=== PATIENT | female | born 1935 | race Caucasian/White ===

== ENCOUNTER 2016-06-10 13:59 | Inpatient (IN) | payer OTHER ==
[~2016-06-10] VITALS: Ht 157.5 cm; Wt 100.8 kg
[~2016-06-10 13:59] MED LIST: ALLO300T2 PO; ALPR-411 PO; ASPI81TA28 PO; BUME2TAB3 PO; CALC0.2510 PO; CARV3.122 PO; CHOL100010 PO; CYAN100048 INJ; FERR1TAB13 PO; GABA-113 PO; LCTX PO; LEVO25TA5 PO; NTRGSL/4 UT; OXGN; PANT40TA PO; POLY335025 PO; POTA10CA28 PO; SENN-61 PO; TRAM-10 PO
--- NOTE | 2016-06-10 14:43 | EMERGENCY ROOM VISIT NOTE ---
History Report prepared by Marnie: Edith Medrano Under the Supervision of: Dr. Hima Le M.D. First contact with patient: 14:32 Chief Complaint: RESPIRATORY PROBLEMS Stated Complaint: CHF (FLUID BUILD-UP) History of Present Illness The patient is an 81 year old female who presents to the Emergency Room with complaints of persistent weakness that began several weeks ago. The patient notes that she has a history of fluid build up in her bilateral lower extremities and abdomen. She denies any chest pain, shortness of breath, loss of consciousness, nausea, vomiting, melena, hematochezia, or abdominal pain. The patient denies ever having the fluid drained from her abdomen. She denies any history of liver failure. The patient states that she is on 3 liters of supplemental oxygen at home. She states that her last admission for her fluid build up was in February. The patient states that she recently had an adjustment of her medications. Source of History: patient Onset: several weeks Position: other (global) Quality: other (weakness) Timing: other (persistent) Associated Symptoms: No LOC, No SOB, No abdominal pain, No chest pain, No hematochezia, No melena, No nausea, No vomiting Note: Associated Symptoms: fluid build up in legs and abdomen. Review of Systems See HPI for pertinent positives & negatives. A total of 10 systems reviewed and were otherwise negative. 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 (13) HTN (hypertension) (14) Hypokalemia, excessive renal losses (15) Obesity (16) Oliguria and anuria (17) Pulmonary hypertension (18) Pulmonary hypertension, moderate to severe (19) Renal calculi (20) Septicemia due to group B Streptococcus (21) Severe tricuspid regurgitation Surgical Problems: (1) H/O lumpectomy (2) History of hip surgery (3) S/P JESSEE-BSO Family History Diabetes mellitus FH: heart disease Stroke Social History Smoking Status: Former Smoker Drug Use: none Housing Status: lives with family Occupation Status: retired Current/Historical Medications Scheduled Allopurinol (Zyloprim), 300 MG PO QAM Alprazolam (Xanax), 0.5 MG PO HS Aspirin (Aspirin Ec), 81 MG PO QAM Bumetanide (Bumex), 3 MG PO BID Calcitriol (Rocaltrol Cap), 0.25 MCG PO M, W, F Carvedilol (Coreg), 1 TAB PO BIDM Cholecalciferol (Vitamin D), 2,000 INTER.UNIT PO QAM Cyanocobalamin (Vitamin B-12), 1,000 MCG INJ MONTHLY Ferrous Sulfate (Kp Ferrous Sulfate), 1 TAB PO QAM Gabapentin (Neurontin), 300 MG PO HS Levothyroxine Sodium (Levothyroxine Sodium), 25 MCG PO QAM Metolazone (Metolazone), 5 MG PO 3XWK Nitroglycerin (Nitrostat), 0.4 MG UT PRN Oxygen (Oxygen), 2-3 LITERS NA CONTINOUS Pantoprazole (Protonix), 40 MG PO DINNER Potassium Chloride (Micro-K Ext Rel), 20 MEQ PO BID Scheduled PRN Polyethylene Glycol 3350 (Miralax), 17 GM PO DAILY PRN for Constipation Senna (Senokot), 1 TAB PO DAILY PRN for Constipation Tramadol (Ultram), 50 MG PO Q6H PRN for Pain Allergies Coded Allergies: No Known Allergies (Verified , 06/10/16) Physical Exam Vital Signs Date Time Temp Pulse Resp B/P Pulse Ox O2 Delivery O2 Flow Rate FiO2 06/10/16 15:20 79 23 97/43 96 Nasal Cannula 3.0 06/10/16 14:44 93 Nasal Cannula 3.0 06/10/16 14:38 77 06/10/16 14:30 96 Nasal Cannula 3.0 06/10/16 14:02 36.4 81 20 105/59 97 Nasal Cannula 3.0 Physical Exam GENERAL: Patient is chronically unwell appearing and in minimal distress. HEENT: No acute trauma, normocephalic atraumatic, mucous membranes moist, no nasal congestion, no scleral icterus. NECK: No stridor, no adenopathy, no meningismus, trachea is midline. LUNGS: Crackles in bilateral lung bases. No dyspnea. No wheeze, no rhonchi. HEART: Irregular rate and rhythm. No murmurs, rubs, gallops appreciated. ABDOMEN: 4+ edema in upper abdomen. Soft, nontender, bowel sounds positive, no masses appreciated, no peritonitis. BACK: No midline tenderness, no CVA tenderness EXTREMITIES: 4+ edema in bilateral legs. Normal motion all extremities, no cyanosis. NEUROLOGIC: Alert and oriented, no acute motor or sensory deficits, no focal weakness, cranial nerves grossly intact. SKIN: No rash, no jaundice, no diaphoresis. Medical Decision & Procedures ER Provider Diagnostic Interpretation: X ray results are stated below per my interpretation and the radiologist's interpretation. CHEST ONE VIEW PORTABLE CLINICAL HISTORY: Fluid Overload COMPARISON STUDY: Chest radiograph March 24, 2016. FINDINGS: There is no pneumothorax. Bilateral pleural effusions have slightly increased since exam March 24, 2016. Interstitial thickening suggests pulmonary edema. Bibasilar opacities persist. The patient is rotated. IMPRESSION: 1. Bilateral pleural effusions, likely at least moderate in size. Associated bibasilar opacities statistically represent atelectasis although consolidation could appear similar. 2. Mild pulmonary edema. Electronically signed by: Gaurav Hunter M.D. 06/10/2016 3:27 PM Laboratory Results 06/10/16 15:00 Red Blood Count 3.60, Mean Corpuscular Volume 102.2, Mean Corpuscular Hemoglobin 33.6, Mean Corpuscular Hemoglobin Concent 32.9, Mean Platelet Volume 11.2, Neutrophils (%) (Auto) 76.5, Lymphocytes (%) (Auto) 11.6, Monocytes (%) ( Auto) 10.7, Eosinophils (%) (Auto) 1.0, Basophils (%) (Auto) 0.1, Neutrophils # (Auto) 5.41, Lymphocytes # (Auto) 0.82, Monocytes # (Auto) 0.76, Eosinophils # ( Auto) 0.07, Basophils # (Auto) 0.01 06/10/16 15:00 Test 06/10/16 15:00 White Blood Count 7.08 K/uL (4.8-10.8) Red Blood Count 3.60 M/uL (4.2-5.4) Hemoglobin 12.1 g/dL (12.0-16.0) Hematocrit 36.8 % (37-47) Mean Corpuscular Volume 102.2 fL (80-100) Mean Corpuscular Hemoglobin 33.6 pg (25-34) Mean Corpuscular Hemoglobin Concent 32.9 g/dl (32-36) Platelet Count 74 K/uL (130-400) Mean Platelet Volume 11.2 fL (7.4-10.4) Neutrophils (%) (Auto) 76.5 % Lymphocytes (%) (Auto) 11.6 % Monocytes (%) (Auto) 10.7 % Eosinophils (%) (Auto) 1.0 % Basophils (%) (Auto) 0.1 % Neutrophils # (Auto) 5.41 K/uL (1.4-6.5) Lymphocytes # (Auto) 0.82 K/uL (1.2-3.4) Monocytes # (Auto) 0.76 K/uL (0.11-0.59) Eosinophils # (Auto) 0.07 K/uL (0-0.5) Basophils # (Auto) 0.01 K/uL (0-0.2) RDW Standard Deviation 58.0 fL (36.4-46.3) RDW Coefficient of Variation 15.5 % (11.5-14.5) Immature Granulocyte % (Auto) 0.1 % Immature Granulocyte # (Auto) 0.01 K/uL (0.00-0.02) Platelet Estimate DECREASED Red Blood Cell Morphology Unremarkable Prothrombin Time 14.8 SECONDS (9.0-12.0) Prothromb Time International Ratio 1.4 (0.9-1.1) Activated Partial Thromboplast Time 46.0 SECONDS (21.0-31.0) Partial Thromboplastin Ratio 1.8 Anion Gap 10.0 mmol/L (3-11) Est Creatinine Clear Calc Drug Dose 17.9 ml/min Estimated GFR () 19.1 Estimated GFR (Non- 16.5 BUN/Creatinine Ratio 44.7 (10-20) Calcium Level 9.2 mg/dl (8.5-10.1) Magnesium Level 2.8 mg/dl (1.8-2.4) Total Bilirubin 1.4 mg/dl (0.2-1) Direct Bilirubin 0.8 mg/dl (0-0.2) Aspartate Amino Transf (AST/SGOT) 25 U/L (15-37) Alanine Aminotransferase (ALT/SGPT) 15 U/L (12-78) Alkaline Phosphatase 114 U/L (45-117) Total Creatine Kinase 32 U/L (26-192) Creatine Kinase MB 1.3 ng/ml (0.5-3.6) Creatine Kinase MB Ratio 4.1 (0-3.0) Troponin I 0.031 ng/ml (0-0.045) Pro-B-Type Natriuretic Peptide 9094 pg/ml (0-1800) Total Protein 7.5 gm/dl (6.4-8.2) Albumin 3.2 gm/dl (3.4-5.0) Laboratory results as reviewed by me. ECG Indication: weakness Rate (beats per minute): 76 Rhythm: atrial flutter Findings: no acute ischemic change, other (variable rate) ED Course 1433: The patient was evaluated in room B6. A complete history and physical exam was performed. 1545: I discussed the patients case with Nancy Bunn. He is going to evaluate the patient for further treatment. 1550: I reevaluated the patient and she is doing well. I discussed the exam findings with her and I discussed the treatment plan. She verbalized complete understanding and agreement. She will be evaluated for further treatment. Medical Decision Differential: Infectious, Reactive Airway Disease, Pneumonia, Pneumothorax, COPD , CHF, ACS, Pulmonary Embolism, MSK, GI, Dissection, amongst other etiologies entertained. 81 yr old female arrives for evaluation of worsening dyspnea with exertion, leg/ abdominal swelling and failure of attempt to treat this as outpatient. On work -up found to have bilateral moderate effusions. She is severely overloaded and anasarca. Will defer lasix to hospitalists given her tenuous renal function which has acutely worsened. She is stable in ed feeling better on NC o2. She has entered pulm edema from her CHF but is not requiring BiPAP at this time. Consults Time Called: 1540 Consulting Physician: Nancy Bunn Returned Call: 1545 I discussed the patients case with Nancy Bunn. He is going to evaluate the patient for further treatment. Impression Primary Impression: Congestive heart failure Additional Impressions: Bilateral pleural effusion, Anasarca, Pulmonary edema , Acute on chronic renal failure Scribe Attestation The scribe's documentation has been prepared under my direction and personally reviewed by me in its entirety. I confirm that the note above accurately reflects all work, treatment, procedures, and medical decision making performed by me. Departure Information Dispostion Being Evaluated By Hospitalist Rashad Shirley M.D. (PCP)
[2016-06-10 15:11] LABS: HEMATOCRIT 36.8 % (37-47); MEAN CELL VOLUME 102.2 fL (80-100); MEAN CORPUSCULAR HEMOGLOBIN 33.6 pg (25-34); MEAN CORPUSCULAR HGB CONC 32.9 g/dl (32-36); WHITE BLOOD COUNT 7.08 K/uL (4.8-10.8)
[2016-06-10 15:29] LABS: INR 1.4 (0.9-1.1); PARTIAL THROMBOPLASTIN RATIO 1.8; PROTHROMBIN TIME (PATIENT) 14.8 SECONDS (9.0-12.0)
--- NOTE | 2016-06-10 15:29 | DIAGNOSTIC IMAGING REPORT ---
CHEST ONE VIEW PORTABLE CLINICAL HISTORY: Fluid Overload COMPARISON STUDY: Chest radiograph March 24, 2016. FINDINGS: There is no pneumothorax. Bilateral pleural effusions have slightly increased since exam March 24, 2016. Interstitial thickening suggests pulmonary edema. Bibasilar opacities persist. The patient is rotated. IMPRESSION: 1. Bilateral pleural effusions, likely at least moderate in size. Associated bibasilar opacities statistically represent atelectasis although consolidation could appear similar. 2. Mild pulmonary edema. Electronically signed by: Gaurav Hunter M.D. 06/10/2016 3:27 PM
[2016-06-10 15:31] LABS: BUN/CREATININE RATIO 44.7 (10-20); CALCIUM 9.2 mg/dl (8.5-10.1); CREATININE 2.6 mg/dl (0.60-1.20); MAGNESIUM 2.8 mg/dl (1.8-2.4); POTASSIUM 3.2 mmol/L (3.5-5.1)
[2016-06-10] MEDS ORDERED: BUME1TAB43 PO (15:32)
[2016-06-10] MEDS ORDERED: ZRX5 PO (15:32)
[2016-06-10 15:34] LABS: CKMB/CK RATIO 4.1 (0-3.0)
[2016-06-10 15:48] LABS: PLATELET COUNT 74 K/uL (130-400)
[2016-06-10 15:49] LABS: BASO % 0.1 %; BASO ABS # 0.01 K/uL (0-0.2); COMPLETE YES; IG% 0.1 %; LYMPH % 11.6 %; LYMPH ABS # 0.82 K/uL (1.2-3.4); MEAN PLATELET VOLUME 11.2 fL (7.4-10.4); MONO % 10.7 %; NEUT % 76.5 %; PLT ESTIMATE DECREASED
[2016-06-10] MEDS ORDERED: POTASSIUM CHLR 20 MEQ / WTR 20 MEQ in PREMIXED WATER 100 ML IV STA (15:57)
[2016-06-10] MEDS ORDERED: ALUMINUM/MAGNESIUM/SIMETH (MAALOX MAX) 30 ML UDC PO PRN (16:00)
[2016-06-10] MEDS ORDERED: POLYETHYLENE (MIRALAX) 17 GM PACK PO PRN ×2 (16:00→17:30)
[2016-06-10] MEDS ORDERED: ENOXAPARIN 40 MG/0.4 ML SYR SC SCH (16:00)
[2016-06-10] MEDS: POTASSIUM CHLORIDE 10 MEQ / 100ML WTR IV SCH ×2 (16:45→17:45)
[2016-06-10] MEDS ORDERED: NITROGLYCERIN 0.4 MG SL PER TAB CHARGE UT PRN (17:30)
[2016-06-10 17:56] VITALS: BP 102/57; PULSE 80; TEMP 36.9; O2SAT 96; Ht 157.5 cm; Wt 100.8 kg
[2016-06-10] MEDS: CARVEDILOL 3.125 MG TAB PO SCH (18:00)
[2016-06-10] MEDS ORDERED: ALBUMIN HUMAN 25% 12.5 GM/50 ML VIAL IV ONE (18:00)
--- NOTE | 2016-06-10 18:13 | History and Physical ---
History & Physical Date & Time of Service: Jun 10, 2016 at 17:55 Chief Complaint: Acute On Chronic Renal Failure Primary Care Physician: Rashad Case M.D. History of Present Illness Source: patient, family, clinic records, hospital records, other (nephrology) This is an 81 year old female with PMH of severe COPD and chronic respiratory failure requiring O2 continuously, severe pulmonary HTN and resultant right heart failure, CKD stage IV-V, recent AV-fistula placement awaiting maturation, hx. of paroxysmal atrial fibrillation, not on anticoagulation, anemia due to CKD presents with worsening lower extremity edema. This has been a persistent issue due to right heart failure - spoke with nephrology, Dr. Elizabeth, who patient has been seeing recently. Recent adjustment of bumex and metolazone dose as an outpatient; patient and family still notice a 3kg increase in weight. +4 pitting edema persists in the lower extremities and abdomen. Patient states there is no shortness of breath, and her breathing status is at baseline. Family concerned because they thought she was also more lethargic than usual. She answered all questions appropriately for me. Past Medical/Surgical History Medical Problems: (1) Anemia Status: Chronic (2) Atrial fibrillation Status: Chronic (3) Breast cancer Status: Resolved (4) Chronic diastolic CHF (congestive heart failure) Status: Chronic (5) Chronic renal disease, stage IV Status: Chronic (6) COPD (chronic obstructive pulmonary disease) Permanent Comment: severe Status: Chronic (7) Cor pulmonale, chronic Status: Chronic (8) DM2 (diabetes mellitus, type 2) Permanent Comment: diet-controlled Status: Chronic (9) HTN (hypertension) Status: Chronic (10) Obesity Status: Chronic (11) Pulmonary hypertension Status: Chronic (12) Renal calculi Status: Resolved Surgical Problems: (1) H/O lumpectomy Status: Chronic (2) History of hip surgery Permanent Comment: L KIT Status: Chronic (3) S/P JESSEE-BSO Status: Chronic Family History Diabetes mellitus FH: heart disease Stroke Social History Smoking Status: Former Smoker Drug Use: none Occupational Status: retired Immunizations History of Influenza Vaccine: Yes Influenza Vaccine Date: Mar 15, 2016 History of Pneumococcal: Yes Pneumococcal Date: Mar 15, 2016 Multi-Drug Resistant Organisms History of MDRO: No Allergies Coded Allergies: No Known Allergies (Verified , 06/10/16) Home Medications Scheduled Allopurinol (Zyloprim), 300 MG PO QAM Alprazolam (Xanax), 0.5 MG PO HS Aspirin (Aspirin Ec), 81 MG PO QAM Bumetanide (Bumex), 3 MG PO BID Calcitriol (Rocaltrol Cap), 0.25 MCG PO M, W, F Carvedilol (Coreg), 1 TAB PO BIDM Cholecalciferol (Vitamin D), 2,000 INTER.UNIT PO QAM Cyanocobalamin (Vitamin B-12), 1,000 MCG INJ MONTHLY Ferrous Sulfate (Kp Ferrous Sulfate), 1 TAB PO QAM Gabapentin (Neurontin), 300 MG PO HS Levothyroxine Sodium (Levothyroxine Sodium), 25 MCG PO QAM Metolazone (Metolazone), 5 MG PO 3XWK Nitroglycerin (Nitrostat), 0.4 MG UT PRN Oxygen (Oxygen), 2-3 LITERS NA CONTINOUS Pantoprazole (Protonix), 40 MG PO DINNER Potassium Chloride (Micro-K Ext Rel), 20 MEQ PO BID Scheduled PRN Polyethylene Glycol 3350 (Miralax), 17 GM PO DAILY PRN for Constipation Senna (Senokot), 1 TAB PO DAILY PRN for Constipation Tramadol (Ultram), 50 MG PO Q6H PRN for Pain Review of Systems Constitutional: + weakness, No chills, No fever Respiratory: No cough, No dyspnea at rest, No dyspnea on exertion, No shortness of breath, No sputum Cardiovascular: + edema, No chest pain, No palpitations Abdomen: + problem reported (swelling in the legs), No diarrhea, No nausea, No pain, No vomiting Genitourinary - Female: No dysuria, No urinary frequency, No urinary urgency Neurologic: No numbness/tingling Psychiatric: No anxiety Hematologic / Lymphatic: No abnormal bleeding/bruising Integumentary: No rash Allergic / Immunologic: No environmental allergies, No seasonal allergies Physical Exam Vital Signs Date Time Temp Pulse Resp B/P Pulse Ox O2 Delivery O2 Flow Rate FiO2 06/10/16 17:26 74 23 92/44 97 06/10/16 17:00 74 23 92/44 97 Nasal Cannula 3.0 06/10/16 15:20 79 23 97/43 96 Nasal Cannula 3.0 06/10/16 14:44 93 Nasal Cannula 3.0 06/10/16 14:38 77 06/10/16 14:30 96 Nasal Cannula 3.0 06/10/16 14:02 36.4 81 20 105/59 97 Nasal Cannula 3.0 General Appearance: no apparent distress Head: normocephalic, atraumatic Respiratory/Chest: no respiratory distress, no accessory muscle use, + decreased breath sounds Cardiovascular: regular rate, rhythm, no murmur Abdomen/GI: soft, + pertinent finding (swelling in the abdomen) Extremities/Musculoskelatal: + pedal edema, + swelling (+3-4 pitting edema b/l LE), + pertinent finding (non-tender, non-painful) Neurologic/Psych: clinical partner II-XII nml as tested, no motor/sensory deficits, alert, oriented x 3 Skin: normal color Lymphatic: no adenopathy Diagnostics Laboratory Results Results Past 24 Hours Test 06/10/16 15:00 06/10/16 17:38 Range/Units White Blood Count 7.08 4.8-10.8 K/uL Red Blood Count 3.60 4.2-5.4 M/uL Hemoglobin 12.1 12.0-16.0 g/dL Hematocrit 36.8 37-47 % Mean Corpuscular Volume 102.2 80-100 fL Mean Corpuscular Hemoglobin 33.6 25-34 pg Mean Corpuscular Hemoglobin Concent 32.9 32-36 g/dl Platelet Count 74 130-400 K/uL Mean Platelet Volume 11.2 7.4-10.4 fL Neutrophils (%) (Auto) 76.5 % Lymphocytes (%) (Auto) 11.6 % Monocytes (%) (Auto) 10.7 % Eosinophils (%) (Auto) 1.0 % Basophils (%) (Auto) 0.1 % Neutrophils # (Auto) 5.41 1.4-6.5 K/uL Lymphocytes # (Auto) 0.82 1.2-3.4 K/uL Monocytes # (Auto) 0.76 0.11-0.59 K/uL Eosinophils # (Auto) 0.07 0-0.5 K/uL Basophils # (Auto) 0.01 0-0.2 K/uL RDW Standard Deviation 58.0 36.4-46.3 fL RDW Coefficient of Variation 15.5 11.5-14.5 % Immature Granulocyte % (Auto) 0.1 % Immature Granulocyte # (Auto) 0.01 0.00-0.02 K/uL Platelet Estimate DECREASED Red Blood Cell Morphology Unremarkable Prothrombin Time 14.8 9.0-12.0 SECONDS Prothromb Time International Ratio 1.4 0.9-1.1 Activated Partial Thromboplast Time 46.0 21.0-31.0 SECONDS Partial Thromboplastin Ratio 1.8 Sodium Level 136 136-145 mmol/L Potassium Level 3.2 3.5-5.1 mmol/L Chloride Level 96 98-107 mmol/L Carbon Dioxide Level 30 21-32 mmol/L Anion Gap 10.0 3-11 mmol/L Blood Urea Nitrogen 116 7-18 mg/dl Creatinine 2.60 0.60-1.20 mg/dl Est Creatinine Clear Calc Drug Dose 17.9 ml/min Estimated GFR () 19.1 Estimated GFR (Non- 16.5 BUN/Creatinine Ratio 44.7 10-20 Random Glucose 85 70-99 mg/dl Calcium Level 9.2 8.5-10.1 mg/dl Magnesium Level 2.8 1.8-2.4 mg/dl Total Bilirubin 1.4 0.2-1 mg/dl Direct Bilirubin 0.8 0-0.2 mg/dl Aspartate Amino Transf (AST/SGOT) 25 15-37 U/L Alanine Aminotransferase (ALT/SGPT) 15 12-78 U/L Alkaline Phosphatase 114 45-117 U/L Total Creatine Kinase 32 26-192 U/L Creatine Kinase MB 1.3 0.5-3.6 ng/ml Creatine Kinase MB Ratio 4.1 0-3.0 Troponin I 0.031 0-0.045 ng/ml Pro-B-Type Natriuretic Peptide 9094 0-1800 pg/ml Total Protein 7.5 6.4-8.2 gm/dl Albumin 3.2 3.4-5.0 gm/dl Bedside Glucose 80 70-90 mg/dl Diagnostic Radiology CHEST ONE VIEW PORTABLE CLINICAL HISTORY: Fluid Overload COMPARISON STUDY: Chest radiograph March 24, 2016. FINDINGS: There is no pneumothorax. Bilateral pleural effusions have slightly increased since exam March 24, 2016. Interstitial thickening suggests pulmonary edema. Bibasilar opacities persist. The patient is rotated. IMPRESSION: 1. Bilateral pleural effusions, likely at least moderate in size. Associated bibasilar opacities statistically represent atelectasis although consolidation could appear similar. 2. Mild pulmonary edema. Impression Assessment and Plan This is an 81 year old female with PMH of severe COPD and chronic respiratory failure requiring O2 continuously, severe pulmonary HTN and resultant right heart failure, CKD stage IV-V, recent AV-fistula placement awaiting maturation, hx. of paroxysmal atrial fibrillation, not on anticoagulation, anemia due to CKD presents with worsening lower extremity edema. Severe Pulmonary HTN Right Heart Failure -->patient presents with worsening edema in the LE and abdomen -->recent change in mediations, Bumex 3mg BID and metolazone 5mg -->I spoke with nephrology, Dr. Elizabeth - will do IV Bumex 3mg BID for now -->monitor I's and O's and daily weights -->if no significant increase in urinary output, may need Bumex drip -->monitor kidney function, but benefits outweigh worsening kidney function Severe COPD Chronic Respiratory Failure -->no change in breathing status, no respiratory status change -->continue current O2 use CKD stage IV -->for now, not getting dialysis, creat at 2.6 -->AV fistula - left arm - not mature yet -->will get vascular surgery consult to check this -->nephrology consultation and monitor kidney function DVT ppx -->subq heparin, monitor H/H FULL CODE VTE Prophylaxis VTE Risk Assessment Done? Y/N: Yes Risk Level: Moderate
[2016-06-10 18:46] VITALS: BP 94/42; PULSE 88; TEMP 36.7; O2SAT 92
[2016-06-10] MEDS: BUMETANIDE IV 3 MG in SYRINGE 0 ML IV SCH (19:26)
[2016-06-10] MEDS: POTASSIUM CHLR 10 MEQ / WTR 10 MEQ in PREMIXED WATER 100 ML IV SCH ×2 (19:26→20:51)
[2016-06-10] MEDS: GABAPENTIN 300 MG CAP PO SCH (19:27)
[2016-06-10] MEDS: POTASSIUM CHLORIDE 10 MEQ TABCR PO SCH (19:28)
[2016-06-10 20:00] VITALS: O2SAT 92
[2016-06-10 20:13] VITALS: BP 92/46; PULSE 78; TEMP 36.7; O2SAT 95
[2016-06-10] MEDS: HEPARIN SOD 5000 UNIT/0.5 ML CARP SQ SCH (21:27)
[2016-06-10 22:22] VITALS: PULSE 81; O2SAT 93
[2016-06-11] VITALS (9 sets, daily range): BP systolic 92–117; BP diastolic 43–50; PULSE 18–82; TEMP 36.4–36.8; O2SAT 91–98
[2016-06-11] MEDS: ALPRAZOLAM 0.5 MG TAB PO SCH ×2 (00:39→19:56)
[2016-06-11] MEDS: LEVOTHYROXINE 25 MCG TAB PO SCH (05:24)
[2016-06-11] MEDS: HEPARIN SOD 5000 UNIT/0.5 ML CARP SQ SCH ×3 (05:24→20:32)
[2016-06-11 06:48] LABS: HEMATOCRIT 37.8 % (37-47); MEAN CELL VOLUME 102.7 fL (80-100); MEAN CORPUSCULAR HEMOGLOBIN 33.2 pg (25-34); MEAN CORPUSCULAR HGB CONC 32.3 g/dl (32-36); RED BLOOD COUNT 3.68 M/uL (4.2-5.4); WHITE BLOOD COUNT 6.33 K/uL (4.8-10.8)
[2016-06-11 06:50] LABS: MEAN PLATELET VOLUME 10.8 fL (7.4-10.4); PLATELET COUNT 67 K/uL (130-400)
[2016-06-11 07:19] LABS: BUN/CREATININE RATIO 50.8 (10-20); CALCIUM 8.9 mg/dl (8.5-10.1); CREATININE 2.5 mg/dl (0.60-1.20); MAGNESIUM 2.8 mg/dl (1.8-2.4); POTASSIUM 3.6 mmol/L (3.5-5.1)
--- NOTE | 2016-06-11 07:29 | Clinical Documentation Query ---
Dr. BRISCOE [facility] : CLINICAL DOCUMENTATION QUERY Patient is an 81 year old female admitted with "right heart failure" in the setting of severe pulmonary hypertension. She is being treated with IV Bumex and monitored with I/O and serial chemistries. Echocardiogram from 04/07 demonstrated severe RV dilation with severely reduced RV systolic function in the setting of severe pulmonary hypertension. Please explicitly specify the type of CHF in your patient as this directly impacts DRG assignment. Thank you. In your clinical opinion is this patient being managed for: (x ) Acute systolic right ventricular congestive heart failure ( ) Other explanation of clinical findings (Please Explain) ( ) Unable to determine (Please Define) ( ) Need to Discuss ( ) Not Agree The medical record reflects the following clinical findings, treatment, and risk factors. Clinical Indicators: As above Treatment: Serial chemistries, I/O, cardiology and nephrology consultation Risk Factors: Cardiorenal syndrome, severe pulmonary hypertension Please clarify and document your clinical opinion in the progress notes and discharge summary. Terms such as "probable", "suspected", "likely", "questionable", "possible", or "still to be ruled out" are acceptable. IF IN AGREEMENT, YOU MUST DOCUMENT ABOVE DIAGNOSTIC STATEMENT IN DAILY PROGRESS NOTES AND DISCHARGE SUMMARY. This document is not part of the patient's record. Thank You, Morgan Herrera, AVERY [phone]
[2016-06-11] MEDS: CARVEDILOL 3.125 MG TAB PO SCH ×2 (07:30→15:02)
[2016-06-11] MEDS: ASPIRIN 81 MG ECTAB PO SCH (07:44)
[2016-06-11] MEDS: FERROUS SULFATE 325 MG TAB PO SCH (07:44)
[2016-06-11] MEDS: PANTOprazole SOD 40 MG TAB PO SCH (07:45)
[2016-06-11] MEDS: METOLAZONE 5 MG TAB PO SCH (07:47)
[2016-06-11] MEDS: POTASSIUM CHLORIDE 10 MEQ TABCR PO SCH ×2 (07:50→19:55)
[2016-06-11] MEDS: BUMETANIDE IV 3 MG in SYRINGE 0 ML IV SCH (08:58)
--- NOTE | 2016-06-11 10:08 | Cardiology Consultation ---
Cardiology Consultation Cardiology Consultation: Date: 06/11/16 Attending Pants Presser: Dr. Bueno Requesting Physician: Dr. Cummings HPI: Ani Stiles is 81-year-old female who presented to [facility] yesterday with complaints of worsening SOB, LE edema, and abdominal bloating. She follows with Dr. Horton with [facility] and also has been evaluated by Dr. Mcdaniel and Dr. Guzman during admission last spring. I have also seen the patient most recently in the office last week with similar complaints. Prior to establishing with Nancy, she followed with Dr. Coffey in [place] for history of presumed non ischemic cardiomyopathy, LVEF 40-45% (no prior cardiac catheterization per family), history of chronic afib rate controlled ( no longer on anticoagulation therapy due to GI bleed and anemia), hsitory of cor pulmonale, severe pulm HTN and right heart failure. She follows with Dr. Elizabeth with [facility] who has been managing her outpatient diuretics. Last week patient presented with acute fluid overload, IV furosemide was offered but she had appointment with nephrology that day and patient/family wanted to wait for her evaluation and labs. Over the last week, despite titration of furosemide and addition of metolazone, patient states she had another 5 lb weight gain. At time of consult, patient feeling better than admission. Little urine output per nurse. Receiving IV Bumex and metolazone. Patient states her SOB has improved. Still has significant, likely chronic LE edema. No cough. No chest pain or dizziness. No sense of palpitations. No orthopnea, PND. Review Of Systems See above for pertinent positives & negatives. A total of 10 systems reviewed and were otherwise negative. PAST MEDICAL HISTORY: 1. Atrial fibrillation, no longer on anticoagulation therapy due to GI bleed. On ASA 81 mg 2. Recent GI bleed. 3. History of nonischemic cardiomyopathy, EF known to be 45% to 50%. 4. Cor pulmonale. 5. Pulmonary hypertension. 6. Chronic kidney disease, awaiting fistula maturation 7. History of tobacco abuse , COPD, chronic supplemental oxygen 8. Diabetes. 9. Hypertension. 10. Hypothyroidism. 11. Elevated BMI. 12. Arthritis. 13. Gout. 14. Moderate mitral regurgitation. PAST SURGICAL HISTORY: 1. EGD. 2. Colonoscopy, incomplete. 3. Mastectomy. 4. Hysterectomy. FAMILY HISTORY: Noncontributory SOCIAL HISTORY: Former smoker, quit in 1991. Denies chronic alcohol use. She lives at home with her son. Her daughter, Caren, is involved with her care as well. Allergies Coded Allergies: No Known Allergies (Verified , 10/30/15) Medications Reported Home Medications Medications Dose Route/Sig Max Daily Dose Days Date Category Dose Instructions Metolazone 5 Mg Tab 5 Mg PO 3XWK 06/10/16 Reported Bumex (Bumetanide) 1 Mg Tab 3 Mg PO BID 06/10/16 Reported Ultram (Tramadol HCl) 50 Mg Tab 50 Mg PO Q6H PRN 05/07/16 Rx Vitamin B-12 (Cyanocobalamin) 1,000 Mcg Sub 1,000 Mcg INJ MONTHLY 03/24/16 Reported Micro-K Ext Rel (Potassium Chloride) 10 Meq Capcr 20 Meq PO BID 03/24/16 Reported Oxygen Gas 2-3 Liters NA CONTINOUS 01/19/16 Reported Senokot (Senna) 8.6 Mg Tab 1 Tab PO DAILY PRN 01/19/16 Reported Nitrostat (Nitroglycerin) 0.4 Mg Tab 0.4 Mg UT PRN 01/19/16 Reported Kp Ferrous Sulfate (Ferrous Sulfate) 325 Mg Tab 1 Tab PO QAM 01/19/16 Reported Aspirin Ec (Aspirin) 81 Mg Tab 81 Mg PO QAM 01/19/16 Reported Miralax (Polyethylene Glycol 3350) 1 Pow Pow 17 Gm PO DAILY PRN 01/02/16 Reported Coreg (Carvedilol) 3.125 Mg Tab 1 Tab PO BIDM 30 01/02/16 Reported PER DAUGHTER: IF BP IS LOW PT DOES NOT TAKE A DOSE Levothyroxine Sodium 25 Mcg Tab 25 Mcg PO QAM 10/30/15 Reported Vitamin D (Cholecalciferol) 1,000 Inter.unit Tab 2,000 Inter.unit PO QAM 10/30/15 Reported Xanax (Alprazolam) 0.5 Mg Tab 0.5 Mg PO HS 10/30/15 Reported Protonix (Pantoprazole Sodium) 40 Mg Tab 40 Mg PO DINNER 10/30/15 Reported Zyloprim (Allopurinol) 300 Mg Tab 300 Mg PO QAM 10/30/15 Reported TAKE AM SURGERY SIP WATER Rocaltrol Cap (Calcitriol) 0.25 Mcg Cap 0.25 Mcg PO M, W, F 10/30/15 Reported Neurontin (Gabapentin) 300 Mg Cap 300 Mg PO HS 10/30/15 Reported Physical Exam Last 8 Hrs Date Time Temp Pulse Resp B/P Pulse Ox O2 Delivery O2 Flow Rate FiO2 06/11/16 08:30 36.4 78 18 98/46 92 Nasal Cannula 4.0 06/11/16 04:12 36.4 77 93 92/48 92 2.0 18 06/11/16 04:00 91 Nasal Cannula 3.0 General Appearance: chronically ill in appearance Head: Normocephalic Atraumatic. Eyes: PERRLA, EOMI, conjunctiva and scleral icterus Neck: Supple. No carotid bruits noted. No JVD. No HJD. Respiratory: decreased breath sounds b/l Cardiovascular: irregular rhythm Abdomen: distended Extremities: 2+ hard indurated edema, erythema Neuro: No focal deficits. Data Prior Echocardiogram reviewed, dated 03/27/2016 at [facility] and interpreted by Dr. Guzman: The right ventricle is severely dilated. The right ventricular systolic function is severely reduced. The left ventricular cavity is small. Flattened septum is consistent with RV pressure/volume overload. Left ventricular systolic function is low normal. The qualitative LV ejection fraction =50%. There is severe tricuspid regurgitation. Severe pulmonary hypertension is present. The PA systolic pressure is > 70 mm Hg. There is mild mitral regurgitation. There is a small circumferential pericardial effusion. There are no echocardiographic indications of cardiac tamponade. No definite valvular vegetations noted within the scope of this imaging modality. Compared to the prior study dated 11/10/15 a right pleural effusion is and small pericardial effusion is now noted. Assessment & Plan 81 year old female 1. Acute on chronic combined systolic and diastolic, right greater than left, heart failure decompensation, failing outpatient treatment, complicated by ESRD , cardiorenal syndrome 2. Moderate, enlarging b/l Pleural effusions 3. 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 5. Severe COPD 6.Pulmonary hypertension with chronic cor pulmonale 7.Chronic atrial fibrillation, rate controlled. 8.Obesity 9.Diabetes mellitus 0.History of chronic anemia, recent GI bleed, and not a candidate for anticoagulation Plan: Continue current diuretic therapy with albumin as recommended by nephrology. Monitor I+O's US of chest to quantify enlarging pleural effusions, gustavo for thoracentesis if possible? Continue ASA Holding carvedilol due to hypotension per parameters (patient asymptomatic). Prior admissions required use of dobutamine to aid with fluid status, will consider, if progress is slow. Case to be discussed with Dr. Bueno. Will follow as hospital course progresses. (Sheela Ochoa, PADalton) Cardiology attending physician: Patient seen and examined at the bedside. Significant abdominal bloating and lower extremity edema noted. Denies chest discomfort, palpitations, lightheadedness, disease, syncope or near-syncope. Patient sleeping upon arrival to bedside, however, easily awakens to verbal stimuli. PE:VSS, Gen:AAOx3. Heart: Irregular, normal S1-S2. Lungs: Crackles at the bases bilaterally. Abdomen: Obese, nontender, no rebound or guarding. Extremities: 2-3+ hard nonpitting pretibial bilateral edema. A/P: Agree with above PAC history, physical exam, assessment and plan. Will attempt aggressive diuresis with addition of albumin. Monitor daily weight, and fluid balance closely. Chest ultrasound has been performed and marked for possible thoracentesis if necessary. Also may consider addition of dobutamine to aid with diuresis if necessary. Thank you for allowing me to take part in the care of your patient. Olaf Bueno DO, FACC (Rudi Bueno DO)
--- NOTE | 2016-06-11 11:26 | DIAGNOSTIC IMAGING REPORT ---
CHEST ULTRASONOGRAPHY CLINICAL HISTORY: Bilateral pleural effusions COMPARISON STUDY: No previous studies for comparison. FINDINGS: There is a right pleural effusion with estimated volume of 1000 cc. There is a left pleural effusion with estimated volume of 300 cc. There is underlying left lung atelectasis/consolidation. IMPRESSION: Bilateral pleural effusions with estimated volume is of 1000 cc on the right, and 300 cc on the left Electronically signed by: Balta Vargas M.D. 06/11/2016 11:25 AM
--- NOTE | 2016-06-11 11:51 | Surgery Consultation ---
Consultation Date of Service Jun 11, 2016. Chief Complaint s/p LUE AVF creation History of Present Illness The patient is a 81 year old female with hx of CHF, CKD stage 4-5, HTN, CAD, who is approx 1 month s/p LUE basilic v AVF creation by Dr Penny, seen today for eval of her LUE AVF for possible use for HD if needed. Pt admits SOB and edema. Denies REY, fever, chills, chest pain, abd pain, N/V, rest pain, claudication, other complaints. Daughter present today as well. Vitals Vital Signs Past 12 Hours Date Time Temp Pulse Resp B/P Pulse Ox O2 Delivery O2 Flow Rate FiO2 06/11/16 08:30 36.4 78 18 98/46 92 Nasal Cannula 4.0 06/11/16 04:12 36.4 77 93 92/48 92 2.0 18 06/11/16 04:00 91 Nasal Cannula 3.0 06/11/16 00:12 36.6 82 20 98/49 91 06/11/16 00:00 91 Nasal Cannula 3.0 Allergies Coded Allergies: No Known Allergies (Verified , 06/10/16) Home Medications Scheduled Allopurinol (Zyloprim), 300 MG PO QAM Alprazolam (Xanax), 0.5 MG PO HS Aspirin (Aspirin Ec), 81 MG PO QAM Bumetanide (Bumex), 3 MG PO BID Calcitriol (Rocaltrol Cap), 0.25 MCG PO M, W, F Carvedilol (Coreg), 1 TAB PO BIDM Cholecalciferol (Vitamin D), 2,000 INTER.UNIT PO QAM Cyanocobalamin (Vitamin B-12), 1,000 MCG INJ MONTHLY Ferrous Sulfate (Kp Ferrous Sulfate), 1 TAB PO QAM Gabapentin (Neurontin), 300 MG PO HS Levothyroxine Sodium (Levothyroxine Sodium), 25 MCG PO QAM Metolazone (Metolazone), 5 MG PO 3XWK Nitroglycerin (Nitrostat), 0.4 MG UT PRN Oxygen (Oxygen), 2-3 LITERS NA CONTINOUS Pantoprazole (Protonix), 40 MG PO DINNER Potassium Chloride (Micro-K Ext Rel), 20 MEQ PO BID Scheduled PRN Polyethylene Glycol 3350 (Miralax), 17 GM PO DAILY PRN for Constipation Senna (Senokot), 1 TAB PO DAILY PRN for Constipation Tramadol (Ultram), 50 MG PO Q6H PRN for Pain Problem List Medical Problems: (1) Acute renal failure (2) Anemia (3) Atrial fibrillation (4) Breast cancer (5) Cardiorenal syndrome (6) Chronic diastolic CHF (congestive heart failure) (7) Chronic kidney disease, stage 4 (severe) (8) Chronic renal disease, stage IV (9) COPD (chronic obstructive pulmonary disease) (10) Cor pulmonale, chronic (11) DM2 (diabetes mellitus, type 2) (12) End stage COPD (13) HTN (hypertension) (14) Hypokalemia, excessive renal losses (15) Obesity (16) Oliguria and anuria (17) Pulmonary hypertension (18) Pulmonary hypertension, moderate to severe (19) Renal calculi (20) Septicemia due to group B Streptococcus (21) Severe tricuspid regurgitation Surgical Problems: (1) H/O lumpectomy (2) History of hip surgery (3) S/P JESSEE-BSO Surgical / Medical History Hx Cardiac Surgery: No Hx Abdominal Surgery: Yes Hx Cancer Surgery: Yes (right masectomy) Hx Thoracic Surgery: No Hx Orthopedic: No Hx Urinary Tract Surgery: No HX Other Surgery: No Past Medical/Surgical History: CHF, Hypertension, Kidney Disease Family History Diabetes mellitus FH: heart disease Stroke Social History Smoking Status: Former Smoker Hx Tobacco Use In Past Year?: No Hx Alcohol Use - Type & Amnt: No Hx Substance Use -Type & Amnt: No Review of Systems Constitutional: + malaise, No chills, No fever Skin: No change in color Eyes: No visual changes ENMT: No sore throat Respiratory: + GUTIERREZ, + cough, + orthopnea, + short of breath, No hemoptysis Cardiovascular: + edema, No chest pain, No chest pressure, No intermittent claudication, No syncope Gastrointestinal: No abdominal pain, No nausea, No vomiting Genitourinary - Female: No dysuria, No hematuria Neurologic: + weakness, No dizziness, No headache, No numbness, No tingling Physical Exam Constitutional: General Apperance: well-nourished, well-developed, obese Level of Distress: NAD, acutely ill, chronically ill Psychiatric: Mental Status: active & alert, normal mood, normal affect Orientation: oriented except where noted, to time, to place, to person Memory: recent memory normal, remote memory normal Head: normocephalic, atraumatic Eyes: EOM: EOMI ENMT: normal ENT inspection, hearing grossly normal Neck: supple, trachea midline Lungs: Respiratory effort: no dyspnea Auscultation: deminished air movement, decreased breath sounds, wet rales/ crackles Cardiovascular: Apical Impulse: not displaced Heart Auscultation: no rubs, no gallops, pertinent finding (irregular) Peripheral Pulses: Pulses: full and equal, in all extremities except if noted Bruits: none appreciated Carotid Pulse: normal on the left, normal on the right Brachial Pulses: normal on the left, normal on the right, pertinent finding (LUE basilic v AVF with excellent thrill/bruit, incision healed. ) Radial Pulse: normal on the left, normal on the right Femoral Pulse: normal on the left, normal on the right Posterior Tibialis Pulse: decreased on the left, decreased on the right Dorsalis Pedis Pulse: decreased on the left, decreased on the right Abdomen: Bowel Sounds: normal Inspection & Palpation: soft, no tenderness, guarding & rebound, distended Extremities: Upper Right: no cyanosis, no varicosities, no palpable cord, edema Upper Left: no cyanosis, no varicosities, no palpable cord, edema Lower Right: no cyanosis, no varicosities, no palpable cord, edema Lower Left: no cyanosis, no varicosities, no palpable cord, edema Neurologic: Cranial Nerves: grossly intact Sensation: grossly intact Assessment and Plan ASSESSMENT and PLAN: s/p LUE basilic v AVF creation CKD stage 4-5 Pt s/p first stage basilic v avf. Will require second stage surgery/ transposition before AVF will be usable for HD. Appears to be maturing well. Pt scheduled in office for reeval and to schedule basilic v transposition in June. If pt requires HD prior to AVF readiness, please call and we will place permcath for HD.
[2016-06-11] MEDS: BUMETANIDE IV 10 MG in DEXTROSE 5% 50ML 10 ML IV SCH ×2 (12:15→20:33)
--- NOTE | 2016-06-11 12:27 | Nephrology Consultation ---
Nephrology Consultation Date & Providers Date of Consultation: Jun 11, 2016. Primary Care Provider: Rashad Case M.D. Referring Provider: Reason for Consultation Evaluation management for acute kidney injury and diuretic resistant volume overload. History of Present Illness Ani is a very pleasant 81-year-old female with past medical history significant for stage 4 chronic kidney disease, pulmonary hypertension, tricuspid regurgitation, COPD an chronic diuretic resistant volume overload presented to the hospital with lethargy and increased weight gain over the weekend. Nephrologic consult was requested for management of acute kidney injury and volume overload. Electronic medical records were reviewed in detail during patient's visit. Patient's daughter Caren was at bedside. Ani has known history of stage 4 chronic kidney disease secondary to cardiorenal syndrome, baseline creatinine has been variable from 1.6-1.9. No history of significant proteinuria. Previously had urosepsis in the setting of obstructive uropathy with nephrolithiasis. She was recently seen in the office a week ago when her creatinine was stable at baseline. She has been on high dose of diuretics to maintain her volume status. previously had several episodes of acute kidney injury which eventually improved. She had left brachiocephalic AV fistula placed in April which is currently maturing but may need transposition. She has history of COPD, pulmonary hypertension, tricuspid regurgitation and right-sided heart failure. Has chronic 3+ nonpitting lower extremity and abdominal wall edema. Diuretics dose was difficult to manage as an outpatient in the setting of significant pulmonary hypertension. Bumex was increased to 3 milligram twice a day and metolazone 5 milligram p.o. 3 times a week was added almost a week ago. however, over the weekend she noticed decreasing urine output, gained more than 3 kilos and became more and more lethargic. She was prior to the emergence room yesterday by her family when she was found to have acute kidney injury, creatinine was 2.5 and BUN was 115 and other lab parameter is suggestive of intravascular volume depletion. On admission she was started on IV Bumex but her urine output did not increase as expected. She continues to have significant lower extremity and abdominal wall edema. Has a Herrera catheter in place. Currently she denies any shortness of breath, nausea, anorexia or abdominal pain. No fever, chills, cough or congestion. Allergies Coded Allergies: No Known Allergies (Verified , 12/19/16) Inpatient Medications Current Inpatient Medications Medications (Trade) Dose Ordered Sig/Yvette Route Start Time Stop Time Status Last Admin Dose Admin Al Hydrox/Mg Hydrox/Simethicone (Maalox Max Susp) 15 ml Q4H PRN PO 06/10/16 16:00 07/10/16 15:59 Magnesium Hydroxide (Milk Of Magnesia Susp) 30 ml Q12H PRN PO 06/10/16 16:00 07/10/16 15:59 Ondansetron HCl (Zofran Inj) 4 mg Q6H PRN IV 06/10/16 16:00 07/10/16 15:59 Polyethylene (Miralax Powder Packet) 17 gm DAILY PRN PO 06/10/16 16:00 07/10/16 15:59 Aspirin (Ecotrin Tab) 81 mg QAM PO 06/11/16 09:00 07/11/16 08:59 06/11/16 07:44 81 MG Carvedilol (Coreg Tab) 3.125 mg BIDM PO 06/10/16 18:00 07/10/16 17:59 Gabapentin (Neurontin Cap) 300 mg HS PO 06/10/16 21:00 07/10/16 20:59 06/10/16 19:27 300 MG Levothyroxine Sodium (Synthroid Tab) 25 mcg DAILYBB PO 06/11/16 06:00 07/11/16 05:59 06/11/16 05:24 25 MCG Nitroglycerin (Nitrostat Tab) 0.4 mg UD PRN UT 06/10/16 17:30 07/10/16 17:29 Pantoprazole Sodium (Protonix Tab) 40 mg DAILY PO 06/11/16 09:00 07/11/16 08:59 06/11/16 07:45 40 MG Potassium Chloride (Klor-Con M10) 20 meq BID PO 06/10/16 21:00 07/10/16 20:59 06/11/16 07:50 20 MEQ Senna (Senokot Tab) 8.6 mg DAILY PRN PO 06/10/16 17:30 07/10/16 17:29 Tramadol HCl (Ultram Tab) 50 mg Q6H PRN PO 06/10/16 17:30 07/10/16 17:29 Ferrous Sulfate (Feosol Tab) 325 mg QAM PO 06/11/16 09:00 07/11/16 08:59 06/11/16 07:44 325 MG Metolazone 5 mg 5 mg QAM PO 06/11/16 09:00 07/11/16 08:59 06/11/16 07:47 5 MG Bumetanide/Syringe (Bumex IV/ Syringe) 12 ml @ 4 mls/min BID17 IV 06/10/16 18:00 07/10/16 17:59 06/10/16 19:26 4 MLS/MIN Heparin Sodium (Porcine) (Heparin Sq 5000 Unit/0.5ml) 5,000 unit Q8 SQ 06/10/16 22:00 07/10/16 21:59 06/11/16 05:24 5,000 UNIT Alprazolam (Xanax Tab) 0.5 mg HS PO 06/10/16 21:00 07/10/16 20:59 Family History Diabetes mellitus FH: heart disease Stroke Social History Smoking Status: Former Smoker Drug Use: none Occupation: retired Review of Systems A complete review of systems was performed. Pertinent positives are noted above. All other systems are negative. Physical Exam Date Time Temp Pulse Resp B/P Pulse Ox O2 Delivery O2 Flow Rate FiO2 06/11/16 08:30 36.4 78 18 98/46 92 Nasal Cannula 4.0 06/11/16 04:12 36.4 77 93 92/48 92 2.0 18 06/11/16 04:00 91 Nasal Cannula 3.0 06/11/16 00:12 36.6 82 20 98/49 91 06/11/16 00:00 91 Nasal Cannula 3.0 06/10/16 22:22 81 93 3.0 06/10/16 20:13 36.7 78 18 92/46 95 3.0 06/10/16 20:00 92 Nasal Cannula 3.0 06/10/16 18:46 36.7 88 18 94/42 92 Nasal Cannula 3.0 06/10/16 17:56 36.9 80 19 102/57 96 Nasal Cannula 3.0 06/10/16 17:26 74 23 92/44 97 06/10/16 17:00 74 23 92/44 97 Nasal Cannula 3.0 06/10/16 15:20 79 23 97/43 96 Nasal Cannula 3.0 12/19/16 14:44 93 Nasal Cannula 3.0 06/10/16 14:38 77 06/10/16 14:30 96 Nasal Cannula 3.0 06/10/16 14:02 36.4 81 20 105/59 97 Nasal Cannula 3.0 GENERAL: Elderly female, AAA x 3, pleasant, healthy-appearing, not in any distress. HEENT: Atraumatic, normocephalic. NECK: Supple, + JVD, no carotid bruit appreciated. ENT: No sinus tenderness MOUTH and THROAT: Moist oral mucosa, no oral ulcer or pharyngeal erythema RESPIRATORY: Normal breathing efforts, no accessory muscle use, clear to auscultation bilaterally, no wheezes or rales. CARDIOVASCULAR: S1, S2 normal, rate rhythm regular. ABDOMEN: Soft, nontender, positive bowel sound, Abdominal wall edema MUSCULOSKELETAL: No CVA tenderness. No joint swelling, erythema or tenderness. Normal range of motion. SKIN: No skin rash EXTREMITY: bilateral non pitting, tense lower extremity edema, left brachiocephalic AV fistula with bruit. NEURO: No gross focal neurological deficit, speech fluent. PSYCHIATRY: Normal mood and judgment Laboratory Results Last 24 Hours Test 06/10/16 15:00 06/10/16 17:38 06/10/16 20:26 06/11/16 06:10 White Blood Count 7.08 K/uL 6.33 K/uL Red Blood Count 3.60 M/uL 3.68 M/uL Hemoglobin 12.1 g/dL 12.2 g/dL Hematocrit 36.8 % 37.8 % Mean Corpuscular Volume 102.2 fL 102.7 fL Mean Corpuscular Hemoglobin 33.6 pg 33.2 pg Mean Corpuscular Hemoglobin Concent 32.9 g/dl 32.3 g/dl Platelet Count 74 K/uL 67 K/uL Mean Platelet Volume 11.2 fL 10.8 fL Neutrophils (%) (Auto) 76.5 % Lymphocytes (%) (Auto) 11.6 % Monocytes (%) (Auto) 10.7 % Eosinophils (%) (Auto) 1.0 % Basophils (%) (Auto) 0.1 % Neutrophils # (Auto) 5.41 K/uL Lymphocytes # (Auto) 0.82 K/uL Monocytes # (Auto) 0.76 K/uL Eosinophils # (Auto) 0.07 K/uL Basophils # (Auto) 0.01 K/uL RDW Standard Deviation 58.0 fL 58.5 fL RDW Coefficient of Variation 15.5 % 15.6 % Immature Granulocyte % (Auto) 0.1 % Immature Granulocyte # (Auto) 0.01 K/uL Platelet Estimate DECREASED Red Blood Cell Morphology Unremarkable Prothrombin Time 14.8 SECONDS Prothromb Time International Ratio 1.4 Activated Partial Thromboplast Time 46.0 SECONDS Partial Thromboplastin Ratio 1.8 Sodium Level 136 mmol/L 137 mmol/L Potassium Level 3.2 mmol/L 3.6 mmol/L Chloride Level 96 mmol/L 96 mmol/L Carbon Dioxide Level 30 mmol/L 30 mmol/L Anion Gap 10.0 mmol/L 11.0 mmol/L Blood Urea Nitrogen 116 mg/dl 127 mg/dl Creatinine 2.60 mg/dl 2.50 mg/dl Est Creatinine Clear Calc Drug Dose 17.9 ml/min 19.2 ml/min Estimated GFR () 19.1 20.1 Estimated GFR (Non- 16.5 17.3 BUN/Creatinine Ratio 44.7 50.8 Random Glucose 85 mg/dl 108 mg/dl Calcium Level 9.2 mg/dl 8.9 mg/dl Magnesium Level 2.8 mg/dl 2.8 mg/dl Total Bilirubin 1.4 mg/dl Direct Bilirubin 0.8 mg/dl Aspartate Amino Transf (AST/SGOT) 25 U/L Alanine Aminotransferase (ALT/SGPT) 15 U/L Alkaline Phosphatase 114 U/L Total Creatine Kinase 32 U/L Creatine Kinase MB 1.3 ng/ml Creatine Kinase MB Ratio 4.1 Troponin I 0.031 ng/ml Pro-B-Type Natriuretic Peptide 9094 pg/ml Total Protein 7.5 gm/dl Albumin 3.2 gm/dl Bedside Glucose 80 mg/dl 120 mg/dl Test 06/11/16 06:54 Bedside Glucose 116 mg/dl Impression (1) Acute renal failure (2) Pulmonary hypertension, moderate to severe (3) Chronic kidney disease, stage 4 (severe) (4) Severe tricuspid regurgitation (5) Cardiorenal syndrome (6) Anemia (7) Bilateral pleural effusion Ani is a 81-year-old female with stage 4 chronic kidney disease, severe pulmonary hypertension, tricuspid regurgitation, history of COPD and diuretic resistant volume overload admitted to the hospital with worsening volume status and lethargy. At baseline she has stage 4 chronic kidney disease secondary to cardiorenal syndrome, baseline creatinine variable from a from 1.6-1.9, on admission she was found to have acute kidney injury creatinine has been 2.5-2.6 and BUN worsened to 127. has evidence of intravascular volume depletion however overall volume status worsened and has been less responsive to diuretics. She has left brachiocephalic AV fistula placed in April 2016 and currently maturing. At home she was on Bumex 3 milligram twice a day and metolazone 5 milligrams 3 times weekly but has been less responsive. On admission she was started on Bumex 3 milligrams IV twice a day with suboptimal response. Stop Bumex this morning and started on Bumex drip. Blood pressure has been running soft but she has been asymptomatic, denies any uremic symptoms. Has history of anemia, hemoglobin has been stable previously had GI bleeding, and currently no active bleeding. Recommendations -- Start on Bumex drip --will wait for vascular surgery evaluation of the AV fistula -- monitor renal function daily --Check phosphate and magnesium daily as patient is on high dose of diuretics -- replace potassium as needed --currently there is no emergency need for dialysis however, if response to diuretics is suboptimal or renal function worsened further may need tunnel dialysis catheter and emergency dialysis in next 24-48 hours -- dose medications for GFR less than 10 -- avoid nephrotoxins medications -- discussed the plan in detail with the primary team, patient and her daughter at bedside Thank you for allowing me to participate in your patient's care. It was a pleasure to see Ani This chart was completed utilizing [employer] Speech and voice recognition software. Grammatical errors, random word insertions, pronoun errors and incomplete sentences are occasional consequences of this system. Any questions or concerns about the content, text or information contained within the body of this dictation should be addressed directly to the physician for clarification.
[2016-06-11] MEDS: GABAPENTIN 300 MG CAP PO SCH (19:53)
--- NOTE | 2016-06-11 19:59 | Progress Note ---
Internal Med Progress Note Date of Service: Jun 11, 2016. Provider Documentation: SUBJECTIVE: resting comfortably on the chair denies sob feeling better than yesterday afebrile no cough no chest pain OBJECTIVE: Vital Signs-as noted below Exam: General-alert and awake and oriented ENT-Normal hearing Neck-no neck masses Lungs-cta b/l no wheezing or crackles Heart-s1 and s2 heard regular rate and rhythm, no murmurs Abdomen-soft bowel sounds present nn tender no distension Extremities-lower extremity edema present Neuro-alert and awake moves extremities Lab data as noted below. ASSESSMENT & PLAN: This is an 81 year old female with PMH of severe COPD and chronic respiratory failure requiring O2 continuously, severe pulmonary HTN and resultant right heart failure, CKD stage IV-V, recent AV-fistula placement awaiting maturation, hx. of paroxysmal atrial fibrillation, not on anticoagulation, anemia due to CKD presents with worsening lower extremity edema. Severe Pulmonary HTN Right Heart Failure Patient presents with worsening edema in the LE and abdomen Recently medications changd to , Bumex 3mg BID and metolazone 5mg was started on IV Bumex 3mg BID cardiology and nephrology on board and appreciate inputs required dobutamine drip in the past Nephrology started on Bumex drip and if no improvement plan for dialysis will monitor i/os Severe COPD Chronic Respiratory Failure stable will monitor CKD stage IV creat at 2.6 vascular surgery consulted and appreciate inputs DVT ppx subq heparin, monitor H/H FULL CODE DISPOSITION monitor in tele Vital Signs: Date Time Temp Pulse Resp B/P Pulse Ox O2 Delivery O2 Flow Rate FiO2 06/11/16 19:51 36.4 75 18 105/43 97 06/11/16 16:02 36.8 73 18 111/50 98 3.0 06/11/16 16:00 Nasal Cannula 3.0 06/11/16 12:12 36.7 81 20 117/49 97 Nasal Cannula 3.0 06/11/16 12:00 Nasal Cannula 3.0 06/11/16 08:30 36.4 78 18 98/46 92 Nasal Cannula 4.0 06/11/16 08:00 Nasal Cannula 3.0 06/11/16 04:12 36.4 77 93 92/48 92 2.0 18 06/11/16 04:00 91 Nasal Cannula 3.0 06/11/16 00:12 36.6 82 20 98/49 91 06/11/16 00:00 91 Nasal Cannula 3.0 06/10/16 22:22 81 93 3.0 06/10/16 20:13 36.7 78 18 92/46 95 3.0 06/10/16 20:00 92 Nasal Cannula 3.0 Lab Results: Results Past 24 Hours Test 06/10/16 20:26 06/11/16 06:10 06/11/16 06:54 06/11/16 10:52 Range/Units Bedside Glucose 120 116 190 70-90 mg/dl White Blood Count 6.33 4.8-10.8 K/uL Red Blood Count 3.68 4.2-5.4 M/uL Hemoglobin 12.2 12.0-16.0 g/dL Hematocrit 37.8 37-47 % Mean Corpuscular Volume 102.7 80-100 fL Mean Corpuscular Hemoglobin 33.2 25-34 pg Mean Corpuscular Hemoglobin Concent 32.3 32-36 g/dl RDW Standard Deviation 58.5 36.4-46.3 fL RDW Coefficient of Variation 15.6 11.5-14.5 % Platelet Count 67 130-400 K/uL Mean Platelet Volume 10.8 7.4-10.4 fL Sodium Level 137 136-145 mmol/L Potassium Level 3.6 3.5-5.1 mmol/L Chloride Level 96 98-107 mmol/L Carbon Dioxide Level 30 21-32 mmol/L Anion Gap 11.0 3-11 mmol/L Blood Urea Nitrogen 127 7-18 mg/dl Creatinine 2.50 0.60-1.20 mg/dl Est Creatinine Clear Calc Drug Dose 19.2 ml/min Estimated GFR () 20.1 Estimated GFR (Non- 17.3 BUN/Creatinine Ratio 50.8 10-20 Random Glucose 108 70-99 mg/dl Calcium Level 8.9 8.5-10.1 mg/dl Magnesium Level 2.8 1.8-2.4 mg/dl Test 06/11/16 16:24 Range/Units Bedside Glucose 125 70-90 mg/dl
[2016-06-12] VITALS (10 sets, daily range): BP systolic 93–112; BP diastolic 36–51; PULSE 75–85; TEMP 36.3–37; O2SAT 90–100
[2016-06-12] MEDS: LEVOTHYROXINE 25 MCG TAB PO SCH (05:31)
[2016-06-12] MEDS: HEPARIN SOD 5000 UNIT/0.5 ML CARP SQ SCH ×2 (05:34→14:16)
[2016-06-12] MEDS: FERROUS SULFATE 325 MG TAB PO SCH (07:58)
[2016-06-12] MEDS: BUMETANIDE IV 10 MG in DEXTROSE 5% 50ML 10 ML IV SCH (07:58)
[2016-06-12] MEDS: ASPIRIN 81 MG ECTAB PO SCH (07:58)
[2016-06-12] MEDS: PANTOprazole SOD 40 MG TAB PO SCH (07:59)
[2016-06-12] MEDS: POTASSIUM CHLORIDE 10 MEQ TABCR PO SCH ×2 (07:59→21:05)
[2016-06-12] MEDS: CARVEDILOL 3.125 MG TAB PO SCH ×2 (07:59→16:42)
[2016-06-12] MEDS: METOLAZONE 5 MG TAB PO SCH (08:00)
[2016-06-12 09:20] LABS: BUN/CREATININE RATIO 52.7 (10-20); CREATININE 2.2 mg/dl (0.60-1.20); MAGNESIUM 2.8 mg/dl (1.8-2.4)
[2016-06-12] MEDS ORDERED: POTASSIUM CHLORIDE 20 MEQ TABCR PO ONE (09:40)
[2016-06-12] MEDS: TRAMADOL HCL 50 MG TAB PO PRN ×2 (09:45→16:46)
[2016-06-12 10:04] LABS: HEMATOCRIT 36.2 % (37-47); MEAN CELL VOLUME 102.3 fL (80-100); MEAN CORPUSCULAR HEMOGLOBIN 33.1 pg (25-34); RED BLOOD COUNT 3.54 M/uL (4.2-5.4); WHITE BLOOD COUNT 6.01 K/uL (4.8-10.8)
[2016-06-12 10:06] LABS: MEAN CORPUSCULAR HGB CONC 32.3 g/dl (32-36); MEAN PLATELET VOLUME 10.9 fL (7.4-10.4); PLATELET COUNT 87 K/uL (130-400)
--- NOTE | 2016-06-12 10:38 | Nephrology Progress Note ---
Nephrology Progress Note Date of Service Jun 12, 2016. Chief Complaint follow-up for acute kidney injury and diuretic resistant volume overload. Caroline Law was seen and examined in her room this morning. She is lying in bed, feels tired and lethargic but denies shortness of breath or chest pain overnight. Blood pressure has been stable. Responding to diuretics and net negative 1.5 L since yesterday. Renal function stable, creatinine 2.2. This morning she was found to have bleeding while she was wiping herself after bowel movement. She has Herrera catheter but urine looks clear. Unclear whether she is bleeding by rectum or having vaginal bleeding. She previously had GIB in October 2015, EGD was normal but complicated by hypotension and hypoxia and colonoscopy was not done. Review of Systems A complete review of systems was performed. Pertinent positives are noted above. All other systems are negative. Vital Signs Last 8 Hrs Date Time Temp Pulse Resp B/P Pulse Ox O2 Delivery O2 Flow Rate FiO2 06/12/16 07:43 36.5 81 18 106/47 98 Nasal Cannula 4.0 81 06/12/16 04:38 37.0 78 18 95/36 90 3.0 06/12/16 04:00 Nasal Cannula 3.0 06/12/16 00:07 36.3 75 18 93/41 91 06/12/16 00:00 Nasal Cannula 3.0 I & O 24-Hour Column 06/12/16 07:59 Intake Total 671 ml Output Total 2150 ml Balance -1479 ml Last Recorded Weight Weight (Kilograms): 99.700 Physical Exam GENERAL: Elderly female, AAA x 3, pleasant, chronically ill-appearing, lathergic. NECK: Supple, no JVD. RESPIRATORY: Normal breathing efforts, no accessory muscle use, no wheezes or rales, decreased breath sound at bases. CARDIOVASCULAR: S1, S2 normal, rate rhythm regular. EXTREMITY: Tense non pitting lower extremity edema without significant changes. NEURO: speech fluent. PSYCHIATRY: Normal mood and judgment Family History Diabetes mellitus FH: heart disease Stroke Social History Drug Use: none Occupation: retired Laboratory Results Past 24 Hours Test 06/11/16 10:52 06/11/16 16:24 06/11/16 20:27 06/12/16 06:25 Bedside Glucose 190 mg/dl (70-90) 125 mg/dl (70-90) 201 mg/dl (70-90) 130 mg/dl (70-90) Test 06/12/16 07:30 Allergies Coded Allergies: No Known Allergies (Verified , 06/10/16) Medications Current Inpatient Medications Medications (Trade) Dose Ordered Sig/Yvette Route Start Time Stop Time Status Last Admin Dose Admin Al Hydrox/Mg Hydrox/Simethicone (Maalox Max Susp) 15 ml Q4H PRN PO 06/10/16 16:00 07/10/16 15:59 Magnesium Hydroxide (Milk Of Magnesia Susp) 30 ml Q12H PRN PO 06/10/16 16:00 07/10/16 15:59 Ondansetron HCl (Zofran Inj) 4 mg Q6H PRN IV 06/10/16 16:00 07/10/16 15:59 Polyethylene (Miralax Powder Packet) 17 gm DAILY PRN PO 06/10/16 16:00 07/10/16 15:59 Aspirin (Ecotrin Tab) 81 mg QAM PO 06/11/16 09:00 07/11/16 08:59 06/11/16 07:44 81 MG Carvedilol (Coreg Tab) 3.125 mg BIDM PO 06/10/16 18:00 07/10/16 17:59 06/11/16 15:02 3.125 MG Gabapentin (Neurontin Cap) 300 mg HS PO 06/10/16 21:00 07/10/16 20:59 06/11/16 19:53 300 MG Levothyroxine Sodium (Synthroid Tab) 25 mcg DAILYBB PO 06/11/16 06:00 07/11/16 05:59 06/12/16 05:31 25 MCG Nitroglycerin (Nitrostat Tab) 0.4 mg UD PRN UT 06/10/16 17:30 07/10/16 17:29 Pantoprazole Sodium (Protonix Tab) 40 mg DAILY PO 06/11/16 09:00 07/11/16 08:59 06/11/16 07:45 40 MG Potassium Chloride (Klor-Con M10) 20 meq BID PO 06/10/16 21:00 07/10/16 20:59 06/11/16 19:55 20 MEQ Senna (Senokot Tab) 8.6 mg DAILY PRN PO 06/10/16 17:30 07/10/16 17:29 Tramadol HCl (Ultram Tab) 50 mg Q6H PRN PO 06/10/16 17:30 07/10/16 17:29 Ferrous Sulfate (Feosol Tab) 325 mg QAM PO 06/11/16 09:00 07/11/16 08:59 06/11/16 07:44 325 MG Metolazone (Zaroxolyn Tab) 5 mg QAM PO 06/11/16 09:00 07/11/16 08:59 06/11/16 07:47 5 MG Heparin Sodium (Porcine) (Heparin Sq 5000 Unit/0.5ml) 5,000 unit Q8 SQ 06/10/16 22:00 07/10/16 21:59 06/12/16 05:34 5,000 UNIT Alprazolam 0.5 mg 0.5 mg HS PO 06/10/16 21:00 07/10/16 20:59 06/11/16 19:56 0.5 MG Bumetanide/ Dextrose (Bumex IV/D5 50ml) 50 ml @ 5 mls/hr Q10H IV 06/11/16 10:45 07/11/16 10:44 06/11/16 20:33 5 MLS/HR Impression (1) Acute renal failure (2) Pulmonary hypertension, moderate to severe (3) Chronic kidney disease, stage 4 (severe) (4) Severe tricuspid regurgitation (5) Cardiorenal syndrome (6) Anemia (7) Bilateral pleural effusion Ani is a 81-year-old female with stage 4 chronic kidney disease, severe pulmonary hypertension, tricuspid regurgitation, history of COPD and diuretic resistant volume overload admitted to the hospital with worsening volume status and lethargy. At baseline she has stage 4 chronic kidney disease secondary to cardiorenal syndrome, baseline creatinine variable from a from 1.6-1.9, on admission she was found to have acute kidney injury creatinine has been 2.5-2.6 and BUN worsened to 127. has evidence of intravascular volume depletion however overall volume status worsened and has been less responsive to diuretics. She has left brachiocephalic AV fistula placed in April 2016 and currently maturing. At home she was on Bumex 3 milligram twice a day and metolazone 5 milligrams 3 times weekly but has been less responsive. On admission she was started on Bumex 3 milligrams IV twice a day with suboptimal response. Stop Bumex this morning and started on Bumex drip. Blood pressure has been running soft but she has been asymptomatic, denies any uremic symptoms. Has history of anemia, hemoglobin has been stable previously had GI bleeding, and currently no active bleeding. She had EGD in October 2015, EGD was normal but complicated by hypotension and hypoxia and colonoscopy was not done. Recommendations -- decrease rate of Bumex drip 0.5 milligram/hour --will wait for vascular surgery evaluation of the AV fistula however will not be ready for use at least in med next 2 weeks -- monitor renal function daily --stat CBC and monitor H&H q.12 hours --need to evaluate for possible GI or vaginal bleeding and close monitoring. Patient did have history of GI bleeding few months ago. --currently there is no emergency need for dialysis however, if response to diuretics is suboptimal or renal function worsened further may need tunnel dialysis catheter in near future. -- dose medications for GFR less than 10 -- avoid nephrotoxins medications Will follow.
--- NOTE | 2016-06-12 11:03 | Cardiology Follow-Up ---
Subjective General Date of Service: Jun 12, 2016. Chief Complaint: SOB; CHF; CKD Pt evaluation today including: conversation w/ patient, physical exam, chart review, lab review, review of studies, review of inpatient medication list History of Present Illness Patient feeling tired this AM. Noted "significant" bleeding when having BM this AM. Denies CP or SOB. No dizziness, syncope or near syncope. Urine outputs increased over the last 24 hours. Allergies Coded Allergies: No Known Allergies (Verified , 06/10/16) Social History Smoking Status: Former Smoker Hx Tobacco Use In Past Year?: No Hx Alcohol Use - Type And Amou: No Hx Substance Use - Type And Am: No Problem List Medical Problems: (1) Acute on chronic renal failure Status: Acute (2) Anasarca Status: Acute (3) Anemia Status: Acute (4) Bilateral pleural effusion Status: Acute (5) Cellulitis of right leg Status: Acute (6) CHF (congestive heart failure) Status: Acute (7) Chronic kidney disease Status: Acute (8) Congestive heart failure Status: Acute (9) Constipation Status: Acute (10) GI bleed Status: Acute (11) Jaundice Status: Acute (12) Kidney stone Status: Acute (13) Left sided abdominal pain Status: Acute (14) Pleural effusion Status: Acute (15) Pulmonary edema Status: Acute (16) Renal insufficiency Status: Acute (17) UTI (urinary tract infection) Status: Acute (18) Vomiting and diarrhea Status: Acute (19) Weakness Status: Acute Review of Systems Respiratory: No cough, No dyspnea at rest, No hemoptysis, No shortness of breath, No sputum, No wheezing Cardiac: + edema, No PND, No chest pain, No palpitations Physical Exam Vital Signs Last Vital Signs Documentation Date Time Temp Pulse Resp B/P Pulse Ox O2 Delivery O2 Flow Rate FiO2 06/12/16 08:00 98 Nasal Cannula 4.0 06/12/16 07:43 36.5 81 18 106/47 81 Physical Exam Constitutional: General Apperance: well-nourished, well-developed, obese Level of Distress: NAD, acutely ill, chronically ill Psychiatric: Mental Status: active & alert, normal mood, normal affect Orientation: oriented except where noted, to time, to place, to person Memory: recent memory normal, remote memory normal Head: normocephalic, atraumatic Eyes: EOM: EOMI Neck: supple, trachea midline Lungs: Respiratory effort: no dyspnea Auscultation: deminished air movement (R>L), decreased breath sounds, wet rales/crackles Cardiovascular: Apical Impulse: not displaced Peripheral Pulses: Bruits: none appreciated Carotid Pulse: normal on the left, normal on the right Radial Pulse: normal on the left, normal on the right Femoral Pulse: normal on the left, normal on the right Dorsalis Pedis Pulse: decreased on the left, decreased on the right Abdomen: Bowel Sounds: normal Inspection & Palpation: soft, no tenderness, guarding & rebound, distended Extremities: edema (2+ hard indurated LE edema b/l with chronic stasis changes) Neurologic: Cranial Nerves: grossly intact Sensation: grossly intact Assessment and Plan Assessment and Plan Assessment & Plan 81 year old female 1. Acute on chronic combined systolic and diastolic, right greater than left, heart failure decompensation, failing outpatient treatment, complicated by ESRD , cardiorenal syndrome 2. Moderate, enlarging b/l Pleural effusions, R> L 3. 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 5. Severe COPD 6.Pulmonary hypertension with chronic cor pulmonale 7.Chronic atrial fibrillation, rate controlled. 8.Obesity 9.Diabetes mellitus 10.History of chronic anemia, recent GI bleed in December, and not a candidate for anticoagulation 11. Recurrent GI bleed this AM? Plan: Good diuresis over the last 24 hours. Renal functions table. Continue diuretic therapy with albumin. Supplement potassium and recheck this afternoon. Monitor I+O's Monitor H&H closely with ? GI bleed this AM. Holding carvedilol due to hypotension per parameters (patient asymptomatic). Consider thoracentesis to aid with fluid status, however she is diuresing with stable renal function for now. Prior admissions required use of dobutamine to aid with fluid status, will consider, if progress is slow. Case to be discussed with Dr. Bueno. Will follow as hospital course progresses. Cardiology attending physician: Patient seen and examined at the bedside. Bloody BM reported overnight. Diuresed nearly 2L. Denies chest discomfort, palpitations, lightheadedness, disease, syncope or near-syncope. Daughter present at bedside. PE:VSS, Gen:AAOx3. Heart: Irregular, normal S1-S2. Lungs: Crackles at the bases bilaterally. Abdomen: Obese, nontender, no rebound or guarding. Extremities: 2-3+ hard nonpitting pretibial bilateral edema. +stasis changes. A/P: Agree with above PAC history, physical exam, assessment and plan. Continue bumex infusion with addition of albumin. Nephrology input appreciated. Monitor daily weight, and fluid balance closely. May consider addition of dobutamine to aid with diuresis if necessary. Thoracentesis as per pulmonary medicine. Olaf Bueno DO, [facility] Laboratory Results Last 24 Hours Test 06/11/16 16:24 06/11/16 20:27 06/12/16 06:25 06/12/16 08:13 Bedside Glucose 125 mg/dl 201 mg/dl 130 mg/dl White Blood Count 6.01 K/uL Red Blood Count 3.54 M/uL Hemoglobin 11.7 g/dL Hematocrit 36.2 % Mean Corpuscular Volume 102.3 fL Mean Corpuscular Hemoglobin 33.1 pg Mean Corpuscular Hemoglobin Concent 32.3 g/dl RDW Standard Deviation 57.4 fL RDW Coefficient of Variation 15.4 % Platelet Count 87 K/uL Mean Platelet Volume 10.9 fL Sodium Level 137 mmol/L Potassium Level 3.0 mmol/L Chloride Level 97 mmol/L Carbon Dioxide Level 31 mmol/L Anion Gap 9.0 mmol/L Blood Urea Nitrogen 116 mg/dl Creatinine 2.20 mg/dl Est Creatinine Clear Calc Drug Dose 21.8 ml/min Estimated GFR () 23.4 Estimated GFR (Non- 20.2 BUN/Creatinine Ratio 52.7 Random Glucose 128 mg/dl Calcium Level 9.0 mg/dl Magnesium Level 2.8 mg/dl
--- NOTE | 2016-06-12 13:30 | Pulmonary Consultation ---
History General Date of Service: Jun 12, 2016. Stated Complaint: Acute On Chronic Renal Failure with progressive dependent edema and dyspnea on exertion/at rest. HPI The patient is a 81 year old female who presents to [facility] with complaints of Acute On Chronic Renal Failure. The patient's primary care provider is Rashad Case M.D.. 81y/o female with bilateral pleural effusions and a PmHx significant for: severe COPD, chronic O2 support, severe pulmonary HTN (Echo/RSVP) with associated right heart failure, CKD stage IV-V, recent AV-fistula placement awaiting maturation, paroxysmal atrial fibrillation( not on anticoagulation), Patient admitted with progressive volume overload with poor response to out- patient interventions. She also notes prior to admission 3Kg weight gain, dependent edema, increased lethargy. During our conversation she does not mildly improved SOB, dyspnea but the rest of the symptoms havent changed Historian: patient, family, caregiver, EMS Review of Systems Constitutional: reports: weakness Eyes: reports: no symptoms ENT: reports: no symptoms Cardiovascular: reports: chest tightness Respiratory: reports: GUTIERREZ, shortness of breath Gastrointestinal: reports: other (bloating with mild abdominal discomfort) Genitourinary - Female: reports: no symptoms Musculoskeletal: reports: myalgias Integumentary: reports: no symptoms Neurologic: reports: no symptoms Psychiatric: reports: no symptoms Hematologic / Lymphatic: no symptoms Allergic / Immunologic: no symptoms Past Medical History Past Medical History: (1) Anemia (2) Atrial fibrillation (3) Breast cancer (4) Chronic diastolic CHF (congestive heart failure) (5) Chronic renal disease, stage IV (6) COPD (chronic obstructive pulmonary disease) (7) Cor pulmonale, chronic (8) DM2 (diabetes mellitus, type 2) (9) HTN (hypertension) (10) Obesity (11) Pulmonary hypertension (12) Renal calculi Past Medical History: A Fib, congestive heart failure, COPD, heart disease, hypertension, lung disease, renal disease Past Surgical History: (1) H/O lumpectomy (2) History of hip surgery (3) S/P JESSEE-BSO Family History Diabetes mellitus FH: heart disease Stroke Social History Hx Tobacco Use In Past Year?: No Smoking Status: Former Smoker Alcohol: never Occupational Status: retired Immunizations History of Influenza Vaccine: Yes Influenza Vaccine Date: Mar 15, 2016 History of Pneumococcal: Yes Pneumococcal Date: Mar 15, 2016 History of MDRO History of MDRO: No Allergies Coded Allergies: No Known Allergies (Verified , 06/10/16) Current Medications Reported Home Medications Medications Dose Route/Sig Max Daily Dose Days Date Category Dose Instructions Metolazone 5 Mg Tab 5 Mg PO 3XWK 06/10/16 Reported Bumex (Bumetanide) 1 Mg Tab 3 Mg PO BID 06/10/16 Reported Ultram (Tramadol HCl) 50 Mg Tab 50 Mg PO Q6H PRN 05/07/16 Rx Vitamin B-12 (Cyanocobalamin) 1,000 Mcg Sub 1,000 Mcg INJ MONTHLY 03/24/16 Reported Micro-K Ext Rel (Potassium Chloride) 10 Meq Capcr 20 Meq PO BID 03/24/16 Reported Oxygen Gas 2-3 Liters NA CONTINOUS 01/19/16 Reported Senokot (Senna) 8.6 Mg Tab 1 Tab PO DAILY PRN 01/19/16 Reported Nitrostat (Nitroglycerin) 0.4 Mg Tab 0.4 Mg UT PRN 01/19/16 Reported Kp Ferrous Sulfate (Ferrous Sulfate) 325 Mg Tab 1 Tab PO QAM 01/19/16 Reported Aspirin Ec (Aspirin) 81 Mg Tab 81 Mg PO QAM 01/19/16 Reported Miralax (Polyethylene Glycol 3350) 1 Pow Pow 17 Gm PO DAILY PRN 01/02/16 Reported Coreg (Carvedilol) 3.125 Mg Tab 1 Tab PO BIDM 30 01/02/16 Reported PER DAUGHTER: IF BP IS LOW PT DOES NOT TAKE A DOSE Levothyroxine Sodium 25 Mcg Tab 25 Mcg PO QAM 10/30/15 Reported Vitamin D (Cholecalciferol) 1,000 Inter.unit Tab 2,000 Inter.unit PO QAM 10/30/15 Reported Xanax (Alprazolam) 0.5 Mg Tab 0.5 Mg PO HS 10/30/15 Reported Protonix (Pantoprazole Sodium) 40 Mg Tab 40 Mg PO DINNER 10/30/15 Reported Zyloprim (Allopurinol) 300 Mg Tab 300 Mg PO QAM 10/30/15 Reported TAKE AM SURGERY SIP WATER Rocaltrol Cap (Calcitriol) 0.25 Mcg Cap 0.25 Mcg PO M, W, F 10/30/15 Reported Neurontin (Gabapentin) 300 Mg Cap 300 Mg PO HS 10/30/15 Reported Physical Physical Exam Vital Signs: Date Time Temp Pulse Resp B/P Pulse Ox O2 Delivery O2 Flow Rate FiO2 06/12/16 12:10 36.5 75 16 103/44 99 Nasal Cannula 4.0 75 06/12/16 12:00 98 Nasal Cannula 4.0 06/12/16 08:00 98 Nasal Cannula 4.0 06/12/16 07:43 36.5 81 18 106/47 98 Nasal Cannula 4.0 81 06/12/16 04:38 37.0 78 18 95/36 90 3.0 06/12/16 04:00 Nasal Cannula 3.0 06/12/16 00:07 36.3 75 18 93/41 91 06/12/16 00:00 Nasal Cannula 3.0 06/11/16 22:25 69 96 4.0 06/11/16 20:00 Nasal Cannula 3.0 06/11/16 19:51 36.4 75 18 105/43 97 06/11/16 16:02 36.8 73 18 111/50 98 3.0 06/11/16 16:00 Nasal Cannula 3.0 General Appearance: mild distress Head: NORMOCEPHALIC, ATRAUMATIC Eyes: PERRLA, NO DISCHARGE, EOMI, SCLERAE NORMAL, CONJUNCTIVAE NORMAL ENT: NORMAL EAR EXAM, NORMAL NASAL EXAM, other (try oropharynx) Neck: NORMAL RANGE OF MOTION, NO TENDERNESS, TRACHEA MIDLINE Respiratory: other (decreased breath sounds bilaterally with minimal crackles appreciated globally) Cardiovasular: REGULAR RATE/RHYTHM, NORMAL S1S2 (distant heart sound and able to auscultate for possible murmur) Abdomen: NON TENDER, NORMAL BOWEL SOUNDS, NO REBOUND, NO MASSES, NO GUARDING Genitourinary - Female: EXTERNAL GENITALIA NORMAL Back: NORMAL INSPECTION, NO MIDLINE TENDERNESS, NO CVA TENDERNESS Lower Extremities: edema Edema: Bilateral UE (1+), LLE (3+) Pulses: carotid (R) (1+), carotid (L) (1+), dorsalis pedis (R) (0), dorsalis pedis (L) (0) Neuro: ALERT, ORIENTED x 3, NORMAL MOTOR EXAM, NORMAL SENSATION, other (should note decrease in sensation mildly at the bases/lower extremities bilateral) Reflexes: biceps (R) (1+), bicpes (L) (1+) Psychiatric: NORMAL AFFECT, NO SUICIDAL IDEATION Diagnostics Labs Results Past 24 Hours Test 06/11/16 16:24 06/11/16 20:27 06/12/16 06:25 06/12/16 08:13 Range/Units Bedside Glucose 125 201 130 70-90 mg/dl White Blood Count 6.01 4.8-10.8 K/uL Red Blood Count 3.54 4.2-5.4 M/uL Hemoglobin 11.7 12.0-16.0 g/dL Hematocrit 36.2 37-47 % Mean Corpuscular Volume 102.3 80-100 fL Mean Corpuscular Hemoglobin 33.1 25-34 pg Mean Corpuscular Hemoglobin Concent 32.3 32-36 g/dl RDW Standard Deviation 57.4 36.4-46.3 fL RDW Coefficient of Variation 15.4 11.5-14.5 % Platelet Count 87 130-400 K/uL Mean Platelet Volume 10.9 7.4-10.4 fL Sodium Level 137 136-145 mmol/L Potassium Level 3.0 3.5-5.1 mmol/L Chloride Level 97 98-107 mmol/L Carbon Dioxide Level 31 21-32 mmol/L Anion Gap 9.0 3-11 mmol/L Blood Urea Nitrogen 116 7-18 mg/dl Creatinine 2.20 0.60-1.20 mg/dl Est Creatinine Clear Calc Drug Dose 21.8 ml/min Estimated GFR () 23.4 Estimated GFR (Non- 20.2 BUN/Creatinine Ratio 52.7 10-20 Random Glucose 128 70-99 mg/dl Calcium Level 9.0 8.5-10.1 mg/dl Magnesium Level 2.8 1.8-2.4 mg/dl Test 06/12/16 11:40 Range/Units Bedside Glucose 165 70-90 mg/dl Diagnostic Radiology Ultrasound bilaterally as well as chest x-ray shows costophrenic blunting consistent with pleural effusions EKG Notable for right axis deviation right ventricular enlargement Impression Assessment and Plan 81-year-old female with bilateral pleural effusions, cor pulmonale, volume overload COPD in chronic oxygen requirement: #1 pleural effusion's: Pleural effusions bilaterally most likely associated with volume overload status from cor pulmonale, poor nutrition, renal failure. At this time the patient and her daughter vertebrate to perform thoracentesis. We will initially attempt on the right side and if successful/beneficial repeat the following day and the left side. #2 pulmonary hypertension: Patient's elevated pulmonary pressures based off echocardiogram most likely secondary to volume overload, right left ventricular dysfunctioning and COPD. Group 1 pulmonary hypertension is extremely rare 81-year-old female: This is most likely combination of group 1, 2 and 3. The most beneficial medical treatment at this time his proper cardiac, pulmonary, renal volume control. Thank you for this interesting consultation.
--- NOTE | 2016-06-12 14:08 | Procedure Note ---
Procedure Note Procedure: Thoracentesis left-sided Preprocedural diagnosis: Bilateral pleural effusions Postprocedural diagnosis: Bilateral pleural effusions Consent: Obtained to the patient placed in the chart Analgesia: 6 cc of 1% liquid lidocaine Ultrasound: Ultrasound was used to evaluate the patient's pleural effusions. A spot on the left side posterior/posterior clavicular line along the ninth intercostal spot was marked in upright position. The patient was then draped and prepped in a sterile fashion in the upright position. Following this a modified Seldinger technique was then used to insert a catheter in the pleural space. Approximately 600 cc of moderate dark mildly serosanguineous fluid was returned. Patient tolerated the procedure well. EBL: None Complications: Ultrasound: No signs of pneumothorax Chest x-ray: No signs of PTX
[2016-06-12 14:25] LABS: HEMATOCRIT 36.1 % (37-47)
--- NOTE | 2016-06-12 14:25 | DIAGNOSTIC IMAGING REPORT ---
CHEST ONE VIEW PORTABLE CLINICAL HISTORY: S/P Thoracentesis dyspnea COMPARISON STUDY: 06/11/2016 FINDINGS: Small bilateral pleural effusions. No evidence pneumothorax status post thoracentesis. Pulmonary vasculature is somewhat prominent. IMPRESSION: No evidence pneumothorax status post thoracentesis Electronically signed by: Leoncio Fam M.D. 06/12/2016 2:24 PM
[2016-06-12 14:47] LABS: PLEURAL FLUID GLUCOSE 160 mg/dl
[2016-06-12 14:58] LABS: PLEURAL FLUID APPEARANCE HAZY; PLEURAL FLUID COLOR YELLOW; PLEURAL FLUID SOURCE LEFT LUNG; PLEURAL FLUID WBC (A) 670 /uL
[2016-06-12 15:10] LABS: PLEURAL FLUID MONONUC RELAT 54.5 %; PLEURAL FLUID POLYNUC 45.5 %
--- NOTE | 2016-06-12 15:57 | DIAGNOSTIC IMAGING REPORT ---
PELVIC ULTRASOUND CLINICAL HISTORY: Possible vaginal bleed. COMPARISON STUDY: CT of the abdomen and pelvis January 02, 2016. TECHNIQUE: Transabdominal sonography of the pelvis was performed. FINDINGS: This exam was compromised by suboptimal penetration. The uterus and ovaries are not visualized and may be surgically absent. A small amount of fluid was noted within the pelvis. Sensitivity for detection of pelvic masses is diminished given suboptimal penetration. IMPRESSION: 1. Nonvisualization of the uterus and ovaries which may be surgically absent. Correlation with surgical history is recommended. 2. Small amount of fluid within the pelvis. Evaluation of the pelvis is nearly nondiagnostic due to suboptimal penetration. Electronically signed by: Gaurav Hunter M.D. 06/12/2016 3:55 PM
--- NOTE | 2016-06-12 16:02 | DIAGNOSTIC IMAGING REPORT ---
Venous Doppler evaluation DUPLEX HEMODIALYSIS ACCESS CLINICAL HISTORY: ESRD fistula patency TECHNIQUE: Doppler evaluation COMPARISON STUDY: None FINDINGS: Patient's left basilic fistula is patent. Proximally, maximum diameters 1 cm. At its mid aspect is 9 mm. At the distal aspect in the region of the antecubital fossa is 8 mm. Depth there is proximal aspect is 2.4 cm and 1.2 cm at its mid aspect. IMPRESSION: Patient is left-sided fistula is widely patent. Diameter measurements are as noted. No evidence for thrombosis Electronically signed by: Leoncio Fam M.D. 06/12/2016 4:00 PM
--- NOTE | 2016-06-12 18:02 | Progress Note ---
Internal Med Progress Note Date of Service: Jun 12, 2016. Provider Documentation: SUBJECTIVE: feeling tired but denies any chest pain or sob afebrile had breakfast no nausea or abdominal pain noticed smoe blood while wiping vaginal vs rectal? OBJECTIVE: Vital Signs-as noted below Exam: General-alert and awake and oriented ENT-Normal hearing Neck-no neck masses Lungs-cta b/l no wheezing or crackles Heart-s1 and s2 heard regular rate and rhythm, no murmurs Abdomen-soft bowel sounds present nn tender no distension Extremities-lower extremity edema present Neuro-alert and awake moves extremities Lab data as noted below. ASSESSMENT & PLAN: This is an 81 year old female with PMH of severe COPD and chronic respiratory failure requiring O2 continuously, severe pulmonary HTN and resultant right heart failure, CKD stage IV-V, recent AV-fistula placement awaiting maturation, hx. of paroxysmal atrial fibrillation, not on anticoagulation, anemia due to CKD presents with worsening lower extremity edema. Severe Pulmonary HTN Right Heart Failure Patient presents with worsening edema in the LE and abdomen Recently medications changd to , Bumex 3mg BID and metolazone 5mg was started on IV Bumex 3mg BID cardiology and nephrology on board and appreciate inputs required dobutamine drip in the past not responding much to diuretics as patient on Bumex and metazolne at home Nephrology started on Bumex drip and if no improvement plan for dialysis seems to responding to bumex drip to continue same will monitor i/os Severe COPD Chronic Respiratory Failure stable will monitor Pleural effusion right side s/p thoracocentesis by pulmonary CKD stage IV creat at 2.6 nephrology on board vascular surgery consulted and appreciate inputs s/p av fistula but not mature yet and may take 2 more weeks to mature GI bleed? vaginal bleed? Hx of GI bleed stool for Hemoccult serial young dn h pelvic ultrasound and close monitor DVT ppx subq heparin, monitor H/H FULL CODE DISPOSITION monitor in tele Vital Signs: Date Time Temp Pulse Resp B/P Pulse Ox O2 Delivery O2 Flow Rate FiO2 06/12/16 16:00 98 Nasal Cannula 4.0 06/12/16 15:52 36.3 78 18 106/51 100 Nasal Cannula 3.0 Humidified Oxygen 06/12/16 12:10 36.5 75 16 103/44 99 Nasal Cannula 4.0 75 06/12/16 12:00 98 Nasal Cannula 4.0 06/12/16 08:00 98 Nasal Cannula 4.0 06/12/16 07:43 36.5 81 18 106/47 98 Nasal Cannula 4.0 81 06/12/16 04:38 37.0 78 18 95/36 90 3.0 06/12/16 04:00 Nasal Cannula 3.0 06/12/16 00:07 36.3 75 18 93/41 91 06/12/16 00:00 Nasal Cannula 3.0 06/11/16 22:25 69 96 4.0 06/11/16 20:00 Nasal Cannula 3.0 06/11/16 19:51 36.4 75 18 105/43 97 Lab Results: Results Past 24 Hours Test 06/11/16 20:27 06/12/16 00:00 06/12/16 06:25 06/12/16 08:13 Range/Units Bedside Glucose 201 130 70-90 mg/dl Pleural Fluid Source LEFT LUNG Pleural Fluid Color YELLOW Pleural Fluid Appearance HAZY Pleural Fluid WBC 670 /uL Pleural Fluid RBC < 3000 /uL Pleural Fluid Polynuclear WBCs % 45.5 % Pleural Fluid Mononuclear WBCs % 54.5 % Pleural Fluid Total Protein 3.4 g/dl Pleural Fluid LDH 131 IU Pleural Fluid Glucose 160 mg/dl Pleural Fluid Amylase 36 U/L White Blood Count 6.01 4.8-10.8 K/uL Red Blood Count 3.54 4.2-5.4 M/uL Hemoglobin 11.7 12.0-16.0 g/dL Hematocrit 36.2 37-47 % Mean Corpuscular Volume 102.3 80-100 fL Mean Corpuscular Hemoglobin 33.1 25-34 pg Mean Corpuscular Hemoglobin Concent 32.3 32-36 g/dl RDW Standard Deviation 57.4 36.4-46.3 fL RDW Coefficient of Variation 15.4 11.5-14.5 % Platelet Count 87 130-400 K/uL Mean Platelet Volume 10.9 7.4-10.4 fL Sodium Level 137 136-145 mmol/L Potassium Level 3.0 3.5-5.1 mmol/L Chloride Level 97 98-107 mmol/L Carbon Dioxide Level 31 21-32 mmol/L Anion Gap 9.0 3-11 mmol/L Blood Urea Nitrogen 116 7-18 mg/dl Creatinine 2.20 0.60-1.20 mg/dl Est Creatinine Clear Calc Drug Dose 21.8 ml/min Estimated GFR () 23.4 Estimated GFR (Non- 20.2 BUN/Creatinine Ratio 52.7 10-20 Random Glucose 128 70-99 mg/dl Calcium Level 9.0 8.5-10.1 mg/dl Magnesium Level 2.8 1.8-2.4 mg/dl Test 06/12/16 11:40 06/12/16 14:05 Range/Units Bedside Glucose 165 70-90 mg/dl Hemoglobin 11.7 12.0-16.0 g/dL Hematocrit 36.1 37-47 % Potassium Level 3.3 3.5-5.1 mmol/L Microbiology Results 06/12/16 Gram Stain - Final, Resulted 06/12/16 Bacterial Culture, Resulted Pending
[2016-06-12] MEDS: HYDROCODONE/ACETAMOPHEN 5/325MG TAB PO PRN (19:34)
[2016-06-12] MEDS: ALPRAZOLAM 0.5 MG TAB PO SCH (21:00)
[2016-06-12] MEDS: GABAPENTIN 300 MG CAP PO SCH (21:05)
[2016-06-12 22:01] LABS: HEMATOCRIT 36.2 % (37-47)
[2016-06-13] VITALS (9 sets, daily range): BP systolic 90–109; BP diastolic 49–55; PULSE 75–97; TEMP 36.5–36.9; O2SAT 92–98
[2016-06-13] MEDS: LEVOTHYROXINE 25 MCG TAB PO SCH (06:27)
[2016-06-13 06:30] LABS: HEMATOCRIT 36.3 % (37-47); MEAN CELL VOLUME 103.7 fL (80-100); MEAN CORPUSCULAR HEMOGLOBIN 32.9 pg (25-34); MEAN CORPUSCULAR HGB CONC 31.7 g/dl (32-36); WHITE BLOOD COUNT 7.57 K/uL (4.8-10.8)
[2016-06-13 06:47] LABS: BASO % 0.1 %; BASO ABS # 0.01 K/uL (0-0.2); COMPLETE YES; EOS % 0.3 %; IG% 0.3 %; LYMPH ABS # 0.76 K/uL (1.2-3.4); MEAN PLATELET VOLUME 10.3 fL (7.4-10.4); MONO % 10.3 %; PLATELET COUNT 88 K/uL (130-400)
[2016-06-13 06:58] LABS: BUN/CREATININE RATIO 53.4 (10-20); CALCIUM 8.7 mg/dl (8.5-10.1); CREATININE 2.4 mg/dl (0.60-1.20); MAGNESIUM 2.6 mg/dl (1.8-2.4); POTASSIUM 3.3 mmol/L (3.5-5.1)
[2016-06-13 07:00] LABS: MICROCYTOSIS PRESENT
[2016-06-13] MEDS: ASPIRIN 81 MG ECTAB PO SCH (07:55)
[2016-06-13] MEDS: METOLAZONE 5 MG TAB PO SCH (07:56)
[2016-06-13] MEDS: FERROUS SULFATE 325 MG TAB PO SCH (07:56)
[2016-06-13] MEDS: POTASSIUM CHLORIDE 10 MEQ TABCR PO SCH ×2 (07:56→20:16)
[2016-06-13] MEDS: CARVEDILOL 3.125 MG TAB PO SCH ×2 (07:56→16:17)
[2016-06-13] MEDS: PANTOprazole SOD 40 MG TAB PO SCH (07:56)
[2016-06-13] MEDS ORDERED: BUMETANIDE IV 3 MG in SYRINGE 0 ML IV SCH (09:00)
[2016-06-13] MEDS: BUMETANIDE IV 2 MG in SYRINGE 0 ML IV SCH ×2 (09:39→16:34)
[2016-06-13] MEDS ORDERED: POTASSIUM CHLORIDE 20 MEQ TABCR PO ONE (09:49)
--- NOTE | 2016-06-13 10:00 | Progress Note ---
Progress Note Will place permcath tomorrow at 8am Will schedule for basilic vein transposition early next week.
--- NOTE | 2016-06-13 10:34 | Nephrology Progress Note ---
Nephrology Progress Note Date of Service Jun 13, 2016. Chief Complaint follow-up for acute kidney injury and diuretic resistant volume overload. Caroline Law was seen and examined in her room this morning. She is sitting in chair, feels tired and lethargic but denies shortness of breath or chest pain overnight. Blood pressure has been stable. Responding to diuretics and net negative >1 L since yesterday. Renal function worsened to creatinine 2.5 and BUN 128. Hemoglobin remained stable and no further episode of bleeding. Had thoracentesis on left-sided yesterday. Review of Systems A complete review of systems was performed. Pertinent positives are noted above. All other systems are negative. Vital Signs Last 8 Hrs Date Time Temp Pulse Resp B/P Pulse Ox O2 Delivery O2 Flow Rate FiO2 06/13/16 08:04 36.6 87 22 108/55 94 Nasal Cannula 4.0 06/13/16 08:00 98 Nasal Cannula 4.0 06/13/16 04:00 36.6 97 20 101/50 92 Nasal Cannula 4.0 06/13/16 04:00 93 Nasal Cannula 4.0 I & O 24-Hour Column 06/13/16 07:59 Intake Total 1370 ml Output Total 2850 ml Balance -1480 ml Last Recorded Weight Weight (Kilograms): 94.700 Physical Exam GENERAL: Elderly female, AAA x 3, pleasant, chronically ill-appearing, lathergic. NECK: Supple, no JVD. RESPIRATORY: Normal breathing efforts, no accessory muscle use, no wheezes or rales, decreased breath sound at bases. CARDIOVASCULAR: S1, S2 normal, rate rhythm regular. EXTREMITY: Tense non pitting lower extremity edema without significant changes. NEURO: speech fluent. PSYCHIATRY: Normal mood and judgment Family History Diabetes mellitus FH: heart disease Stroke Social History Drug Use: none Occupation: retired Laboratory Results Past 24 Hours 06/12/16 14:05 06/12/16 21:50 06/13/16 05:55 Red Blood Count 3.50, Mean Corpuscular Volume 103.7, Mean Corpuscular Hemoglobin 32.9, Mean Corpuscular Hemoglobin Concent 31.7, Mean Platelet Volume 10.3, Neutrophils (%) (Auto) 79.0, Lymphocytes (%) (Auto) 10.0, Monocytes (%) ( Auto) 10.3, Eosinophils (%) (Auto) 0.3, Basophils (%) (Auto) 0.1, Neutrophils # (Auto) 5.98, Lymphocytes # (Auto) 0.76, Monocytes # (Auto) 0.78, Eosinophils # ( Auto) 0.02, Basophils # (Auto) 0.01 06/12/16 14:05 06/13/16 05:55 Test 06/12/16 11:40 06/13/16 05:55 Bedside Glucose 165 mg/dl (70-90) White Blood Count 7.57 K/uL (4.8-10.8) Red Blood Count 3.50 M/uL (4.2-5.4) Hemoglobin 11.5 g/dL (12.0-16.0) Hematocrit 36.3 % (37-47) Mean Corpuscular Volume 103.7 fL (80-100) Mean Corpuscular Hemoglobin 32.9 pg (25-34) Mean Corpuscular Hemoglobin Concent 31.7 g/dl (32-36) Platelet Count 88 K/uL (130-400) Mean Platelet Volume 10.3 fL (7.4-10.4) Neutrophils (%) (Auto) 79.0 % Lymphocytes (%) (Auto) 10.0 % Monocytes (%) (Auto) 10.3 % Eosinophils (%) (Auto) 0.3 % Basophils (%) (Auto) 0.1 % Neutrophils # (Auto) 5.98 K/uL (1.4-6.5) Lymphocytes # (Auto) 0.76 K/uL (1.2-3.4) Monocytes # (Auto) 0.78 K/uL (0.11-0.59) Eosinophils # (Auto) 0.02 K/uL (0-0.5) Basophils # (Auto) 0.01 K/uL (0-0.2) RDW Standard Deviation 58.4 fL (36.4-46.3) RDW Coefficient of Variation 15.4 % (11.5-14.5) Immature Granulocyte % (Auto) 0.3 % Immature Granulocyte # (Auto) 0.02 K/uL (0.00-0.02) Microcytosis PRESENT Anion Gap 8.0 mmol/L (3-11) Est Creatinine Clear Calc Drug Dose 19.4 ml/min Estimated GFR () 21.1 Estimated GFR (Non- 18.2 BUN/Creatinine Ratio 53.4 (10-20) Calcium Level 8.7 mg/dl (8.5-10.1) Magnesium Level 2.6 mg/dl (1.8-2.4) Allergies Coded Allergies: No Known Allergies (Verified , 06/10/16) Medications Current Inpatient Medications Medications (Trade) Dose Ordered Sig/Yvette Route Start Time Stop Time Status Last Admin Dose Admin Al Hydrox/Mg Hydrox/Simethicone (Maalox Max Susp) 15 ml Q4H PRN PO 06/10/16 16:00 07/10/16 15:59 Magnesium Hydroxide (Milk Of Magnesia Susp) 30 ml Q12H PRN PO 06/10/16 16:00 07/10/16 15:59 Ondansetron HCl (Zofran Inj) 4 mg Q6H PRN IV 06/10/16 16:00 07/10/16 15:59 Polyethylene (Miralax Powder Packet) 17 gm DAILY PRN PO 06/10/16 16:00 07/10/16 15:59 Aspirin (Ecotrin Tab) 81 mg QAM PO 06/11/16 09:00 07/11/16 08:59 06/13/16 07:55 81 MG Carvedilol (Coreg Tab) 3.125 mg BIDM PO 06/10/16 18:00 07/10/16 17:59 06/13/16 07:56 3.125 MG Gabapentin (Neurontin Cap) 300 mg HS PO 06/10/16 21:00 07/10/16 20:59 06/12/16 21:05 300 MG Levothyroxine Sodium (Synthroid Tab) 25 mcg DAILYBB PO 06/11/16 06:00 07/11/16 05:59 06/13/16 06:27 25 MCG Nitroglycerin (Nitrostat Tab) 0.4 mg UD PRN UT 06/10/16 17:30 07/10/16 17:29 Pantoprazole Sodium (Protonix Tab) 40 mg DAILY PO 06/11/16 09:00 07/11/16 08:59 06/13/16 07:56 40 MG Potassium Chloride (Klor-Con M10) 20 meq BID PO 06/10/16 21:00 07/10/16 20:59 06/13/16 07:56 20 MEQ Senna (Senokot Tab) 8.6 mg DAILY PRN PO 06/10/16 17:30 07/10/16 17:29 Tramadol HCl (Ultram Tab) 50 mg Q6H PRN PO 06/10/16 17:30 07/10/16 17:29 06/12/16 09:45 50 MG Ferrous Sulfate (Feosol Tab) 325 mg QAM PO 06/11/16 09:00 07/11/16 08:59 06/13/16 07:56 325 MG Metolazone (Zaroxolyn Tab) 5 mg QAM PO 06/11/16 09:00 07/11/16 08:59 06/13/16 07:56 5 MG Heparin Sodium (Porcine) (Heparin Sq 5000 Unit/0.5ml) 5,000 unit Q8 SQ 06/10/16 22:00 07/10/16 21:59 Future Hold 06/12/16 14:16 5,000 UNIT Alprazolam (Xanax Tab) 0.5 mg HS PO 06/10/16 21:00 07/10/16 20:59 06/11/16 19:56 0.5 MG Acetaminophen/ Hydrocodone Bitart 1 tab 1 tab Q6H PRN PO 06/12/16 19:30 06/26/16 19:29 06/12/16 19:34 1 TAB Bumetanide/Syringe (Bumex IV/ Syringe) 8 ml @ 4 mls/min DAILY@ IV 06/13/16 09:00 07/13/16 08:59 UNV Impression (1) Acute renal failure (2) Pulmonary hypertension, moderate to severe (3) Chronic kidney disease, stage 4 (severe) (4) Severe tricuspid regurgitation (5) Cardiorenal syndrome (6) Anemia (7) Bilateral pleural effusion Ani is a 81-year-old female with stage 4 chronic kidney disease, severe pulmonary hypertension, tricuspid regurgitation, history of COPD and diuretic resistant volume overload admitted to the hospital with worsening volume status and lethargy. At baseline she has stage 4 chronic kidney disease secondary to cardiorenal syndrome, baseline creatinine variable from a from 1.6-1.9, on admission she was found to have acute kidney injury creatinine has been 2.5-2.6 and BUN worsened to 127. has evidence of intravascular volume depletion however overall volume status worsened and has been less responsive to diuretics. She has left brachiocephalic AV fistula placed in April 2016 and currently maturing. At home she was on Bumex 3 milligram twice a day and metolazone 5 milligrams 3 times weekly but has been less responsive. On admission she was started on Bumex 3 milligrams IV twice a day with suboptimal response. Stop Bumex this morning and started on Bumex drip. Blood pressure has been running soft but she has been asymptomatic, denies any uremic symptoms. Has history of anemia, hemoglobin has been stable previously had GI bleeding, and currently no active bleeding. She had EGD in October 2015, EGD was normal but complicated by hypotension and hypoxia and colonoscopy was not done. Recommendations -- discontinue Bumex drip and resume Bumex 2 milligram IV twice a day. --as patient clearly seems having some uremic symptoms, with further worsening of renal function, will schedule for tunnel dialysis catheter tomorrow and start for 1st dialysis treatment with 2 hours dialysis tomorrow. discussed with patient and her daughter Caren over telephone start ([phone]), they are in agreement to start on dialysis. -- will get social work faculty member involved to setup outpatient dialysis at [place] [facility], will try to schedule on Friday, , Friday. -- monitor renal function daily -- dose medications for GFR less than 10 -- avoid nephrotoxins medications Will follow.
--- NOTE | 2016-06-13 12:55 | Cardiology Follow-Up ---
Subjective General Date of Service: Jun 13, 2016. Chief Complaint: SOB; CHF; CKD Pt evaluation today including: conversation w/ patient, physical exam, chart review, lab review, review of studies, review of inpatient medication list History of Present Illness Patient feeling ok this AM. Notes continued fatigue. SOB and dyspnea improved since thoracentesis yesterday. No chest pain. Allergies Coded Allergies: No Known Allergies (Verified , 06/10/16) Social History Smoking Status: Former Smoker Hx Tobacco Use In Past Year?: No Hx Alcohol Use - Type And Amou: No Hx Substance Use - Type And Am: No Problem List Medical Problems: (1) Acute on chronic renal failure Status: Acute (2) Anasarca Status: Acute (3) Anemia Status: Acute (4) Bilateral pleural effusion Status: Acute (5) Cellulitis of right leg Status: Acute (6) CHF (congestive heart failure) Status: Acute (7) Chronic kidney disease Status: Acute (8) Congestive heart failure Status: Acute (9) Constipation Status: Acute (10) GI bleed Status: Acute (11) Jaundice Status: Acute (12) Kidney stone Status: Acute (13) Left sided abdominal pain Status: Acute (14) Pleural effusion Status: Acute (15) Pulmonary edema Status: Acute (16) Renal insufficiency Status: Acute (17) UTI (urinary tract infection) Status: Acute (18) Vomiting and diarrhea Status: Acute (19) Weakness Status: Acute Review of Systems Respiratory: + shortness of breath, No cough, No dyspnea at rest, No hemoptysis , No sputum, No wheezing Cardiac: + edema, No PND, No chest pain, No orthopnea, No palpitations Physical Exam Vital Signs Last Vital Signs Documentation Date Time Temp Pulse Resp B/P Pulse Ox O2 Delivery O2 Flow Rate FiO2 06/13/16 12:34 36.5 83 15 109/54 96 Room Air 06/13/16 12:00 4.0 Physical Exam Constitutional: General Apperance: well-nourished, well-developed, obese Level of Distress: NAD, acutely ill, chronically ill Psychiatric: Mental Status: active & alert, normal mood, normal affect Orientation: oriented except where noted, to time, to place, to person Memory: recent memory normal, remote memory normal Head: normocephalic, atraumatic Eyes: EOM: EOMI Neck: supple, trachea midline Lungs: Respiratory effort: no dyspnea Auscultation: deminished air movement (R>L), decreased breath sounds, wet rales/crackles Cardiovascular: Apical Impulse: not displaced Peripheral Pulses: Bruits: none appreciated Carotid Pulse: normal on the left, normal on the right Radial Pulse: normal on the left, normal on the right Femoral Pulse: normal on the left, normal on the right Dorsalis Pedis Pulse: decreased on the left, decreased on the right Abdomen: Bowel Sounds: normal Inspection & Palpation: soft, no tenderness, guarding & rebound, distended Extremities: edema (2+ hard indurated LE edema b/l with chronic stasis changes) Neurologic: Cranial Nerves: grossly intact Sensation: grossly intact Assessment and Plan Assessment and Plan Assessment & Plan 81 year old female 1. Acute on chronic combined systolic and diastolic, right greater than left, heart failure decompensation, failing outpatient treatment, complicated by ESRD , cardiorenal syndrome 2. Moderate, enlarging b/l Pleural effusions s/p thoracentesis 3. 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 5. Severe COPD 6.Pulmonary hypertension with chronic cor pulmonale 7.Chronic atrial fibrillation, rate controlled. 8.Obesity 9.Diabetes mellitus 10.History of chronic anemia, recent GI bleed in December, and not a candidate for anticoagulation 11. Recurrent GI bleed Plan: Continue diuretic therapy with albumin per nephrology. Plan for PermCath tomorrow as fistula is not mature. Good results with thoracentesis. Supplement potassium and monitor. Monitor I+O's Monitor H&H closely - stable. Holding carvedilol due to hypotension per parameters (patient asymptomatic). Case to be discussed with Dr. Bueno. Will follow as hospital course progresses. Cardiology attending physician: Patient seen and examined at the bedside. Carvedilol on hold due to hypotension. Denies chest discomfort, palpitations, lightheadedness, disease, syncope or near-syncope. Daughter present at bedside. PE:VSS, Gen:AAOx3. Heart: Irregular, normal S1-S2. Lungs: Crackles at the bases bilaterally. Abdomen: Obese, nontender, no rebound or guarding. Extremities: 2-3+ hard nonpitting pretibial bilateral edema. +stasis changes. A/P: Agree with above PAC history, physical exam, assessment and plan. Continue bumex plus albumin. Nephrology input appreciated. Monitor daily weight, and fluid balance closely. Plan for permcath palcement. Olaf Bueno DO, [facility] Laboratory Results Last 24 Hours Test 06/12/16 14:05 06/12/16 21:50 06/13/16 05:55 06/13/16 10:30 Hemoglobin 11.7 g/dL 11.8 g/dL 11.5 g/dL Hematocrit 36.1 % 36.2 % 36.3 % Potassium Level 3.3 mmol/L 3.3 mmol/L White Blood Count 7.57 K/uL Red Blood Count 3.50 M/uL Mean Corpuscular Volume 103.7 fL Mean Corpuscular Hemoglobin 32.9 pg Mean Corpuscular Hemoglobin Concent 31.7 g/dl Platelet Count 88 K/uL Mean Platelet Volume 10.3 fL Neutrophils (%) (Auto) 79.0 % Lymphocytes (%) (Auto) 10.0 % Monocytes (%) (Auto) 10.3 % Eosinophils (%) (Auto) 0.3 % Basophils (%) (Auto) 0.1 % Neutrophils # (Auto) 5.98 K/uL Lymphocytes # (Auto) 0.76 K/uL Monocytes # (Auto) 0.78 K/uL Eosinophils # (Auto) 0.02 K/uL Basophils # (Auto) 0.01 K/uL RDW Standard Deviation 58.4 fL RDW Coefficient of Variation 15.4 % Immature Granulocyte % (Auto) 0.3 % Immature Granulocyte # (Auto) 0.02 K/uL Microcytosis PRESENT Sodium Level 138 mmol/L Chloride Level 98 mmol/L Carbon Dioxide Level 32 mmol/L Anion Gap 8.0 mmol/L Blood Urea Nitrogen 128 mg/dl Creatinine 2.40 mg/dl Est Creatinine Clear Calc Drug Dose 19.4 ml/min Estimated GFR () 21.1 Estimated GFR (Non- 18.2 BUN/Creatinine Ratio 53.4 Random Glucose 159 mg/dl Calcium Level 8.7 mg/dl Magnesium Level 2.6 mg/dl Hepatitis B Surface Antigen NEG Hepatitis C Antibody NEG
--- NOTE | 2016-06-13 14:48 | Procedure Note ---
Procedure Note Procedure: Thoracentesis right-sided Preprocedural diagnosis: Bilateral pleural effusions Postprocedural diagnosis: Bilateral pleural effusions Consent: Obtained to the patient placed in the chart Analgesia: 6 cc of 1% liquid lidocaine Ultrasound: Ultrasound was used to evaluate the patient's pleural effusions. A spot on the right side along the posterior axillary line in the ninth intercostal space was marked in upright position. The patient was then draped and prepped in a sterile fashion in the upright position. Following this a modified Seldinger technique was then used to insert a catheter in the pleural space. Approximately 1100 cc of moderately dark yellow fluid was returned. Patient tolerated the procedure well. EBL: None Complications: Ultrasound: No signs of pneumothorax Chest x-ray: No signs of PTX
[2016-06-13 14:49] LABS: HEMATOCRIT 36.8 % (37-47)
[2016-06-13 14:56] LABS: PLEURAL FLUID TOTAL PROTEIN 3.7 g/dl
[2016-06-13 14:57] LABS: PLEURAL FLUID APPEARANCE CLEAR; PLEURAL FLUID COLOR YELLOW; PLEURAL FLUID MONONUC RELAT 51.9 %; PLEURAL FLUID POLYNUC 48.1 %; PLEURAL FLUID SOURCE RIGHT LUNG; PLEURAL FLUID WBC (A) 104 /uL
--- NOTE | 2016-06-13 15:17 | DIAGNOSTIC IMAGING REPORT ---
CHEST ONE VIEW PORTABLE CLINICAL HISTORY: POST THORACENTESIS COMPARISON STUDY: 06/12/2016 FINDINGS: The heart is enlarged. There are bilateral pleural effusions with bibasilar atelectasis/consolidation. There is pulmonary venous hypertension. There is no pneumothorax status post thoracentesis.[ IMPRESSION: No pneumothorax status post thoracentesis Electronically signed by: Balta Vargas M.D. 06/13/2016 3:16 PM
[2016-06-13 15:22] LABS: BUN/CREATININE RATIO 52.2 (10-20); CREATININE 2.5 mg/dl (0.60-1.20); PHOSPHORUS 3.8 mg/dl (2.5-4.9); POTASSIUM 3.5 mmol/L (3.5-5.1)
[2016-06-13 15:32] LABS: CALCIUM 8.8 mg/dl (8.5-10.1)
--- NOTE | 2016-06-13 16:31 | Pulmonology Progress Note ---
Pulmonary Progress Note Date of Service Jun 13, 2016. Attending Dr. Rudi Bradley Subjective Patient is stable today no acute changes in her respiratory status. She did have some discomfort last night along her left hemithorax which has resolved itself spontaneously. She describes it as a tearing/sharp discomfort. Objective Patient looks stable not using accessory muscles unable to complete full sentences. Labs reviewed: At this time her labs based off the pleural fluid are consistent with transudative effusions. I should note this is both from the thoracentesis on the left as well as the most recent from today on the right. Physical exam: Respiratory: There are crackles at the bases relatively clear anteriorly at the apices bilaterally Cardiac: S1 and S2 distant heart sounds regular rate and rhythm Assessment & Plan 81y/o female with bilateral pleural effusions: #1 pleural effusion's: Pleural effusions bilaterally most likely associated with volume overload status from cor pulmonale, poor nutrition, renal failure. At this time the patient and her daughter vertebrate to perform thoracentesis. We will initially attempt on the right side and if successful/beneficial repeat the following day and the left side. #2 pulmonary hypertension: Patient's elevated pulmonary pressures based off echocardiogram most likely secondary to volume overload, right left ventricular dysfunctioning and COPD. Group 1 pulmonary hypertension is extremely rare 81y/o female with bilateral pleural effusions: #1 Pleural Effusion's: Pleural fluid chemistry is consistent with transudate. These are most likely secondary to volume overload/renal insufficiency-failure, cor pulmonale, poor nutrition, renal failure. Left: I think is highly likely the patient has a entrapped or possibly trapped lung on along the left hemithorax. Evaluated to define this would be via pleural manometry and we are unable to do that at this time. #2 Pulmonary Hypertension: Patient's elevated pulmonary pressures based off echocardiogram most likely secondary to volume overload, right left ventricular dysfunctioning and COPD. Group 1 pulmonary hypertension is extremely rare 81-year-old female: This is most likely combination of group 1, 2 and 3. The most beneficial medical treatment at this time his proper cardiac, pulmonary, renal volume control. Data Medications: Current Inpatient Medications Medications (Trade) Dose Ordered Sig/Yvette Route Start Time Stop Time Status Last Admin Dose Admin Al Hydrox/Mg Hydrox/Simethicone (Maalox Max Susp) 15 ml Q4H PRN PO 06/10/16 16:00 07/10/16 15:59 Magnesium Hydroxide (Milk Of Magnesia Susp) 30 ml Q12H PRN PO 06/10/16 16:00 07/10/16 15:59 Ondansetron HCl (Zofran Inj) 4 mg Q6H PRN IV 06/10/16 16:00 07/10/16 15:59 Polyethylene (Miralax Powder Packet) 17 gm DAILY PRN PO 06/10/16 16:00 07/10/16 15:59 Aspirin (Ecotrin Tab) 81 mg QAM PO 06/11/16 09:00 07/11/16 08:59 06/13/16 07:55 81 MG Carvedilol (Coreg Tab) 3.125 mg BIDM PO 06/10/16 18:00 07/10/16 17:59 06/13/16 07:56 3.125 MG Gabapentin (Neurontin Cap) 300 mg HS PO 06/10/16 21:00 07/10/16 20:59 06/12/16 21:05 300 MG Levothyroxine Sodium (Synthroid Tab) 25 mcg DAILYBB PO 06/11/16 06:00 07/11/16 05:59 06/13/16 06:27 25 MCG Nitroglycerin (Nitrostat Tab) 0.4 mg UD PRN UT 06/10/16 17:30 07/10/16 17:29 Pantoprazole Sodium (Protonix Tab) 40 mg DAILY PO 06/11/16 09:00 07/11/16 08:59 06/13/16 07:56 40 MG Potassium Chloride (Klor-Con M10) 20 meq BID PO 06/10/16 21:00 07/10/16 20:59 06/13/16 07:56 20 MEQ Senna (Senokot Tab) 8.6 mg DAILY PRN PO 06/10/16 17:30 07/10/16 17:29 Tramadol HCl (Ultram Tab) 50 mg Q6H PRN PO 06/10/16 17:30 07/10/16 17:29 06/12/16 09:45 50 MG Ferrous Sulfate (Feosol Tab) 325 mg QAM PO 06/11/16 09:00 07/11/16 08:59 06/13/16 07:56 325 MG Heparin Sodium (Porcine) (Heparin Sq 5000 Unit/0.5ml) 5,000 unit Q8 SQ 06/10/16 22:00 07/10/16 21:59 Future Hold 06/12/16 14:16 5,000 UNIT Alprazolam (Xanax Tab) 0.5 mg HS PO 06/10/16 21:00 07/10/16 20:59 06/11/16 19:56 0.5 MG Acetaminophen/ Hydrocodone Bitart 1 tab 1 tab Q6H PRN PO 06/12/16 19:30 06/26/16 19:29 06/12/16 19:34 1 TAB Bumetanide 2 mg/ Syringe 8 ml @ 4 mls/min BID@0900,1700 IV 06/13/16 09:00 07/13/16 08:59 06/13/16 09:39 4 MLS/MIN Cefazolin Sodium (Ancef 2000mg/60 ml D5W) 60 ml @ 120 mls/hr PREOP@0600 IV 06/14/16 06:00 06/14/16 14:00 I & O: 24-Hour Column 06/13/16 07:59 Intake Total 1370 ml Output Total 2850 ml Balance -1480 ml Vital Signs: Date Time Temp Pulse Resp B/P Pulse Ox O2 Delivery O2 Flow Rate FiO2 06/13/16 16:00 36.9 75 18 90/49 95 06/13/16 12:34 36.5 83 15 109/54 96 Room Air 06/13/16 12:00 98 Nasal Cannula 4.0 06/13/16 08:04 36.6 87 22 108/55 94 Nasal Cannula 4.0 06/13/16 08:00 98 Nasal Cannula 4.0 06/13/16 04:00 36.6 97 20 101/50 92 Nasal Cannula 4.0 06/13/16 04:00 93 Nasal Cannula 4.0 06/13/16 00:00 94 Nasal Cannula 4.0 06/13/16 00:00 36.8 90 22 106/53 93 Nasal Cannula 4.0 06/12/16 20:00 90 Nasal Cannula 4.0 06/12/16 19:10 37.0 85 25 112/47 94 Nasal Cannula 3.0 Humidified Oxygen Laboratory Results: Last 24 Hours Test 06/12/16 21:50 06/13/16 00:00 06/13/16 05:55 06/13/16 10:30 Hemoglobin 11.8 g/dL 11.5 g/dL Hematocrit 36.2 % 36.3 % Pleural Fluid Source RIGHT LUNG Pleural Fluid Color YELLOW Pleural Fluid Appearance CLEAR Pleural Fluid WBC 104 /uL Pleural Fluid RBC < 3000 /uL Pleural Fluid pH 7.44 Pleural Fluid Polynuclear WBCs % 48.1 % Pleural Fluid Mononuclear WBCs % 51.9 % Pleural Fluid Total Protein 3.7 g/dl Pleural Fluid LDH 86 IU Pleural Fluid Glucose 167 mg/dl Pleural Fluid Amylase 41 U/L White Blood Count 7.57 K/uL Red Blood Count 3.50 M/uL Mean Corpuscular Volume 103.7 fL Mean Corpuscular Hemoglobin 32.9 pg Mean Corpuscular Hemoglobin Concent 31.7 g/dl Platelet Count 88 K/uL Mean Platelet Volume 10.3 fL Neutrophils (%) (Auto) 79.0 % Lymphocytes (%) (Auto) 10.0 % Monocytes (%) (Auto) 10.3 % Eosinophils (%) (Auto) 0.3 % Basophils (%) (Auto) 0.1 % Neutrophils # (Auto) 5.98 K/uL Lymphocytes # (Auto) 0.76 K/uL Monocytes # (Auto) 0.78 K/uL Eosinophils # (Auto) 0.02 K/uL Basophils # (Auto) 0.01 K/uL RDW Standard Deviation 58.4 fL RDW Coefficient of Variation 15.4 % Immature Granulocyte % (Auto) 0.3 % Immature Granulocyte # (Auto) 0.02 K/uL Microcytosis PRESENT Sodium Level 138 mmol/L Potassium Level 3.3 mmol/L Chloride Level 98 mmol/L Carbon Dioxide Level 32 mmol/L Anion Gap 8.0 mmol/L Blood Urea Nitrogen 128 mg/dl Creatinine 2.40 mg/dl Est Creatinine Clear Calc Drug Dose 19.4 ml/min Estimated GFR () 21.1 Estimated GFR (Non- 18.2 BUN/Creatinine Ratio 53.4 Random Glucose 159 mg/dl Calcium Level 8.7 mg/dl Magnesium Level 2.6 mg/dl Hepatitis B Surface Antigen NEG Hepatitis C Antibody NEG Test 06/13/16 14:23 06/13/16 14:39 Hemoglobin 11.7 g/dL Hematocrit 36.8 % Sodium Level 138 mmol/L Potassium Level 3.5 mmol/L Chloride Level 96 mmol/L Carbon Dioxide Level 33 mmol/L Anion Gap 9.0 mmol/L Blood Urea Nitrogen 131 mg/dl Creatinine 2.50 mg/dl Est Creatinine Clear Calc Drug Dose 18.6 ml/min Estimated GFR () 20.1 Estimated GFR (Non- 17.3 BUN/Creatinine Ratio 52.2 Random Glucose 132 mg/dl Calcium Level 8.8 mg/dl Phosphorus Level 3.8 mg/dl Albumin 3.0 gm/dl
[2016-06-13] MEDS: TRAMADOL HCL 50 MG TAB PO PRN (19:09)
--- NOTE | 2016-06-13 19:14 | Progress Note ---
Internal Med Progress Note Date of Service: Jun 13, 2016. Provider Documentation: SUBJECTIVE: feeling tired resting on the chair comfortably had bowel movement today and no bloody or black stools noted afebrile says feeling somewhat better today eating ok lower extremity swelling improving OBJECTIVE: Vital Signs-as noted below Exam: General-alert and awake and oriented ENT-Normal hearing Neck-no neck masses Lungs-cta b/l no wheezing or crackles Heart-s1 and s2 heard regular rate and rhythm, no murmurs Abdomen-soft bowel sounds present nn tender no distension Extremities-lower extremity edema present-improving Neuro-alert and awake moves extremities Lab data as noted below. ASSESSMENT & PLAN: This is an 81 year old female with PMH of severe COPD and chronic respiratory failure requiring O2 continuously, severe pulmonary HTN and resultant right heart failure, CKD stage IV-V, recent AV-fistula placement awaiting maturation, hx. of paroxysmal atrial fibrillation, not on anticoagulation, anemia due to CKD presents with worsening lower extremity edema. Severe Pulmonary HTN Right Heart Failure Patient presents with worsening edema in the LE and abdomen Recently medications changd to , Bumex 3mg BID and metolazone 5mg was started on IV Bumex 3mg BID cardiology and nephrology on board and appreciate inputs required dobutamine drip in the past not responding much to diuretics as patient on Bumex and metazolne at home Nephrology started on Bumex drip and if no improvement plan for dialysis seems to responding to Bumex drip plan for perma cath in am and initiation of dialysis Severe COPD Chronic Respiratory Failure stable will monitor Pleural effusion left side s/p thoracocentesis by pulmonary stable CKD stage IV creat at 2.5 today nephrology on board vascular surgery consulted and appreciate inputs s/p av fistula but not mature yet and may take 2 more weeks to mature plan for Perma cath in am and initiation of dialysis GI bleed? vaginal bleed? Hx of GI bleed stool for Hemoccult serial young dn h pelvic ultrasound-unremarkable h and h stable no more episodes DVT ppx scds, monitor H/H FULL CODE DISPOSITION monitor in tele Vital Signs: Date Time Temp Pulse Resp B/P Pulse Ox O2 Delivery O2 Flow Rate FiO2 06/13/16 16:00 36.9 75 18 90/49 95 06/13/16 16:00 98 Nasal Cannula 4.0 06/13/16 12:34 36.5 83 15 109/54 96 Room Air 06/13/16 12:00 98 Nasal Cannula 4.0 06/13/16 08:04 36.6 87 22 108/55 94 Nasal Cannula 4.0 06/13/16 08:00 98 Nasal Cannula 4.0 06/13/16 04:00 36.6 97 20 101/50 92 Nasal Cannula 4.0 06/13/16 04:00 93 Nasal Cannula 4.0 06/13/16 00:00 94 Nasal Cannula 4.0 06/13/16 00:00 36.8 90 22 106/53 93 Nasal Cannula 4.0 06/12/16 20:00 90 Nasal Cannula 4.0 06/12/16 19:10 37.0 85 25 112/47 94 Nasal Cannula 3.0 Humidified Oxygen Lab Results: Results Past 24 Hours Test 06/12/16 21:50 06/13/16 00:00 06/13/16 05:55 06/13/16 10:30 Range/Units Hemoglobin 11.8 11.5 12.0-16.0 g/dL Hematocrit 36.2 36.3 37-47 % Pleural Fluid Source RIGHT LUNG Pleural Fluid Color YELLOW Pleural Fluid Appearance CLEAR Pleural Fluid WBC 104 /uL Pleural Fluid RBC < 3000 /uL Pleural Fluid pH 7.44 7.3-7.4 Pleural Fluid Polynuclear WBCs % 48.1 % Pleural Fluid Mononuclear WBCs % 51.9 % Pleural Fluid Total Protein 3.7 g/dl Pleural Fluid LDH 86 IU Pleural Fluid Glucose 167 mg/dl Pleural Fluid Amylase 41 U/L White Blood Count 7.57 4.8-10.8 K/uL Red Blood Count 3.50 4.2-5.4 M/uL Mean Corpuscular Volume 103.7 80-100 fL Mean Corpuscular Hemoglobin 32.9 25-34 pg Mean Corpuscular Hemoglobin Concent 31.7 32-36 g/dl Platelet Count 88 130-400 K/uL Mean Platelet Volume 10.3 7.4-10.4 fL Neutrophils (%) (Auto) 79.0 % Lymphocytes (%) (Auto) 10.0 % Monocytes (%) (Auto) 10.3 % Eosinophils (%) (Auto) 0.3 % Basophils (%) (Auto) 0.1 % Neutrophils # (Auto) 5.98 1.4-6.5 K/uL Lymphocytes # (Auto) 0.76 1.2-3.4 K/uL Monocytes # (Auto) 0.78 0.11-0.59 K/uL Eosinophils # (Auto) 0.02 0-0.5 K/uL Basophils # (Auto) 0.01 0-0.2 K/uL RDW Standard Deviation 58.4 36.4-46.3 fL RDW Coefficient of Variation 15.4 11.5-14.5 % Immature Granulocyte % (Auto) 0.3 % Immature Granulocyte # (Auto) 0.02 0.00-0.02 K/uL Microcytosis PRESENT Sodium Level 138 136-145 mmol/L Potassium Level 3.3 3.5-5.1 mmol/L Chloride Level 98 98-107 mmol/L Carbon Dioxide Level 32 21-32 mmol/L Anion Gap 8.0 3-11 mmol/L Blood Urea Nitrogen 128 7-18 mg/dl Creatinine 2.40 0.60-1.20 mg/dl Est Creatinine Clear Calc Drug Dose 19.4 ml/min Estimated GFR () 21.1 Estimated GFR (Non- 18.2 BUN/Creatinine Ratio 53.4 10-20 Random Glucose 159 70-99 mg/dl Calcium Level 8.7 8.5-10.1 mg/dl Magnesium Level 2.6 1.8-2.4 mg/dl Hepatitis B Surface Antigen NEG NEG Hepatitis C Antibody NEG NEG Test 06/13/16 14:23 06/13/16 14:39 Range/Units Hemoglobin 11.7 12.0-16.0 g/dL Hematocrit 36.8 37-47 % Sodium Level 138 136-145 mmol/L Potassium Level 3.5 3.5-5.1 mmol/L Chloride Level 96 98-107 mmol/L Carbon Dioxide Level 33 21-32 mmol/L Anion Gap 9.0 3-11 mmol/L Blood Urea Nitrogen 131 7-18 mg/dl Creatinine 2.50 0.60-1.20 mg/dl Est Creatinine Clear Calc Drug Dose 18.6 ml/min Estimated GFR () 20.1 Estimated GFR (Non- 17.3 BUN/Creatinine Ratio 52.2 10-20 Random Glucose 132 70-99 mg/dl Calcium Level 8.8 8.5-10.1 mg/dl Phosphorus Level 3.8 2.5-4.9 mg/dl Albumin 3.0 3.4-5.0 gm/dl Microbiology Results 06/13/16 Acid Fast Stain, Received Pending 06/13/16 Mycobacterial Culture, Received Pending 06/13/16 Gram Stain - Preliminary, Resulted 06/13/16 Bacterial Culture, Resulted Pending
[2016-06-13] MEDS: GABAPENTIN 300 MG CAP PO SCH (20:17)
[2016-06-13] MEDS: ALPRAZOLAM 0.5 MG TAB PO SCH (22:20)
[2016-06-13 22:37] LABS: HEMATOCRIT 36.5 % (37-47)
[2016-06-13] MEDS: HYDROCODONE/ACETAMOPHEN 5/325MG TAB PO PRN (23:18)
[2016-06-14] VITALS (24 sets, daily range): BP systolic 84–107; BP diastolic 47–63; PULSE 81–101; TEMP 36–36.6; O2SAT 92–94
[2016-06-14] MEDS ORDERED: CEFAZOLIN IV 2,000 MG/60 ML D5W IV ONE (06:00)
[2016-06-14] MEDS ORDERED: CEFAZOLIN 2000 MG/60 ML D5W 60 ML IV SCH (06:00)
[2016-06-14] MEDS: LEVOTHYROXINE 25 MCG TAB PO SCH (06:04)
[2016-06-14] MEDS: HYDROCODONE/ACETAMOPHEN 5/325MG TAB PO PRN (06:35)
[2016-06-14 06:43] LABS: MEAN CELL VOLUME 103.7 fL (80-100); MEAN CORPUSCULAR HEMOGLOBIN 33.1 pg (25-34); MEAN CORPUSCULAR HGB CONC 31.9 g/dl (32-36); RED BLOOD COUNT 3.47 M/uL (4.2-5.4); WHITE BLOOD COUNT 7.09 K/uL (4.8-10.8)
[2016-06-14 06:48] LABS: MEAN PLATELET VOLUME 10.1 fL (7.4-10.4); PLATELET COUNT 90 K/uL (130-400)
[2016-06-14 07:12] LABS: BASO % 0.1 %; BASO ABS # 0.01 K/uL (0-0.2); COMPLETE YES; EOS % 0.4 %; HYPERSEGMENTED POLYS 1+; IG% 0.3 %; LYMPH % 12.4 %; LYMPH ABS # 0.88 K/uL (1.2-3.4); MONO % 9.3 %; NEUT % 77.5 %
[2016-06-14 07:26] LABS: BUN/CREATININE RATIO 54.3 (10-20); CALCIUM 8.7 mg/dl (8.5-10.1); CREATININE 2.4 mg/dl (0.60-1.20); MAGNESIUM 2.6 mg/dl (1.8-2.4); POTASSIUM 3.9 mmol/L (3.5-5.1)
[2016-06-14] MEDS ORDERED: MIDAZOLAM HCL 1 MG/ML 2ML VIAL ONE (07:26)
[2016-06-14] MEDS ORDERED: FENTANYL CITRATE INJ 50 MCG/1 ML 2 ML VIAL ONE (07:26)
[2016-06-14] MEDS ORDERED: LIDOCAINE HCL 1% 20 ML VIAL ONE (07:27)
[2016-06-14] MEDS ORDERED: HEPARIN SOD (PORCINE) 5000 UNIT/ML 1 ML VIAL ONE ×2 (07:27→08:17)
[2016-06-14] MEDS: CARVEDILOL 3.125 MG TAB PO SCH ×2 (07:30→15:48)
--- NOTE | 2016-06-14 08:01 | Progress Note ---
Progress Note Patient for insertion of permcath today. I have discussed the risks options and benefits of the procedure with the patient. The patient understands the risks options and benefits and agrees to the procedure. I have examined the patient, reviewed the History & Physical and in the interval since the performance of the History & Physical I have noted the following changes of clinical significance: No changes noted
--- NOTE | 2016-06-14 08:03 | Procedure Note ---
Pre-Mod Sedation Assessment General Date of Moderate Sedation: Jun 14, 2016. Vital Signs: Vital Signs Past 12 Hours Date Time Temp Pulse Resp B/P Pulse Ox O2 Delivery O2 Flow Rate FiO2 06/14/16 07:25 36.6 87 20 99/47 94 Nasal Cannula 4.0 06/14/16 04:00 36.6 87 20 99/47 94 Nasal Cannula 4.0 06/14/16 04:00 Nasal Cannula 4.0 06/14/16 00:00 Nasal Cannula 4.0 06/14/16 00:00 36.4 81 21 100/52 94 Nasal Cannula 4.0 Pre-Sedation Airway Assessment Oral Cavity: Chipped Teeth, Dental Abnormalities Short Thick Neck: No Hx of Sleep Apnea: No Smoking Status: Former Smoker Mallampati Classification: Class I ASA Classification: Class II Notes The planned sedation has been discussed with the patient and consent obtained. I have identified the patient, determined the appropriateness of sedation and have assessed the patient immediately prior to the procedure. All medicine(s) and interventions are by my order.
[2016-06-14] MEDS ORDERED: FENTANYL CITRATE INJ 50 MCG/1 ML 2 ML VIAL IV ONE (08:25)
[2016-06-14] MEDS ORDERED: LIDOCAINE HCL 1% 20 ML VIAL INJ ONE (08:28)
[2016-06-14] MEDS ORDERED: HEPARIN SOD (PORCINE) 5000 UNIT/ML 1 ML VIAL IV ONE (08:38)
--- NOTE | 2016-06-14 08:39 | Procedure Note ---
Post-Moderate Sedation Plan General Date of Moderate Sedation Jun 14, 2016. Vital Signs: Vital Signs Past 12 Hours Date Time Temp Pulse Resp B/P Pulse Ox O2 Delivery O2 Flow Rate FiO2 06/14/16 08:10 91 24 109/64 93 Nasal Cannula 3 06/14/16 08:05 36.5 89 18 102/49 94 Nasal Cannula 4.0 06/14/16 07:34 94 Nasal Cannula 4.0 06/14/16 07:25 36.6 87 20 99/47 94 Nasal Cannula 4.0 06/14/16 04:00 36.6 87 20 99/47 94 Nasal Cannula 4.0 06/14/16 04:00 Nasal Cannula 4.0 06/14/16 00:00 Nasal Cannula 4.0 06/14/16 00:00 36.4 81 21 100/52 94 Nasal Cannula 4.0 Review - Discharge Plan Post Moderate Sedation Plan: On clinical assessment, the patient appears to have tolerated the conscious sedation without complications. Patient is recovering as anticipated. Patient will continue to be monitored by nursing and may be discharged when conscious sedation discharge criteria are met.
--- NOTE | 2016-06-14 08:40 | [facility] Post Operative Brief Note ---
Immediate Operative Summary Operative Date Jun 14, 2016. Pre-Operative Diagnosis acute renal failure Post-Operative Diagnosis same Procedure(s) Performed Insertion of Perm Catheter, Right Internal Jugular Approach, USN Localization of Right Internal Jugular Vein, Fluoro for Position Surgeon Dr. Penny Bill Hiker Surgeon(s) none Estimated Blood Loss 5 ml Findings tip in distal svc Specimens none Anesthesia Local Complication(s) None Disposition
--- NOTE | 2016-06-14 08:48 | Progress Note ---
Progress Note Will plan on left arm basilic vein transposition Friday early afternoon if still in hospital.
[2016-06-14] MEDS: ONDANSETRON INJ 2 MG/ML 2 ML VIAL IV PRN ×2 (09:09→09:25)
[2016-06-14] MEDS: BUMETANIDE IV 2 MG in SYRINGE 0 ML IV SCH ×2 (09:44→16:07)
[2016-06-14] MEDS: PANTOprazole SOD 40 MG TAB PO SCH (09:45)
[2016-06-14] MEDS: FERROUS SULFATE 325 MG TAB PO SCH (09:45)
[2016-06-14] MEDS: ASPIRIN 81 MG ECTAB PO SCH (09:45)
[2016-06-14] MEDS: POTASSIUM CHLORIDE 10 MEQ TABCR PO SCH ×2 (09:45→21:03)
--- NOTE | 2016-06-14 10:35 | Nephrology Progress Note ---
Nephrology Progress Note Date of Service Jun 14, 2016. Chief Complaint follow-up for acute kidney injury and diuretic resistant volume overload. Caroline Law was seen and examined in her room this morning With her daughter Caren at bedside. She was in bed, feels tired and lethargic but denies shortness of breath or chest pain overnight. Blood pressure has been stable. Responding to diuretics and net negative >0.5 L since yesterday. Renal function worsened to creatinine 2.5 and BUN 130. Hemoglobin remained stable and no further episode of bleeding. Had right IJ tunnel dialysis catheter placed this morning. Review of Systems A complete review of systems was performed. Pertinent positives are noted above. All other systems are negative. Vital Signs Last 8 Hrs Date Time Temp Pulse Resp B/P Pulse Ox O2 Delivery O2 Flow Rate FiO2 06/14/16 08:10 91 24 109/64 93 Nasal Cannula 3 06/14/16 08:05 36.5 89 18 102/49 94 Nasal Cannula 4.0 06/14/16 07:34 94 Nasal Cannula 4.0 06/14/16 07:25 36.6 87 20 99/47 94 Nasal Cannula 4.0 06/14/16 04:00 36.6 87 20 99/47 94 Nasal Cannula 4.0 06/14/16 04:00 Nasal Cannula 4.0 I & O 24-Hour Column 06/14/16 08:00 Intake Total 440 ml Output Total 1100 ml Balance -660 ml Last Recorded Weight Weight (Kilograms): 95.500 Physical Exam GENERAL: Elderly female, AAA x 3, pleasant, chronically ill-appearing, lathergic, Drowsy but easily arousable. NECK: Supple, no JVD. RESPIRATORY: Normal breathing efforts, no accessory muscle use, no wheezes or rales, decreased breath sound at bases. CARDIOVASCULAR: S1, S2 normal, rate rhythm regular. EXTREMITY: Tense non pitting lower extremity edema without significant changes. NEURO: speech fluent. PSYCHIATRY: Normal mood and judgment Family History Diabetes mellitus FH: heart disease Stroke Social History Drug Use: none Occupation: retired Laboratory Results Past 24 Hours 06/13/16 14:39 06/13/16 22:20 06/14/16 06:31 Red Blood Count 3.47, Mean Corpuscular Volume 103.7, Mean Corpuscular Hemoglobin 33.1, Mean Corpuscular Hemoglobin Concent 31.9, Mean Platelet Volume 10.1, Neutrophils (%) (Auto) 77.5, Lymphocytes (%) (Auto) 12.4, Monocytes (%) ( Auto) 9.3, Eosinophils (%) (Auto) 0.4, Basophils (%) (Auto) 0.1, Neutrophils # ( Auto) 5.49, Lymphocytes # (Auto) 0.88, Monocytes # (Auto) 0.66, Eosinophils # ( Auto) 0.03, Basophils # (Auto) 0.01 06/13/16 14:39 06/14/16 06:31 Test 06/13/16 10:30 06/13/16 14:39 06/14/16 06:31 Hepatitis A IgM Antibody NON-REACTIVE (NON-REACTIVE) Hepatitis B Surface Antigen NEG (NEG) Hepatitis B Core IgM Antibody NON-REACTIVE (NON-REACTIVE) Hepatitis C Antibody NEG (NEG) Anion Gap 9.0 mmol/L (3-11) 11.0 mmol/L (3-11) Est Creatinine Clear Calc Drug Dose 18.6 ml/min 19.5 ml/min Estimated GFR () 20.1 21.1 Estimated GFR (Non- 17.3 18.2 BUN/Creatinine Ratio 52.2 (10-20) 54.3 (10-20) Calcium Level 8.8 mg/dl (8.5-10.1) 8.7 mg/dl (8.5-10.1) Phosphorus Level 3.8 mg/dl (2.5-4.9) 4.0 mg/dl (2.5-4.9) Albumin 3.0 gm/dl (3.4-5.0) White Blood Count 7.09 K/uL (4.8-10.8) Red Blood Count 3.47 M/uL (4.2-5.4) Hemoglobin 11.5 g/dL (12.0-16.0) Hematocrit 36.0 % (37-47) Mean Corpuscular Volume 103.7 fL (80-100) Mean Corpuscular Hemoglobin 33.1 pg (25-34) Mean Corpuscular Hemoglobin Concent 31.9 g/dl (32-36) Platelet Count 90 K/uL (130-400) Mean Platelet Volume 10.1 fL (7.4-10.4) Neutrophils (%) (Auto) 77.5 % Lymphocytes (%) (Auto) 12.4 % Monocytes (%) (Auto) 9.3 % Eosinophils (%) (Auto) 0.4 % Basophils (%) (Auto) 0.1 % Neutrophils # (Auto) 5.49 K/uL (1.4-6.5) Lymphocytes # (Auto) 0.88 K/uL (1.2-3.4) Monocytes # (Auto) 0.66 K/uL (0.11-0.59) Eosinophils # (Auto) 0.03 K/uL (0-0.5) Basophils # (Auto) 0.01 K/uL (0-0.2) RDW Standard Deviation 58.1 fL (36.4-46.3) RDW Coefficient of Variation 15.2 % (11.5-14.5) Immature Granulocyte % (Auto) 0.3 % Immature Granulocyte # (Auto) 0.02 K/uL (0.00-0.02) Hypersegmented Polys 1+ Basophilic Stippling 1+ Magnesium Level 2.6 mg/dl (1.8-2.4) Allergies Coded Allergies: No Known Allergies (Verified , 06/10/16) Medications Current Inpatient Medications Medications (Trade) Dose Ordered Sig/Yvette Route Start Time Stop Time Status Last Admin Dose Admin Al Hydrox/Mg Hydrox/Simethicone (Maalox Max Susp) 15 ml Q4H PRN PO 06/10/16 16:00 07/10/16 15:59 Magnesium Hydroxide (Milk Of Magnesia Susp) 30 ml Q12H PRN PO 06/10/16 16:00 07/10/16 15:59 Ondansetron HCl (Zofran Inj) 4 mg Q6H PRN IV 06/10/16 16:00 07/10/16 15:59 06/14/16 09:25 4 MG Polyethylene (Miralax Powder Packet) 17 gm DAILY PRN PO 06/10/16 16:00 07/10/16 15:59 Aspirin (Ecotrin Tab) 81 mg QAM PO 06/11/16 09:00 07/11/16 08:59 06/13/16 07:55 81 MG Carvedilol (Coreg Tab) 3.125 mg BIDM PO 06/10/16 18:00 07/10/16 17:59 06/13/16 07:56 3.125 MG Gabapentin (Neurontin Cap) 300 mg HS PO 06/10/16 21:00 07/10/16 20:59 06/13/16 20:17 300 MG Levothyroxine Sodium (Synthroid Tab) 25 mcg DAILYBB PO 06/11/16 06:00 07/11/16 05:59 06/14/16 06:04 25 MCG Nitroglycerin (Nitrostat Tab) 0.4 mg UD PRN UT 06/10/16 17:30 07/10/16 17:29 Pantoprazole Sodium (Protonix Tab) 40 mg DAILY PO 06/11/16 09:00 07/11/16 08:59 06/13/16 07:56 40 MG Potassium Chloride (Klor-Con M10) 20 meq BID PO 06/10/16 21:00 07/10/16 20:59 06/13/16 20:16 20 MEQ Senna (Senokot Tab) 8.6 mg DAILY PRN PO 06/10/16 17:30 07/10/16 17:29 Tramadol HCl (Ultram Tab) 50 mg Q6H PRN PO 06/10/16 17:30 07/10/16 17:29 06/13/16 19:09 50 MG Ferrous Sulfate (Feosol Tab) 325 mg QAM PO 06/11/16 09:00 07/11/16 08:59 06/13/16 07:56 325 MG Heparin Sodium (Porcine) (Heparin Sq 5000 Unit/0.5ml) 5,000 unit Q8 SQ 06/10/16 22:00 07/10/16 21:59 Future hold 06/12/16 14:16 5,000 UNIT Alprazolam (Xanax Tab) 0.5 mg HS PO 06/10/16 21:00 07/10/16 20:59 06/11/16 19:56 0.5 MG Acetaminophen/ Hydrocodone Bitart 1 tab 1 tab Q6H PRN PO 06/12/16 19:30 06/26/16 19:29 06/14/16 06:35 1 TAB Bumetanide/Syringe (Bumex IV/ Syringe) 8 ml @ 4 mls/min BID@0900,1700 IV 06/13/16 09:00 07/13/16 08:59 06/13/16 16:34 4 MLS/MIN Impression (1) Acute renal failure (2) Pulmonary hypertension, moderate to severe (3) Chronic kidney disease, stage 4 (severe) (4) Severe tricuspid regurgitation (5) Cardiorenal syndrome (6) Anemia (7) Bilateral pleural effusion Ani is a 81-year-old female with stage 4 chronic kidney disease, severe pulmonary hypertension, tricuspid regurgitation, history of COPD and diuretic resistant volume overload admitted to the hospital with worsening volume status and lethargy. At baseline she has stage 4 chronic kidney disease secondary to cardiorenal syndrome, baseline creatinine variable from a from 1.6-1.9, on admission she was found to have acute kidney injury creatinine has been 2.5-2.6 and BUN worsened to 127. has evidence of intravascular volume depletion however overall volume status worsened and has been less responsive to diuretics. She has left brachiocephalic AV fistula placed in April 2016 and currently maturing. At home she was on Bumex 3 milligram twice a day and metolazone 5 milligrams 3 times weekly but has been less responsive. On admission she was started on Bumex 3 milligrams IV twice a day with suboptimal response. Stop Bumex this morning and started on Bumex drip. Blood pressure has been running soft but she has been asymptomatic, denies any uremic symptoms. Has history of anemia, hemoglobin has been stable previously had GI bleeding, and currently no active bleeding. She had EGD in October 2015, EGD was normal but complicated by hypotension and hypoxia and colonoscopy was not done. Recommendations -- 1st hemodialysis treatment this morning for 2 hours with low blood flow. Plan for 2nd treatment tomorrow for 3 hours and then intermittent dialysis from 2 stay at at [facility]. discussed with patient and her daughter Caren ([id number]), they are in agreement to start on dialysis. -- continue on the current dose of Bumex for now -- dose medications for GFR less than 10 -- avoid nephrotoxins medications Will follow.
--- NOTE | 2016-06-14 11:38 | Cardiology Follow-Up ---
Subjective General Date of Service: Jun 14, 2016. Chief Complaint: SOB; CHF; CKD Pt evaluation today including: conversation w/ patient, physical exam, chart review, lab review, review of studies, review of inpatient medication list History of Present Illness Patient feeling ok. Feels tired s/p permacath placement. Dialysis session planned for this afternoon. She denies CP or SOB. Edema unchanged. No orthopnea, PND. No dizziness, syncope or near syncope. Allergies Coded Allergies: No Known Allergies (Verified , 06/10/16) Social History Smoking Status: Former Smoker Hx Tobacco Use In Past Year?: No Hx Alcohol Use - Type And Amou: No Hx Substance Use - Type And Am: No Problem List Medical Problems: (1) Acute on chronic renal failure Status: Acute (2) Anasarca Status: Acute (3) Anemia Status: Acute (4) Bilateral pleural effusion Status: Acute (5) Cellulitis of right leg Status: Acute (6) CHF (congestive heart failure) Status: Acute (7) Chronic kidney disease Status: Acute (8) Congestive heart failure Status: Acute (9) Constipation Status: Acute (10) GI bleed Status: Acute (11) Jaundice Status: Acute (12) Kidney stone Status: Acute (13) Left sided abdominal pain Status: Acute (14) Pleural effusion Status: Acute (15) Pulmonary edema Status: Acute (16) Renal insufficiency Status: Acute (17) UTI (urinary tract infection) Status: Acute (18) Vomiting and diarrhea Status: Acute (19) Weakness Status: Acute Review of Systems Respiratory: No cough, No dyspnea at rest, No hemoptysis, No shortness of breath, No sputum, No wheezing Cardiac: + edema, No PND, No chest pain, No orthopnea, No palpitations Physical Exam Vital Signs Last Vital Signs Documentation Date Time Temp Pulse Resp B/P Pulse Ox O2 Delivery O2 Flow Rate FiO2 06/14/16 10:12 85 22 94/50 94 Nasal Cannula 4.0 06/14/16 09:32 36.5 Physical Exam Constitutional: General Apperance: well-nourished, well-developed, obese Level of Distress: NAD, acutely ill, chronically ill Psychiatric: Mental Status: active & alert, normal mood, normal affect Orientation: oriented except where noted, to time, to place, to person Memory: recent memory normal, remote memory normal Head: normocephalic, atraumatic Eyes: EOM: EOMI Neck: supple, trachea midline Lungs: Respiratory effort: no dyspnea Auscultation: deminished air movement (R>L), decreased breath sounds, wet rales/crackles Cardiovascular: Apical Impulse: not displaced Peripheral Pulses: Bruits: none appreciated Carotid Pulse: normal on the left, normal on the right Radial Pulse: normal on the left, normal on the right Femoral Pulse: normal on the left, normal on the right Dorsalis Pedis Pulse: decreased on the left, decreased on the right Abdomen: Bowel Sounds: normal Inspection & Palpation: soft, no tenderness, guarding & rebound, distended Extremities: edema (2+ hard indurated LE edema b/l with chronic stasis changes) Neurologic: Cranial Nerves: grossly intact Sensation: grossly intact Assessment and Plan Assessment and Plan Assessment & Plan 81 year old female 1. Acute on chronic combined systolic and diastolic, right greater than left, heart failure decompensation, failing outpatient treatment, complicated by ESRD , cardiorenal syndrome 2. Moderate, enlarging b/l Pleural effusions, improved s/p thoracentesis 3. 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 5. Severe COPD 6.Pulmonary hypertension with chronic cor pulmonale 7.Chronic atrial fibrillation, rate controlled. 8.Obesity 9.Diabetes mellitus 10.History of chronic anemia, recent GI bleed in December, and not a candidate for anticoagulation 11. Recurrent GI bleed Plan: Patient underwent perma cath placement this AM. Tolerated procedure. Dialysis planned for this afternoon. Continue diuretic therapy per nephrology at this time. Continue ASA for Afib and carvedilol. Supplement potassium and monitor. Case to be discussed with Dr. Bueno. Will sign off. Please notify educational paraprofessional director of rehabilitation with acute issues or concerns. Cardiology attending physician: Patient seen and examined at the bedside. Carvedilol intermittently on hold due to hypotension. Denies chest discomfort, palpitations, lightheadedness, disease , syncope or near-syncope. Daughter present at bedside. PE:VSS, Gen:AAOx3. Heart: Irregular, normal S1-S2. Lungs: Crackles at the bases bilaterally. Abdomen: Obese, nontender, no rebound or guarding. Extremities: 2-3+ hard nonpitting pretibial bilateral edema. +stasis changes. A/P: Agree with above PAC history, physical exam, assessment and plan. Hemodialysis today. No further cardiac testing at this time. Will sign off. Please call with questions. Olaf Bueno DO, [facility] Laboratory Results Last 24 Hours Test 06/13/16 14:39 06/13/16 22:20 06/14/16 06:31 Hemoglobin 11.7 g/dL 11.8 g/dL 11.5 g/dL Hematocrit 36.8 % 36.5 % 36.0 % Sodium Level 138 mmol/L 138 mmol/L Potassium Level 3.5 mmol/L 3.9 mmol/L Chloride Level 96 mmol/L 97 mmol/L Carbon Dioxide Level 33 mmol/L 30 mmol/L Anion Gap 9.0 mmol/L 11.0 mmol/L Blood Urea Nitrogen 131 mg/dl 130 mg/dl Creatinine 2.50 mg/dl 2.40 mg/dl Est Creatinine Clear Calc Drug Dose 18.6 ml/min 19.5 ml/min Estimated GFR () 20.1 21.1 Estimated GFR (Non- 17.3 18.2 BUN/Creatinine Ratio 52.2 54.3 Random Glucose 132 mg/dl 143 mg/dl Calcium Level 8.8 mg/dl 8.7 mg/dl Phosphorus Level 3.8 mg/dl 4.0 mg/dl Albumin 3.0 gm/dl White Blood Count 7.09 K/uL Red Blood Count 3.47 M/uL Mean Corpuscular Volume 103.7 fL Mean Corpuscular Hemoglobin 33.1 pg Mean Corpuscular Hemoglobin Concent 31.9 g/dl Platelet Count 90 K/uL Mean Platelet Volume 10.1 fL Neutrophils (%) (Auto) 77.5 % Lymphocytes (%) (Auto) 12.4 % Monocytes (%) (Auto) 9.3 % Eosinophils (%) (Auto) 0.4 % Basophils (%) (Auto) 0.1 % Neutrophils # (Auto) 5.49 K/uL Lymphocytes # (Auto) 0.88 K/uL Monocytes # (Auto) 0.66 K/uL Eosinophils # (Auto) 0.03 K/uL Basophils # (Auto) 0.01 K/uL RDW Standard Deviation 58.1 fL RDW Coefficient of Variation 15.2 % Immature Granulocyte % (Auto) 0.3 % Immature Granulocyte # (Auto) 0.02 K/uL Hypersegmented Polys 1+ Basophilic Stippling 1+ Magnesium Level 2.6 mg/dl
--- NOTE | 2016-06-14 11:52 | PROGRESS NOTE ---
DATE: 06/14/2016 PROBLEM LIST: 1. Bilateral pleural effusions. 2. Cor pulmonale. 3. Poor nutrition. 4. Acute renal failure. SUBJECTIVE: The patient reports no problems today, she states that her breathing has not changed. She denies any pleuritic chest pain. She denies any coughing or wheezing at this time. The patient reports that she is feeling okay. She did have a Perm-A-Cath placed yesterday due to her acute renal failure. OBJECTIVE: GENERAL: The patient is an 81-year-old female sitting at bedside. She is interactive and cooperative. VITAL SIGNS: Temp 36.5, pulse 97, respirations 22, blood pressure 107/50, pulse ox 93% on 4 liters. HEENT: Normocephalic, atraumatic. Pupils equal, round and reactive to light and accommodation. Extraocular movements are intact. NECK: Supple. No mass. No adenopathy. No bruit. CHEST: Bibasilar rales, no wheeze or rhonchi noted. CARDIOVASCULAR: Regular rate and rhythm. Normal S1, S2. No murmurs, gallops or rubs appreciated. ABDOMEN: Obese, soft, nontender. EXTREMITIES: Trace edema. IMPRESSION: This is an 81-year-old female with bilateral pleural effusion, status post thoracentesis. At this time, patient appears to be stable, most likely pleural effusion secondary to volume overload, renal insufficiency, cor pulmonale and poor nutrition. At this point after discussion with Dr. Bradley and patient's stability from pulmonary standpoint, we will sign off. However, if in the future there is a need with this patient please contact us, we will be more than happy to see the patient again. KATEY
[2016-06-14] MEDS ORDERED: PANTOprazole INJ 80 MG in DEXTROSE 5% 100ML IV ONE (16:00)
[2016-06-14 16:03] LABS: BASO % 0.1 %; BASO ABS # 0.01 K/uL (0-0.2); COMPLETE YES; EOS % 0.1 %; HEMATOCRIT 39.9 % (37-47); IG% 0.3 %; LYMPH % 9.1 %; LYMPH ABS # 0.85 K/uL (1.2-3.4); MEAN CELL VOLUME 104.7 fL (80-100); MEAN CORPUSCULAR HEMOGLOBIN 34.1 pg (25-34); MEAN CORPUSCULAR HGB CONC 32.6 g/dl (32-36); MEAN PLATELET VOLUME 10.8 fL (7.4-10.4); MONO % 9.4 %; PLATELET COUNT 113 K/uL (130-400); RED BLOOD COUNT 3.81 M/uL (4.2-5.4)
[2016-06-14] MEDS: PANTOprazole INJ 40 MG in DEXTROSE 5% 100ML IV SCH ×2 (16:07→21:02)
--- NOTE | 2016-06-14 16:11 | DIAGNOSTIC IMAGING REPORT ---
CHEST ONE VIEW PORTABLE CLINICAL HISTORY: aspiration? Dyspnea COMPARISON STUDY: 06/13/2016 FINDINGS: Placement of a PermCath in superior vena cava. Stable cardiomegaly. Unchanging left pleural effusion and slight increase in density right base. IMPRESSION: 1. PermCath in the superior Vena cava. 2. Unchanging left pleural effusion with probable slight increase in volume of a small right effusion. 3. Underlying components of mild congestive failure Electronically signed by: Leoncio Fam M.D. 06/14/2016 4:10 PM
[2016-06-14 16:12] LABS: PARTIAL THROMBOPLASTIN RATIO 1.7
[2016-06-14 16:22] LABS: ALLEN TEST POS (POS); ARTERIAL BLD GAS O2 SATURATION 95.3 % (90-95); ARTERIAL BLOOD GAS BASE EXCESS 2.8 mEq/L (-9-1.8); ARTERIAL BLOOD GAS HCO3 28 mmol/L (19-24); ARTERIAL BLOOD GAS PO2 76 mm/Hg (80-95); O2 ADMINISTRATION 4 LITERS
[2016-06-14 16:26] LABS: BUN/CREATININE RATIO 42.1 (10-20); CALCIUM 9.1 mg/dl (8.5-10.1); CREATININE 2.1 mg/dl (0.60-1.20); MAGNESIUM 2.6 mg/dl (1.8-2.4)
[2016-06-14 16:45] LABS: INR 1.3 (0.9-1.1); PROTHROMBIN TIME (PATIENT) 13.5 SECONDS (9.0-12.0)
--- NOTE | 2016-06-14 18:52 | Anesthesiology Progress Note ---
Anesthesia Progress Note Date of Service Jun 14, 2016. 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 Penny on Friday. The patient was admitted 06/10/16 with acute on chronic combined systolic and diastolic heart failure. The patient's last echocardiogram from 04/07 showed EF 50%, severe TR, severe pulm HTN with PASP 70mm Hg, severely dilated RV and severely reduced RV function She has bilateral pleural effusion and is s/p R and L thoracentesis during this admission. The patient also had her first session of dialysis today. The patient was resting in bed and stated that she is very exhausted after her HD. She is saturating 92% on 4L nc and denies any shortness of breath Her lung sounds are distant but clear. Her airway is significant for loose lower teeth and multiple broken and missing teeth. She had a Mallampati II airway some limited extension as well. The patient had a left sided AV Fistula placed on 05/08 under MAC and she received 2mg IV midazolam and fentanyl 100mcg IV which she did tolerate well. She stated that the only time she has had a problem with anesthesia is when she had an EGD that was terminated due to her BP dropping. I spoke to the patient, her son and her daughter and explained to them that she would only be receiving minimal sedation for this procedure due to the nature of the procedure and her multiple comorbidities. They were agreeable and the consent was signed. She will need her BSG and PRP checked prior to her procedure.
--- NOTE | 2016-06-14 19:37 | Progress Note ---
Internal Med Progress Note Date of Service: Jun 14, 2016. Provider Documentation: SUBJECTIVE: s/p dialysis today feeling weak had nausea and episode of vomitus which had some blood clots denies any abdominal pain denies any chest pain or sob afebrile OBJECTIVE: Vital Signs-as noted below Exam: General-alert and awake . Some what drowsy ENT-Normal hearing Neck-no neck masses Lungs-cta b/l no wheezing or crackles Heart-s1 and s2 heard regular rate and rhythm, no murmurs Abdomen-soft bowel sounds present non tender no distension Extremities-lower extremity edema present-improving Neuro-alert and awake moves extremities Lab data as noted below. ASSESSMENT & PLAN: This is an 81 year old female with PMH of severe COPD and chronic respiratory failure requiring O2 continuously, severe pulmonary HTN and resultant right heart failure, CKD stage IV-V, recent AV-fistula placement awaiting maturation, hx. of paroxysmal atrial fibrillation, not on anticoagulation, anemia due to CKD presents with worsening lower extremity edema. Severe Pulmonary HTN Right Heart Failure Patient presents with worsening edema in the LE and abdomen Recently medications changed to , Bumex 3mg BID and metolazone 5mg was started on IV Bumex 3mg BID cardiology and nephrology on board and appreciate inputs required dobutamine drip in the past not responding much to diuretics as patient on Bumex and metazolne at home Nephrology started on Bumex drip and if no improvement plan for dialysis seems to responding to Bumex drip s/p perma cath today and initiation of dialysis close monitor Gi Bleed post dialysis had an episode of vomitus which contained some blood hb stable started on ppi drip notified GI and appreciate inputs f/u serial h and h close monitor for any more epsiodes previous egd in october 2015 was complicated with hypotension and hypoxia Severe COPD Chronic Respiratory Failure stable will monitor Pleural effusion left side s/p thoracocentesis by pulmonary stable CKD stage IV creat at 2.1 today nephrology on board vascular surgery consulted and appreciate inputs s/p av fistula but not mature yet and may take 2 more weeks to mature s/p Perma cath and initiation of dialysis today management as per nephrology DVT ppx scds, monitor H/H FULL CODE DISPOSITION monitor in tele Vital Signs: Date Time Temp Pulse Resp B/P Pulse Ox O2 Delivery O2 Flow Rate FiO2 06/14/16 16:00 92 Nasal Cannula 4.0 06/14/16 15:37 36.3 100 22 93/63 93 Nasal Cannula 4.0 Humidified Oxygen 06/14/16 15:20 36.0 100 96/59 06/14/16 14:51 97 84/56 06/14/16 14:45 100 88/59 06/14/16 14:30 99 86/59 06/14/16 14:15 101 88/59 06/14/16 14:00 94 97/57 06/14/16 13:45 95 85/51 06/14/16 13:30 90 85/53 06/14/16 13:15 92 90/59 06/14/16 13:00 89 99/58 06/14/16 12:49 93 92/53 06/14/16 12:40 36.4 93 101/60 06/14/16 12:29 36.5 88 18 92/50 92 Nasal Cannula 3.0 06/14/16 12:00 94 Nasal Cannula 3.0 Humidified Oxygen 06/14/16 10:12 85 22 94/50 94 Nasal Cannula 4.0 06/14/16 09:32 36.5 97 22 107/50 93 Nasal Cannula 4.0 06/14/16 08:10 91 24 109/64 93 Nasal Cannula 3 06/14/16 08:05 36.5 89 18 102/49 94 Nasal Cannula 4.0 06/14/16 07:34 94 Nasal Cannula 4.0 06/14/16 07:25 36.6 87 20 99/47 94 Nasal Cannula 4.0 06/14/16 04:00 36.6 87 20 99/47 94 Nasal Cannula 4.0 06/14/16 04:00 Nasal Cannula 4.0 06/14/16 00:00 Nasal Cannula 4.0 06/14/16 00:00 36.4 81 21 100/52 94 Nasal Cannula 4.0 06/13/16 20:01 36.8 80 16 90/49 96 06/13/16 20:00 96 Nasal Cannula 4.0 Lab Results: Results Past 24 Hours Test 06/13/16 22:20 06/14/16 06:31 06/14/16 15:52 06/14/16 16:07 Range/Units Hemoglobin 11.8 11.5 13.0 12.0-16.0 g/dL Hematocrit 36.5 36.0 39.9 37-47 % White Blood Count 7.09 9.30 4.8-10.8 K/uL Red Blood Count 3.47 3.81 4.2-5.4 M/uL Mean Corpuscular Volume 103.7 104.7 80-100 fL Mean Corpuscular Hemoglobin 33.1 34.1 25-34 pg Mean Corpuscular Hemoglobin Concent 31.9 32.6 32-36 g/dl Platelet Count 90 113 130-400 K/uL Mean Platelet Volume 10.1 10.8 7.4-10.4 fL Neutrophils (%) (Auto) 77.5 81.0 % Lymphocytes (%) (Auto) 12.4 9.1 % Monocytes (%) (Auto) 9.3 9.4 % Eosinophils (%) (Auto) 0.4 0.1 % Basophils (%) (Auto) 0.1 0.1 % Neutrophils # (Auto) 5.49 7.53 1.4-6.5 K/uL Lymphocytes # (Auto) 0.88 0.85 1.2-3.4 K/uL Monocytes # (Auto) 0.66 0.87 0.11-0.59 K/uL Eosinophils # (Auto) 0.03 0.01 0-0.5 K/uL Basophils # (Auto) 0.01 0.01 0-0.2 K/uL RDW Standard Deviation 58.1 58.5 36.4-46.3 fL RDW Coefficient of Variation 15.2 15.3 11.5-14.5 % Immature Granulocyte % (Auto) 0.3 0.3 % Immature Granulocyte # (Auto) 0.02 0.03 0.00-0.02 K/uL Hypersegmented Polys 1+ Basophilic Stippling 1+ Sodium Level 138 136 136-145 mmol/L Potassium Level 3.9 4.0 3.5-5.1 mmol/L Chloride Level 97 96 98-107 mmol/L Carbon Dioxide Level 30 28 21-32 mmol/L Anion Gap 11.0 12.0 3-11 mmol/L Blood Urea Nitrogen 130 89 7-18 mg/dl Creatinine 2.40 2.10 0.60-1.20 mg/dl Est Creatinine Clear Calc Drug Dose 19.5 23.4 ml/min Estimated GFR () 21.1 24.8 Estimated GFR (Non- 18.2 21.4 BUN/Creatinine Ratio 54.3 42.1 10-20 Random Glucose 143 145 70-99 mg/dl Calcium Level 8.7 9.1 8.5-10.1 mg/dl Phosphorus Level 4.0 2.5-4.9 mg/dl Magnesium Level 2.6 2.6 1.8-2.4 mg/dl Nucleated RBC Absolute Count (auto) 0.04 0-0 K/uL Nucleated Red Blood Cells % 0.4 % Prothrombin Time 13.5 9.0-12.0 SECONDS Prothromb Time International Ratio 1.3 0.9-1.1 Activated Partial Thromboplast Time 45.0 21.0-31.0 SECONDS Partial Thromboplastin Ratio 1.7 Arterial Blood pH 7.40 7.35-7.45 Arterial Blood Partial Pressure CO2 46 35-46 mmHg Arterial Blood Partial Pressure O2 76 80-95 mm/Hg Arterial Blood HCO3 28 19-24 mmol/L Arterial Blood Oxygen Saturation 95.3 90-95 % Arterial Blood Base Excess 2.8 -9-1.8 mEq/L Arterial Blood Gas Delivery 4 LITERS Luca Test POS POS
--- NOTE | 2016-06-14 19:58 | Gastroenterology Progress Note ---
Progress Note Subjective Pt evaluation today including: conversation w/ patient, physical exam, chart review ([facility] EMR only inpt GI data. Saw 10/2015 inpt GI consult and EGD. Reviewed this inpt visit. Saw last GI imaging 12/2015 renal calculus, anasarca) Medications Current Inpatient Medications Medications (Trade) Dose Ordered Sig/Yvette Route Start Time Stop Time Status Last Admin Dose Admin Al Hydrox/Mg Hydrox/Simethicone (Maalox Max Susp) 15 ml Q4H PRN PO 06/10/16 16:00 07/10/16 15:59 Magnesium Hydroxide (Milk Of Magnesia Susp) 30 ml Q12H PRN PO 06/10/16 16:00 07/10/16 15:59 Ondansetron HCl (Zofran Inj) 4 mg Q6H PRN IV 06/10/16 16:00 07/10/16 15:59 06/14/16 09:09 4 MG Polyethylene (Miralax Powder Packet) 17 gm DAILY PRN PO 06/10/16 16:00 07/10/16 15:59 Aspirin (Ecotrin Tab) 81 mg QAM PO 06/11/16 09:00 07/11/16 08:59 Future Hold 06/14/16 09:45 81 MG Carvedilol (Coreg Tab) 3.125 mg BIDM PO 06/10/16 18:00 07/10/16 17:59 06/13/16 07:56 3.125 MG Gabapentin (Neurontin Cap) 300 mg HS PO 06/10/16 21:00 07/10/16 20:59 06/13/16 20:17 300 MG Levothyroxine Sodium (Synthroid Tab) 25 mcg DAILYBB PO 06/11/16 06:00 07/11/16 05:59 06/14/16 06:04 25 MCG Nitroglycerin (Nitrostat Tab) 0.4 mg UD PRN UT 06/10/16 17:30 07/10/16 17:29 Potassium Chloride (Klor-Con M10) 20 meq BID PO 06/10/16 21:00 07/10/16 20:59 06/14/16 09:45 20 MEQ Senna (Senokot Tab) 8.6 mg DAILY PRN PO 06/10/16 17:30 07/10/16 17:29 Tramadol HCl (Ultram Tab) 50 mg Q6H PRN PO 06/10/16 17:30 07/10/16 17:29 06/13/16 19:09 50 MG Ferrous Sulfate (Feosol Tab) 325 mg QAM PO 06/11/16 09:00 07/11/16 08:59 06/14/16 09:45 325 MG Alprazolam (Xanax Tab) 0.5 mg HS PO 06/10/16 21:00 07/10/16 20:59 06/11/16 19:56 0.5 MG Acetaminophen/ Hydrocodone Bitart 1 tab 1 tab Q6H PRN PO 06/12/16 19:30 06/26/16 19:29 06/14/16 06:35 1 TAB Bumetanide 2 mg/ Syringe 8 ml @ 4 mls/min BID@0900,1700 IV 06/13/16 09:00 07/13/16 08:59 06/14/16 16:07 4 MLS/MIN Pantoprazole Sodium/Dextrose (Protonix Inj/D5 100ml) 100 ml @ 20 mls/hr Q5H IV 06/14/16 16:15 07/14/16 16:14 06/14/16 16:07 20 MLS/HR Objective Vital Signs Date Time Temp Pulse Resp B/P Pulse Ox O2 Delivery O2 Flow Rate FiO2 06/14/16 19:43 36.4 89 16 89/51 94 Nasal Cannula 4.0 06/14/16 16:00 92 Nasal Cannula 4.0 06/14/16 15:37 36.3 100 22 93/63 93 Nasal Cannula 4.0 Humidified Oxygen 06/14/16 15:20 36.0 100 96/59 06/14/16 14:51 97 84/56 06/14/16 14:45 100 88/59 06/14/16 14:30 99 86/59 06/14/16 14:15 101 88/59 06/14/16 14:00 94 97/57 06/14/16 13:45 95 85/51 06/14/16 13:30 90 85/53 06/14/16 13:15 92 90/59 06/14/16 13:00 89 99/58 06/14/16 12:49 93 92/53 06/14/16 12:40 36.4 93 101/60 06/14/16 12:29 36.5 88 18 92/50 92 Nasal Cannula 3.0 06/14/16 12:00 94 Nasal Cannula 3.0 Humidified Oxygen 06/14/16 10:12 85 22 94/50 94 Nasal Cannula 4.0 06/14/16 09:32 36.5 97 22 107/50 93 Nasal Cannula 4.0 06/14/16 08:10 91 24 109/64 93 Nasal Cannula 3 06/14/16 08:05 36.5 89 18 102/49 94 Nasal Cannula 4.0 06/14/16 07:34 94 Nasal Cannula 4.0 06/14/16 07:25 36.6 87 20 99/47 94 Nasal Cannula 4.0 06/14/16 04:00 36.6 87 20 99/47 94 Nasal Cannula 4.0 06/14/16 04:00 Nasal Cannula 4.0 06/14/16 00:00 Nasal Cannula 4.0 06/14/16 00:00 36.4 81 21 100/52 94 Nasal Cannula 4.0 06/13/16 20:01 36.8 80 16 90/49 96 06/13/16 20:00 96 Nasal Cannula 4.0 Physical Exam Abdomen: normal bowel sounds, non tender, soft, no organomegaly Laboratory Results Last 24 Hours Test 06/13/16 22:20 06/14/16 06:31 06/14/16 15:52 06/14/16 16:07 Hemoglobin 11.8 g/dL 11.5 g/dL 13.0 g/dL Hematocrit 36.5 % 36.0 % 39.9 % White Blood Count 7.09 K/uL 9.30 K/uL Red Blood Count 3.47 M/uL 3.81 M/uL Mean Corpuscular Volume 103.7 fL 104.7 fL Mean Corpuscular Hemoglobin 33.1 pg 34.1 pg Mean Corpuscular Hemoglobin Concent 31.9 g/dl 32.6 g/dl Platelet Count 90 K/uL 113 K/uL Mean Platelet Volume 10.1 fL 10.8 fL Neutrophils (%) (Auto) 77.5 % 81.0 % Lymphocytes (%) (Auto) 12.4 % 9.1 % Monocytes (%) (Auto) 9.3 % 9.4 % Eosinophils (%) (Auto) 0.4 % 0.1 % Basophils (%) (Auto) 0.1 % 0.1 % Neutrophils # (Auto) 5.49 K/uL 7.53 K/uL Lymphocytes # (Auto) 0.88 K/uL 0.85 K/uL Monocytes # (Auto) 0.66 K/uL 0.87 K/uL Eosinophils # (Auto) 0.03 K/uL 0.01 K/uL Basophils # (Auto) 0.01 K/uL 0.01 K/uL RDW Standard Deviation 58.1 fL 58.5 fL RDW Coefficient of Variation 15.2 % 15.3 % Immature Granulocyte % (Auto) 0.3 % 0.3 % Immature Granulocyte # (Auto) 0.02 K/uL 0.03 K/uL Hypersegmented Polys 1+ Basophilic Stippling 1+ Sodium Level 138 mmol/L 136 mmol/L Potassium Level 3.9 mmol/L 4.0 mmol/L Chloride Level 97 mmol/L 96 mmol/L Carbon Dioxide Level 30 mmol/L 28 mmol/L Anion Gap 11.0 mmol/L 12.0 mmol/L Blood Urea Nitrogen 130 mg/dl 89 mg/dl Creatinine 2.40 mg/dl 2.10 mg/dl Est Creatinine Clear Calc Drug Dose 19.5 ml/min 23.4 ml/min Estimated GFR () 21.1 24.8 Estimated GFR (Non- 18.2 21.4 BUN/Creatinine Ratio 54.3 42.1 Random Glucose 143 mg/dl 145 mg/dl Calcium Level 8.7 mg/dl 9.1 mg/dl Phosphorus Level 4.0 mg/dl Magnesium Level 2.6 mg/dl 2.6 mg/dl Nucleated RBC Absolute Count (auto) 0.04 K/uL Nucleated Red Blood Cells % 0.4 % Prothrombin Time 13.5 SECONDS Prothromb Time International Ratio 1.3 Activated Partial Thromboplast Time 45.0 SECONDS Partial Thromboplastin Ratio 1.7 Arterial Blood pH 7.40 Arterial Blood Partial Pressure CO2 46 mmHg Arterial Blood Partial Pressure O2 76 mm/Hg Arterial Blood HCO3 28 mmol/L Arterial Blood Oxygen Saturation 95.3 % Arterial Blood Base Excess 2.8 mEq/L Arterial Blood Gas Delivery 4 LITERS Luca Test POS Assessment and Plan GI consult dictated. Job [id number] Hematemesis--happened at about 1445 and none since, no stool since, she has nosebleeds but not significant enough today to explain. Could be PUD, terry sanchez tear. Recommend Protonix drip- as you are doing and holding ASA. Follow H and H. Pt high risk for procedures as evidenced by hypoxia and hypotension during EGD 10/2015 so would avoid that unless has life threatening bleed. Stool hemoccult pending but was brown/orange on rectal exam 06/14 anemia--chronic, elevated total bilirubin--mild on admission, can be from right heart failure; Left message on home phone [phone] and cell [phone] daughter Caren so I can give her update regarding above.
[2016-06-14] MEDS: ALPRAZOLAM 0.5 MG TAB PO SCH (21:00)
[2016-06-14] MEDS: GABAPENTIN 300 MG CAP PO SCH (21:03)
[2016-06-14 21:22] LABS: HEMATOCRIT 38.7 % (37-47)
--- NOTE | 2016-06-14 22:23 | GASTROINTESTINAL CONSULTATION ---
DATE OF CONSULTATION: 06/14/2016 REQUESTING CONSULTATION: Hospitalist. CHIEF COMPLAINT: The patient vomited some blood. HISTORY OF PRESENT ILLNESS: The patient states that once in a while, she will spit up or vomit up some blood clots, today she vomited more than is typical. She does have some nosebleeds, but did not think she had one today that will explain this. She had nause and vomited blood clots after she got back from Perm-A-Cath placement. This happened about 1445. No abdominal pain. She states she gets constipated when she is in the hospital. No dysphagia. Her weight has been increasing from total volume overload. No GERD. She denies any significant history of liver disease. She was admitted on June 10 with volume overload with lethargy, possibly some increased shortness of breath, total volume overload, renal failure, CHF. She has had pleural effusion. She has had a thoracentesis. She had a Perm-A-Cath and dialysis today. Apparently, a couple of days ago, they wiped some blood from her backside, but they are not really sure whether it is vaginal or rectal, they could not find the real etiology. Her hemoglobin this morning was 11.5, at about 6:30, then at 1552, her hemoglobin was 13. No further emesis and no bloody stools as of time of this dictation ALLERGIES: None. MEDICATIONS: On admission include Zyloprim, Xanax, aspirin, Bumex, Rocaltrol, Coreg, vitamin D, vitamin B12, iron, Neurontin, levothyroxine, metolazone, Nitrostat, oxygen, Protonix, Micro-K, polyethylene glycol, senna, tramadol. PROBLEMS AND SURGERIES: Diabetes, pulmonary hypertension, CHF, O2-dependent COPD. She had hip surgery, she had a history of anemia and heme-positive stool and had an EGD on 11/01/2015, a small hiatal hernia, large duodenal diverticulum. She experienced hypotension and hypoxia during the procedure; so, no further GI testing was planned. FAMILY HISTORY: Diabetes. SOCIAL HISTORY: Tobacco, history of smoking, quit. REVIEW OF SYSTEMS: GENERAL: Generalized weakness. EYES: Negative. EARS, NOSE, MOUTH AND THROAT: History of nosebleeds as above. CARDIOVASCULAR: Edema. RESPIRATORY: Chronic shortness of breath. GENITOURINAY, MUSCULOSKELETAL, INTEGUMENTARY, NEUROLOGIC AND PSYCHIATRIC: Negative. ENDOCRINE: Diabetes. HEMATOLOGIC: Anemia. PHYSICAL EXAMINATION: Exam with RN present GENERAL: Female, appears her stated age, in no acute distress. VITAL SIGNS: Most recent vital signs in the chart, temp 36.4, pulse 89, respirations 16, BP 89/51. Her BP runs on the lower side; for example at 0400, her BP was 99/47. EYES: Conjunctivae and lids normal. ENT: Oropharynx clear. NECK: Without obvious mass or thyroid enlargement. RESPIRATORY: Clear to anterior auscultation and normal respiratory effort. CARDIOVASCULAR: Without obvious murmur. EXTREMITIES: Edematous. ABDOMEN: Positive bowel sounds, soft, nontender, no obvious organomegaly or masses are appreciated. LYMPH: No obvious neck or groin nodes. MUSCULOSKELETAL: Digits and nails normal. SKIN: Without obvious induration. NEUROLOGIC: Cranial nerves intact. Sensation intact. PSYCHIATRIC: Recent and remote memory good. Insight and judgment good. RECTAL: Rectal examination, no obvious mass noted. Stool was hard and light brown to orange color, sent off to the lab for Hemoccult testing. OTHER DATA: Abdomen and pelvic CT scan, 01/01/2016, renal calculus; pelvic ultrasound, 06/12/2016, nonvisualization of the uterus and ovaries, small fluid in the pelvis. She has had several chest x-rays this admission showing pleural effusions and CHF. IMPRESSION AND PLAN: 1. Hematemesis. This happened once and then none since. No stool since. The nosebleed does not seem significant enough today to explain this. This could be a Elisabet-Boyle tear from vomiting, could be peptic ulcer disease. She has been on aspirin. Recommend Protonix drip as you are doing and holding aspirin. Follow the hemoglobin and hematocrit and transfuse as needed. The patient is high risk for procedures, as evidenced by hypoxia and hypotension during EGD in October 2015. So, I would avoid procedures, unless she has a life-threatening bleed. 2. Anemia, chronic. Follow. 3. Elevated total bilirubin, mild. On admission, it was only 1.4, could be from a right heart failure. Follow this. 4. I left a message on the home phone and cell phone to inform her daughter, Caren, about her update with the patient's permission. I left messages, as no one answered. [facility]
[2016-06-15] VITALS (23 sets, daily range): BP systolic 83–119; BP diastolic 45–65; PULSE 82–95; TEMP 36.1–36.8; O2SAT 90–94
[2016-06-15] MEDS: PANTOprazole INJ 40 MG in DEXTROSE 5% 100ML IV SCH ×2 (02:04→06:52)
[2016-06-15] MEDS: MAGNESIUM HYDROXIDE SUSP 30 ML UDC PO PRN (04:13)
[2016-06-15 06:13] LABS: BASO % 0.1 %; BASO ABS # 0.01 K/uL (0-0.2); COMPLETE YES; EOS % 0.3 %; HEMATOCRIT 38.4 % (37-47); IG% 0.3 %; LYMPH % 12.3 %; LYMPH ABS # 1.07 K/uL (1.2-3.4); MEAN CELL VOLUME 104.1 fL (80-100); MEAN CORPUSCULAR HEMOGLOBIN 33.3 pg (25-34); MEAN PLATELET VOLUME 10.9 fL (7.4-10.4); PLATELET COUNT 108 K/uL (130-400); RED BLOOD COUNT 3.69 M/uL (4.2-5.4); WHITE BLOOD COUNT 8.71 K/uL (4.8-10.8)
[2016-06-15] MEDS: LEVOTHYROXINE 25 MCG TAB PO SCH (06:18)
[2016-06-15 06:54] LABS: BUN/CREATININE RATIO 41.1 (10-20); CALCIUM 8.9 mg/dl (8.5-10.1); CREATININE 2.6 mg/dl (0.60-1.20); MAGNESIUM 2.7 mg/dl (1.8-2.4); POTASSIUM 4.5 mmol/L (3.5-5.1)
[2016-06-15 06:59] LABS: ALB/GLOB RATIO 0.7 (0.9-2)
[2016-06-15] MEDS: CARVEDILOL 3.125 MG TAB PO SCH ×2 (07:30→16:09)
[2016-06-15] MEDS: FERROUS SULFATE 325 MG TAB PO SCH (08:37)
[2016-06-15] MEDS: BUMETANIDE IV 2 MG in SYRINGE 0 ML IV SCH ×2 (08:37→08:57)
[2016-06-15] MEDS: ONDANSETRON INJ 2 MG/ML 2 ML VIAL IV PRN (08:37)
[2016-06-15] MEDS: POTASSIUM CHLORIDE 10 MEQ TABCR PO SCH (08:38)
[2016-06-15 08:44] LABS: HEMATOCRIT 38.1 % (37-47)
[2016-06-15] MEDS ORDERED: PROMETHAZINE HCL INJ 12.5 MG in SODIUM CHLORIDE 0.9% 50ML 50 ML IV PRN (09:45)
--- NOTE | 2016-06-15 11:48 | Dialysis Progress Note ---
Hemodialysis Note Date of Service Jun 15, 2016. Chief Complaint follow-up for ESRD Subjective Ani was seen and examined during dialysis treatment this morning. She has been tolerating dialysis as well, blood pressure has been relatively low but asymptomatic.. Had her 1st dialysis treatment yesterday and after dialysis for almost 2 hours she felt nauseated. Her appetite continues to be poor. Review of Systems A complete review of systems was performed. Pertinent positives are noted above. All other systems are negative. Vital Signs Last 8 Hrs Date Time Temp Pulse Resp B/P Pulse Ox O2 Delivery O2 Flow Rate FiO2 06/15/16 11:30 87 91/48 06/15/16 11:15 87 99/54 06/15/16 11:00 87 83/45 06/15/16 10:45 82 93/50 06/15/16 10:30 90 85/47 06/15/16 10:23 94 100/54 06/15/16 10:11 36.5 95 108/65 06/15/16 08:00 94 Nasal Cannula 4.0 Humidified Oxygen 06/15/16 07:56 36.4 89 18 97/50 94 4.0 06/15/16 04:00 92 Nasal Cannula 4.0 06/15/16 04:00 36.8 94 19 111/61 91 Nasal Cannula 4.0 I & O 24-Hour Column 06/15/16 08:00 Intake Total 985 ml Output Total 1200 ml Balance -215 ml Last Recorded Weight Weight (Kilograms): 101.900 Physical Exam GENERAL: Elderly female, AAA x 3, pleasant, chronically ill-appearing, not in any distress. Oral mucosa seems dry. NECK: Supple, no JVD. RESPIRATORY: Normal breathing efforts, no accessory muscle use, no wheezes or rales, decreased breath sound at bases. CARDIOVASCULAR: S1, S2 normal, rate rhythm regular. EXTREMITY: Tense non pitting lower extremity edema without significant changes. NEURO: speech fluent. PSYCHIATRY: Normal mood and judgment Social History Drug Use: none Occupation: retired Laboratory Results Past 24 Hours 06/14/16 15:52 Red Blood Count 3.81, Mean Corpuscular Volume 104.7, Mean Corpuscular Hemoglobin 34.1, Mean Corpuscular Hemoglobin Concent 32.6, Mean Platelet Volume 10.8, Neutrophils (%) (Auto) 81.0, Lymphocytes (%) (Auto) 9.1, Monocytes (%) ( Auto) 9.4, Eosinophils (%) (Auto) 0.1, Basophils (%) (Auto) 0.1, Neutrophils # ( Auto) 7.53, Lymphocytes # (Auto) 0.85, Monocytes # (Auto) 0.87, Eosinophils # ( Auto) 0.01, Basophils # (Auto) 0.01 06/14/16 20:00 06/15/16 05:55 Red Blood Count 3.69, Mean Corpuscular Volume 104.1, Mean Corpuscular Hemoglobin 33.3, Mean Corpuscular Hemoglobin Concent 32.0, Mean Platelet Volume 10.9, Neutrophils (%) (Auto) 77.0, Lymphocytes (%) (Auto) 12.3, Monocytes (%) ( Auto) 10.0, Eosinophils (%) (Auto) 0.3, Basophils (%) (Auto) 0.1, Neutrophils # (Auto) 6.70, Lymphocytes # (Auto) 1.07, Monocytes # (Auto) 0.87, Eosinophils # ( Auto) 0.03, Basophils # (Auto) 0.01 06/15/16 08:37 06/14/16 15:52 06/15/16 05:55 06/15/16 09:58 Test 06/14/16 15:52 06/14/16 16:07 06/14/16 19:45 06/15/16 05:55 White Blood Count 9.30 K/uL (4.8-10.8) 8.71 K/uL (4.8-10.8) Red Blood Count 3.81 M/uL (4.2-5.4) 3.69 M/uL (4.2-5.4) Hemoglobin 13.0 g/dL (12.0-16.0) 12.3 g/dL (12.0-16.0) Hematocrit 39.9 % (37-47) 38.4 % (37-47) Mean Corpuscular Volume 104.7 fL (80-100) 104.1 fL (80-100) Mean Corpuscular Hemoglobin 34.1 pg (25-34) 33.3 pg (25-34) Mean Corpuscular Hemoglobin Concent 32.6 g/dl (32-36) 32.0 g/dl (32-36) Platelet Count 113 K/uL (130-400) 108 K/uL (130-400) Mean Platelet Volume 10.8 fL (7.4-10.4) 10.9 fL (7.4-10.4) Neutrophils (%) (Auto) 81.0 % 77.0 % Lymphocytes (%) (Auto) 9.1 % 12.3 % Monocytes (%) (Auto) 9.4 % 10.0 % Eosinophils (%) (Auto) 0.1 % 0.3 % Basophils (%) (Auto) 0.1 % 0.1 % Neutrophils # (Auto) 7.53 K/uL (1.4-6.5) 6.70 K/uL (1.4-6.5) Lymphocytes # (Auto) 0.85 K/uL (1.2-3.4) 1.07 K/uL (1.2-3.4) Monocytes # (Auto) 0.87 K/uL (0.11-0.59) 0.87 K/uL (0.11-0.59) Eosinophils # (Auto) 0.01 K/uL (0-0.5) 0.03 K/uL (0-0.5) Basophils # (Auto) 0.01 K/uL (0-0.2) 0.01 K/uL (0-0.2) RDW Standard Deviation 58.5 fL (36.4-46.3) 58.2 fL (36.4-46.3) RDW Coefficient of Variation 15.3 % (11.5-14.5) 15.3 % (11.5-14.5) Immature Granulocyte % (Auto) 0.3 % 0.3 % Immature Granulocyte # (Auto) 0.03 K/uL (0.00-0.02) 0.03 K/uL (0.00-0.02) Nucleated RBC Absolute Count (auto) 0.04 K/uL (0-0) Nucleated Red Blood Cells % 0.4 % Prothrombin Time 13.5 SECONDS (9.0-12.0) Prothromb Time International Ratio 1.3 (0.9-1.1) Activated Partial Thromboplast Time 45.0 SECONDS (21.0-31.0) Partial Thromboplastin Ratio 1.7 Anion Gap 12.0 mmol/L (3-11) 12.0 mmol/L (3-11) Est Creatinine Clear Calc Drug Dose 23.4 ml/min 18.0 ml/min Estimated GFR () 24.8 19.1 Estimated GFR (Non- 21.4 16.5 BUN/Creatinine Ratio 42.1 (10-20) 41.1 (10-20) Calcium Level 9.1 mg/dl (8.5-10.1) 8.9 mg/dl (8.5-10.1) Magnesium Level 2.6 mg/dl (1.8-2.4) 2.7 mg/dl (1.8-2.4) Arterial Blood pH 7.40 (7.35-7.45) Arterial Blood Partial Pressure CO2 46 mmHg (35-46) Arterial Blood Partial Pressure O2 76 mm/Hg (80-95) Arterial Blood HCO3 28 mmol/L (19-24) Arterial Blood Oxygen Saturation 95.3 % (90-95) Arterial Blood Base Excess 2.8 mEq/L (-9-1.8) Arterial Blood Gas Delivery 4 LITERS Luca Test POS (POS) Stool Occult Blood NEGATIVE (NEGATIVE) Total Bilirubin 1.7 mg/dl (0.2-1) Aspartate Amino Transf (AST/SGOT) 22 U/L (15-37) Alanine Aminotransferase (ALT/SGPT) 10 U/L (12-78) Alkaline Phosphatase 104 U/L (45-117) Total Protein 7.1 gm/dl (6.4-8.2) Albumin 2.8 gm/dl (3.4-5.0) Globulin 4.3 gm/dl (2.5-4.0) Albumin/Globulin Ratio 0.7 (0.9-2) Test 06/15/16 09:00 Stool Occult Blood NEGATIVE (NEGATIVE) Allergies Coded Allergies: No Known Allergies (Verified , 06/10/16) Medications Current Inpatient Medications Medications (Trade) Dose Ordered Sig/Yvette Route Start Time Stop Time Status Last Admin Dose Admin Al Hydrox/Mg Hydrox/Simethicone (Maalox Max Susp) 15 ml Q4H PRN PO 06/10/16 16:00 07/10/16 15:59 Magnesium Hydroxide (Milk Of Magnesia Susp) 30 ml Q12H PRN PO 06/10/16 16:00 07/10/16 15:59 06/15/16 04:13 30 ML Ondansetron HCl (Zofran Inj) 4 mg Q6H PRN IV 06/10/16 16:00 07/10/16 15:59 06/15/16 08:37 4 MG Polyethylene (Miralax Powder Packet) 17 gm DAILY PRN PO 06/10/16 16:00 07/10/16 15:59 06/15/16 05:43 17 GM Aspirin (Ecotrin Tab) 81 mg QAM PO 06/11/16 09:00 07/11/16 08:59 Future Hold 06/14/16 09:45 81 MG Carvedilol (Coreg Tab) 3.125 mg BIDM PO 06/10/16 18:00 07/10/16 17:59 06/13/16 07:56 3.125 MG Gabapentin (Neurontin Cap) 300 mg HS PO 06/10/16 21:00 07/10/16 20:59 06/14/16 21:03 300 MG Levothyroxine Sodium (Synthroid Tab) 25 mcg DAILYBB PO 06/11/16 06:00 07/11/16 05:59 06/15/16 06:18 25 MCG Nitroglycerin (Nitrostat Tab) 0.4 mg UD PRN UT 06/10/16 17:30 07/10/16 17:29 Senna (Senokot Tab) 8.6 mg DAILY PRN PO 06/10/16 17:30 07/10/16 17:29 Tramadol HCl (Ultram Tab) 50 mg Q6H PRN PO 06/10/16 17:30 07/10/16 17:29 06/13/16 19:09 50 MG Alprazolam (Xanax Tab) 0.5 mg HS PO 06/10/16 21:00 07/10/16 20:59 06/11/16 19:56 0.5 MG Acetaminophen/ Hydrocodone Bitart 1 tab 1 tab Q6H PRN PO 06/12/16 19:30 06/26/16 19:29 06/14/16 06:35 1 TAB Promethazine HCl 12.5 mg/Sodium Chloride 50.5 ml @ 204 mls/hr Q6H PRN IV 06/15/16 09:45 07/15/16 09:44 Pantoprazole Sodium/Syringe (Protonix Inj/ Syringe) 10 ml @ 5 mls/min DAILY@09,21 IV 06/15/16 21:00 07/15/16 20:59 Bumetanide (Bumex Tab) 2 mg BID ONCE PO 06/15/16 21:00 06/15/16 21:01 Impression (1) Acute renal failure (2) Pulmonary hypertension, moderate to severe (3) Chronic kidney disease, stage 4 (severe) (4) Severe tricuspid regurgitation (5) Cardiorenal syndrome (6) Anemia (7) Bilateral pleural effusion Ani is a 81-year-old female with stage 4 chronic kidney disease, severe pulmonary hypertension, tricuspid regurgitation, history of COPD and diuretic resistant volume overload admitted to the hospital with worsening volume status and lethargy. At baseline she has stage 4 chronic kidney disease secondary to cardiorenal syndrome, baseline creatinine variable from a from 1.6-1.9, on admission she was found to have acute kidney injury creatinine has been 2.5-2.6 and BUN worsened to 127. has evidence of intravascular volume depletion however overall volume status worsened and has been less responsive to diuretics. She has left brachiocephalic AV fistula placed in April 2016 and currently maturing. At home she was on Bumex 3 milligram twice a day and metolazone 5 milligrams 3 times weekly but has been less responsive. On admission she was started on Bumex 3 milligrams IV twice a day with suboptimal response. Stop Bumex this morning and started on Bumex drip. Blood pressure has been running soft but she has been asymptomatic, denies any uremic symptoms. Has history of anemia, hemoglobin has been stable previously had GI bleeding, and currently no active bleeding. She had EGD in October 2015, EGD was normal but complicated by hypotension and hypoxia and colonoscopy was not done. Recommendations -- currently getting second hemodialysis treatment this morning for 3 hours with low blood flow. Plan for 3rd treatment on Friday for 3 hours and then intermittent dialysis Friday, , Friday at [facility]. --she will have transposition of Brachio basilic vein AV fistula on Friday. Discussed with patient and her daughter Caren ([id number]). Will skip dialysis on Friday. -- continue on Bumex 2 mg po BID --consult PT -- dose medications for GFR less than 10 -- avoid nephrotoxins medications Will follow.
--- NOTE | 2016-06-15 14:27 | Gastroenterology Progress Note ---
Progress Note Date of Service: Jun 15, 2016 Subjective Pt evaluation today including: conversation w/ patient, conversation w/ family (daughter Caren), physical exam, chart review, lab review, review of studies , review of inpatient medication list CC f/u GI bleed HPI Daugher with patient for H and P. Pt no n/v and no bloody nor black stools. Stool on rectal yesterday heme negative and stool this am heme negative. No appetie. NO abdominal pain. Review of Systems Respiratory: + shortness of breath (stable chronic) Cardiac: No chest pain Medications Current Inpatient Medications Medications (Trade) Dose Ordered Sig/Yvette Route Start Time Stop Time Status Last Admin Dose Admin Al Hydrox/Mg Hydrox/Simethicone (Maalox Max Susp) 15 ml Q4H PRN PO 06/10/16 16:00 07/10/16 15:59 Magnesium Hydroxide (Milk Of Magnesia Susp) 30 ml Q12H PRN PO 06/10/16 16:00 07/10/16 15:59 06/15/16 04:13 30 ML Ondansetron HCl (Zofran Inj) 4 mg Q6H PRN IV 06/10/16 16:00 07/10/16 15:59 06/15/16 08:37 4 MG Polyethylene (Miralax Powder Packet) 17 gm DAILY PRN PO 06/10/16 16:00 07/10/16 15:59 06/15/16 05:43 17 GM Aspirin (Ecotrin Tab) 81 mg QAM PO 06/11/16 09:00 07/11/16 08:59 Future Hold 06/14/16 09:45 81 MG Carvedilol (Coreg Tab) 3.125 mg BIDM PO 06/10/16 18:00 07/10/16 17:59 06/13/16 07:56 3.125 MG Gabapentin (Neurontin Cap) 300 mg HS PO 06/10/16 21:00 07/10/16 20:59 06/14/16 21:03 300 MG Levothyroxine Sodium (Synthroid Tab) 25 mcg DAILYBB PO 06/11/16 06:00 07/11/16 05:59 06/15/16 06:18 25 MCG Nitroglycerin (Nitrostat Tab) 0.4 mg UD PRN UT 06/10/16 17:30 07/10/16 17:29 Senna (Senokot Tab) 8.6 mg DAILY PRN PO 06/10/16 17:30 07/10/16 17:29 Tramadol HCl (Ultram Tab) 50 mg Q6H PRN PO 06/10/16 17:30 07/10/16 17:29 06/13/16 19:09 50 MG Alprazolam (Xanax Tab) 0.5 mg HS PO 06/10/16 21:00 07/10/16 20:59 06/11/16 19:56 0.5 MG Acetaminophen/ Hydrocodone Bitart 1 tab 1 tab Q6H PRN PO 06/12/16 19:30 06/26/16 19:29 06/14/16 06:35 1 TAB Promethazine HCl 12.5 mg/Sodium Chloride 50.5 ml @ 204 mls/hr Q6H PRN IV 06/15/16 09:45 07/15/16 09:44 Pantoprazole Sodium/Syringe (Protonix Inj/ Syringe) 10 ml @ 5 mls/min DAILY@ IV 06/15/16 21:00 07/15/16 20:59 Bumetanide (Bumex Tab) 2 mg BID ONCE PO 06/15/16 21:00 06/15/16 21:01 Objective Vital Signs Date Time Temp Pulse Resp B/P Pulse Ox O2 Delivery O2 Flow Rate FiO2 06/15/16 13:24 93 98/56 06/15/16 13:15 93 99/55 06/15/16 13:00 94 94/50 06/15/16 12:45 86 95/52 06/15/16 12:30 90 90/48 06/15/16 12:15 92 90/52 06/15/16 12:00 86 91/57 06/15/16 11:45 95 91/58 06/15/16 11:30 87 91/48 06/15/16 11:15 87 99/54 06/15/16 11:00 87 83/45 06/15/16 10:45 82 93/50 06/15/16 10:30 90 85/47 06/15/16 10:23 94 100/54 06/15/16 10:11 36.5 95 108/65 06/15/16 08:00 94 Nasal Cannula 4.0 Humidified Oxygen 06/15/16 07:56 36.4 89 18 97/50 94 4.0 06/15/16 04:00 92 Nasal Cannula 4.0 06/15/16 04:00 36.8 94 19 111/61 91 Nasal Cannula 4.0 06/15/16 00:01 Nasal Cannula 06/15/16 00:00 36.6 89 19 101/52 90 Nasal Cannula 4.0 06/14/16 20:00 Nasal Cannula 4.0 06/14/16 19:43 36.4 89 16 89/51 94 Nasal Cannula 4.0 06/14/16 16:00 92 Nasal Cannula 4.0 06/14/16 15:37 36.3 100 22 93/63 93 Nasal Cannula 4.0 Humidified Oxygen 06/14/16 15:20 36.0 100 96/59 06/14/16 14:51 97 84/56 06/14/16 14:45 100 88/59 06/14/16 14:30 99 86/59 Physical Exam General Appearance: WD/WN, no apparent distress Respiratory/Chest: lungs clear, no respiratory distress Cardiovascular: regular rate, rhythm, + pertinent finding (lower extremity edema) Abdomen: normal bowel sounds, non tender, soft, no organomegaly, no pulsatile mass Laboratory Results Last 24 Hours Test 06/14/16 15:52 06/14/16 16:07 06/14/16 19:45 06/14/16 20:00 White Blood Count 9.30 K/uL Red Blood Count 3.81 M/uL Hemoglobin 13.0 g/dL 12.4 g/dL Hematocrit 39.9 % 38.7 % Mean Corpuscular Volume 104.7 fL Mean Corpuscular Hemoglobin 34.1 pg Mean Corpuscular Hemoglobin Concent 32.6 g/dl Platelet Count 113 K/uL Mean Platelet Volume 10.8 fL Neutrophils (%) (Auto) 81.0 % Lymphocytes (%) (Auto) 9.1 % Monocytes (%) (Auto) 9.4 % Eosinophils (%) (Auto) 0.1 % Basophils (%) (Auto) 0.1 % Neutrophils # (Auto) 7.53 K/uL Lymphocytes # (Auto) 0.85 K/uL Monocytes # (Auto) 0.87 K/uL Eosinophils # (Auto) 0.01 K/uL Basophils # (Auto) 0.01 K/uL RDW Standard Deviation 58.5 fL RDW Coefficient of Variation 15.3 % Immature Granulocyte % (Auto) 0.3 % Immature Granulocyte # (Auto) 0.03 K/uL Nucleated RBC Absolute Count (auto) 0.04 K/uL Nucleated Red Blood Cells % 0.4 % Prothrombin Time 13.5 SECONDS Prothromb Time International Ratio 1.3 Activated Partial Thromboplast Time 45.0 SECONDS Partial Thromboplastin Ratio 1.7 Sodium Level 136 mmol/L Potassium Level 4.0 mmol/L Chloride Level 96 mmol/L Carbon Dioxide Level 28 mmol/L Anion Gap 12.0 mmol/L Blood Urea Nitrogen 89 mg/dl Creatinine 2.10 mg/dl Est Creatinine Clear Calc Drug Dose 23.4 ml/min Estimated GFR () 24.8 Estimated GFR (Non- 21.4 BUN/Creatinine Ratio 42.1 Random Glucose 145 mg/dl Calcium Level 9.1 mg/dl Magnesium Level 2.6 mg/dl Arterial Blood pH 7.40 Arterial Blood Partial Pressure CO2 46 mmHg Arterial Blood Partial Pressure O2 76 mm/Hg Arterial Blood HCO3 28 mmol/L Arterial Blood Oxygen Saturation 95.3 % Arterial Blood Base Excess 2.8 mEq/L Arterial Blood Gas Delivery 4 LITERS Luca Test POS Stool Occult Blood NEGATIVE Test 06/15/16 05:55 06/15/16 08:37 06/15/16 09:00 06/15/16 09:58 White Blood Count 8.71 K/uL Red Blood Count 3.69 M/uL Hemoglobin 12.3 g/dL 12.2 g/dL Hematocrit 38.4 % 38.1 % Mean Corpuscular Volume 104.1 fL Mean Corpuscular Hemoglobin 33.3 pg Mean Corpuscular Hemoglobin Concent 32.0 g/dl Platelet Count 108 K/uL Mean Platelet Volume 10.9 fL Neutrophils (%) (Auto) 77.0 % Lymphocytes (%) (Auto) 12.3 % Monocytes (%) (Auto) 10.0 % Eosinophils (%) (Auto) 0.3 % Basophils (%) (Auto) 0.1 % Neutrophils # (Auto) 6.70 K/uL Lymphocytes # (Auto) 1.07 K/uL Monocytes # (Auto) 0.87 K/uL Eosinophils # (Auto) 0.03 K/uL Basophils # (Auto) 0.01 K/uL RDW Standard Deviation 58.2 fL RDW Coefficient of Variation 15.3 % Immature Granulocyte % (Auto) 0.3 % Immature Granulocyte # (Auto) 0.03 K/uL Sodium Level 135 mmol/L Potassium Level 4.5 mmol/L 5.0 mmol/L Chloride Level 94 mmol/L Carbon Dioxide Level 29 mmol/L Anion Gap 12.0 mmol/L Blood Urea Nitrogen 107 mg/dl Creatinine 2.60 mg/dl Est Creatinine Clear Calc Drug Dose 18.0 ml/min Estimated GFR () 19.1 Estimated GFR (Non- 16.5 BUN/Creatinine Ratio 41.1 Random Glucose 156 mg/dl Calcium Level 8.9 mg/dl Magnesium Level 2.7 mg/dl Total Bilirubin 1.7 mg/dl Aspartate Amino Transf (AST/SGOT) 22 U/L Alanine Aminotransferase (ALT/SGPT) 10 U/L Alkaline Phosphatase 104 U/L Total Protein 7.1 gm/dl Albumin 2.8 gm/dl Globulin 4.3 gm/dl Albumin/Globulin Ratio 0.7 Stool Occult Blood NEGATIVE Test 06/15/16 12:00 Assessment and Plan Hematemesis--nothing further, PUD vs Elisabet Boyle tear. Discussed with hosptilalist regarding holding ASA at least 72 hours after intitial bleed since that is time of highest risk of rebleeding. That would be until Thursday 06/07 pm. If ASA critical for fistula or stroke prevention, cardiac, etc then can resume it then. Daughter worried about stroke risk off ASA and I told her GI bleeding can be critical also and if resume it early can have life threatening bleeding. Also discussed with Caren that it would be nice to do EGD to assess risk of restarting ASA but if have complication such as respiratory failure needing intubation the patient may not get off the ventilatory. So at this point continue PPI and hope no further bleeding. anemia--chronic--stable elevated total bilirubin--mild but worse today 1.7, other LFTs normal. follow, can be from right heart failure;
[2016-06-15 15:13] LABS: HEMATOCRIT 40.1 % (37-47)
--- NOTE | 2016-06-15 17:50 | Progress Note ---
Internal Med Progress Note Date of Service: Jun 15, 2016. Provider Documentation: SUBJECTIVE: s/p dialysis today sitting on the chair comfortably eating dinner nausea improved no more bloody vomiting no sob or cheat pain OBJECTIVE: Vital Signs-as noted below Exam: General-alert and awake . ENT-Normal hearing Neck-no neck masses Lungs-cta b/l no wheezing or crackles Heart-s1 and s2 heard regular rate and rhythm, no murmurs Abdomen-soft bowel sounds present non tender no distension Extremities-lower extremity edema present-improving Neuro-alert and awake moves extremities Lab data as noted below. ASSESSMENT & PLAN: This is an 81 year old female with PMH of severe COPD and chronic respiratory failure requiring O2 continuously, severe pulmonary HTN and resultant right heart failure, CKD stage IV-V, recent AV-fistula placement awaiting maturation, hx. of paroxysmal atrial fibrillation, not on anticoagulation, anemia due to CKD presents with worsening lower extremity edema. Severe Pulmonary HTN Right Heart Failure Patient presents with worsening edema in the LE and abdomen Recently medications changed to , Bumex 3mg BID and metolazone 5mg was started on IV Bumex 3mg BID cardiology and nephrology on board and appreciate inputs required dobutamine drip in the past not responding much to diuretics as patient on Bumex and metazolne at home Nephrology started on Bumex drip and if no improvement plan for dialysis seems to responding to Bumex drip s/p perma cath and initiation of dialysis volume management per dialysis as per nephrology Bumex changed to 2mg po BID close monitor Gi Bleed 06/14/16 post dialysis had an episode of vomitus which contained some blood hb stable started on ppi drip notified GI and appreciate inputs f/u serial h and h close monitor for any more epsiodes previous egd in october 2015 was complicated with hypotension and hypoxia 06/05/16 no more epsiodes stool for Hemoccult negative hb stable changed ppi rip to bid Severe COPD Chronic Respiratory Failure stable will monitor Pleural effusion left side s/p thoracocentesis by pulmonary stable CKD stage IV creat at 2.6 today nephrology on board vascular surgery consulted and appreciate inputs s/p av fistula but not mature yet and may take 2 more weeks to mature s/p Perma cath and initiation of dialysis 06/14/16 management as per nephrology DVT ppx scds, monitor H/H FULL CODE DISPOSITION monitor in tele Vital Signs: Date Time Temp Pulse Resp B/P Pulse Ox O2 Delivery O2 Flow Rate FiO2 06/15/16 16:00 93 Nasal Cannula 4.0 Humidified Oxygen 06/15/16 15:31 36.1 90 20 113/62 93 Nasal Cannula 4.0 06/15/16 14:00 93 Nasal Cannula 4.0 Humidified Oxygen 06/15/16 14:00 36.3 89 18 119/46 94 Nasal Cannula 4.0 Humidified Oxygen 06/15/16 13:24 93 98/56 06/15/16 13:24 36.5 93 98/56 06/15/16 13:15 93 99/55 06/15/16 13:00 94 94/50 06/15/16 12:45 86 95/52 06/15/16 12:30 90 90/48 06/15/16 12:15 92 90/52 06/15/16 12:00 86 91/57 06/15/16 11:45 95 91/58 06/15/16 11:30 87 91/48 06/15/16 11:15 87 99/54 06/15/16 11:00 87 83/45 06/15/16 10:45 82 93/50 06/15/16 10:30 90 85/47 06/15/16 10:23 94 100/54 06/15/16 10:11 36.5 95 108/65 06/15/16 08:00 94 Nasal Cannula 4.0 Humidified Oxygen 06/15/16 07:56 36.4 89 18 97/50 94 4.0 06/15/16 04:00 92 Nasal Cannula 4.0 06/15/16 04:00 36.8 94 19 111/61 91 Nasal Cannula 4.0 06/15/16 00:01 Nasal Cannula 06/15/16 00:00 36.6 89 19 101/52 90 Nasal Cannula 4.0 06/14/16 20:00 Nasal Cannula 4.0 06/14/16 19:43 36.4 89 16 89/51 94 Nasal Cannula 4.0 Lab Results: Results Past 24 Hours Test 06/14/16 19:45 06/14/16 20:00 06/15/16 05:55 06/15/16 08:37 Range/Units Stool Occult Blood NEGATIVE NEGATIVE Hemoglobin 12.4 12.3 12.2 12.0-16.0 g/dL Hematocrit 38.7 38.4 38.1 37-47 % White Blood Count 8.71 4.8-10.8 K/uL Red Blood Count 3.69 4.2-5.4 M/uL Mean Corpuscular Volume 104.1 80-100 fL Mean Corpuscular Hemoglobin 33.3 25-34 pg Mean Corpuscular Hemoglobin Concent 32.0 32-36 g/dl Platelet Count 108 130-400 K/uL Mean Platelet Volume 10.9 7.4-10.4 fL Neutrophils (%) (Auto) 77.0 % Lymphocytes (%) (Auto) 12.3 % Monocytes (%) (Auto) 10.0 % Eosinophils (%) (Auto) 0.3 % Basophils (%) (Auto) 0.1 % Neutrophils # (Auto) 6.70 1.4-6.5 K/uL Lymphocytes # (Auto) 1.07 1.2-3.4 K/uL Monocytes # (Auto) 0.87 0.11-0.59 K/uL Eosinophils # (Auto) 0.03 0-0.5 K/uL Basophils # (Auto) 0.01 0-0.2 K/uL RDW Standard Deviation 58.2 36.4-46.3 fL RDW Coefficient of Variation 15.3 11.5-14.5 % Immature Granulocyte % (Auto) 0.3 % Immature Granulocyte # (Auto) 0.03 0.00-0.02 K/uL Sodium Level 135 136-145 mmol/L Potassium Level 4.5 3.5-5.1 mmol/L Chloride Level 94 98-107 mmol/L Carbon Dioxide Level 29 21-32 mmol/L Anion Gap 12.0 3-11 mmol/L Blood Urea Nitrogen 107 7-18 mg/dl Creatinine 2.60 0.60-1.20 mg/dl Est Creatinine Clear Calc Drug Dose 18.0 ml/min Estimated GFR () 19.1 Estimated GFR (Non- 16.5 BUN/Creatinine Ratio 41.1 10-20 Random Glucose 156 70-99 mg/dl Calcium Level 8.9 8.5-10.1 mg/dl Magnesium Level 2.7 1.8-2.4 mg/dl Total Bilirubin 1.7 0.2-1 mg/dl Aspartate Amino Transf (AST/SGOT) 22 15-37 U/L Alanine Aminotransferase (ALT/SGPT) 10 12-78 U/L Alkaline Phosphatase 104 45-117 U/L Total Protein 7.1 6.4-8.2 gm/dl Albumin 2.8 3.4-5.0 gm/dl Globulin 4.3 2.5-4.0 gm/dl Albumin/Globulin Ratio 0.7 0.9-2 Test 06/15/16 09:00 06/15/16 09:58 06/15/16 14:55 Range/Units Stool Occult Blood NEGATIVE NEGATIVE Potassium Level 5.0 3.5-5.1 mmol/L Hemoglobin 12.6 12.0-16.0 g/dL Hematocrit 40.1 37-47 %
[2016-06-15 20:27] LABS: HEMATOCRIT 36.7 % (37-47)
[2016-06-15] MEDS: GABAPENTIN 300 MG CAP PO SCH (20:31)
[2016-06-15] MEDS: PANTOprazole INJ 40 MG in SYRINGE 0 ML IV SCH (20:32)
[2016-06-15] MEDS: ALPRAZOLAM 0.5 MG TAB PO SCH (20:34)
[2016-06-15] MEDS ORDERED: BUMETANIDE 1 MG TAB PO ONE (21:00)
[2016-06-16] VITALS (11 sets, daily range): BP systolic 83–103; BP diastolic 41–59; PULSE 85–100; TEMP 36.3–36.6; O2SAT 91–96
[2016-06-16 05:58] LABS: BASO % 0.1 %; BASO ABS # 0.01 K/uL (0-0.2); COMPLETE YES; HEMATOCRIT 35.4 % (37-47); IG% 0.3 %; LYMPH % 16.9 %; LYMPH ABS # 1.17 K/uL (1.2-3.4); MEAN CELL VOLUME 102.9 fL (80-100); MEAN CORPUSCULAR HEMOGLOBIN 33.1 pg (25-34); MEAN CORPUSCULAR HGB CONC 32.2 g/dl (32-36); MEAN PLATELET VOLUME 10.5 fL (7.4-10.4); MONO % 10.7 %; PLATELET COUNT 111 K/uL (130-400); RED BLOOD COUNT 3.44 M/uL (4.2-5.4); WHITE BLOOD COUNT 6.94 K/uL (4.8-10.8)
[2016-06-16 06:34] LABS: BUN/CREATININE RATIO 30.8 (10-20); CALCIUM 8.5 mg/dl (8.5-10.1); CREATININE 2.6 mg/dl (0.60-1.20); POTASSIUM 4.6 mmol/L (3.5-5.1)
[2016-06-16] MEDS: LEVOTHYROXINE 25 MCG TAB PO SCH (06:35)
[2016-06-16 06:36] LABS: ALB/GLOB RATIO 0.6 (0.9-2); PHOSPHORUS 3.9 mg/dl (2.5-4.9)
[2016-06-16] MEDS: CARVEDILOL 3.125 MG TAB PO SCH ×2 (07:30→16:45)
[2016-06-16] MEDS: PANTOprazole INJ 40 MG in SYRINGE 0 ML IV SCH ×2 (10:26→21:19)
--- NOTE | 2016-06-16 12:13 | Nephrology Progress Note ---
Nephrology Progress Note Date of Service Jun 16, 2016. Chief Complaint follow-up for ESRD Subjective Ani was seen and examined in her room this morning. She was sitting in a chair, still seems to be very lethargic. Denies any specific symptoms. Blood pressure continues to be soft but asymptomatic. Had 2nd dialysis treatment yesterday for 3 hours, and had 1 liter ultrafiltration. Appetite seems to be poor. Review of Systems A complete review of systems was performed. Pertinent positives are noted above. All other systems are negative. Vital Signs Last 8 Hrs Date Time Temp Pulse Resp B/P Pulse Ox O2 Delivery O2 Flow Rate FiO2 06/16/16 07:38 36.4 85 18 84/41 92 Nasal Cannula 3.0 06/16/16 04:00 36.6 90 19 83/43 91 85/44 06/16/16 04:00 Nasal Cannula I & O 24-Hour Column 06/16/16 08:00 Intake Total 200 ml Output Total 1100 ml Balance -900 ml Last Recorded Weight Weight (Kilograms): 95.500 Physical Exam GENERAL: Elderly female, AAA x 3, pleasant, chronically ill-appearing, no distress NECK: Supple, no JVD. RESPIRATORY: Normal breathing efforts, no accessory muscle use, no wheezes or rales, decreased breath sound at bases. CARDIOVASCULAR: S1, S2 normal, rate rhythm regular. EXTREMITY: Tense non pitting lower extremity edema. NEURO: speech fluent. PSYCHIATRY: Normal mood and judgment Family History Diabetes mellitus FH: heart disease Stroke Social History Drug Use: none Occupation: retired Laboratory Results Past 24 Hours 06/15/16 14:55 06/15/16 20:10 06/16/16 05:35 Red Blood Count 3.44, Mean Corpuscular Volume 102.9, Mean Corpuscular Hemoglobin 33.1, Mean Corpuscular Hemoglobin Concent 32.2, Mean Platelet Volume 10.5, Neutrophils (%) (Auto) 70.0, Lymphocytes (%) (Auto) 16.9, Monocytes (%) ( Auto) 10.7, Eosinophils (%) (Auto) 2.0, Basophils (%) (Auto) 0.1, Neutrophils # (Auto) 4.86, Lymphocytes # (Auto) 1.17, Monocytes # (Auto) 0.74, Eosinophils # ( Auto) 0.14, Basophils # (Auto) 0.01 06/16/16 05:35 Test 06/16/16 05:35 White Blood Count 6.94 K/uL (4.8-10.8) Red Blood Count 3.44 M/uL (4.2-5.4) Hemoglobin 11.4 g/dL (12.0-16.0) Hematocrit 35.4 % (37-47) Mean Corpuscular Volume 102.9 fL (80-100) Mean Corpuscular Hemoglobin 33.1 pg (25-34) Mean Corpuscular Hemoglobin Concent 32.2 g/dl (32-36) Platelet Count 111 K/uL (130-400) Mean Platelet Volume 10.5 fL (7.4-10.4) Neutrophils (%) (Auto) 70.0 % Lymphocytes (%) (Auto) 16.9 % Monocytes (%) (Auto) 10.7 % Eosinophils (%) (Auto) 2.0 % Basophils (%) (Auto) 0.1 % Neutrophils # (Auto) 4.86 K/uL (1.4-6.5) Lymphocytes # (Auto) 1.17 K/uL (1.2-3.4) Monocytes # (Auto) 0.74 K/uL (0.11-0.59) Eosinophils # (Auto) 0.14 K/uL (0-0.5) Basophils # (Auto) 0.01 K/uL (0-0.2) RDW Standard Deviation 57.3 fL (36.4-46.3) RDW Coefficient of Variation 15.2 % (11.5-14.5) Immature Granulocyte % (Auto) 0.3 % Immature Granulocyte # (Auto) 0.02 K/uL (0.00-0.02) Nucleated RBC Absolute Count (auto) 0.03 K/uL (0-0) Nucleated Red Blood Cells % 0.5 % Anion Gap 9.0 mmol/L (3-11) Est Creatinine Clear Calc Drug Dose 18.0 ml/min Estimated GFR () 19.1 Estimated GFR (Non- 16.5 BUN/Creatinine Ratio 30.8 (10-20) Calcium Level 8.5 mg/dl (8.5-10.1) Phosphorus Level 3.9 mg/dl (2.5-4.9) Total Bilirubin 1.3 mg/dl (0.2-1) Aspartate Amino Transf (AST/SGOT) 20 U/L (15-37) Alanine Aminotransferase (ALT/SGPT) 8 U/L (12-78) Alkaline Phosphatase 96 U/L (45-117) Total Protein 6.5 gm/dl (6.4-8.2) Albumin 2.5 gm/dl (3.4-5.0) Globulin 4.0 gm/dl (2.5-4.0) Albumin/Globulin Ratio 0.6 (0.9-2) Allergies Coded Allergies: No Known Allergies (Verified , 06/10/16) Medications Current Inpatient Medications Medications (Trade) Dose Ordered Sig/Yvette Route Start Time Stop Time Status Last Admin Dose Admin Al Hydrox/Mg Hydrox/Simethicone (Maalox Max Susp) 15 ml Q4H PRN PO 06/10/16 16:00 07/10/16 15:59 Magnesium Hydroxide (Milk Of Magnesia Susp) 30 ml Q12H PRN PO 06/10/16 16:00 07/10/16 15:59 06/15/16 04:13 30 ML Ondansetron HCl (Zofran Inj) 4 mg Q6H PRN IV 06/10/16 16:00 07/10/16 15:59 06/15/16 08:37 4 MG Polyethylene (Miralax Powder Packet) 17 gm DAILY PRN PO 06/10/16 16:00 07/10/16 15:59 06/15/16 05:43 17 GM Aspirin (Ecotrin Tab) 81 mg QAM PO 06/11/16 09:00 07/11/16 08:59 Future Hold 06/14/16 09:45 81 MG Carvedilol (Coreg Tab) 3.125 mg BIDM PO 06/10/16 18:00 07/10/16 17:59 06/13/16 07:56 3.125 MG Gabapentin (Neurontin Cap) 300 mg HS PO 06/10/16 21:00 07/10/16 20:59 06/15/16 20:31 300 MG Levothyroxine Sodium (Synthroid Tab) 25 mcg DAILYBB PO 06/11/16 06:00 07/11/16 05:59 06/16/16 06:35 25 MCG Nitroglycerin (Nitrostat Tab) 0.4 mg UD PRN UT 06/10/16 17:30 07/10/16 17:29 Senna (Senokot Tab) 8.6 mg DAILY PRN PO 06/10/16 17:30 07/10/16 17:29 Tramadol HCl (Ultram Tab) 50 mg Q6H PRN PO 06/10/16 17:30 07/10/16 17:29 06/13/16 19:09 50 MG Alprazolam (Xanax Tab) 0.5 mg HS PO 06/10/16 21:00 07/10/16 20:59 06/15/16 20:34 0.5 MG Acetaminophen/ Hydrocodone Bitart 1 tab 1 tab Q6H PRN PO 06/12/16 19:30 06/26/16 19:29 06/14/16 06:35 1 TAB Promethazine HCl 12.5 mg/Sodium Chloride 50.5 ml @ 204 mls/hr Q6H PRN IV 06/15/16 09:45 07/15/16 09:44 Pantoprazole Sodium/Syringe (Protonix Inj/ Syringe) 10 ml @ 5 mls/min DAILY@ IV 06/15/16 21:00 07/15/16 20:59 06/15/16 20:32 5 MLS/MIN Impression (1) Acute renal failure (2) Pulmonary hypertension, moderate to severe (3) Chronic kidney disease, stage 4 (severe) (4) Severe tricuspid regurgitation (5) Cardiorenal syndrome (6) Anemia (7) Bilateral pleural effusion Ani is a 81-year-old female with stage 4 chronic kidney disease, severe pulmonary hypertension, tricuspid regurgitation, history of COPD and diuretic resistant volume overload admitted to the hospital with worsening volume status and lethargy. At baseline she has stage 4 chronic kidney disease secondary to cardiorenal syndrome, baseline creatinine variable from a from 1.6-1.9, on admission she was found to have acute kidney injury creatinine has been 2.5-2.6 and BUN worsened to 127. has evidence of intravascular volume depletion however overall volume status worsened and has been less responsive to diuretics. She has left brachiocephalic AV fistula placed in April 2016 and currently maturing. At home she was on Bumex 3 milligram twice a day and metolazone 5 milligrams 3 times weekly but has been less responsive. On admission she was started on Bumex 3 milligrams IV twice a day with suboptimal response and started on Bumex drip. Blood pressure has been running soft but she has been asymptomatic, denies any uremic symptoms. Has history of anemia, hemoglobin has been stable previously had GI bleeding, and currently no active bleeding. She had EGD in October 2015, EGD was normal but complicated by hypotension and hypoxia and colonoscopy was not done. Renal function continued to worsen and she was started on dialysis via right IJ tunnel dialysis catheter on 06/14/2016. Had 2nd dialysis treatment yesterday. Schedule for transposition of AV fistula on Friday and 3rd dialysis treatment will be Friday. She she is scheduled for outpatient dialysis at [facility] on Friday, , Friday. Recommendations --received second hemodialysis treatment yesterday for 3 hours with 1 L UF Plan for 3rd treatment on Friday for 3 hours and then intermittent dialysis Friday, , Friday at [facility]. --she will have transposition of Brachio basilic vein AV fistula on Friday. Will skip dialysis on Friday. -- continue on Bumex 2 mg po BID --will need home health care on discharge -- dose medications for GFR less than 10 -- avoid nephrotoxins medications Will follow.
[2016-06-16] MEDS: BOOST VANILLA PO SCH ×4 (14:46→21:18)
--- NOTE | 2016-06-16 17:41 | Progress Note ---
Internal Med Progress Note Date of Service: Jun 16, 2016. Provider Documentation: SUBJECTIVE: resting comfortably no chest pain or sob afebrile eating ok denies any complaints seems weak OBJECTIVE: Vital Signs-as noted below Exam: General-alert and awake . ENT-Normal hearing Neck-no neck masses Lungs-cta b/l no wheezing or crackles Heart-s1 and s2 heard regular rate and rhythm, no murmurs Abdomen-soft bowel sounds present non tender no distension Extremities-lower extremity edema present-improving Neuro-alert and awake moves extremities Lab data as noted below. ASSESSMENT & PLAN: This is an 81 year old female with PMH of severe COPD and chronic respiratory failure requiring O2 continuously, severe pulmonary HTN and resultant right heart failure, CKD stage IV-V, recent AV-fistula placement awaiting maturation, hx. of paroxysmal atrial fibrillation, not on anticoagulation, anemia due to CKD presents with worsening lower extremity edema. Severe Pulmonary HTN Right Heart Failure Patient presents with worsening edema in the LE and abdomen Recently medications changed to , Bumex 3mg BID and metolazone 5mg was started on IV Bumex 3mg BID cardiology and nephrology on board and appreciate inputs required dobutamine drip in the past not responding much to diuretics as patient on Bumex and metazolne at home Nephrology started on Bumex drip and if no improvement plan for dialysis seems to responding to Bumex drip s/p perma cath and initiation of dialysis volume management per dialysis as per nephrology Bumex changed to 2mg po BID close monitor pt/ot Gi Bleed 06/14/16 post dialysis had an episode of vomitus which contained some blood hb stable started on ppi drip notified GI and appreciate inputs f/u serial h and h close monitor for any more epsiodes previous egd in october 2015 was complicated with hypotension and hypoxia 06/05/16 no more episodes stool for Hemoccult negative hb stable changed ppi drip to iv bid stable currently Severe COPD Chronic Respiratory Failure stable will monitor Pleural effusion left side s/p thoracocentesis by pulmonary stable CKD stage IV creat at 2.6 today nephrology on board vascular surgery consulted and appreciate inputs s/p av fistula but not mature yet and may take 2 more weeks to mature s/p Perma cath and initiation of dialysis 06/14/16 management as per nephrology DVT ppx scds, monitor H/H FULL CODE DISPOSITION monitor in tele pt/ot Vital Signs: Date Time Temp Pulse Resp B/P Pulse Ox O2 Delivery O2 Flow Rate FiO2 06/16/16 17:11 36.5 91 20 97/51 93 Nasal Cannula 3.5 06/16/16 17:03 90 92/54 06/16/16 15:30 96 Nasal Cannula 4.0 Humidified Oxygen 06/16/16 12:00 Nasal Cannula 06/16/16 11:49 36.6 87 20 98/57 96 Nasal Cannula 4.0 06/16/16 08:00 Nasal Cannula 4.0 Humidified Oxygen 06/16/16 07:38 36.4 85 18 84/41 92 Nasal Cannula 3.0 06/16/16 04:00 36.6 90 19 83/43 91 85/44 06/16/16 04:00 Nasal Cannula 06/16/16 00:01 Nasal Cannula 06/16/16 00:00 36.3 100 20 103/49 91 Nasal Cannula 4.0 06/15/16 20:00 Nasal Cannula 06/15/16 19:10 36.3 88 20 103/51 92 Nasal Cannula 4.0 Lab Results: Results Past 24 Hours Test 06/15/16 20:10 06/16/16 05:35 Range/Units Hemoglobin 11.8 11.4 12.0-16.0 g/dL Hematocrit 36.7 35.4 37-47 % White Blood Count 6.94 4.8-10.8 K/uL Red Blood Count 3.44 4.2-5.4 M/uL Mean Corpuscular Volume 102.9 80-100 fL Mean Corpuscular Hemoglobin 33.1 25-34 pg Mean Corpuscular Hemoglobin Concent 32.2 32-36 g/dl Platelet Count 111 130-400 K/uL Mean Platelet Volume 10.5 7.4-10.4 fL Neutrophils (%) (Auto) 70.0 % Lymphocytes (%) (Auto) 16.9 % Monocytes (%) (Auto) 10.7 % Eosinophils (%) (Auto) 2.0 % Basophils (%) (Auto) 0.1 % Neutrophils # (Auto) 4.86 1.4-6.5 K/uL Lymphocytes # (Auto) 1.17 1.2-3.4 K/uL Monocytes # (Auto) 0.74 0.11-0.59 K/uL Eosinophils # (Auto) 0.14 0-0.5 K/uL Basophils # (Auto) 0.01 0-0.2 K/uL RDW Standard Deviation 57.3 36.4-46.3 fL RDW Coefficient of Variation 15.2 11.5-14.5 % Immature Granulocyte % (Auto) 0.3 % Immature Granulocyte # (Auto) 0.02 0.00-0.02 K/uL Nucleated RBC Absolute Count (auto) 0.03 0-0 K/uL Nucleated Red Blood Cells % 0.5 % Sodium Level 135 136-145 mmol/L Potassium Level 4.6 3.5-5.1 mmol/L Chloride Level 100 98-107 mmol/L Carbon Dioxide Level 26 21-32 mmol/L Anion Gap 9.0 3-11 mmol/L Blood Urea Nitrogen 80 7-18 mg/dl Creatinine 2.60 0.60-1.20 mg/dl Est Creatinine Clear Calc Drug Dose 18.0 ml/min Estimated GFR () 19.1 Estimated GFR (Non- 16.5 BUN/Creatinine Ratio 30.8 10-20 Random Glucose 108 70-99 mg/dl Calcium Level 8.5 8.5-10.1 mg/dl Phosphorus Level 3.9 2.5-4.9 mg/dl Total Bilirubin 1.3 0.2-1 mg/dl Aspartate Amino Transf (AST/SGOT) 20 15-37 U/L Alanine Aminotransferase (ALT/SGPT) 8 12-78 U/L Alkaline Phosphatase 96 45-117 U/L Total Protein 6.5 6.4-8.2 gm/dl Albumin 2.5 3.4-5.0 gm/dl Globulin 4.0 2.5-4.0 gm/dl Albumin/Globulin Ratio 0.6 0.9-2
--- NOTE | 2016-06-16 19:07 | Gastroenterology Progress Note ---
Progress Note Date of Service: Jun 16, 2016 Subjective Pt evaluation today including: conversation w/ patient, physical exam, chart review, lab review, review of studies, review of inpatient medication list cc v/u GI bleeding HPI Pt denies n/v ,bloody or black stools and do not see any mention in chart of these. Poor appetite. Review of Systems Respiratory: + shortness of breath (chronic) Cardiac: No chest pain Medications Current Inpatient Medications Medications (Trade) Dose Ordered Sig/Yvette Route Start Time Stop Time Status Last Admin Dose Admin Al Hydrox/Mg Hydrox/Simethicone (Maalox Max Susp) 15 ml Q4H PRN PO 06/10/16 16:00 07/10/16 15:59 Magnesium Hydroxide (Milk Of Magnesia Susp) 30 ml Q12H PRN PO 06/10/16 16:00 07/10/16 15:59 06/15/16 04:13 30 ML Ondansetron HCl (Zofran Inj) 4 mg Q6H PRN IV 06/10/16 16:00 07/10/16 15:59 06/15/16 08:37 4 MG Polyethylene (Miralax Powder Packet) 17 gm DAILY PRN PO 06/10/16 16:00 07/10/16 15:59 06/15/16 05:43 17 GM Aspirin (Ecotrin Tab) 81 mg QAM PO 06/11/16 09:00 07/11/16 08:59 Future Hold 06/14/16 09:45 81 MG Carvedilol (Coreg Tab) 3.125 mg BIDM PO 06/10/16 18:00 07/10/16 17:59 06/13/16 07:56 3.125 MG Gabapentin (Neurontin Cap) 300 mg HS PO 06/10/16 21:00 07/10/16 20:59 06/15/16 20:31 300 MG Levothyroxine Sodium (Synthroid Tab) 25 mcg DAILYBB PO 06/11/16 06:00 07/11/16 05:59 06/16/16 06:35 25 MCG Nitroglycerin (Nitrostat Tab) 0.4 mg UD PRN UT 06/10/16 17:30 07/10/16 17:29 Senna (Senokot Tab) 8.6 mg DAILY PRN PO 06/10/16 17:30 07/10/16 17:29 Tramadol HCl (Ultram Tab) 50 mg Q6H PRN PO 06/10/16 17:30 07/10/16 17:29 06/13/16 19:09 50 MG Alprazolam (Xanax Tab) 0.5 mg HS PO 06/10/16 21:00 07/10/16 20:59 06/15/16 20:34 0.5 MG Acetaminophen/ Hydrocodone Bitart 1 tab 1 tab Q6H PRN PO 06/12/16 19:30 06/26/16 19:29 06/14/16 06:35 1 TAB Promethazine HCl 12.5 mg/Sodium Chloride 50.5 ml @ 204 mls/hr Q6H PRN IV 06/15/16 09:45 07/15/16 09:44 Pantoprazole Sodium/Syringe (Protonix Inj/ Syringe) 10 ml @ 5 mls/min DAILY@ IV 06/15/16 21:00 07/15/16 20:59 06/16/16 10:26 5 MLS/MIN Enteral Nutritional Formula (Boost) 1 can TID PO 06/16/16 14:00 07/16/16 13:59 06/16/16 14:46 1 CAN Vitamin B Complex/ Vit C/Folic Acid (Nephrocaps) 1 cap QAM PO 06/17/16 09:00 07/17/16 08:59 Objective Vital Signs Date Time Temp Pulse Resp B/P Pulse Ox O2 Delivery O2 Flow Rate FiO2 06/16/16 17:11 36.5 91 20 97/51 93 Nasal Cannula 3.5 06/16/16 17:03 90 92/54 06/16/16 15:30 96 Nasal Cannula 4.0 Humidified Oxygen 06/16/16 12:00 Nasal Cannula 06/16/16 11:49 36.6 87 20 98/57 96 Nasal Cannula 4.0 06/16/16 08:00 Nasal Cannula 4.0 Humidified Oxygen 06/16/16 07:38 36.4 85 18 84/41 92 Nasal Cannula 3.0 06/16/16 04:00 36.6 90 19 83/43 91 85/44 06/16/16 04:00 Nasal Cannula 06/16/16 00:01 Nasal Cannula 06/16/16 00:00 36.3 100 20 103/49 91 Nasal Cannula 4.0 06/15/16 20:00 Nasal Cannula 06/15/16 19:10 36.3 88 20 103/51 92 Nasal Cannula 4.0 Physical Exam General Appearance: WD/WN, no apparent distress Respiratory/Chest: lungs clear, no respiratory distress Cardiovascular: regular rate, rhythm Abdomen: normal bowel sounds, non tender, soft, no organomegaly Laboratory Results Last 24 Hours Test 06/15/16 20:10 06/16/16 05:35 Hemoglobin 11.8 g/dL 11.4 g/dL Hematocrit 36.7 % 35.4 % White Blood Count 6.94 K/uL Red Blood Count 3.44 M/uL Mean Corpuscular Volume 102.9 fL Mean Corpuscular Hemoglobin 33.1 pg Mean Corpuscular Hemoglobin Concent 32.2 g/dl Platelet Count 111 K/uL Mean Platelet Volume 10.5 fL Neutrophils (%) (Auto) 70.0 % Lymphocytes (%) (Auto) 16.9 % Monocytes (%) (Auto) 10.7 % Eosinophils (%) (Auto) 2.0 % Basophils (%) (Auto) 0.1 % Neutrophils # (Auto) 4.86 K/uL Lymphocytes # (Auto) 1.17 K/uL Monocytes # (Auto) 0.74 K/uL Eosinophils # (Auto) 0.14 K/uL Basophils # (Auto) 0.01 K/uL RDW Standard Deviation 57.3 fL RDW Coefficient of Variation 15.2 % Immature Granulocyte % (Auto) 0.3 % Immature Granulocyte # (Auto) 0.02 K/uL Nucleated RBC Absolute Count (auto) 0.03 K/uL Nucleated Red Blood Cells % 0.5 % Sodium Level 135 mmol/L Potassium Level 4.6 mmol/L Chloride Level 100 mmol/L Carbon Dioxide Level 26 mmol/L Anion Gap 9.0 mmol/L Blood Urea Nitrogen 80 mg/dl Creatinine 2.60 mg/dl Est Creatinine Clear Calc Drug Dose 18.0 ml/min Estimated GFR () 19.1 Estimated GFR (Non- 16.5 BUN/Creatinine Ratio 30.8 Random Glucose 108 mg/dl Calcium Level 8.5 mg/dl Phosphorus Level 3.9 mg/dl Total Bilirubin 1.3 mg/dl Aspartate Amino Transf (AST/SGOT) 20 U/L Alanine Aminotransferase (ALT/SGPT) 8 U/L Alkaline Phosphatase 96 U/L Total Protein 6.5 gm/dl Albumin 2.5 gm/dl Globulin 4.0 gm/dl Albumin/Globulin Ratio 0.6 Assessment and Plan Hematemesis--nothing further, PUD vs Elisabet Boyle tear. stable at present. If ASA critical to patients care can start tomorrow pm, no EGD unless active bleeding. anemia--chronic--stable elevated total bilirubin--improved. follow, can be from right heart failure;
[2016-06-16] MEDS: ALPRAZOLAM 0.5 MG TAB PO SCH (21:19)
[2016-06-16] MEDS: GABAPENTIN 300 MG CAP PO SCH (21:19)
[2016-06-17] VITALS (27 sets, daily range): BP systolic 69–100; BP diastolic 44–59; PULSE 78–91; TEMP 36–36.8; O2SAT 91–97
[2016-06-17] MEDS: LEVOTHYROXINE 25 MCG TAB PO SCH (05:55)
[2016-06-17] MEDS ORDERED: CEFAZOLIN 2000 MG/60 ML D5W IV SCH (06:00)
[2016-06-17] MEDS ORDERED: CEFAZOLIN IV 2,000 MG/60 ML D5W IV SCH (06:00)
[2016-06-17 07:29] LABS: BUN/CREATININE RATIO 27.8 (10-20); CALCIUM 8.4 mg/dl (8.5-10.1); CREATININE 3.3 mg/dl (0.60-1.20); POTASSIUM 4.7 mmol/L (3.5-5.1)
[2016-06-17 07:30] LABS: PHOSPHORUS 4.3 mg/dl (2.5-4.9)
[2016-06-17] MEDS: PANTOprazole INJ 40 MG in SYRINGE 0 ML IV SCH ×2 (08:18→20:55)
[2016-06-17] MEDS: BOOST VANILLA PO SCH ×2 (08:19)
[2016-06-17] MEDS: CARVEDILOL 3.125 MG TAB PO SCH ×2 (08:19→16:45)
[2016-06-17] MEDS: NEPHROCAPS PO SCH (08:19)
[2016-06-17] MEDS: HYDROCODONE/ACETAMOPHEN 5/325MG TAB PO PRN (08:21)
[2016-06-17 08:41] LABS: HEMATOCRIT 37.7 % (37-47)
--- NOTE | 2016-06-17 09:59 | PROGRESS NOTE ---
DATE: 06/17/2016 The patient reports no abdominal pain. She does have a little bit of gas. No vomiting or bowel movements. Her hemoglobin today is 12.3, which is up from 11.4 yesterday. Serologic tests for liver disease are all negative for hepatitis A, B and C. VITAL SIGNS: Normal. She is afebrile. IMPRESSION: The patient had some hematemesis, probably from a Elisabet-Boyle tear. She is a very poor candidate for endoscopy having suffered hypotension and hypoventilation during her last attempt at an EGD. Currently, she is showing no signs of active bleeding and her blood count actually has improved overnight, so I think it is probably safe for her to resume aspirin at this point in time. Will continue to follow the patient for evidence of active bleeding.
--- NOTE | 2016-06-17 10:49 | Nephrology Progress Note ---
Nephrology Progress Note Date of Service Jun 17, 2016. Chief Complaint ESRD Subjective No acute events overnight. Working with PT this morning. Surgery rescheduled for tomorrow. No acute complaints. Denies shortness of breath. Review of Systems A complete review of systems was performed. Pertinent positives are noted above. All other systems are negative. Vital Signs Last 8 Hrs Date Time Temp Pulse Resp B/P Pulse Ox O2 Delivery O2 Flow Rate FiO2 06/17/16 08:02 36.7 85 18 100/59 91 Nasal Cannula 3.0 06/17/16 04:00 92 Nasal Cannula 4.0 06/17/16 03:25 36.4 89 16 92/53 93 Nasal Cannula 3.0 I & O 24-Hour Column 06/17/16 07:59 Intake Total 460 ml Output Total 75 ml Balance 385 ml Last Recorded Weight Weight (Kilograms): 95.800 Physical Exam General Appearance: WD/WN, no apparent distress Head: normocephalic, atraumatic Eyes: normal inspection, sclerae normal ENT: normal ENT inspection, pharynx normal Neck: supple, no JVD Respiratory/Chest: lungs clear, no respiratory distress Cardiovascular: regular rate, rhythm Abdomen/GI: non tender, soft Extremities/Musculoskelatal: + pertinent finding (AVF with thrill and bruit) Neurologic/Psych: alert, oriented x 3 Family History Diabetes mellitus FH: heart disease Stroke Social History Drug Use: none Occupation: retired Laboratory Results Past 24 Hours 06/17/16 08:24 06/17/16 06:35 Test 06/17/16 06:35 Anion Gap 10.0 mmol/L (3-11) Est Creatinine Clear Calc Drug Dose 14.2 ml/min Estimated GFR () 14.3 Estimated GFR (Non- 12.4 BUN/Creatinine Ratio 27.8 (10-20) Calcium Level 8.4 mg/dl (8.5-10.1) Phosphorus Level 4.3 mg/dl (2.5-4.9) Albumin 2.7 gm/dl (3.4-5.0) Allergies Coded Allergies: No Known Allergies (Verified , 06/10/16) Medications Current Inpatient Medications Medications (Trade) Dose Ordered Sig/Yvette Route Start Time Stop Time Status Last Admin Dose Admin Al Hydrox/Mg Hydrox/Simethicone (Maalox Max Susp) 15 ml Q4H PRN PO 06/10/16 16:00 07/10/16 15:59 Magnesium Hydroxide (Milk Of Magnesia Susp) 30 ml Q12H PRN PO 06/10/16 16:00 07/10/16 15:59 06/15/16 04:13 30 ML Ondansetron HCl (Zofran Inj) 4 mg Q6H PRN IV 06/10/16 16:00 07/10/16 15:59 06/15/16 08:37 4 MG Polyethylene (Miralax Powder Packet) 17 gm DAILY PRN PO 06/10/16 16:00 07/10/16 15:59 06/15/16 05:43 17 GM Aspirin (Ecotrin Tab) 81 mg QAM PO 06/11/16 09:00 07/11/16 08:59 Future Hold 06/14/16 09:45 81 MG Carvedilol (Coreg Tab) 3.125 mg BIDM PO 06/10/16 18:00 07/10/16 17:59 06/17/16 08:19 3.125 MG Gabapentin (Neurontin Cap) 300 mg HS PO 06/10/16 21:00 07/10/16 20:59 06/16/16 21:19 300 MG Levothyroxine Sodium (Synthroid Tab) 25 mcg DAILYBB PO 06/11/16 06:00 07/11/16 05:59 06/17/16 05:55 25 MCG Nitroglycerin (Nitrostat Tab) 0.4 mg UD PRN UT 06/10/16 17:30 07/10/16 17:29 Senna (Senokot Tab) 8.6 mg DAILY PRN PO 06/10/16 17:30 07/10/16 17:29 Tramadol HCl (Ultram Tab) 50 mg Q6H PRN PO 06/10/16 17:30 07/10/16 17:29 06/13/16 19:09 50 MG Alprazolam (Xanax Tab) 0.5 mg HS PO 06/10/16 21:00 07/10/16 20:59 06/16/16 21:19 0.5 MG Acetaminophen/ Hydrocodone Bitart 1 tab 1 tab Q6H PRN PO 06/12/16 19:30 06/26/16 19:29 06/17/16 08:21 1 TAB Promethazine HCl 12.5 mg/Sodium Chloride 50.5 ml @ 204 mls/hr Q6H PRN IV 06/15/16 09:45 07/15/16 09:44 Pantoprazole Sodium/Syringe (Protonix Inj/ Syringe) 10 ml @ 5 mls/min DAILY@09,21 IV 06/15/16 21:00 07/15/16 20:59 06/17/16 08:18 5 MLS/MIN Enteral Nutritional Formula (Boost) 1 can TID PO 06/16/16 14:00 07/16/16 13:59 06/17/16 08:19 1 CAN Vitamin B Complex/ Vit C/Folic Acid 1 cap 1 cap QAM PO 06/17/16 09:00 07/17/16 08:59 06/17/16 08:19 1 CAP Cefazolin Sodium (Ancef 2000mg/60 ml D5W) 60 ml @ 100 mls/hr PREOP IV 06/17/16 06:00 06/17/16 18:00 Impression (1) Acute renal failure (2) Pulmonary hypertension, moderate to severe (3) Chronic kidney disease, stage 4 (severe) (4) Severe tricuspid regurgitation (5) Cardiorenal syndrome (6) Anemia (7) Bilateral pleural effusion Ani is an 81-year-old female with advanced CKD, severe pulmonary hypertension , tricuspid regurgitation, COPD and diuretic resistant volume overload admitted to the hospital with worsening volume status and lethargy. She has been unable to manage volume status as an outpatient necessitating the initiation of hemodialysis. She was started on dialysis via right IJ tunnel dialysis catheter on 06/14/2016. Had 2nd dialysis treatment 06/15. She is scheduled for outpatient dialysis at [place] dialysis unit on Friday, , Friday. She has left brachiocephalic AV fistula placed in April 2016 and transposition has been rescheduled for tomorrow AM. Recommendations --HD today, 3 hours with 1 kg UF as tolerated --Surgery scheduled for tomorrow --Continue on Bumex 2 mg po BID --Medications appropriately dosed for renal function
--- NOTE | 2016-06-17 11:28 | Progress Note ---
Progress Note Patient had a small amount of food this am. Will have dialysis today and rescheduled surgery for tomorrow am.
[2016-06-17] MEDS: TRAMADOL HCL 50 MG TAB PO PRN (11:56)
--- NOTE | 2016-06-17 17:45 | Progress Note ---
Internal Med Progress Note Date of Service: Jun 17, 2016. Provider Documentation: SUBJECTIVE: resting comfortably no chest pain or sob afebrile eating ok denies any complaints seems weak OBJECTIVE: Vital Signs-as noted below Exam: General-alert and awake . ENT-Normal hearing Neck-no neck masses Lungs-cta b/l no wheezing or crackles Heart-s1 and s2 heard regular rate and rhythm, no murmurs Abdomen-soft bowel sounds present non tender no distension Extremities-lower extremity edema present-improving Neuro-alert and awake moves extremities Lab data as noted below. ASSESSMENT & PLAN: This is an 81 year old female with PMH of severe COPD and chronic respiratory failure requiring O2 continuously, severe pulmonary HTN and resultant right heart failure, CKD stage IV-V, recent AV-fistula placement awaiting maturation, hx. of paroxysmal atrial fibrillation, not on anticoagulation secondary to GI bleed, anemia due to CKD presents with worsening lower extremity edema. Initially treated with iv Bumex then was placed on Bumex drip.HAd pleural effusion and s/p left thoracocentesis by pulmonary. Later perm Cath was placed and dialysis started.After first dialysis patient was nauseous and had an episode of bloody vomitus.Was started on PPOI drip and GI was consulted. But no more episode of bleeding and hb stable. Hemoccult negative.Has left brachiocephalic AV fistula placed in April 2016 and transposition has been rescheduled for tomorrow and plan for dialysis as out patient. Patient is weak and tired .Pt/ot and may need placement. Severe Pulmonary HTN Right Heart Failure with acute systolic Right heart failure Patient presents with worsening edema in the LE and abdomen Recently medications changed to , Bumex 3mg BID and metolazone 5mg was started on IV Bumex 3mg BID cardiology and nephrology on board and appreciate inputs required dobutamine drip in the past not responding much to diuretics as patient on Bumex and metazolne at home Nephrology started on Bumex drip and if no improvement plan for dialysis seems to responding to Bumex drip but s/p perma cath and initiation of dialysis volume management per dialysis as per nephrology Bumex changed to 2mg po BID close monitor weak pt/ot may need placement Gi Bleed 06/14/16 post dialysis had an episode of vomitus which contained some blood hb stable started on ppi drip notified GI and appreciate inputs f/u serial h and h close monitor for any more episodes previous egd in october 2015 was complicated with hypotension and hypoxia 06/05/16 no more episodes stool for Hemoccult negative hb stable changed ppi drip to iv bid stable currently will resume aspirin Severe COPD Chronic Respiratory Failure stable will monitor Pleural effusion left side s/p thoracocentesis by pulmonary stable CKD stage IV creat at 3.3 today nephrology on board vascular surgery consulted and appreciate inputs s/p av fistula but not mature yet and may take 2 more weeks to mature s/p Perma cath and initiation of dialysis 06/14/16 Av fistula transposition has been rescheduled for tomorrow by vascular surgery management as per nephrology DVT ppx scds, monitor H/H FULL CODE DISPOSITION monitor in tele pt/ot social service for d/c planning Vital Signs: Date Time Temp Pulse Resp B/P Pulse Ox O2 Delivery O2 Flow Rate FiO2 06/18/16 13:37 36.7 95 14 98/50 95 Nasal Cannula 3.0 06/18/16 13:19 95 16 06/18/16 13:19 96 16 96 06/18/16 13:18 101/54 06/18/16 13:14 95 20 95 06/18/16 13:14 97 20 06/18/16 13:13 95/59 06/18/16 13:09 89 24 94 06/18/16 13:09 93 24 06/18/16 13:08 96/58 06/18/16 13:06 95 19 06/18/16 13:06 90 19 94 06/18/16 13:03 100/53 06/18/16 13:01 99 20 92 06/18/16 13:01 95 20 06/18/16 12:58 101/58 06/18/16 12:58 36.6 95 16 101/58 94 Nasal Cannula 2 06/18/16 12:56 96 23 92 06/18/16 12:56 93 23 06/18/16 12:53 97/59 06/18/16 12:51 95 20 06/18/16 12:51 96 20 92 06/18/16 12:48 108/61 06/18/16 12:46 99 21 103/65 97 06/18/16 12:46 98 21 06/18/16 12:45 93 18 06/18/16 12:45 97 18 95 06/18/16 12:44 83/52 06/18/16 12:40 97 17 96 06/18/16 12:40 94 17 06/18/16 12:39 80/51 06/18/16 12:35 96 17 95 06/18/16 12:35 98 17 06/18/16 12:34 85/53 06/18/16 12:33 36.4 99 20 76/43 95 Mask 10 06/18/16 12:30 103 15 94 06/18/16 12:30 103 15 06/18/16 12:29 87/63 06/18/16 12:25 99 20 93 06/18/16 12:25 99 20 06/18/16 12:24 81/49 06/18/16 12:20 98 29 93 06/18/16 12:20 94 29 06/18/16 12:19 80/46 06/18/16 12:15 98 22 06/18/16 12:15 96 22 75/50 89 06/18/16 09:08 36.3 82 18 92/59 93 Nasal Cannula 4 06/18/16 08:00 93 Nasal Cannula 4.0 06/18/16 07:35 36.6 85 16 92/55 93 Nasal Cannula 4.0 06/18/16 04:00 Nasal Cannula 06/18/16 03:59 36.4 91 17 86/54 93 Nasal Cannula 4.0 06/18/16 00:00 36.5 82 20 92/48 93 Nasal Cannula 4.0 06/17/16 23:59 Nasal Cannula 06/17/16 20:00 Nasal Cannula 06/17/16 19:29 36.5 06/17/16 19:16 36.0 85 16 96/56 97 06/17/16 18:25 93 Nasal Cannula 4.0 06/17/16 18:22 36.6 91 85/55 06/17/16 18:00 88 74/51 06/17/16 17:45 88 76/44 06/17/16 17:30 91 69/46 06/17/16 17:15 87 73/46 06/17/16 17:00 88 75/49 06/17/16 16:45 88 74/50 06/17/16 16:30 91 77/50 06/17/16 16:15 87 76/50 06/17/16 16:00 88 76/49 06/17/16 15:45 88 77/50 06/17/16 15:30 88 79/52 06/17/16 15:15 84 77/47 06/17/16 15:00 81 76/46 06/17/16 14:45 82 79/44 06/17/16 14:30 84 79/50 Lab Results: Results Past 24 Hours Test 06/18/16 05:45 06/18/16 12:32 06/18/16 13:08 Range/Units Sodium Level 135 136-145 mmol/L Potassium Level 4.6 3.5-5.1 mmol/L Chloride Level 99 98-107 mmol/L Carbon Dioxide Level 26 21-32 mmol/L Anion Gap 10.0 3-11 mmol/L Blood Urea Nitrogen 61 7-18 mg/dl Creatinine 2.80 0.60-1.20 mg/dl Est Creatinine Clear Calc Drug Dose 16.4 ml/min Estimated GFR () 17.5 Estimated GFR (Non- 15.1 BUN/Creatinine Ratio 21.9 10-20 Random Glucose 101 70-99 mg/dl Calcium Level 8.7 8.5-10.1 mg/dl Phosphorus Level 3.5 2.5-4.9 mg/dl Albumin 2.7 3.4-5.0 gm/dl White Blood Count 9.46 4.8-10.8 K/uL Red Blood Count 3.94 4.2-5.4 M/uL Hemoglobin 13.3 12.0-16.0 g/dL Hematocrit 41.6 37-47 % Mean Corpuscular Volume 105.6 80-100 fL Mean Corpuscular Hemoglobin 33.8 25-34 pg Mean Corpuscular Hemoglobin Concent 32.0 32-36 g/dl Platelet Count 154 130-400 K/uL Mean Platelet Volume 10.4 7.4-10.4 fL Neutrophils (%) (Auto) 70.2 % Lymphocytes (%) (Auto) 17.0 % Monocytes (%) (Auto) 10.8 % Eosinophils (%) (Auto) 1.5 % Basophils (%) (Auto) 0.2 % Neutrophils # (Auto) 6.64 1.4-6.5 K/uL Lymphocytes # (Auto) 1.61 1.2-3.4 K/uL Monocytes # (Auto) 1.02 0.11-0.59 K/uL Eosinophils # (Auto) 0.14 0-0.5 K/uL Basophils # (Auto) 0.02 0-0.2 K/uL RDW Standard Deviation 60.3 36.4-46.3 fL RDW Coefficient of Variation 15.9 11.5-14.5 % Immature Granulocyte % (Auto) 0.3 % Immature Granulocyte # (Auto) 0.03 0.00-0.02 K/uL Nucleated RBC Absolute Count (auto) 0.21 0-0 K/uL Nucleated Red Blood Cells % 2.3 % Toxic Vacuolation OCCASIONAL Polychromasia 1+ Bedside Glucose 117 70-90 mg/dl
[2016-06-17] MEDS: GABAPENTIN 300 MG CAP PO SCH (20:55)
[2016-06-17] MEDS: BOOST GLUCOSE CONTROL PO SCH (20:55)
[2016-06-17] MEDS: ALPRAZOLAM 0.5 MG TAB PO SCH (20:56)
[2016-06-18] VITALS (12 sets, daily range): BP systolic 84–109; BP diastolic 48–63; PULSE 82–96; TEMP 36.3–36.7; O2SAT 93–97
[2016-06-18] MEDS: LEVOTHYROXINE 25 MCG TAB PO SCH (05:20)
[2016-06-18 07:04] LABS: BUN/CREATININE RATIO 21.9 (10-20); CALCIUM 8.7 mg/dl (8.5-10.1); CREATININE 2.8 mg/dl (0.60-1.20); POTASSIUM 4.6 mmol/L (3.5-5.1)
[2016-06-18 07:06] LABS: PHOSPHORUS 3.5 mg/dl (2.5-4.9)
[2016-06-18] MEDS: CARVEDILOL 3.125 MG TAB PO SCH ×2 (07:30→16:45)
[2016-06-18] MEDS: PANTOprazole INJ 40 MG in SYRINGE 0 ML IV SCH ×2 (07:38→19:41)
[2016-06-18] MEDS: BOOST GLUCOSE CONTROL PO SCH ×3 (07:38→19:41)
[2016-06-18] MEDS: NEPHROCAPS PO SCH (07:38)
[2016-06-18] MEDS: ASPIRIN 81 MG ECTAB PO SCH (09:00)
[2016-06-18] MEDS ORDERED: LIDOCAINE HCL 2% 2 ML VIAL (20MG/ML) ONE (09:11)
[2016-06-18] MEDS ORDERED: MIDAZOLAM HCL 1 MG/ML 2ML VIAL ONE (09:11)
[2016-06-18] MEDS ORDERED: PROPOFOL IV EMULSION 10 MG/ML 20 ML VIAL IV ONE (09:11)
[2016-06-18] MEDS ORDERED: FENTANYL CITRATE INJ 50 MCG/1 ML 2 ML VIAL ONE ×2 (09:12→11:13)
--- NOTE | 2016-06-18 09:25 | Progress Note ---
Medicine Progress Note Date & Time of Visit: Jun 18, 2016 at 08:59. Subjective 81 year old female with PMH of severe COPD and chronic respiratory failure requiring O2 continuously, severe pulmonary HTN and resultant right heart failure, CKD stage IV-V, recent AV-fistula placement in Apr 2016 awaiting maturation, hx. of paroxysmal atrial fibrillation, anemia due to CKD presents with worsening lower extremity edema and abdominal swelling. Daughter reports today that she was up 15-20 lbs when she was admitted. Initially treated with iv Bumex then was placed on Bumex drip. Pleural effusion and s/p right and left thoracocentesis by pulmonary (06/12 and 06/13). Later perm Cath was placed on R anterior chest wall and dialysis started. After first dialysis patient was nauseous and had an episode of bloody vomitus. Was started on PPI drip and GI was consulted. But no more episode of bleeding and H/H stable. Hemoccult negative. Not good endoscopic candidate and GI ok with restarting ASA for stroke risk in afib. Has left brachiocephalic AV fistula placed in April 2016 and transposition has been rescheduled for today and plan for dialysis as outpatient. Patient is weak and tired. PT/OT recommend SNF for rehab prior to returning home. Discussed code status with family who would like POLST. Pt states that she is breathing "OK" today Feels "OK" today No specific issues reported. Very weak and tired, laying in bed, cannot lift arms or legs easily, fall asleep easily but easily arousable also. Objective Last 8 Hrs Date Time Temp Pulse Resp B/P Pulse Ox O2 Delivery O2 Flow Rate FiO2 06/18/16 07:35 36.6 85 16 92/55 93 Nasal Cannula 4.0 06/18/16 04:00 Nasal Cannula 06/18/16 03:59 36.4 91 17 86/54 93 Nasal Cannula 4.0 Physical Exam: GEN: Obese, deconditioned, in no acute distress, alert and appropriate but very fatigued, easily falls asleep. Herrera in place. HEENT: NC/AT, PERRL, normal sclerae CARDIO: reg rate, S1/2 heard without m/g/r LUNGS: CTA on the right, crackles diffusely on the left (laying on her left side ), no rales or wheezes, small wound from throacentesis on right covered with bandaid (small amount of blood on bandage) ABD: soft, non-tender, non-distended, +BS present, significant edema in the dependent folds. EXTREMITY: warm and well-perfused, chronic woody appearance to her legs, bilateral LE edema present NEURO: CN 2-12 grossly intact, sensation intact throughout, coordination not assessed as patient is too weak to focus [facility]: manpower development advisor strength is 4/5 bilaterally, pt has trouble lifting arms out in front of her-very weak and deconditioned. She can flex her knees with max assistance. SKIN: warm and dry and as above. Sacral and bottom area was examined with no evidence of breakdown, some creasing of the skin on folded area and redness but blanchable. Laboratory Results: Last 24 Hours Test 06/18/16 05:45 Sodium Level 135 mmol/L Potassium Level 4.6 mmol/L Chloride Level 99 mmol/L Carbon Dioxide Level 26 mmol/L Anion Gap 10.0 mmol/L Blood Urea Nitrogen 61 mg/dl Creatinine 2.80 mg/dl Est Creatinine Clear Calc Drug Dose 16.4 ml/min Estimated GFR () 17.5 Estimated GFR (Non- 15.1 BUN/Creatinine Ratio 21.9 Random Glucose 101 mg/dl Calcium Level 8.7 mg/dl Phosphorus Level 3.5 mg/dl Albumin 2.7 gm/dl Assessment & Plan 81 yoF with acute right heart failure exacerbation s/p diuresis and initiation of hemodialysis, currently HD 9 and diuresed. Repositioning of AVF this morning , plan for optimization of fluid status and send to SNF. 1. Acute on chronic Right Heart Failure in setting of severe TR, severe pulm HTN Patient presents with worsening edema in the LE and abdomen Recently medications changed to , Bumex 3mg BID and metolazone 5mg was started on IV Bumex 3mg BID -->min response Nephrology started on Bumex drip and not much improvement so HD cath placed and dialysis initiated 06/14 volume management per dialysis as per nephrology Bumex changed to 2mg po BID 2. Elisabet-Boyle tear (presumed after one isolated episode of bloody vomitus) 06/14/16 post dialysis had an episode of vomitus which contained some blood hb stable started on ppi drip-->GI c/s and changed to BID PPI--> poor candidate for endoscopy previous egd in october 2015 was complicated with hypotension and hypoxia monitor serial h and h no more episodes stool for Hemoccult negative stable currently will resume aspirin for stroke prophy in afib per GI 3. Severe COPD/ Chronic Respiratory Failure: stable on home O2 4. Bilateral transudative pleural effusions s/p bilateral throacentesis on and , respectively. Oxygenating at baseline. Pulm following. 5. CKD stage IV- cont HD per Nephro; setup for outpatient HD at [place] once access issues are addressed. Current AVF not mature as just placed in Apr 2016 Av fistula transposition has been rescheduled for tomorrow by vascular surgery management as per nephrology 6. Cardiorenal syndrome-management as above 7. Anemia-multifactorial, cont to monitor. 9. Chronic atrial fibrillation-cont Coreg and restarted ASA this morning for stroke prophy. DVT ppx: scds in setting of recent GIB FULL CODE: Palliative care consult for help with POLST form today DISPOSITION: cont monitor in tele, daily pt/ot for significant weakness, will need SNF at discharge once fluid status is optimized per Nephro Destiny Resendiz DO [facility] Hospitalist Current Inpatient Medications: Current Inpatient Medications Medications (Trade) Dose Ordered Sig/Yvette Route Start Time Stop Time Status Last Admin Dose Admin Al Hydrox/Mg Hydrox/Simethicone (Maalox Max Susp) 15 ml Q4H PRN PO 06/10/16 16:00 07/10/16 15:59 Magnesium Hydroxide (Milk Of Magnesia Susp) 30 ml Q12H PRN PO 06/10/16 16:00 07/10/16 15:59 06/15/16 04:13 30 ML Ondansetron HCl (Zofran Inj) 4 mg Q6H PRN IV 06/10/16 16:00 07/10/16 15:59 06/15/16 08:37 4 MG Polyethylene (Miralax Powder Packet) 17 gm DAILY PRN PO 06/10/16 16:00 07/10/16 15:59 06/15/16 05:43 17 GM Aspirin (Ecotrin Tab) 81 mg QAM PO 06/11/16 09:00 07/11/16 08:59 Future hold 06/14/16 09:45 81 MG Carvedilol (Coreg Tab) 3.125 mg BIDM PO 06/10/16 18:00 1/18/17 17:59 06/17/16 08:19 3.125 MG Gabapentin (Neurontin Cap) 300 mg HS PO 06/10/16 21:00 07/10/16 20:59 06/17/16 20:55 300 MG Levothyroxine Sodium (Synthroid Tab) 25 mcg DAILYBB PO 06/11/16 06:00 07/11/16 05:59 06/18/16 05:20 25 MCG Nitroglycerin (Nitrostat Tab) 0.4 mg UD PRN UT 06/10/16 17:30 07/10/16 17:29 Senna (Senokot Tab) 8.6 mg DAILY PRN PO 06/10/16 17:30 07/10/16 17:29 Tramadol HCl (Ultram Tab) 50 mg Q6H PRN PO 06/10/16 17:30 07/10/16 17:29 06/17/16 11:56 50 MG Alprazolam (Xanax Tab) 0.5 mg HS PO 06/10/16 21:00 07/10/16 20:59 06/16/16 21:19 0.5 MG Acetaminophen/ Hydrocodone Bitart 1 tab 1 tab Q6H PRN PO 06/12/16 19:30 06/26/16 19:29 06/17/16 08:21 1 TAB Promethazine HCl 12.5 mg/Sodium Chloride 50.5 ml @ 204 mls/hr Q6H PRN IV 06/15/16 09:45 07/15/16 09:44 Pantoprazole Sodium/Syringe (Protonix Inj/ Syringe) 10 ml @ 5 mls/min DAILY@ IV 06/15/16 21:00 07/15/16 20:59 06/18/16 07:38 5 MLS/MIN Vitamin B Complex/ Vit C/Folic Acid (Nephrocaps) 1 cap QAM PO 06/17/16 09:00 07/17/16 08:59 06/17/16 08:19 1 CAP Enteral Nutritional Formula (Boost Glucose Control) 0.5 can TID PO 06/17/16 21:00 07/17/16 20:59
[2016-06-18] MEDS ORDERED: CEFAZOLIN IV 2,000 MG/60 ML D5W IV ONE (09:26)
--- NOTE | 2016-06-18 09:44 | Progress Note ---
Progress Note Patient for a left upper arm basilic vein transposition. I have discussed the risks options and benefits of the procedure with the patient and family. They understand the risks options and benefits and agrees to the procedure. I have examined the patient, reviewed the History & Physical and in the interval since the performance of the History & Physical I have noted the following changes of clinical significance: No changes noted
[2016-06-18] MEDS ORDERED: ATROPINE SULFATE 0.1 MG/ML 5ML SYR IV PRN (10:30)
[2016-06-18] MEDS ORDERED: FENTANYL CITRATE INJ 50 MCG/1 ML 2 ML VIAL IV PRN (10:30)
[2016-06-18] MEDS ORDERED: ONDANSETRON INJ 2 MG/ML 2 ML VIAL IV PRN (10:30)
[2016-06-18] MEDS ORDERED: EpHEDrine SULFATE INJ 50 MG/ML AMP IV PRN (10:30)
[2016-06-18] MEDS ORDERED: NURSING VERBAL MED ORDER ONE (10:45)
[2016-06-18] MEDS ORDERED: HEPARIN SOD (PORCINE) 1000 UNIT/ML 10 ML VIAL FLUSH ONE (11:46)
[2016-06-18] MEDS ORDERED: MIX: 0.5% BUPIVACAINE W/EPI 1:200,000+1%LIDO 50:50 INJ ONE (11:46)
--- NOTE | 2016-06-18 12:06 | [facility] Post Operative Brief Note ---
Immediate Operative Summary Operative Date Jun 18, 2016. Pre-Operative Diagnosis End Stage Renal Failure Post-Operative Diagnosis same as preop Procedure(s) Performed Left upper extremity basilic vein transposition, second stage Surgeon Dr. Penny Fire Sprinkler Designer Surgeon(s) none Estimated Blood Loss 150 mL Findings Good thrill Palpable radial pulse Specimens none Anesthesia MAC Complication(s) None Disposition Recovery Room / PACU
--- NOTE | 2016-06-18 12:34 | OPERATIVE REPORT ---
DATE OF OPERATION: 06/18/2016 PREOPERATIVE DIAGNOSIS: Endstage renal disease. POSTOPERATIVE DIAGNOSIS: Same. PROCEDURE: Left upper arm basilic vein transposition second stage. SURGEON: Dr. Penny. ANESTHETIC: MAC. PROCEDURE INDICATIONS: The patient is an 81-year-old female who had a basilic vein fistula performed. She is now taken to the OR for transposition of the basilic vein of the second stage. The patient and family understood the risks, options and benefits and agreed to have this procedure. The patient was taken to the operating room and placed in a supine position. After the left arm was prepped and draped in a sterile manner, local anesthetic was administered. An incision was made from the arterial anastomosis at the antecubital fossa up to the anterior axillary line. The vein was exposed in its entirety. It ranged from 8-10 mm in size. All side branches were then ligated and divided. Once this was completed, it was decided being that it was a long length, that we could transect the vein just beyond the anastomosis and not have to redo the arterial anastomosis as we could re-anastomose the veins together in an end-to-end fashion. The vein was then clamped. It was divided transversely. A subcutaneous tunnel was made and the basilic vein was passed through the tunnel from top to bottom. Once this was completed and the clamp was removed, excellent backbleeding was seen. The vein distended up nicely with venous blood. An end-to-end anastomosis was accomplished between the 2 ends of the vein using a 7-0 Prolene suture in the usual vascular fashion. Prior to completing the closure, backbleeding and forward bleeding was allowed to occur and the final few sutures were placed and securely tied. Clamps were then removed. Excellent flow was seen through the fistula. Good thrill was palpated. There was still a radial artery pulse palpated at the wrist. Adequate hemostasis was then obtained in the wound. The wound was then closed in the usual fashion using a running 3-0 Vicryl suture for subcutaneous layer and gal for the skin. Sterile dressings were applied to the wound. The patient left the operating room in good condition and tolerated the procedure well. I attest to the content of the Intraoperative Record and any orders documented therein. Any exceptio ns are noted below.
[2016-06-18 12:39] LABS: BASO % 0.2 %; BASO ABS # 0.02 K/uL (0-0.2); EOS % 1.5 %; HEMATOCRIT 41.6 % (37-47); IG% 0.3 %; LYMPH ABS # 1.61 K/uL (1.2-3.4); MEAN CELL VOLUME 105.6 fL (80-100); MEAN CORPUSCULAR HEMOGLOBIN 33.8 pg (25-34); MEAN PLATELET VOLUME 10.4 fL (7.4-10.4); MONO % 10.8 %; NEUT % 70.2 %; PLATELET COUNT 154 K/uL (130-400); RED BLOOD COUNT 3.94 M/uL (4.2-5.4); WHITE BLOOD COUNT 9.46 K/uL (4.8-10.8)
--- NOTE | 2016-06-18 12:52 | Anesthesiology Progress Note ---
Anesthesia Post Op Note Date & Time Jun 18, 2016 at 12:52 Vital Signs Pain Intensity: 2 Vital Signs Past 12 Hours Date Time Temp Pulse Resp B/P Pulse Ox O2 Delivery O2 Flow Rate FiO2 06/18/16 12:45 93 18 06/18/16 12:45 97 18 95 06/18/16 12:44 83/52 06/18/16 12:40 97 17 96 06/18/16 12:40 94 17 06/18/16 12:39 80/51 06/18/16 12:35 96 17 95 06/18/16 12:35 98 17 06/18/16 12:34 85/53 06/18/16 12:33 36.4 99 20 76/43 95 Mask 10 06/18/16 12:30 103 15 94 06/18/16 12:30 103 15 06/18/16 12:29 87/63 06/18/16 12:25 99 20 93 06/18/16 12:25 99 20 06/18/16 12:24 81/49 06/18/16 12:20 98 29 93 06/18/16 12:20 94 29 06/18/16 12:19 80/46 06/18/16 12:15 98 22 06/18/16 12:15 96 22 75/50 89 06/18/16 09:08 36.3 82 18 92/59 93 Nasal Cannula 4 06/18/16 08:00 93 Nasal Cannula 4.0 06/18/16 07:35 36.6 85 16 92/55 93 Nasal Cannula 4.0 06/18/16 04:00 Nasal Cannula 06/18/16 03:59 36.4 91 17 86/54 93 Nasal Cannula 4.0 Notes Mental Status: alert / awake / arousable Nausea / Vomiting: adequately controlled Pain: adequately controlled Airway Patency, RR, SpO2: stable & adequate BP & HR: stable & adequate Hydration State: stable & adequate Anesthetic Complications: no major complications apparent
[2016-06-18 13:14] LABS: COMPLETE YES; POLYCHROMASIA 1+; VACUOLIZATION OCCASIONAL
[2016-06-18] MEDS: HYDROCODONE/ACETAMOPHEN 5/325MG TAB PO PRN (15:06)
--- NOTE | 2016-06-18 15:15 | Palliative Care Consultation ---
Consultation Date of Consultation: Jun 18, 2016. Requesting Physician: Dr. Resendiz Attending Physician: Dr. Resendiz Reason for Consultation: Goals of care History of Present Illness This 81 year old female patient presented to the ED from home eight days ago with complaints of increased lower extremity edema. Patient has end-stage renal disease, just recently had AV fistula placed, and follows with nephrology. When she came in, she was noted to have +4 pitting edema of BLE and she reported a 3kg weight gain. Other history as outlined below. Unfortunately, her fistula is not quite matured, so she did undergo right subclavian perm-cath placement by Dr. Penny on 06/14 and a revision of the AV fistula today, also by Dr. Penny. The plan is for the patient to go home, where she lives with her son, with [facility] and to go to [facility] Tuesdays, and Saturdays. Patient remains a level 1/full code at this time and has no formal living will or advance directive. Palliative care consulted to assist with establishing goals of care and to do a POLST form. I met with the patient and two of her sons in the room. She was awake and oriented x4, but slightly groggy as she had just come back from the OR. She denied any complaints at this time. I explained my role and that we would be discussing goals of care. Patient said, "That's all taken care of. My daughter Caren knows everything. She wants you to call her." I still explained the POLST form to the patient and her sons. Patient told me she wanted to remain a full code, and the sons agreed. I did go and call Caren Reese, daughter, and explained in detail the POLST form and the options on it. Caren fears that her mother is avoiding these decisions, but she really wants to have a plan in place before patient goes back home with home health. Caren and the patient are going to discuss the POLST form together this evening and I will follow up with them tomorrow. The patient certainly needs some continued support with setting realistic goals and decision making. I also fear that she will be too weak to be at home with home health as she has really not been getting out of bed during this admission. Her son told me that there is someone with the patient almost all the time. Has PT/OT consults. 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 Paroxysmal atrial fibrillation not on anticoagulation Diabetes mellitus type 2 Breast CA GI Bleed October 2015 Obesity Hypertension Cor pulmonale Anemia of CKD Surgical History: Lumpectomy Left total hip arthroplasty JESSEE-BSO Social History Smoking Status: Former Smoker Housing Status: lives with family (son) Occupation Status: retired Review of Systems Constitutional: + fatigue, + weakness, No chills, No fever Respiratory: No cough, No shortness of breath Cardiac: + edema, No chest pain Abdomen: No nausea, No pain, No vomiting Allergies Coded Allergies: No Known Allergies (Verified , 06/10/16) Medications Current Inpatient Medications Medications (Trade) Dose Ordered Sig/Yvette Route Start Time Stop Time Status Last Admin Dose Admin Al Hydrox/Mg Hydrox/Simethicone (Maalox Max Susp) 15 ml Q4H PRN PO 06/10/16 16:00 07/10/16 15:59 Magnesium Hydroxide (Milk Of Magnesia Susp) 30 ml Q12H PRN PO 06/10/16 16:00 07/10/16 15:59 06/15/16 04:13 30 ML Ondansetron HCl (Zofran Inj) 4 mg Q6H PRN IV 06/10/16 16:00 07/10/16 15:59 06/15/16 08:37 4 MG Polyethylene (Miralax Powder Packet) 17 gm DAILY PRN PO 06/10/16 16:00 07/10/16 15:59 06/15/16 05:43 17 GM Aspirin (Ecotrin Tab) 81 mg QAM PO 06/11/16 09:00 07/11/16 08:59 Future hold 06/14/16 09:45 81 MG Carvedilol (Coreg Tab) 3.125 mg BIDM PO 06/10/16 18:00 07/10/16 17:59 06/17/16 08:19 3.125 MG Gabapentin (Neurontin Cap) 300 mg HS PO 06/10/16 21:00 07/10/16 20:59 06/17/16 20:55 300 MG Levothyroxine Sodium (Synthroid Tab) 25 mcg DAILYBB PO 06/11/16 06:00 07/11/16 05:59 12/27/16 05:20 25 MCG Nitroglycerin (Nitrostat Tab) 0.4 mg UD PRN UT 06/10/16 17:30 07/10/16 17:29 Senna (Senokot Tab) 8.6 mg DAILY PRN PO 06/10/16 17:30 07/10/16 17:29 Tramadol HCl (Ultram Tab) 50 mg Q6H PRN PO 06/10/16 17:30 07/10/16 17:29 06/17/16 11:56 50 MG Alprazolam (Xanax Tab) 0.5 mg HS PO 06/10/16 21:00 07/10/16 20:59 06/16/16 21:19 0.5 MG Acetaminophen/ Hydrocodone Bitart 1 tab 1 tab Q6H PRN PO 06/12/16 19:30 06/26/16 19:29 06/17/16 08:21 1 TAB Promethazine HCl 12.5 mg/Sodium Chloride 50.5 ml @ 204 mls/hr Q6H PRN IV 06/15/16 09:45 07/15/16 09:44 Pantoprazole Sodium/Syringe (Protonix Inj/ Syringe) 10 ml @ 5 mls/min DAILY@ IV 06/15/16 21:00 07/15/16 20:59 06/18/16 07:38 5 MLS/MIN Vitamin B Complex/ Vit C/Folic Acid (Nephrocaps) 1 cap QAM PO 06/17/16 09:00 07/17/16 08:59 06/17/16 08:19 1 CAP Enteral Nutritional Formula (Boost Glucose Control) 0.5 can TID PO 06/17/16 21:00 07/17/16 20:59 06/18/16 14:17 0.5 CAN Fentanyl Citrate (Fentanyl Inj) 50 mcg UD PRN IV 06/18/16 10:30 06/18/16 15:30 Ondansetron HCl (Zofran Inj) 4 mg ONE PRN IV 06/18/16 10:30 06/18/16 15:30 Ephedrine Sulfate (EpHEDrine SULFATE INJ) 5 mg Q5M PRN IV 06/18/16 10:30 06/18/16 15:30 Atropine Sulfate (Atropine Sulfate 0.1MG/Ml Inj) 0.5 mg Q1M PRN IV 06/18/16 10:30 06/18/16 15:30 Physical Exam Date Time Temp Pulse Resp B/P Pulse Ox O2 Delivery O2 Flow Rate FiO2 06/18/16 13:37 36.7 95 14 98/50 95 Nasal Cannula 3.0 06/18/16 13:19 95 16 06/18/16 13:19 96 16 96 06/18/16 13:18 101/54 06/18/16 13:14 95 20 95 06/18/16 13:14 97 20 06/18/16 13:13 95/59 06/18/16 13:09 89 24 94 06/18/16 13:09 93 24 06/18/16 13:08 96/58 06/18/16 13:06 95 19 06/18/16 13:06 90 19 94 06/18/16 13:03 100/53 06/18/16 13:01 99 20 92 06/18/16 13:01 95 20 06/18/16 12:58 101/58 06/18/16 12:58 36.6 95 16 101/58 94 Nasal Cannula 2 06/18/16 12:56 96 23 92 06/18/16 12:56 93 23 06/18/16 12:53 97/59 06/18/16 12:51 95 20 06/18/16 12:51 96 20 92 06/18/16 12:48 108/61 06/18/16 12:46 99 21 103/65 97 06/18/16 12:46 98 21 06/18/16 12:45 93 18 06/18/16 12:45 97 18 95 06/18/16 12:44 83/52 06/18/16 12:40 97 17 96 06/18/16 12:40 94 17 06/18/16 12:39 80/51 06/18/16 12:35 96 17 95 06/18/16 12:35 98 17 06/18/16 12:34 85/53 06/18/16 12:33 36.4 99 20 76/43 95 Mask 10 06/18/16 12:30 103 15 94 06/18/16 12:30 103 15 06/18/16 12:29 87/63 06/18/16 12:25 99 20 93 06/18/16 12:25 99 20 06/18/16 12:24 81/49 06/18/16 12:20 98 29 93 06/18/16 12:20 94 29 06/18/16 12:19 80/46 06/18/16 12:15 98 22 06/18/16 12:15 96 22 75/50 89 06/18/16 09:08 36.3 82 18 92/59 93 Nasal Cannula 4 06/18/16 08:00 93 Nasal Cannula 4.0 06/18/16 07:35 36.6 85 16 92/55 93 Nasal Cannula 4.0 06/18/16 04:00 Nasal Cannula 06/18/16 03:59 36.4 91 17 86/54 93 Nasal Cannula 4.0 06/18/16 00:00 36.5 82 20 92/48 93 Nasal Cannula 4.0 06/17/16 23:59 Nasal Cannula 06/17/16 20:00 Nasal Cannula 06/17/16 19:29 36.5 06/17/16 19:16 36.0 85 16 96/56 97 06/17/16 18:25 93 Nasal Cannula 4.0 06/17/16 18:22 36.6 91 85/55 06/17/16 18:00 88 74/51 06/17/16 17:45 88 76/44 06/17/16 17:30 91 69/46 06/17/16 17:15 87 73/46 06/17/16 17:00 88 75/49 06/17/16 16:45 88 74/50 06/17/16 16:30 91 77/50 06/17/16 16:15 87 76/50 06/17/16 16:00 88 76/49 06/17/16 15:45 88 77/50 06/17/16 15:30 88 79/52 06/17/16 15:15 84 77/47 06/17/16 15:00 81 76/46 06/17/16 14:45 82 79/44 General Appearance: no apparent distress, + obese Neck: no JVD Respiratory: no respiratory distress, no accessory muscle use, + decreased breath sounds Cardiovascular: regular rate, rhythm, + normal peripheral pulses (bilateral lower extremity edema) Abdomen: normal bowel sounds, non tender, soft Musculoskeletal: pertinent finding (generalized weakness) Neurologic/Psychiatric: alert, normal mood/affect, oriented x 3 Laboratory Results Last 24 Hours Test 06/18/16 05:45 06/18/16 12:32 06/18/16 13:08 Sodium Level 135 mmol/L Potassium Level 4.6 mmol/L Chloride Level 99 mmol/L Carbon Dioxide Level 26 mmol/L Anion Gap 10.0 mmol/L Blood Urea Nitrogen 61 mg/dl Creatinine 2.80 mg/dl Est Creatinine Clear Calc Drug Dose 16.4 ml/min Estimated GFR () 17.5 Estimated GFR (Non- 15.1 BUN/Creatinine Ratio 21.9 Random Glucose 101 mg/dl Calcium Level 8.7 mg/dl Phosphorus Level 3.5 mg/dl Albumin 2.7 gm/dl White Blood Count 9.46 K/uL Red Blood Count 3.94 M/uL Hemoglobin 13.3 g/dL Hematocrit 41.6 % Mean Corpuscular Volume 105.6 fL Mean Corpuscular Hemoglobin 33.8 pg Mean Corpuscular Hemoglobin Concent 32.0 g/dl Platelet Count 154 K/uL Mean Platelet Volume 10.4 fL Neutrophils (%) (Auto) 70.2 % Lymphocytes (%) (Auto) 17.0 % Monocytes (%) (Auto) 10.8 % Eosinophils (%) (Auto) 1.5 % Basophils (%) (Auto) 0.2 % Neutrophils # (Auto) 6.64 K/uL Lymphocytes # (Auto) 1.61 K/uL Monocytes # (Auto) 1.02 K/uL Eosinophils # (Auto) 0.14 K/uL Basophils # (Auto) 0.02 K/uL RDW Standard Deviation 60.3 fL RDW Coefficient of Variation 15.9 % Immature Granulocyte % (Auto) 0.3 % Immature Granulocyte # (Auto) 0.03 K/uL Nucleated RBC Absolute Count (auto) 0.21 K/uL Nucleated Red Blood Cells % 2.3 % Toxic Vacuolation OCCASIONAL Polychromasia 1+ Bedside Glucose 117 mg/dl Assessment & Plan Palliative Performance Scale: 50 % Problem list: Acute on chronic Right Heart Failure in setting of severe TR, severe pulmonary HTN Elisabet-Boyle tear Severe COPD/ Chronic Respiratory Failure Bilateral transudative pleural effusions s/p bilateral thoracenteses CKD stage IV Cardiorenal syndrome-management as above Anemia-multifactorial, cont to monitor. Chronic atrial fibrillation Goals of care Palliative care plan: Patient will need continued support with establishing goals of care. For now, she will stay a level 1/full code per her wishes. The patient's daughter Caren, and the patient, are going to discuss the POLST form and goals of care tonight and I will follow up tomorrow. I am concerned about this patient being at home with only home health and not having someone with her 13/01. Waiting for PT/OT evaluations. Thank you for allowing me to participate in the care of this patient.
--- NOTE | 2016-06-18 18:19 | PROGRESS NOTE ---
DATE: 06/18/2016 The patient has had no further vomiting. On laboratory her hemoglobin is now 13.3, which continues to go up. She is a poor candidate for endoscopy due to a bad experience in the past when she hypoventilated and had to be resuscitated during the procedure. At this point, I do not think there is anything further that we can do endoscopically or from a GI standpoint. We will sign off the patient's case at this point in time.
[2016-06-18] MEDS: MAGNESIUM HYDROXIDE SUSP 30 ML UDC PO PRN (19:40)
[2016-06-18] MEDS: ALPRAZOLAM 0.5 MG TAB PO SCH (19:41)
[2016-06-18] MEDS: GABAPENTIN 300 MG CAP PO SCH (19:41)
[2016-06-19] VITALS (10 sets, daily range): BP systolic 74–84; BP diastolic 45–50; PULSE 84–94; TEMP 36.1–36.8; O2SAT 96–98
[2016-06-19] MEDS ORDERED: SODIUM CHLORIDE 0.9% 250ML 250 ML IV SCH ×3 (04:45→06:15)
[2016-06-19] MEDS ORDERED: CYCLOBENZAPRINE HCL 5 MG TAB PO STA (04:50)
[2016-06-19] MEDS: LEVOTHYROXINE 25 MCG TAB PO SCH (05:57)
[2016-06-19 07:24] LABS: HEMATOCRIT 36.8 % (37-47); MEAN CELL VOLUME 103.4 fL (80-100); MEAN CORPUSCULAR HEMOGLOBIN 32.9 pg (25-34); MEAN CORPUSCULAR HGB CONC 31.8 g/dl (32-36); MEAN PLATELET VOLUME 10.5 fL (7.4-10.4); PLATELET COUNT 148 K/uL (130-400); RED BLOOD COUNT 3.56 M/uL (4.2-5.4); WHITE BLOOD COUNT 9.24 K/uL (4.8-10.8)
[2016-06-19] MEDS: CARVEDILOL 3.125 MG TAB PO SCH ×2 (07:30→16:45)
[2016-06-19 07:59] LABS: BUN/CREATININE RATIO 19.6 (10-20); CALCIUM 8.2 mg/dl (8.5-10.1); CREATININE 3.5 mg/dl (0.60-1.20); MAGNESIUM 2.9 mg/dl (1.8-2.4)
[2016-06-19] MEDS ORDERED: SODIUM CHLORIDE 0.9% 1000ML 1,000 ML IV SCH (08:30)
[2016-06-19] MEDS: PANTOprazole SOD 40 MG TAB PO SCH ×2 (09:00→20:16)
[2016-06-19] MEDS: ASPIRIN 81 MG ECTAB PO SCH (09:00)
[2016-06-19] MEDS: BOOST GLUCOSE CONTROL PO SCH ×3 (09:00→20:16)
[2016-06-19] MEDS: NEPHROCAPS PO SCH (09:00)
[2016-06-19] MEDS: TRAMADOL HCL 50 MG TAB PO PRN (10:45)
--- NOTE | 2016-06-19 13:38 | DIAGNOSTIC IMAGING REPORT ---
CHEST ONE VIEW PORTABLE CLINICAL HISTORY: hypotensive, lethargic COMPARISON STUDY: 06/14/2016 FINDINGS: The heart remains enlarged. There is a right sided double-lumen central venous catheter. There is continued radiographic evidence of congestive failure/fluid overload. There are bilateral pleural effusions with associated bibasilar airspace opacities, likely atelectatic.[ IMPRESSION: Persistent congestive failure/fluid overload with bilateral pleural effusions and associated bibasal airspace opacities Electronically signed by: Balta Vargas M.D. 06/19/2016 1:37 PM
[2016-06-19 13:54] LABS: ARTERIAL BLD GAS O2 SATURATION 95.3 % (90-95); ARTERIAL BLOOD GAS BASE EXCESS -1.1 mEq/L (-9-1.8); ARTERIAL BLOOD GAS HCO3 25 mmol/L (19-24); ARTERIAL BLOOD GAS PO2 79 mm/Hg (80-95); ARTERIAL BLOOD GAS pH 7.35 (7.35-7.45)
[2016-06-19 13:56] LABS: ALLEN TEST POS (POS); O2 ADMINISTRATION 4L
[2016-06-19 14:03] LABS: HEMATOCRIT 37.6 % (37-47)
[2016-06-19] MEDS: HYDROCORTISONE IV 50 MG in SYRINGE 0 ML IV SCH ×2 (14:19→21:41)
[2016-06-19 14:31] LABS: BUN/CREATININE RATIO 19.8 (10-20); CALCIUM 8.3 mg/dl (8.5-10.1); CREATININE 3.8 mg/dl (0.60-1.20); POTASSIUM 5.1 mmol/L (3.5-5.1)
--- NOTE | 2016-06-19 15:13 | Progress Note ---
Progress Note Date of Service: Jun 19, 2016. Subjective Patient sleepy with no complaints Problem List Medical Problems: (1) Acute on chronic renal failure Status: Acute (2) Anasarca Status: Acute (3) Anemia Status: Acute (4) Bilateral pleural effusion Status: Acute (5) Cellulitis of right leg Status: Acute (6) CHF (congestive heart failure) Status: Acute (7) Chronic kidney disease Status: Acute (8) Congestive heart failure Status: Acute (9) Constipation Status: Acute (10) GI bleed Status: Acute (11) Jaundice Status: Acute (12) Kidney stone Status: Acute (13) Left sided abdominal pain Status: Acute (14) Pleural effusion Status: Acute (15) Pulmonary edema Status: Acute (16) Renal insufficiency Status: Acute (17) UTI (urinary tract infection) Status: Acute (18) Vomiting and diarrhea Status: Acute (19) Weakness Status: Acute Objective Vital Signs Vital Signs Past 12 Hours Date Time Temp Pulse Resp B/P Pulse Ox O2 Delivery O2 Flow Rate FiO2 06/19/16 12:37 78/46 06/19/16 12:00 Nasal Cannula 4.0 06/19/16 11:29 36.4 90 20 80/48 98 Nasal Cannula 4.0 06/19/16 09:31 78/48 06/19/16 08:00 Nasal Cannula 4.0 06/19/16 07:40 36.4 92 18 80/46 96 Nasal Cannula 4.0 06/19/16 06:39 84/47 06/19/16 05:56 81/47 06/19/16 05:08 80/45 06/19/16 04:25 36.8 94 18 82/48 96 Nasal Cannula 4.0 06/19/16 04:00 Nasal Cannula 4.0 Exam Incision dry and clean Good thrill in fistula Intake & Output 8-Hour Column 06/18/16 06/19/16 06/19/16 16:00 00:00 08:00 Intake Total 577 ml 220 ml 700 ml Output Total 325 ml 25 ml 20 ml Balance 252 ml 195 ml 680 ml 24-Hour Column 06/19/16 08:00 Intake Total 1497 ml Output Total 370 ml Balance 1127 ml Laboratory and Microbiology Results Past 24 Hours Test 06/18/16 16:26 06/18/16 20:32 06/19/16 06:34 06/19/16 07:07 Range/Units Bedside Glucose 120 133 118 70-90 mg/dl White Blood Count 9.24 4.8-10.8 K/uL Red Blood Count 3.56 4.2-5.4 M/uL Hemoglobin 11.7 12.0-16.0 g/dL Hematocrit 36.8 37-47 % Mean Corpuscular Volume 103.4 80-100 fL Mean Corpuscular Hemoglobin 32.9 25-34 pg Mean Corpuscular Hemoglobin Concent 31.8 32-36 g/dl RDW Standard Deviation 57.3 36.4-46.3 fL RDW Coefficient of Variation 15.8 11.5-14.5 % Platelet Count 148 130-400 K/uL Mean Platelet Volume 10.5 7.4-10.4 fL Nucleated RBC Absolute Count (auto) 0.30 0-0 K/uL Nucleated Red Blood Cells % 3.2 % Sodium Level 133 136-145 mmol/L Potassium Level 5.0 3.5-5.1 mmol/L Chloride Level 99 98-107 mmol/L Carbon Dioxide Level 24 21-32 mmol/L Anion Gap 10.0 3-11 mmol/L Blood Urea Nitrogen 69 7-18 mg/dl Creatinine 3.50 0.60-1.20 mg/dl Est Creatinine Clear Calc Drug Dose 13.4 ml/min Estimated GFR () 13.4 Estimated GFR (Non- 11.5 BUN/Creatinine Ratio 19.6 10-20 Random Glucose 119 70-99 mg/dl Calcium Level 8.2 8.5-10.1 mg/dl Magnesium Level 2.9 1.8-2.4 mg/dl Test 06/19/16 10:59 06/19/16 13:40 06/19/16 13:44 06/19/16 13:55 Range/Units Bedside Glucose 117 70-90 mg/dl Hemoglobin 12.3 12.0-16.0 g/dL Hematocrit 37.6 37-47 % Sodium Level 133 136-145 mmol/L Potassium Level 5.1 3.5-5.1 mmol/L Chloride Level 99 98-107 mmol/L Carbon Dioxide Level 25 21-32 mmol/L Anion Gap 9.0 3-11 mmol/L Blood Urea Nitrogen 75 7-18 mg/dl Creatinine 3.80 0.60-1.20 mg/dl Est Creatinine Clear Calc Drug Dose 12.3 ml/min Estimated GFR () 12.1 Estimated GFR (Non- 10.4 BUN/Creatinine Ratio 19.8 10-20 Random Glucose 129 70-99 mg/dl Calcium Level 8.3 8.5-10.1 mg/dl Magnesium Level 3.0 1.8-2.4 mg/dl Total Creatine Kinase 20 26-192 U/L Troponin I 0.032 0-0.045 ng/ml Random Cortisol 29.23 mcg/dl Arterial Blood pH 7.35 7.35-7.45 Arterial Blood Partial Pressure CO2 46 35-46 mmHg Arterial Blood Partial Pressure O2 79 80-95 mm/Hg Arterial Blood HCO3 25 19-24 mmol/L Arterial Blood Oxygen Saturation 95.3 90-95 % Arterial Blood Base Excess -1.1 -9-1.8 mEq/L Arterial Blood Gas Delivery 4L Luca Test POS POS Lactic Acid Level 2.1 0.4-2.0 mmol/L Microbiology Results 06/19/16 Blood Culture, Received Pending 06/19/16 Blood Culture, Received Pending Imp: Post second stage left upper arm BVT Plan: Should be able to be used in two weeks. Will see her in the office after discharge.
--- NOTE | 2016-06-19 16:04 | Nephrology Progress Note ---
Nephrology Progress Note Date of Service Jun 19, 2016. Chief Complaint ESRD Subjective Ani was seen and evaluated this afternoon with her family at the bedside. She remains hypotensive and lethargic. Her oral intake is poor. Fluid boluses were provided overnight. She denies shortness of breath. I discussed the plan of care with Dr. Resendiz. Dialysis has been held pending improved hemodynamics. Review of Systems A complete review of systems was performed. Pertinent positives are noted above. All other systems are negative. Vital Signs Last 8 Hrs Date Time Temp Pulse Resp B/P Pulse Ox O2 Delivery O2 Flow Rate FiO2 06/19/16 15:49 36.5 84 16 82/50 97 06/19/16 12:37 78/46 06/19/16 12:00 Nasal Cannula 4.0 06/19/16 11:29 36.4 90 20 80/48 98 Nasal Cannula 4.0 06/19/16 09:31 78/48 06/19/16 08:00 Nasal Cannula 4.0 I & O 24-Hour Column 06/19/16 07:59 Intake Total 1497 ml Output Total 370 ml Balance 1127 ml Last Recorded Weight Weight (Kilograms): 96.000 Physical Exam General Appearance: + pertinent finding (Elderly, chronically ill appearing, no acute distress) Head: normocephalic, atraumatic Eyes: + pertinent finding (anicteric) ENT: + pertinent finding (oral slightly dry, no oral lesions) Neck: supple, + JVD (JVP ~10-12 cm sitting upright) Respiratory/Chest: no respiratory distress, no accessory muscle use, + decreased breath sounds Cardiovascular: regular rate, rhythm Abdomen/GI: non tender, soft Extremities/Musculoskelatal: normal inspection, + pertinent finding (AVF with dressing CDI, good thrill and bruit) Neurologic/Psych: + pertinent finding (Lethargic) Family History Diabetes mellitus FH: heart disease Stroke Social History Housing Status: lives with family (son) Occupation: retired Laboratory Results Past 24 Hours 06/19/16 06:34 06/19/16 13:40 06/19/16 06:34 06/19/16 13:40 Test 06/18/16 16:26 06/18/16 20:32 06/19/16 06:34 06/19/16 07:07 Bedside Glucose 120 mg/dl (70-90) 133 mg/dl (70-90) 118 mg/dl (70-90) Red Blood Count 3.56 M/uL (4.2-5.4) Mean Corpuscular Volume 103.4 fL (80-100) Mean Corpuscular Hemoglobin 32.9 pg (25-34) Mean Corpuscular Hemoglobin Concent 31.8 g/dl (32-36) RDW Standard Deviation 57.3 fL (36.4-46.3) RDW Coefficient of Variation 15.8 % (11.5-14.5) Mean Platelet Volume 10.5 fL (7.4-10.4) Nucleated RBC Absolute Count (auto) 0.30 K/uL (0-0) Nucleated Red Blood Cells % 3.2 % Anion Gap 10.0 mmol/L (3-11) Est Creatinine Clear Calc Drug Dose 13.4 ml/min Estimated GFR () 13.4 Estimated GFR (Non- 11.5 BUN/Creatinine Ratio 19.6 (10-20) Calcium Level 8.2 mg/dl (8.5-10.1) Magnesium Level 2.9 mg/dl (1.8-2.4) Test 06/19/16 10:59 06/19/16 13:40 06/19/16 13:44 06/19/16 13:55 Bedside Glucose 117 mg/dl (70-90) Anion Gap 9.0 mmol/L (3-11) Est Creatinine Clear Calc Drug Dose 12.3 ml/min Estimated GFR () 12.1 Estimated GFR (Non- 10.4 BUN/Creatinine Ratio 19.8 (10-20) Calcium Level 8.3 mg/dl (8.5-10.1) Magnesium Level 3.0 mg/dl (1.8-2.4) Total Creatine Kinase 20 U/L (26-192) Troponin I 0.032 ng/ml (0-0.045) Random Cortisol 29.23 mcg/dl Arterial Blood pH 7.35 (7.35-7.45) Arterial Blood Partial Pressure CO2 46 mmHg (35-46) Arterial Blood Partial Pressure O2 79 mm/Hg (80-95) Arterial Blood HCO3 25 mmol/L (19-24) Arterial Blood Oxygen Saturation 95.3 % (90-95) Arterial Blood Base Excess -1.1 mEq/L (-9-1.8) Arterial Blood Gas Delivery 4L Luca Test POS (POS) Lactic Acid Level 2.1 mmol/L (0.4-2.0) Allergies Coded Allergies: No Known Allergies (Verified , 06/10/16) Medications Current Inpatient Medications Medications (Trade) Dose Ordered Sig/Yvette Route Start Time Stop Time Status Last Admin Dose Admin Al Hydrox/Mg Hydrox/Simethicone (Maalox Max Susp) 15 ml Q4H PRN PO 06/10/16 16:00 07/10/16 15:59 Magnesium Hydroxide (Milk Of Magnesia Susp) 30 ml Q12H PRN PO 06/10/16 16:00 07/10/16 15:59 06/18/16 19:40 30 ML Ondansetron HCl (Zofran Inj) 4 mg Q6H PRN IV 06/10/16 16:00 07/10/16 15:59 06/15/16 08:37 4 MG Polyethylene (Miralax Powder Packet) 17 gm DAILY PRN PO 06/10/16 16:00 07/10/16 15:59 06/15/16 05:43 17 GM Aspirin (Ecotrin Tab) 81 mg QAM PO 06/11/16 09:00 07/11/16 08:59 Future hold 06/19/16 09:00 81 MG Carvedilol (Coreg Tab) 3.125 mg BIDM PO 06/10/16 18:00 07/10/16 17:59 06/17/16 08:19 3.125 MG Gabapentin (Neurontin Cap) 300 mg HS PO 06/10/16 21:00 07/10/16 20:59 06/18/16 19:41 300 MG Levothyroxine Sodium (Synthroid Tab) 25 mcg DAILYBB PO 06/11/16 06:00 07/11/16 05:59 06/19/16 05:57 25 MCG Nitroglycerin (Nitrostat Tab) 0.4 mg UD PRN UT 06/10/16 17:30 07/10/16 17:29 Senna (Senokot Tab) 8.6 mg DAILY PRN PO 06/10/16 17:30 07/10/16 17:29 Tramadol HCl (Ultram Tab) 50 mg Q6H PRN PO 06/10/16 17:30 07/10/16 17:29 06/19/16 10:45 50 MG Alprazolam (Xanax Tab) 0.5 mg HS PO 06/10/16 21:00 07/10/16 20:59 06/18/16 19:41 0.5 MG Acetaminophen/ Hydrocodone Bitart 1 tab 1 tab Q6H PRN PO 06/12/16 19:30 06/26/16 19:29 06/18/16 15:06 1 TAB Promethazine HCl/ Sodium Chloride (Phenergan Inj/ Nss 50ml) 50.5 ml @ 204 mls/hr Q6H PRN IV 06/15/16 09:45 07/15/16 09:44 Vitamin B Complex/ Vit C/Folic Acid (Nephrocaps) 1 cap QAM PO 06/17/16 09:00 07/17/16 08:59 06/19/16 09:00 1 CAP Enteral Nutritional Formula (Boost Glucose Control) 0.5 can TID PO 06/17/16 21:00 07/17/16 20:59 06/18/16 19:41 0.5 CAN Pantoprazole Sodium 40 mg 40 mg BID PO 06/19/16 09:00 07/19/16 08:59 06/19/16 09:00 40 MG Hydrocortisone Sodium Succinate/ Syringe (Solu-Cortef IV/ Syringe) 1 ml @ 4 mls/min Q8H IV 06/19/16 14:00 07/19/16 13:14 06/19/16 14:19 4 MLS/MIN Impression (1) Acute renal failure (2) Pulmonary hypertension, moderate to severe (3) Chronic kidney disease, stage 4 (severe) (4) Severe tricuspid regurgitation (5) Cardiorenal syndrome (6) Anemia (7) Bilateral pleural effusion Ani is an 81-year-old female with advanced CKD, severe pulmonary hypertension , tricuspid regurgitation, COPD and diuretic resistant volume overload admitted to the hospital with worsening volume status and lethargy. She has been unable to manage volume status as an outpatient necessitating the initiation of hemodialysis. She was started on dialysis via right IJ tunnel dialysis catheter on 06/14/2016. She is scheduled for outpatient dialysis at [facility] on Friday, , Friday. She has left brachiocephalic AV fistula placed in April 2016 and transposition performed yesterday without complications. Recommendations --No current indication for STEERSMAN and given hemodynamics hold dialysis now --Continue on Bumex 2 mg po BID --Avoid additional IVF for now, no obvious sepsis --Medications appropriately dosed for renal function --Will re-evaluate the potential role of hemodialysis tomorrow AM
[2016-06-19] MEDS: ALPRAZOLAM 0.5 MG TAB PO SCH (20:16)
[2016-06-19] MEDS: GABAPENTIN 300 MG CAP PO SCH (20:17)
--- NOTE | 2016-06-19 22:57 | Progress Note ---
Medicine Progress Note Date & Time of Visit: Jun 19, 2016 at 13:18. Subjective No changes in energy level today Appears lethargic but responds appropriately when aroused. Feels she is better today Denies any pain Tolerating some PO Objective Last 8 Hrs Date Time Temp Pulse Resp B/P Pulse Ox O2 Delivery O2 Flow Rate FiO2 06/19/16 12:37 78/46 06/19/16 12:00 Nasal Cannula 4.0 06/19/16 11:29 36.4 90 20 80/48 98 Nasal Cannula 4.0 06/19/16 09:31 78/48 06/19/16 08:00 Nasal Cannula 4.0 06/19/16 07:40 36.4 92 18 80/46 96 Nasal Cannula 4.0 06/19/16 06:39 84/47 06/19/16 05:56 81/47 Physical Exam: GEN: Obese, deconditioned, in no acute distress, alert and appropriate but very fatigued, easily falls asleep. Herrera in place. HEENT: NC/AT, PERRL, normal sclerae CARDIO: reg rate, S1/2 heard without m/g/r LUNGS: CTAB, no rales or wheezes, small wound from thoracentesis on right covered with bandaid (small amount of blood on bandage) ABD: soft, non-tender, non-distended, +BS present, significant edema in the dependent folds. EXTREMITY: warm and well-perfused, chronic woody appearance to her legs, bilateral LE edema present N/M: cannot assess 2/2 fatigue and patient unable to cooperate. SKIN: warm and dry and as above. Sacral and bottom area was examined with no evidence of breakdown, some creasing of the skin on folded area and redness but blanchable. Laboratory Results: Last 24 Hours Test 06/18/16 16:26 06/18/16 20:32 06/19/16 06:34 06/19/16 07:07 Bedside Glucose 120 mg/dl 133 mg/dl 118 mg/dl White Blood Count 9.24 K/uL Red Blood Count 3.56 M/uL Hemoglobin 11.7 g/dL Hematocrit 36.8 % Mean Corpuscular Volume 103.4 fL Mean Corpuscular Hemoglobin 32.9 pg Mean Corpuscular Hemoglobin Concent 31.8 g/dl RDW Standard Deviation 57.3 fL RDW Coefficient of Variation 15.8 % Platelet Count 148 K/uL Mean Platelet Volume 10.5 fL Nucleated RBC Absolute Count (auto) 0.30 K/uL Nucleated Red Blood Cells % 3.2 % Sodium Level 133 mmol/L Potassium Level 5.0 mmol/L Chloride Level 99 mmol/L Carbon Dioxide Level 24 mmol/L Anion Gap 10.0 mmol/L Blood Urea Nitrogen 69 mg/dl Creatinine 3.50 mg/dl Est Creatinine Clear Calc Drug Dose 13.4 ml/min Estimated GFR () 13.4 Estimated GFR (Non- 11.5 BUN/Creatinine Ratio 19.6 Random Glucose 119 mg/dl Calcium Level 8.2 mg/dl Magnesium Level 2.9 mg/dl Test 06/19/16 10:59 06/19/16 13:02 Bedside Glucose 117 mg/dl Date/Time Source Procedure Growth Status 06/19/16 13:02 Blood Blood Culture Pending Stacy Batch 06/19/16 13:02 Blood Blood Culture Pending Stacy Batch Assessment & Plan Hypotensive and not responding to IVF overnight (multiple boluses): considerations include-acute blood loss s/p procedure and questionable GI bleed during this hospitalization (only once and with stable H/H, less likely acute bleed), tension PTX (unlikely as no acute worsening of hypoxia and good breath sounds bilaterally), MA (ordered EKG and cardiac enzymes), adrenal insufficiency (ordered random cortisol and started empiric stress dose steroids (although less likely as not had any long-term steroids recently), anesthesia hanging around in her system after recent procedure yesterday in this dialysis patient--included propofol, versed and Fentanyl, sepsis (considered, however, less likely as not febrile, tachypnic, no elev WBC. HR increased, however, this is likely physiologic to augment her cardiac output with her low pressure. Contacted ICU physician who also recommended lactate level. All ordered and pending. Will contact Nephrology to discuss possible dialysis to help get anesthesia out of her system if that is the issue. At this point she is not altered, only lethargic. Will have low threshold to transfer to ICU. Family was updated. 81 yoF with acute right heart failure exacerbation s/p diuresis and initiation of hemodialysis, currently HD 9 and diuresed. Repositioning of AVF yesterday plan for optimization of fluid status and send to SNF. 1. Acute on chronic Right Heart Failure in setting of severe TR, severe pulm HTN Patient presents with worsening edema in the LE and abdomen Recently medications changed to , Bumex 3mg BID and metolazone 5mg was started on IV Bumex 3mg BID -->min response Nephrology started on Bumex drip and not much improvement so HD cath placed and dialysis initiated 06/14 volume management per dialysis as per nephrology Bumex changed to 2mg po BID Hypotensive overnight with differential and plan above. She was given roughly 1.5 L overnight and has some worsening of her pleural effusions on CXR. Coordinated with Nephro who will hold off on HD today because of low pressure. She ran low like this two days ago, also. She is mentating well and workup is unremarkable so far. 2. Elisabet-Boyle tear (presumed after one isolated episode of bloody vomitus) 06/14/16 post dialysis had an episode of vomitus which contained some blood hb stable started on ppi drip-->GI c/s and changed to BID PPI--> poor candidate for endoscopy previous egd in october 2015 was complicated with hypotension and hypoxia monitor serial h and h no more episodes stool for Hemoccult negative stable currently aspirin started for stroke prophy in afib -ok per GI 3. Severe COPD/ Chronic Respiratory Failure: stable on home O2 4. Bilateral transudative pleural effusions s/p bilateral throacentesis on and , respectively. Slightly worsened with IVF administration overnight and today. Oxygenating at baseline. Pulm following. 5. CKD stage IV- cont HD per Nephro; setup for outpatient HD at [facility] once access issues are addressed. Current AVF not mature as just placed in Apr 2016 She is s/p L basilic VV cath transposition yesterday; cont management as per nephrology 6. Cardiorenal syndrome-management as above 7. Anemia-multifactorial, cont to monitor. 9. Chronic atrial fibrillation-cont Coreg and ASA for stroke prophy. DVT ppx: scds in setting of recent GIB FULL CODE: Palliative care consult for help with POLST form DISPOSITION: cont monitor in tele, daily pt/ot for significant weakness, will need SNF at discharge once fluid status is optimized per Nephro Destiny Resendiz DO [facility] Hospitalist Current Inpatient Medications: Current Inpatient Medications Medications (Trade) Dose Ordered Sig/Yvette Route Start Time Stop Time Status Last Admin Dose Admin Al Hydrox/Mg Hydrox/Simethicone (Maalox Max Susp) 15 ml Q4H PRN PO 06/10/16 16:00 07/10/16 15:59 Magnesium Hydroxide (Milk Of Magnesia Susp) 30 ml Q12H PRN PO 06/10/16 16:00 07/10/16 15:59 06/18/16 19:40 30 ML Ondansetron HCl (Zofran Inj) 4 mg Q6H PRN IV 06/10/16 16:00 07/10/16 15:59 06/15/16 08:37 4 MG Polyethylene (Miralax Powder Packet) 17 gm DAILY PRN PO 06/10/16 16:00 07/10/16 15:59 06/15/16 05:43 17 GM Aspirin (Ecotrin Tab) 81 mg QAM PO 06/11/16 09:00 07/11/16 08:59 Future hold 06/14/16 09:45 81 MG Carvedilol (Coreg Tab) 3.125 mg BIDM PO 06/10/16 18:00 07/10/16 17:59 06/17/16 08:19 3.125 MG Gabapentin (Neurontin Cap) 300 mg HS PO 06/10/16 21:00 07/10/16 20:59 06/18/16 19:41 300 MG Levothyroxine Sodium (Synthroid Tab) 25 mcg DAILYBB PO 06/11/16 06:00 07/11/16 05:59 06/19/16 05:57 25 MCG Nitroglycerin (Nitrostat Tab) 0.4 mg UD PRN UT 06/10/16 17:30 07/10/16 17:29 Senna (Senokot Tab) 8.6 mg DAILY PRN PO 06/10/16 17:30 07/10/16 17:29 Tramadol HCl (Ultram Tab) 50 mg Q6H PRN PO 06/10/16 17:30 07/10/16 17:29 06/17/16 11:56 50 MG Alprazolam (Xanax Tab) 0.5 mg HS PO 06/10/16 21:00 07/10/16 20:59 06/18/16 19:41 0.5 MG Acetaminophen/ Hydrocodone Bitart 1 tab 1 tab Q6H PRN PO 06/12/16 19:30 06/26/16 19:29 06/18/16 15:06 1 TAB Promethazine HCl/ Sodium Chloride (Phenergan Inj/ Nss 50ml) 50.5 ml @ 204 mls/hr Q6H PRN IV 06/15/16 09:45 07/15/16 09:44 Vitamin B Complex/ Vit C/Folic Acid (Nephrocaps) 1 cap QAM PO 06/17/16 09:00 07/17/16 08:59 06/17/16 08:19 1 CAP Enteral Nutritional Formula (Boost Glucose Control) 0.5 can TID PO 06/17/16 21:00 07/17/16 20:59 06/18/16 19:41 0.5 CAN Pantoprazole Sodium (Protonix Tab) 40 mg BID PO 06/19/16 09:00 07/19/16 08:59
[2016-06-20] VITALS (24 sets, daily range): BP systolic 64–96; BP diastolic 38–59; PULSE 78–90; TEMP 35.5–36.9; O2SAT 96–99
[2016-06-20] MEDS: LEVOTHYROXINE 25 MCG TAB PO SCH (06:15)
[2016-06-20 06:19] LABS: HEMATOCRIT 38.8 % (37-47); MEAN CELL VOLUME 103.2 fL (80-100); MEAN PLATELET VOLUME 10.3 fL (7.4-10.4); PLATELET COUNT 138 K/uL (130-400); RED BLOOD COUNT 3.76 M/uL (4.2-5.4); WHITE BLOOD COUNT 8.09 K/uL (4.8-10.8)
[2016-06-20 06:47] LABS: BUN/CREATININE RATIO 20.5 (10-20); CALCIUM 8.7 mg/dl (8.5-10.1); CREATININE 4.1 mg/dl (0.60-1.20); POTASSIUM 5.6 mmol/L (3.5-5.1)
[2016-06-20] MEDS: CARVEDILOL 3.125 MG TAB PO SCH ×2 (07:30→16:45)
[2016-06-20] MEDS: ASPIRIN 81 MG ECTAB PO SCH (07:38)
[2016-06-20] MEDS: BOOST GLUCOSE CONTROL PO SCH ×3 (07:38→21:45)
[2016-06-20] MEDS: PANTOprazole SOD 40 MG TAB PO SCH ×2 (07:38→21:41)
[2016-06-20] MEDS: NEPHROCAPS PO SCH (07:38)
--- NOTE | 2016-06-20 08:56 | ECHOCARDIOGRAM REPORT ---
*NOTICE TO RECEIVING [employer] This information is strictly Confidential and protected under [place] law. [place] law prohibits you from making any further disclosure of this information unless further disclosure is expressly permitted by the written consent of the person to whom it pertains or is authorized by law. A general authorization for the release of medical or other information is not sufficient for this purpose. Hospital accepts no responsibility if the information is made available to any other person, INCLUDING THE PATIENT. Interpretation Summary * Name: ALISIA BARGER Study Date: 06/20/2016 07:41 AM BP: 94/53 mmHg * Patient Location: C.2E\S\E210\S\1 HR: 80 * : 1935 (M/d/yyy) Gender: Female Height: 62 in * Age: 81 yrs Ethnicity: [place] Weight: 211 lb * Ordering Physician: Destiny Resendiz * Referring Physician: Angelika Elizabeth * Performed By: Edith Griggs RDCS * * Reason For Study: HYPOTENSIVE, CHF, CONCERN FOR WORSENED PERICARDIAL EFFUSION * BSA: 2.0 m2 * History: HYPOTENSIVE, CHF, CONCERN FOR WORSENING PERICARDIAL EFFUSION, TAMPONADE * -- Conclusions -- * No significant change compared to previous study of 03/27/16. * Normal LV chamber size with mild concentric LVH. * Normal LV systolic function, EF 55-60%. * Flattened septum is consistent with RV pressure/volume overload. * No segmental left ventricular wall motion abnormalities are noted. * Moderately dilated RV chamber size with reduced systolic function by TAPSE. * Aortic valve sclerosis moderate, without significant aortic valvular stenosis. * Severe tricuspid regurgitation. * Severe pulmonary hypertension is present with a PASP of 65 mmHg assuming a RA pressure of 15 mmHg. * Severe biatrial enlargement. * Small circumferential pericardial effusion without hemodynamic significance. Procedure Details * A complete two-dimensional transthoracic echocardiogram was performed (2D, M-mode, Doppler and color flow Doppler). Left Ventricle * The left ventricle is normal in size. * There is mild concentric left ventricular hypertrophy. * Ejection Fraction = 55-60%. * Left ventricular systolic function is normal. * No segmental left ventricular wall motion abnormalities are noted. * Flattened septum is consistent with RV pressure/volume overload. Right Ventricle * The right ventricle is moderately dilated. * The right ventricular systolic function is reduced as assessed by tricuspid annular plane systolic excursion (TAPSE) (TAPSE <1.6 cm). Atria * The left atrium is severely dilated. * The right atrium is severely dilated. * No ASD detected; PFO is not assessed. Mitral Valve * There is mild mitral annular calcification. * The mitral valve leaflets appear thickened, but open well. * There is no mitral regurgitation noted. Tricuspid Valve * The tricuspid valve anatomy is normal. * There is no tricuspid stenosis. * There is severe tricuspid regurgitation. Aortic Valve * The aortic valve is trileaflet. * Aortic valve sclerosis moderate, without significant aortic valvular stenosis. * There is no significant aortic regurgitation. Pulmonic Valve * The pulmonary valve is not well seen, but the Doppler examination is normal without significant regurgitation or stenosis. Pericardium/Pleural * Small pericardial effusion. * A circumferential pericardial effusion is noted. * Moderate size left pleural effusion. Great Vessels * Dilated inferior vena cava with reduced collapsability with sniff indicates an elevated right atrial pressure of 15 mmHg MMode 2D Measurements and Calculations IVSd 1.1 cm IVSs 1.2 cm LVIDd 3.4 cm LVIDs 2.1 cm LVPWd 1.3 cm LVPWs 1.4 cm IVS/LVPW 0.86 FS 38.3 % EDV(Teich) 47.9 ml ESV(Teich) 14.5 ml EF(Teich) 69.7 % EDV(cubed) 39.8 ml ESV(cubed) 9.3 ml EF(cubed) 76.6 % % IVS thick 12.6 % % LVPW thick 10.7 % LV mass(C)d 130.7 grams LV mass(C)dI 66.9 grams/m\S\2 LV mass(C)s 83.7 grams LV mass(C)sI 42.8 grams/m\S\2 SV(Teich) 33.4 ml SI(Teich) 17.1 ml/m\S\2 SV(cubed) 30.5 ml SI(cubed) 15.6 ml/m\S\2 Ao root diam 2.4 cm Ao root area 4.5 cm\S\2 LA dimension 4.6 cm LA/Ao 1.9 LVAd ap4 13.9 cm\S\2 LVLd ap4 5.3 cm EDV(MOD-sp4) 32.8 ml EDV(sp4-el) 31.0 ml LVAs ap4 7.9 cm\S\2 LVLs ap4 4.6 cm ESV(MOD-sp4) 13.0 ml ESV(sp4-el) 11.4 ml EF(MOD-sp4) 60.4 % EF(sp4-el) 63.1 % SV(MOD-sp4) 19.8 ml SI(MOD-sp4) 10.1 ml/m\S\2 SV(sp4-el) 19.5 ml SI(sp4-el) 10.0 ml/m\S\2 Doppler Measurements and Calculations MV E max sajan 121.9 cm/sec MV dec time 0.20 sec Ao V2 max 138.0 cm/sec Ao max PG 7.6 mmHg Ao max PG (full) 6.5 mmHg LV V1 max PG 1.2 mmHg LV V1 max 53.9 cm/sec TR max sajan 355.0 cm/sec
[2016-06-20] MEDS ORDERED: HEPARIN SOD (PORCINE) 1000 UNIT/ML 10 ML VIAL IV SCH (11:00)
[2016-06-20] MEDS: HEPARIN SOD (PORCINE) 1000 UNIT/ML 10 ML VIAL IV SCH ×2 (12:00→13:00)
--- NOTE | 2016-06-20 14:30 | Nephrology Progress Note ---
Nephrology Progress Note Date of Service Jun 20, 2016. Chief Complaint ESRD Subjective I met with Ani and her son in her hospital room this morning. We reviewed the echocardiogram results and discussed dialysis in detail. Ani was more awake this morning. Blood pressure had improved. Appetite remains poor. Overall, she remains very lethargic. Dialysis treatments seem to take a lot out of her. Her family is aware of the limitations of therapy but would like to continue hemodialysis treatments for now as tolerated. Urine output has been minimal. She does not endorse any shortness of breath. Review of Systems A complete review of systems was performed. Pertinent positives are noted above. All other systems are negative. Vital Signs Last 8 Hrs Date Time Temp Pulse Resp B/P Pulse Ox O2 Delivery O2 Flow Rate FiO2 06/20/16 12:00 Nasal Cannula 4.0 06/20/16 11:29 36.5 83 20 87/45 98 Nasal Cannula 4.0 06/20/16 08:00 Nasal Cannula 4.0 06/20/16 07:23 36.3 80 20 94/53 96 Nasal Cannula 4.0 I & O 24-Hour Column 06/20/16 08:00 Intake Total 1295 ml Output Total 60 ml Balance 1235 ml Last Recorded Weight Weight (Kilograms): 97.100 Physical Exam General Appearance: + pertinent finding (Frail, elderly female in no acute distress) Head: normocephalic, atraumatic Eyes: normal inspection, sclerae normal ENT: normal ENT inspection, + pertinent finding (oral mucosa slightly dry) Neck: supple, + JVD Respiratory/Chest: lungs clear, no respiratory distress Cardiovascular: regular rate, rhythm, + systolic murmur Abdomen/GI: non tender, soft Extremities/Musculoskelatal: + pertinent finding (AVF with thrill and bruit) Neurologic/Psych: + pertinent finding (Sleeping but easily arousable) Family History Diabetes mellitus FH: heart disease Stroke Social History Housing Status: lives with family (son) Occupation: retired Laboratory Results Past 24 Hours 06/20/16 06:00 06/20/16 06:00 Test 06/19/16 16:07 06/19/16 20:24 06/19/16 22:24 06/20/16 06:00 Bedside Glucose 126 mg/dl (70-90) 162 mg/dl (70-90) Lactic Acid Level 1.5 mmol/L (0.4-2.0) Red Blood Count 3.76 M/uL (4.2-5.4) Mean Corpuscular Volume 103.2 fL (80-100) Mean Corpuscular Hemoglobin 33.0 pg (25-34) Mean Corpuscular Hemoglobin Concent 32.0 g/dl (32-36) RDW Standard Deviation 57.3 fL (36.4-46.3) RDW Coefficient of Variation 16.0 % (11.5-14.5) Mean Platelet Volume 10.3 fL (7.4-10.4) Nucleated RBC Absolute Count (auto) 0.20 K/uL (0-0) Nucleated Red Blood Cells % 2.5 % Anion Gap 11.0 mmol/L (3-11) Est Creatinine Clear Calc Drug Dose 11.5 ml/min Estimated GFR () 11.0 Estimated GFR (Non- 9.5 BUN/Creatinine Ratio 20.5 (10-20) Calcium Level 8.7 mg/dl (8.5-10.1) Test 06/20/16 06:46 06/20/16 11:28 Bedside Glucose 166 mg/dl (70-90) 156 mg/dl (70-90) Allergies Coded Allergies: No Known Allergies (Verified , 06/10/16) Medications Current Inpatient Medications Medications (Trade) Dose Ordered Sig/Yvette Route Start Time Stop Time Status Last Admin Dose Admin Al Hydrox/Mg Hydrox/Simethicone (Maalox Max Susp) 15 ml Q4H PRN PO 06/10/16 16:00 07/10/16 15:59 Magnesium Hydroxide (Milk Of Magnesia Susp) 30 ml Q12H PRN PO 06/10/16 16:00 07/10/16 15:59 06/18/16 19:40 30 ML Ondansetron HCl (Zofran Inj) 4 mg Q6H PRN IV 06/10/16 16:00 07/10/16 15:59 06/15/16 08:37 4 MG Polyethylene (Miralax Powder Packet) 17 gm DAILY PRN PO 06/10/16 16:00 07/10/16 15:59 06/15/16 05:43 17 GM Aspirin (Ecotrin Tab) 81 mg QAM PO 06/11/16 09:00 07/11/16 08:59 Future hold 06/20/16 07:38 81 MG Carvedilol (Coreg Tab) 3.125 mg BIDM PO 06/10/16 18:00 07/10/16 17:59 06/17/16 08:19 3.125 MG Gabapentin (Neurontin Cap) 300 mg HS PO 06/10/16 21:00 07/10/16 20:59 06/19/16 20:17 300 MG Levothyroxine Sodium (Synthroid Tab) 25 mcg DAILYBB PO 06/11/16 06:00 07/11/16 05:59 06/20/16 06:15 25 MCG Nitroglycerin (Nitrostat Tab) 0.4 mg UD PRN UT 06/10/16 17:30 07/10/16 17:29 Senna (Senokot Tab) 8.6 mg DAILY PRN PO 06/10/16 17:30 07/10/16 17:29 Tramadol HCl (Ultram Tab) 50 mg Q6H PRN PO 06/10/16 17:30 07/10/16 17:29 06/19/16 10:45 50 MG Alprazolam (Xanax Tab) 0.5 mg HS PO 06/10/16 21:00 07/10/16 20:59 06/18/16 19:41 0.5 MG Acetaminophen/ Hydrocodone Bitart 1 tab 1 tab Q6H PRN PO 06/12/16 19:30 06/26/16 19:29 06/18/16 15:06 1 TAB Promethazine HCl/ Sodium Chloride (Phenergan Inj/ Nss 50ml) 50.5 ml @ 204 mls/hr Q6H PRN IV 06/15/16 09:45 07/15/16 09:44 Vitamin B Complex/ Vit C/Folic Acid (Nephrocaps) 1 cap QAM PO 06/17/16 09:00 07/17/16 08:59 06/20/16 07:38 1 CAP Enteral Nutritional Formula (Boost Glucose Control) 0.5 can TID PO 06/17/16 21:00 07/17/16 20:59 06/20/16 07:38 0.5 CAN Pantoprazole Sodium (Protonix Tab) 40 mg BID PO 06/19/16 09:00 07/19/16 08:59 06/20/16 07:38 40 MG Heparin Sodium (Porcine) (Heparin Iv Bolus) 1,000 unit TODAY@1200,1300,1400 IV 06/20/16 12:00 06/20/16 16:00 Impression (1) Acute renal failure (2) Pulmonary hypertension, moderate to severe (3) Chronic kidney disease, stage 4 (severe) (4) Severe tricuspid regurgitation (5) Cardiorenal syndrome (6) Anemia (7) Bilateral pleural effusion Ani is an 81-year-old female with advanced CKD, severe pulmonary hypertension , tricuspid regurgitation, COPD and diuretic resistant volume overload admitted to the hospital with worsening volume status and lethargy. She has been unable to manage volume status as an outpatient necessitating the initiation of hemodialysis. She was started on dialysis via right IJ tunnel dialysis catheter on 06/14/2016. She is scheduled for outpatient dialysis at [facility] on Friday, , Friday. Ani was lethargic and hypotensive yesterday. These symptoms slightly improved today. Her TTE continues to document significant pulmonary HTN (PASP 65) with right sided heart failure/volume overload. Urine output has been low. We will see how she tolerates UF 1 kg with HD today. HD provided for clearance given hyperkalemia. Will continue to evaluate how she is doing on dialysis and update family on a daily basis. She has left brachiocephalic AV fistula placed in April 2016 and transposition performed yesterday without complications. Recommendations --HD today x 3.5 hrs, UF 1 kg as tolerated --Continue on Bumex 2 mg po BID --Medications appropriately dosed for renal function --Will re-evaluate the potential role of hemodialysis tomorrow AM
--- NOTE | 2016-06-20 17:30 | Progress Note ---
Medicine Progress Note Date & Time of Visit: Jun 20, 2016 at 1200. Subjective 81 yo F with exacerbation of R heart failure and ESRD, recently initiated on HD on 06/14 and s/p fistula transposition on 06/18. -Hypotension yesterday -per nurse and son at bedside, she was perked up this morning and looking well; ate her breakfast -when I saw her she was lethargic and tired, lying on one side and appearing weak with her eyes closed -she was easily arousable to voice and was conversational--she denied any pain and reported feeling well today. -BP improved to the high 90s systolic Objective Last 8 Hrs Date Time Temp Pulse Resp B/P Pulse Ox O2 Delivery O2 Flow Rate FiO2 06/20/16 16:15 82 73/45 06/20/16 16:00 84 76/43 06/20/16 15:45 84 73/44 06/20/16 15:30 86 75/44 06/20/16 15:15 83 71/43 06/20/16 15:00 86 76/43 06/20/16 14:45 86 73/45 06/20/16 14:30 84 76/43 06/20/16 14:15 87 68/42 06/20/16 14:00 82 64/42 06/20/16 13:45 82 66/40 06/20/16 13:30 80 67/38 06/20/16 13:28 90 68/44 06/20/16 13:21 36.4 82 77/45 06/20/16 12:00 Nasal Cannula 4.0 06/20/16 11:29 36.5 83 20 87/45 98 Nasal Cannula 4.0 Physical Exam: GEN: Obese, deconditioned, in no acute distress, alert and appropriate but very fatigued, easily falls asleep. Herrera in place. Cath site appears clean and dry. HEENT: NC/AT CARDIO: reg rate, S1/2 heard without m/g/r LUNGS: CTAB, no rales or wheezes, small wound from thoracentesis on right covered with bandaid (small amount of blood on bandage) ABD: soft, non-tender, non-distended, +BS present, significant edema in the dependent folds. EXTREMITY: warm and well-perfused, chronic woody appearance to her legs, bilateral LE edema present N/M: cannot assess 2/2 fatigue and patient unable to cooperate. SKIN: warm and dry and as above. Laboratory Results: Last 24 Hours Test 06/19/16 20:24 06/19/16 22:24 06/20/16 06:00 06/20/16 06:46 Bedside Glucose 162 mg/dl 166 mg/dl Lactic Acid Level 1.5 mmol/L White Blood Count 8.09 K/uL Red Blood Count 3.76 M/uL Hemoglobin 12.4 g/dL Hematocrit 38.8 % Mean Corpuscular Volume 103.2 fL Mean Corpuscular Hemoglobin 33.0 pg Mean Corpuscular Hemoglobin Concent 32.0 g/dl RDW Standard Deviation 57.3 fL RDW Coefficient of Variation 16.0 % Platelet Count 138 K/uL Mean Platelet Volume 10.3 fL Nucleated RBC Absolute Count (auto) 0.20 K/uL Nucleated Red Blood Cells % 2.5 % Sodium Level 132 mmol/L Potassium Level 5.6 mmol/L Chloride Level 99 mmol/L Carbon Dioxide Level 22 mmol/L Anion Gap 11.0 mmol/L Blood Urea Nitrogen 84 mg/dl Creatinine 4.10 mg/dl Est Creatinine Clear Calc Drug Dose 11.5 ml/min Estimated GFR () 11.0 Estimated GFR (Non- 9.5 BUN/Creatinine Ratio 20.5 Random Glucose 142 mg/dl Calcium Level 8.7 mg/dl Test 06/20/16 11:28 Bedside Glucose 156 mg/dl Assessment & Plan 81 yoF with acute right heart failure exacerbation s/p diuresis and initiation of hemodialysis, currently HD 10. Repositioning of AVF on 06/18 with plan for optimization of fluid status and send to SNF. 1. Hypotension-improved, likely residual anesthesia from procedure the prior day in setting of low BP at baseline. 2. Acute on chronic Right Heart Failure in setting of severe TR, severe pulm HTN Patient presents with worsening edema in the LE and abdomen Recently medications changed to , Bumex 3mg BID and metolazone 5mg was started on IV Bumex 3mg BID -->min response Nephrology started on Bumex drip and not much improvement so HD cath placed and dialysis initiated 06/14 volume management per dialysis as per nephrology Bumex changed to 2mg po BID 3. Elisabet-Boyle tear (presumed after one isolated episode of bloody vomitus) 06/14/16 post dialysis had an episode of vomitus which contained some blood hb stable started on ppi drip-->GI c/s and changed to BID PPI--> poor candidate for endoscopy previous egd in october 2015 was complicated with hypotension and hypoxia H/H stable no further episodes stool for Hemoccult negative cont ASA for stroke prophy in afib 4. Severe COPD/ Chronic Respiratory Failure: stable on home O2 5. Bilateral transudative pleural effusions s/p bilateral thoracentesis on and , respectively. Oxygenating at baseline. Pulm following. 6. CKD stage IV- cont HD per Nephro; setup for outpatient HD at [facility] once access issues are addressed. Current AVF not mature as just placed in Apr 2016 She is s/p L basilic VV cath transposition yesterday; cont management as per nephrology 7. Cardiorenal syndrome-management as above 8. Anemia-multifactorial, cont to monitor. 9. Chronic atrial fibrillation-cont Coreg and ASA for stroke prophy. DVT ppx: scds in setting of recent GIB FULL CODE: Palliative care consult for help with POLST form DISPOSITION: cont monitor in tele, daily pt/ot for significant weakness, will need SNF at discharge once fluid status is optimized per Nephro Destiny Resendiz DO [facility] Hospitalist Consultants: Palliative Care, GI Current Inpatient Medications: Current Inpatient Medications Medications (Trade) Dose Ordered Sig/Yvette Route Start Time Stop Time Status Last Admin Dose Admin Al Hydrox/Mg Hydrox/Simethicone (Maalox Max Susp) 15 ml Q4H PRN PO 06/10/16 16:00 07/10/16 15:59 Magnesium Hydroxide (Milk Of Magnesia Susp) 30 ml Q12H PRN PO 06/10/16 16:00 07/10/16 15:59 06/18/16 19:40 30 ML Ondansetron HCl (Zofran Inj) 4 mg Q6H PRN IV 06/10/16 16:00 07/10/16 15:59 06/15/16 08:37 4 MG Polyethylene (Miralax Powder Packet) 17 gm DAILY PRN PO 06/10/16 16:00 07/10/16 15:59 06/15/16 05:43 17 GM Aspirin (Ecotrin Tab) 81 mg QAM PO 06/11/16 09:00 07/11/16 08:59 Future hold 06/20/16 07:38 81 MG Carvedilol (Coreg Tab) 3.125 mg BIDM PO 06/10/16 18:00 07/10/16 17:59 06/17/16 08:19 3.125 MG Gabapentin (Neurontin Cap) 300 mg HS PO 06/10/16 21:00 07/10/16 20:59 06/19/16 20:17 300 MG Levothyroxine Sodium (Synthroid Tab) 25 mcg DAILYBB PO 06/11/16 06:00 07/11/16 05:59 06/20/16 06:15 25 MCG Nitroglycerin (Nitrostat Tab) 0.4 mg UD PRN UT 06/10/16 17:30 07/10/16 17:29 Senna (Senokot Tab) 8.6 mg DAILY PRN PO 06/10/16 17:30 07/10/16 17:29 Tramadol HCl (Ultram Tab) 50 mg Q6H PRN PO 06/10/16 17:30 07/10/16 17:29 06/19/16 10:45 50 MG Alprazolam (Xanax Tab) 0.5 mg HS PO 06/10/16 21:00 07/10/16 20:59 06/18/16 19:41 0.5 MG Acetaminophen/ Hydrocodone Bitart 1 tab 1 tab Q6H PRN PO 06/12/16 19:30 06/26/16 19:29 06/18/16 15:06 1 TAB Promethazine HCl/ Sodium Chloride (Phenergan Inj/ Nss 50ml) 50.5 ml @ 204 mls/hr Q6H PRN IV 06/15/16 09:45 07/15/16 09:44 Vitamin B Complex/ Vit C/Folic Acid (Nephrocaps) 1 cap QAM PO 06/17/16 09:00 07/17/16 08:59 06/20/16 07:38 1 CAP Enteral Nutritional Formula (Boost Glucose Control) 0.5 can TID PO 06/17/16 21:00 07/17/16 20:59 06/20/16 07:38 0.5 CAN Pantoprazole Sodium (Protonix Tab) 40 mg BID PO 06/19/16 09:00 07/19/16 08:59 06/20/16 07:38 40 MG
[2016-06-20] MEDS: SENNA 8.6 MG TAB PO PRN (21:40)
[2016-06-20] MEDS: ALPRAZOLAM 0.5 MG TAB PO SCH (21:40)
[2016-06-20] MEDS: GABAPENTIN 300 MG CAP PO SCH (21:40)
[2016-06-21] VITALS (10 sets, daily range): BP systolic 73–92; BP diastolic 42–54; PULSE 86–88; TEMP 36.3–36.5; O2SAT 97–100
[2016-06-21] MEDS: HYDROCODONE/ACETAMOPHEN 5/325MG TAB PO PRN (04:46)
[2016-06-21] MEDS: MAGNESIUM HYDROXIDE SUSP 30 ML UDC PO PRN (05:57)
[2016-06-21] MEDS: LEVOTHYROXINE 25 MCG TAB PO SCH (05:57)
[2016-06-21 06:19] LABS: HEMATOCRIT 38.9 % (37-47); MEAN CELL VOLUME 105.1 fL (80-100); MEAN CORPUSCULAR HEMOGLOBIN 33.8 pg (25-34); MEAN CORPUSCULAR HGB CONC 32.1 g/dl (32-36); PLATELET COUNT 140 K/uL (130-400); WHITE BLOOD COUNT 11.43 K/uL (4.8-10.8)
[2016-06-21 06:46] LABS: BUN/CREATININE RATIO 17.2 (10-20); CREATININE 3.5 mg/dl (0.60-1.20); MAGNESIUM 2.9 mg/dl (1.8-2.4); POTASSIUM 4.5 mmol/L (3.5-5.1)
[2016-06-21] MEDS: CARVEDILOL 3.125 MG TAB PO SCH (07:30)
[2016-06-21] MEDS: ASPIRIN 81 MG ECTAB PO SCH (08:54)
[2016-06-21] MEDS: NEPHROCAPS PO SCH (08:54)
[2016-06-21] MEDS: PANTOprazole SOD 40 MG TAB PO SCH ×2 (08:55→20:06)
[2016-06-21] MEDS: BOOST GLUCOSE CONTROL PO SCH ×3 (08:57→20:02)
--- NOTE | 2016-06-21 12:22 | Nephrology Progress Note ---
Nephrology Progress Note Date of Service Jun 21, 2016. Chief Complaint ESRD Subjective Ani is very tired today. Hemodialysis was completed yesterday without complications overall. She remains chronically hypotensive. Net UF yesterday 1 kg while maintaining MAP >50. She appears to tolerate hypotension but overall her appetite is poor, she is sleeping most of the time and her activity tolerance is minimal. I had another long conversation with her son this morning. He remains concerned that she is not tolerating hemodialysis and clinically continues to decline. His primary goal would be to have Ani return home but acknowledges that this would be too much for him given her degree of deconditioning. We reviewed limitations of the hemodialysis treatments. He would like to discuss this in more detail tomorrow with his sister present. Ani was very lethargic but woke enough to state that she was comfortable and denied any shortness of breath. Review of Systems A complete review of systems was performed. Pertinent positives are noted above. All other systems are negative. Vital Signs Last 8 Hrs Date Time Temp Pulse Resp B/P Pulse Ox O2 Delivery O2 Flow Rate FiO2 06/21/16 09:16 76/50 06/21/16 08:00 97 Nasal Cannula 4.0 06/21/16 07:56 36.4 88 20 76/47 97 Nasal Cannula 4.0 I & O 24-Hour Column 06/21/16 08:00 Intake Total 350 ml Output Total 1080 ml Balance -730 ml Last Recorded Weight Weight (Kilograms): 94.900 Physical Exam General Appearance: + pertinent finding (frail, elderly, no acute distress) Head: normocephalic, atraumatic Eyes: normal inspection, sclerae normal ENT: normal ENT inspection, pharynx normal Neck: supple, + JVD Respiratory/Chest: no respiratory distress, no accessory muscle use, + decreased breath sounds, + rales (few rales at the right base) Cardiovascular: regular rate, rhythm Abdomen/GI: non tender, soft, + pertinent finding (abdominal edema increasing) Genitourinary - Female: + pertinent finding (Herrera draining small amount of dark brown urine) Extremities/Musculoskelatal: + pedal edema, + pertinent finding (distal cyanosis, aVF with thrill and bruit) Neurologic/Psych: + pertinent finding (Lethargic with generalized weakness) Family History Diabetes mellitus FH: heart disease Stroke Social History Housing Status: lives with family (son) Occupation: retired Laboratory Results Past 24 Hours 06/21/16 05:57 06/21/16 05:57 Test 06/20/16 20:15 06/21/16 05:57 06/21/16 06:41 06/21/16 11:20 Bedside Glucose 179 mg/dl (70-90) 114 mg/dl (70-90) 122 mg/dl (70-90) Red Blood Count 3.70 M/uL (4.2-5.4) Mean Corpuscular Volume 105.1 fL (80-100) Mean Corpuscular Hemoglobin 33.8 pg (25-34) Mean Corpuscular Hemoglobin Concent 32.1 g/dl (32-36) RDW Standard Deviation 60.3 fL (36.4-46.3) RDW Coefficient of Variation 16.4 % (11.5-14.5) Mean Platelet Volume 10.0 fL (7.4-10.4) Nucleated RBC Absolute Count (auto) 0.53 K/uL (0-0) Nucleated Red Blood Cells % 4.7 % Anion Gap 10.0 mmol/L (3-11) Est Creatinine Clear Calc Drug Dose 13.3 ml/min Estimated GFR () 13.4 Estimated GFR (Non- 11.5 BUN/Creatinine Ratio 17.2 (10-20) Calcium Level 8.0 mg/dl (8.5-10.1) Magnesium Level 2.9 mg/dl (1.8-2.4) Allergies Coded Allergies: No Known Allergies (Verified , 06/10/16) Medications Current Inpatient Medications Medications (Trade) Dose Ordered Sig/Yvette Route Start Time Stop Time Status Last Admin Dose Admin Al Hydrox/Mg Hydrox/Simethicone (Maalox Max Susp) 15 ml Q4H PRN PO 06/10/16 16:00 07/10/16 15:59 Magnesium Hydroxide (Milk Of Magnesia Susp) 30 ml Q12H PRN PO 06/10/16 16:00 07/10/16 15:59 06/21/16 05:57 30 ML Ondansetron HCl (Zofran Inj) 4 mg Q6H PRN IV 06/10/16 16:00 07/10/16 15:59 06/15/16 08:37 4 MG Polyethylene (Miralax Powder Packet) 17 gm DAILY PRN PO 06/10/16 16:00 07/10/16 15:59 06/15/16 05:43 17 GM Aspirin (Ecotrin Tab) 81 mg QAM PO 06/11/16 09:00 07/11/16 08:59 Future hold 06/21/16 08:54 81 MG Carvedilol (Coreg Tab) 3.125 mg BIDM PO 06/10/16 18:00 07/10/16 17:59 Future Hold 06/17/16 08:19 3.125 MG Gabapentin (Neurontin Cap) 300 mg HS PO 06/10/16 21:00 07/10/16 20:59 06/20/16 21:40 300 MG Levothyroxine Sodium (Synthroid Tab) 25 mcg DAILYBB PO 06/11/16 06:00 07/11/16 05:59 06/21/16 05:57 25 MCG Nitroglycerin (Nitrostat Tab) 0.4 mg UD PRN UT 06/10/16 17:30 07/10/16 17:29 Senna (Senokot Tab) 8.6 mg DAILY PRN PO 06/10/16 17:30 07/10/16 17:29 06/20/16 21:40 8.6 MG Tramadol HCl (Ultram Tab) 50 mg Q6H PRN PO 06/10/16 17:30 07/10/16 17:29 06/19/16 10:45 50 MG Alprazolam (Xanax Tab) 0.5 mg HS PO 06/10/16 21:00 07/10/16 20:59 06/20/16 21:40 0.5 MG Acetaminophen/ Hydrocodone Bitart 1 tab 1 tab Q6H PRN PO 06/12/16 19:30 06/26/16 19:29 06/21/16 04:46 1 TAB Promethazine HCl/ Sodium Chloride (Phenergan Inj/ Nss 50ml) 50.5 ml @ 204 mls/hr Q6H PRN IV 06/15/16 09:45 07/15/16 09:44 Vitamin B Complex/ Vit C/Folic Acid (Nephrocaps) 1 cap QAM PO 06/17/16 09:00 07/17/16 08:59 06/21/16 08:54 1 CAP Enteral Nutritional Formula (Boost Glucose Control) 0.5 can TID PO 06/17/16 21:00 07/17/16 20:59 06/21/16 08:57 0.5 CAN Pantoprazole Sodium (Protonix Tab) 40 mg BID PO 06/19/16 09:00 07/19/16 08:59 06/21/16 08:55 40 MG Impression (1) Acute renal failure (2) Pulmonary hypertension, moderate to severe (3) Chronic kidney disease, stage 4 (severe) (4) Severe tricuspid regurgitation (5) Cardiorenal syndrome (6) Anemia (7) Bilateral pleural effusion Ani is an 81-year-old female with advanced CKD, severe pulmonary hypertension , tricuspid regurgitation, COPD and diuretic resistant volume overload admitted to the hospital with worsening volume status and lethargy. She has been unable to manage volume status as an outpatient with multiple hospitalizations. Hemodialysis was started to aid in fluid management but unfortunately she has been struggle with dialysis treatments. UF complicated by chronic hypotension. She was started on dialysis via right IJ tunnel dialysis catheter on 2015. She is scheduled for outpatient dialysis at [facility] on Friday, , Friday. Her TTE continues to document significant pulmonary HTN (PASP 65), severe TR with right sided heart failure/volume overload. Urine output has been low. I will not provide dialysis today. We will continue to try to encourage urine output with diuretics. I am planning a family meeting tomorrow morning to discuss goals of care and expectations with the patients children tomorrow. Ani is currently too weak to engage in these conversations. She has left brachiocephalic AV fistula placed in April 2016 and transposition performed yesterday without complications. Recommendations --NO HD today --Possible treatment tomorrow pending family meeting --Increase Bumex to 4 mg po BID --Medications appropriately dosed for renal function --Family meeting with children tomorrow AM
--- NOTE | 2016-06-21 14:56 | Palliative Care Progress Note ---
Palliative Care Progress Note Date of Service Jun 21, 2016. Subjective Pt evaluation today including: conversation w/ patient, conversation w/ family , physical exam, chart review, conversation w/ instructional systems design consultant Herrera catheter removed today Appetite and PO intake decreased SBP 70-80s Dialysis treatment yesterday, unable to pull any fluid off because of hypotension Clinically not improving. Spoke with Dr. Siddiqui about dialysis-- they are having difficulty pulling any fluid off the patient due to hypotension; diuretics really not very effective. Spoke with Dr. Resendiz-- goals of care need to be readdressed with this patient and the family, so I did have a family meeting. I spoke to them about the patient's medical conditions and current status. The question still remains what the patient's wishes are in the case that she declines. I attempted to speak with the patient specifically about what she would want to be done such as transfer to ICU, pressor medications, intubation, and CPR. The patient got overwhelmed and was not engaging in conversation. The patient's son also got somewhat defensive and said to the patient, "Just remember that this is in God's hands and none of these medical people can tell you what's going to happen." I provided a lot of support and assured the patient and her kids that we just want to do what is best for the patient an it is very important to make decisions on these issues. I then spoke with just the son and daughter in another room. We had a long discussion and they both became very emotional. Caren, the patient's daughter, said that she just doesn't know how to approach these questions with her mother because she gets so scared. However, Caren and her brother are going to have a conversation with their mom about everything and hopefully draw out her wishes. They are going to call me after. Review of Systems Constitutional: No chills, No fever Respiratory: + cough, + dyspnea on exertion Cardiac: + edema, No chest pain Abdomen: No nausea, No pain, No vomiting Female : + problem reported (catheter removed today) Objective Vital Signs Date Time Temp Pulse Resp B/P Pulse Ox O2 Delivery O2 Flow Rate FiO2 06/21/16 12:00 97 Nasal Cannula 4.0 06/21/16 11:06 36.3 87 16 84/43 97 Nasal Cannula 4.0 06/21/16 09:16 76/50 06/21/16 08:00 97 Nasal Cannula 4.0 06/21/16 07:56 36.4 88 20 76/47 97 Nasal Cannula 4.0 06/21/16 04:00 Nasal Cannula 06/21/16 03:05 36.5 88 18 80/47 97 Nasal Cannula 3.0 06/20/16 23:59 Nasal Cannula 06/20/16 23:30 36.5 82 20 77/45 97 Nasal Cannula 4.0 06/20/16 20:00 Nasal Cannula 4.0 06/20/16 19:13 35.8 87 16 92/48 99 Nasal Cannula 4.0 Humidified Oxygen 06/20/16 17:15 Nasal Cannula 4.0 06/20/16 17:03 36.6 84 83/50 06/20/16 16:45 79 68/39 06/20/16 16:30 82 74/42 06/20/16 16:15 82 73/45 06/20/16 16:00 84 76/43 06/20/16 15:45 84 73/44 06/20/16 15:30 86 75/44 06/20/16 15:15 83 71/43 06/20/16 15:00 86 76/43 06/20/16 14:45 86 73/45 06/20/16 14:30 84 76/43 06/20/16 14:15 87 68/42 Physical Exam General Appearance: no apparent distress, + obese, + pertinent finding ( chronically ill appearing) Neck: no JVD Respiratory/Chest: no respiratory distress, no accessory muscle use, + decreased breath sounds, + pertinent finding (4LNC) Cardiovascular: + irregularly irregular, + pertinent finding (widespread edema , pitting edema to bilateral arms and legs) Abdomen: normal bowel sounds, non tender, soft Neurologic/Psychiatric: oriented x 3, + pertinent finding (drowsy, anxious) Skin: + cyanosis (of lips, fingers and toes), + pertinent finding (overall ashen color) Laboratory Results Last 24 Hours Test 06/20/16 20:15 06/21/16 05:57 06/21/16 06:41 06/21/16 11:20 Bedside Glucose 179 mg/dl 114 mg/dl 122 mg/dl White Blood Count 11.43 K/uL Red Blood Count 3.70 M/uL Hemoglobin 12.5 g/dL Hematocrit 38.9 % Mean Corpuscular Volume 105.1 fL Mean Corpuscular Hemoglobin 33.8 pg Mean Corpuscular Hemoglobin Concent 32.1 g/dl RDW Standard Deviation 60.3 fL RDW Coefficient of Variation 16.4 % Platelet Count 140 K/uL Mean Platelet Volume 10.0 fL Nucleated RBC Absolute Count (auto) 0.53 K/uL Nucleated Red Blood Cells % 4.7 % Sodium Level 135 mmol/L Potassium Level 4.5 mmol/L Chloride Level 99 mmol/L Carbon Dioxide Level 26 mmol/L Anion Gap 10.0 mmol/L Blood Urea Nitrogen 60 mg/dl Creatinine 3.50 mg/dl Est Creatinine Clear Calc Drug Dose 13.3 ml/min Estimated GFR () 13.4 Estimated GFR (Non- 11.5 BUN/Creatinine Ratio 17.2 Random Glucose 113 mg/dl Calcium Level 8.0 mg/dl Magnesium Level 2.9 mg/dl Assessment and Plan Problem list: Acute on chronic Right Heart Failure in setting of severe TR, severe pulmonary HTN Elisabet-Boyle tear Severe COPD/ Chronic Respiratory Failure Bilateral transudative pleural effusions s/p bilateral thoracenteses CKD stage IV Cardiorenal syndrome-management as above Anemia-multifactorial, cont to monitor. Chronic atrial fibrillation Goals of care Palliative care plan: See conversation in subjective notes above. The patient and family are really having a difficult time making decisions and seem to be overwhelmed. I provided a lot of support to them and offered my help in any way. I do feel that they have a grasp on the severity of the situation and that the patient's prognosis is poor. I offered assistance in approaching the patient again with goals of care, but they would like some time to talk with her first. I updated Dr. Resendiz. Please don't hesitate to call me with any further palliative needs. Palliative Performance Scale: 30 % Continued [facility] stay due to: multiple IV medications needed, home environment unsafe for pt Discharge planning: uncertain
[2016-06-21] MEDS: ALPRAZOLAM 0.5 MG TAB PO SCH (20:03)
[2016-06-21] MEDS: GABAPENTIN 300 MG CAP PO SCH (20:06)
[2016-06-21] MEDS: SENNA 8.6 MG TAB PO PRN (20:06)
--- NOTE | 2016-06-21 23:13 | Progress Note ---
Medicine Progress Note Date & Time of Visit: Jun 21, 2016 at 17:06. Subjective appears extremely weak and tired today keeps her eyes closed the whole time she is talking with me slumped to one side and cannot hardly lift her extremities, cannot move on her own Denies pain, nausea or other issues tolerating some chicken soup Objective Last 8 Hrs Date Time Temp Pulse Resp B/P Pulse Ox O2 Delivery O2 Flow Rate FiO2 06/21/16 15:57 36.5 86 20 73/42 100 Nasal Cannula 4.0 06/21/16 15:15 97 Nasal Cannula 4.0 06/21/16 12:00 97 Nasal Cannula 4.0 06/21/16 11:06 36.3 87 16 84/43 97 Nasal Cannula 4.0 06/21/16 09:16 76/50 Physical Exam: GEN: Obese, deconditioned, in no acute distress, alert and appropriate but very fatigued, easily falls asleep. Herrera in place. Cath site appears clean and dry. HEENT: NC/AT CARDIO: reg rate, S1/2 heard without m/g/r LUNGS: CTAB, no rales or wheezes, ecchymosis on lateral right back area s/p thoracentesis ABD: soft, non-tender, non-distended, +BS present, significant edema in the dependent folds. EXTREMITY: warm and well-perfused, chronic woody appearance to her legs, bilateral LE edema present N/M: cannot assess 2/2 fatigue and patient unable to cooperate. SKIN: warm and dry and as above. Laboratory Results: Last 24 Hours Test 06/20/16 20:15 06/21/16 05:57 06/21/16 06:41 06/21/16 11:20 Bedside Glucose 179 mg/dl 114 mg/dl 122 mg/dl White Blood Count 11.43 K/uL Red Blood Count 3.70 M/uL Hemoglobin 12.5 g/dL Hematocrit 38.9 % Mean Corpuscular Volume 105.1 fL Mean Corpuscular Hemoglobin 33.8 pg Mean Corpuscular Hemoglobin Concent 32.1 g/dl RDW Standard Deviation 60.3 fL RDW Coefficient of Variation 16.4 % Platelet Count 140 K/uL Mean Platelet Volume 10.0 fL Nucleated RBC Absolute Count (auto) 0.53 K/uL Nucleated Red Blood Cells % 4.7 % Sodium Level 135 mmol/L Potassium Level 4.5 mmol/L Chloride Level 99 mmol/L Carbon Dioxide Level 26 mmol/L Anion Gap 10.0 mmol/L Blood Urea Nitrogen 60 mg/dl Creatinine 3.50 mg/dl Est Creatinine Clear Calc Drug Dose 13.3 ml/min Estimated GFR () 13.4 Estimated GFR (Non- 11.5 BUN/Creatinine Ratio 17.2 Random Glucose 113 mg/dl Calcium Level 8.0 mg/dl Magnesium Level 2.9 mg/dl Test 06/21/16 16:05 Bedside Glucose 128 mg/dl Assessment & Plan 81 yoF with acute right heart failure exacerbation s/p diuresis and initiation of hemodialysis, currently HD 10. Repositioning of AVF on 06/18 with plan for optimization of fluid status and send to SNF. 1. Hypotension-continues, likely 2/2 poor heart function and renal disease not tolerating recent initiation of hemodialysis. Cont current therapies. Poor prognosis. Discussed Code status with family today extensively. 2. Acute on chronic Right Heart Failure in setting of severe TR, severe pulm HTN worsening edema in the LE and abdomen on admission Recently medications changed to , Bumex 3mg BID and metolazone 5mg was started on IV Bumex 3mg BID -->min response Nephrology started on Bumex drip and not much improvement so HD cath placed and dialysis initiated 06/14 volume management per dialysis as per nephrology Bumex changed to 2mg po BID-->stopped 06/16 Continues on dialysis 3. Elisabet-Boyle tear (presumed after one isolated episode of bloody vomitus) 06/14/16 post dialysis had an episode of vomitus which contained some blood hb stable started on ppi drip-->GI c/s and changed to BID PPI--> poor candidate for endoscopy previous egd in october 2015 was complicated with hypotension and hypoxia H/H stable no further episodes stool for Hemoccult negative cont ASA for stroke prophy in afib 4. Severe COPD/ Chronic Respiratory Failure: stable on home O2 5. Bilateral transudative pleural effusions s/p bilateral thoracentesis on and , respectively. Oxygenating at baseline. Pulm following. 6. CKD stage IV- cont HD per Nephro; setup for outpatient HD at [facility] once access issues are addressed. Current AVF not mature as just placed in Apr 2016 She is s/p L basilic VV cath transposition ;; cont management as per nephrology 7. Cardiorenal syndrome-management as above 8. Anemia-multifactorial, cont to monitor. 9. Chronic atrial fibrillation-cont Coreg and ASA for stroke prophy. DVT ppx: scds in setting of recent GIB FULL CODE: Palliative care consult for help with POLST form DISPOSITION: cont monitor in tele, daily pt/ot for significant weakness, very poor prognosis at this point. DO Nancy Laureano Hospitalist Continued [facility] stay due to: multiple IV medications needed, home environment unsafe for pt Discharge planning: uncertain Consultants: Palliative Care, GI Current Inpatient Medications: Current Inpatient Medications Medications (Trade) Dose Ordered Sig/Yvette Route Start Time Stop Time Status Last Admin Dose Admin Al Hydrox/Mg Hydrox/Simethicone (Maalox Max Susp) 15 ml Q4H PRN PO 06/10/16 16:00 07/10/16 15:59 Magnesium Hydroxide (Milk Of Magnesia Susp) 30 ml Q12H PRN PO 06/10/16 16:00 07/10/16 15:59 06/21/16 05:57 30 ML Ondansetron HCl (Zofran Inj) 4 mg Q6H PRN IV 06/10/16 16:00 07/10/16 15:59 06/15/16 08:37 4 MG Polyethylene (Miralax Powder Packet) 17 gm DAILY PRN PO 06/10/16 16:00 07/10/16 15:59 06/15/16 05:43 17 GM Aspirin (Ecotrin Tab) 81 mg QAM PO 06/11/16 09:00 07/11/16 08:59 Future hold 06/21/16 08:54 81 MG Carvedilol (Coreg Tab) 3.125 mg BIDM PO 06/10/16 18:00 07/10/16 17:59 Future Hold 06/17/16 08:19 3.125 MG Gabapentin (Neurontin Cap) 300 mg HS PO 06/10/16 21:00 07/10/16 20:59 06/20/16 21:40 300 MG Levothyroxine Sodium (Synthroid Tab) 25 mcg DAILYBB PO 06/11/16 06:00 07/11/16 05:59 06/21/16 05:57 25 MCG Nitroglycerin (Nitrostat Tab) 0.4 mg UD PRN UT 06/10/16 17:30 07/10/16 17:29 Senna (Senokot Tab) 8.6 mg DAILY PRN PO 06/10/16 17:30 07/10/16 17:29 06/20/16 21:40 8.6 MG Tramadol HCl (Ultram Tab) 50 mg Q6H PRN PO 06/10/16 17:30 07/10/16 17:29 06/19/16 10:45 50 MG Alprazolam (Xanax Tab) 0.5 mg HS PO 06/10/16 21:00 07/10/16 20:59 06/20/16 21:40 0.5 MG Acetaminophen/ Hydrocodone Bitart 1 tab 1 tab Q6H PRN PO 06/12/16 19:30 06/26/16 19:29 06/21/16 04:46 1 TAB Promethazine HCl/ Sodium Chloride (Phenergan Inj/ Nss 50ml) 50.5 ml @ 204 mls/hr Q6H PRN IV 06/15/16 09:45 07/15/16 09:44 Vitamin B Complex/ Vit C/Folic Acid (Nephrocaps) 1 cap QAM PO 06/17/16 09:00 07/17/16 08:59 06/21/16 08:54 1 CAP Enteral Nutritional Formula (Boost Glucose Control) 0.5 can TID PO 06/17/16 21:00 07/17/16 20:59 06/21/16 08:57 0.5 CAN Pantoprazole Sodium (Protonix Tab) 40 mg BID PO 06/19/16 09:00 07/19/16 08:59 06/21/16 08:55 40 MG
[2016-06-22] VITALS (24 sets, daily range): BP systolic 72–94; BP diastolic 43–57; PULSE 82–93; TEMP 36.3–36.6; O2SAT 92–100
[2016-06-22] MEDS: LEVOTHYROXINE 25 MCG TAB PO SCH (05:40)
[2016-06-22 06:26] LABS: HEMATOCRIT 41.1 % (37-47); MEAN CELL VOLUME 104.6 fL (80-100); MEAN CORPUSCULAR HEMOGLOBIN 32.6 pg (25-34); MEAN CORPUSCULAR HGB CONC 31.1 g/dl (32-36); PLATELET COUNT 135 K/uL (130-400); RED BLOOD COUNT 3.93 M/uL (4.2-5.4); WHITE BLOOD COUNT 11.36 K/uL (4.8-10.8)
[2016-06-22 07:00] LABS: BUN/CREATININE RATIO 17.1 (10-20); CALCIUM 8.3 mg/dl (8.5-10.1); POTASSIUM 5.1 mmol/L (3.5-5.1)
[2016-06-22] MEDS: ASPIRIN 81 MG ECTAB PO SCH (07:53)
[2016-06-22] MEDS: NEPHROCAPS PO SCH (07:53)
[2016-06-22] MEDS: PANTOprazole SOD 40 MG TAB PO SCH ×2 (07:53→21:39)
[2016-06-22] MEDS: BOOST GLUCOSE CONTROL PO SCH ×2 (07:54→21:00)
[2016-06-22] MEDS ORDERED: HEPARIN SOD (PORCINE) 1000 UNIT/ML 10 ML VIAL IV SCH ×2 (09:30→09:45)
--- NOTE | 2016-06-22 12:04 | Nephrology Progress Note ---
Nephrology Progress Note Date of Service Jun 22, 2016. Chief Complaint ESRD Subjective No acute events overnight. Ani remains very weak and lethargic but denies any specific complaints. I saw and evaluated the patient this morning. With the patient's knowledge, I had a 30+ minute meeting with her children. We discussed her prognosis and goals of care. I again explained the limitations of hemodialysis and reasonable expectations for each dialysis treatment. Dr. Elizabeth also met with Ani and her family yesterday. Based on these conversations, we agreed to continue hemodialysis as tolerated with hopes of providing symptomatic improvement for her right heart failure. The family expressed understanding that dialysis is not likely to significantly extend Ani's life. They feel that the burden of the hemodialysis procedures have been acceptable given any benefits seen. We will attempt additional UF/ clearance with dialysis today. I will continue to re evaluate the role of dialysis on a regular basis. The family did have several questions about continuing hemodialysis while on home hospice which Dr. Elizabeth is agreeable to if it can be arranged with the hospice organization. Review of Systems A complete review of systems was performed. Pertinent positives are noted above. All other systems are negative. Vital Signs Last 8 Hrs Date Time Temp Pulse Resp B/P Pulse Ox O2 Delivery O2 Flow Rate FiO2 06/22/16 11:30 90 78/46 06/22/16 11:15 90 80/46 06/22/16 11:05 88 84/47 06/22/16 10:51 36.4 87 94/48 06/22/16 08:04 36.6 88 22 96 Nasal Cannula 4.0 Humidified Oxygen 06/22/16 08:00 Nasal Cannula 4.0 06/22/16 08:00 91/57 06/22/16 04:31 36.4 89 18 87/52 100 Nasal Cannula 4.0 06/22/16 04:00 Nasal Cannula I & O 24-Hour Column 06/22/16 08:00 Intake Total 280 ml Output Total 10 ml Balance 270 ml Last Recorded Weight Weight (Kilograms): 108.100 Physical Exam General Appearance: no apparent distress, + pertinent finding (frail and chronically ill appearing) Eyes: normal inspection, sclerae normal ENT: normal ENT inspection, pharynx normal Neck: supple, + JVD Respiratory/Chest: + rales Cardiovascular: regular rate, rhythm, no murmur Abdomen/GI: non tender, soft Extremities/Musculoskelatal: + pedal edema, + pertinent finding (distal cyanosis) Neurologic/Psych: + pertinent finding (lethargic but arousable) Family History Diabetes mellitus MOTHER BROTHER FH: heart disease FATHER Stroke BROTHER SISTER Social History Housing Status: lives with family (son) Occupation: retired Laboratory Results Past 24 Hours 06/22/16 05:39 06/22/16 05:39 Test 06/21/16 16:05 06/21/16 21:54 06/22/16 05:39 06/22/16 06:20 Bedside Glucose 128 mg/dl (70-90) 112 mg/dl (70-90) 106 mg/dl (70-90) Red Blood Count 3.93 M/uL (4.2-5.4) Mean Corpuscular Volume 104.6 fL (80-100) Mean Corpuscular Hemoglobin 32.6 pg (25-34) Mean Corpuscular Hemoglobin Concent 31.1 g/dl (32-36) RDW Standard Deviation 60.6 fL (36.4-46.3) RDW Coefficient of Variation 16.7 % (11.5-14.5) Mean Platelet Volume 10.0 fL (7.4-10.4) Nucleated RBC Absolute Count (auto) 0.30 K/uL (0-0) Nucleated Red Blood Cells % 2.6 % Anion Gap 12.0 mmol/L (3-11) Est Creatinine Clear Calc Drug Dose 11.7 ml/min Estimated GFR () 11.4 Estimated GFR (Non- 9.8 BUN/Creatinine Ratio 17.1 (10-20) Calcium Level 8.3 mg/dl (8.5-10.1) Allergies Coded Allergies: No Known Allergies (Verified , 06/10/16) Medications Current Inpatient Medications Medications (Trade) Dose Ordered Sig/Yvette Route Start Time Stop Time Status Last Admin Dose Admin Al Hydrox/Mg Hydrox/Simethicone (Maalox Max Susp) 15 ml Q4H PRN PO 06/10/16 16:00 07/10/16 15:59 Magnesium Hydroxide (Milk Of Magnesia Susp) 30 ml Q12H PRN PO 06/10/16 16:00 07/10/16 15:59 06/21/16 05:57 30 ML Ondansetron HCl (Zofran Inj) 4 mg Q6H PRN IV 06/10/16 16:00 07/10/16 15:59 06/15/16 08:37 4 MG Polyethylene (Miralax Powder Packet) 17 gm DAILY PRN PO 06/10/16 16:00 07/10/16 15:59 06/15/16 05:43 17 GM Aspirin (Ecotrin Tab) 81 mg QAM PO 06/11/16 09:00 07/11/16 08:59 Future hold 06/22/16 07:53 81 MG Carvedilol (Coreg Tab) 3.125 mg BIDM PO 06/10/16 18:00 07/10/16 17:59 Future Hold 06/17/16 08:19 3.125 MG Gabapentin (Neurontin Cap) 300 mg HS PO 06/10/16 21:00 07/10/16 20:59 06/21/16 20:06 300 MG Levothyroxine Sodium (Synthroid Tab) 25 mcg DAILYBB PO 06/11/16 06:00 07/11/16 05:59 06/22/16 05:40 25 MCG Nitroglycerin (Nitrostat Tab) 0.4 mg UD PRN UT 06/10/16 17:30 07/10/16 17:29 Senna (Senokot Tab) 8.6 mg DAILY PRN PO 06/10/16 17:30 07/10/16 17:29 06/21/16 20:06 8.6 MG Tramadol HCl (Ultram Tab) 50 mg Q6H PRN PO 06/10/16 17:30 07/10/16 17:29 06/19/16 10:45 50 MG Alprazolam (Xanax Tab) 0.5 mg HS PO 06/10/16 21:00 07/10/16 20:59 06/20/16 21:40 0.5 MG Acetaminophen/ Hydrocodone Bitart 1 tab 1 tab Q6H PRN PO 06/12/16 19:30 06/26/16 19:29 06/21/16 04:46 1 TAB Promethazine HCl/ Sodium Chloride (Phenergan Inj/ Nss 50ml) 50.5 ml @ 204 mls/hr Q6H PRN IV 06/15/16 09:45 07/15/16 09:44 Vitamin B Complex/ Vit C/Folic Acid (Nephrocaps) 1 cap QAM PO 06/17/16 09:00 07/17/16 08:59 06/22/16 07:53 1 CAP Enteral Nutritional Formula (Boost Glucose Control) 0.5 can TID PO 06/17/16 21:00 07/17/16 20:59 06/22/16 07:54 0.5 CAN Pantoprazole Sodium (Protonix Tab) 40 mg BID PO 06/19/16 09:00 07/19/16 08:59 06/22/16 07:53 40 MG Impression (1) Severe tricuspid regurgitation (2) Cardiorenal syndrome (3) Anemia (4) Bilateral pleural effusion Ani is an 81-year-old female with advanced CKD, severe pulmonary hypertension , tricuspid regurgitation, COPD and diuretic resistant volume overload admitted to the hospital with decompensated right heart failure and lethargy. She has been unable to manage volume status as an outpatient with multiple hospitalizations. Hemodialysis was started to aid in fluid management but unfortunately she has been struggle with dialysis treatments. UF complicated by chronic hypotension. She was started on dialysis via right IJ tunnel dialysis catheter on 2015. She is scheduled for outpatient dialysis at [facility] on Friday, , Friday. TTE continues to document significant pulmonary HTN (PASP 65), severe TR with right sided heart failure/volume overload. Urine output has been low. She has left brachiocephalic AV fistula placed in April 2016 and transposition performed last week without complications. Based on Dr. Elizabeth's conversation with the patient's family yesterday and my conversation from today with the patient and her family, we will try a palliative hemodialysis treatment today as tolerated. Goal is to continue dialysis as tolerated while family is exploring hospice care. They would like to continue dialysis on hospice if symptomatic benefit is noted. Recommendations --HD today, UF as tolerated --Continue Bumex to help encourage urine output --Medications appropriately dosed for renal function --Continue to frequently evaluate burden/risks/benefits of treatment and goals of care
--- NOTE | 2016-06-22 18:25 | Progress Note ---
Medicine Progress Note Date & Time of Visit: Jun 22, 2016 at 18:20. Subjective No changes today Still fatigued and lethargic but easily awakens to voice and is appropriate and conversational. Palliative HD today had conversation with family today about continuing HD while on Hospice. Pt denies pain, nausea She is tolerating PO -ate all of breakfast and some dinner Family brought in home BIPAP Objective Last 8 Hrs Date Time Temp Pulse Resp B/P Pulse Ox O2 Delivery O2 Flow Rate FiO2 06/22/16 16:00 Nasal Cannula 4.0 06/22/16 15:39 81/43 06/22/16 15:39 78/46 06/22/16 15:25 36.3 84 80/47 06/22/16 11:30 90 78/46 06/22/16 11:15 90 80/46 06/22/16 11:05 88 84/47 06/22/16 10:51 36.4 87 94/48 Physical Exam: GEN: Obese, deconditioned, in no acute distress, alert and appropriate but very fatigued, easily falls asleep. Herrera in place. Cath site appears clean and dry. HEENT: NC/AT CARDIO: reg rate, S1/2 heard without m/g/r LUNGS: CTAB, no rales or wheezes, ecchymosis on lateral right back area s/p thoracentesis ABD: soft, non-tender, non-distended, +BS present, significant edema in the dependent folds. EXTREMITY: warm and well-perfused, chronic woody appearance to her legs, bilateral LE edema present N/M: cannot assess 2/2 fatigue and patient unable to cooperate. SKIN: warm and dry and as above. Laboratory Results: Last 24 Hours Test 06/21/16 21:54 06/22/16 05:39 06/22/16 06:20 06/22/16 16:08 Bedside Glucose 112 mg/dl 106 mg/dl 116 mg/dl White Blood Count 11.36 K/uL Red Blood Count 3.93 M/uL Hemoglobin 12.8 g/dL Hematocrit 41.1 % Mean Corpuscular Volume 104.6 fL Mean Corpuscular Hemoglobin 32.6 pg Mean Corpuscular Hemoglobin Concent 31.1 g/dl RDW Standard Deviation 60.6 fL RDW Coefficient of Variation 16.7 % Platelet Count 135 K/uL Mean Platelet Volume 10.0 fL Nucleated RBC Absolute Count (auto) 0.30 K/uL Nucleated Red Blood Cells % 2.6 % Sodium Level 135 mmol/L Potassium Level 5.1 mmol/L Chloride Level 100 mmol/L Carbon Dioxide Level 23 mmol/L Anion Gap 12.0 mmol/L Blood Urea Nitrogen 68 mg/dl Creatinine 4.00 mg/dl Est Creatinine Clear Calc Drug Dose 11.7 ml/min Estimated GFR () 11.4 Estimated GFR (Non- 9.8 BUN/Creatinine Ratio 17.1 Random Glucose 106 mg/dl Calcium Level 8.3 mg/dl Assessment & Plan 81 yoF with acute right heart failure exacerbation s/p diuresis and initiation of hemodialysis, currently HD 10. Repositioning of AVF on 06/18 with plan for optimization of fluid status and send to SNF. 1. Hypotension-continues, likely 2/2 poor heart function and renal disease not tolerating recent initiation of hemodialysis. Cont current therapies. Poor prognosis. Nephrology instituted palliative HD. Cont volume optimization strategy through HD efforts. 2. Acute on chronic Right Heart Failure in setting of severe TR, severe pulm HTN worsening edema in the LE and abdomen on admission Recently medications changed to , Bumex 3mg BID and metolazone 5mg was started on IV Bumex 3mg BID -->min response Nephrology started on Bumex drip and not much improvement so HD cath placed and dialysis initiated 06/14 volume management per dialysis as per nephrology Bumex changed to 2mg po BID-->stopped 06/16 Continues on dialysis CXR in am to monitor progress. 3. Elisabet-Boyle tear (presumed after one isolated episode of bloody vomitus) 06/14/16 post dialysis had an episode of vomitus which contained some blood hb stable started on ppi drip-->GI c/s and changed to BID PPI--> poor candidate for endoscopy previous egd in october 2015 was complicated with hypotension and hypoxia H/H stable no further episodes stool for Hemoccult negative cont ASA for stroke prophy in afib 4. Severe COPD/ Chronic Respiratory Failure: stable on home O2 5. Bilateral transudative pleural effusions s/p bilateral thoracentesis on and , respectively. Oxygenating at baseline. Pulm following. 6. CKD stage IV- cont HD per Nephro; setup for outpatient HD at [place] once access issues are addressed. Current AVF not mature as just placed in Apr 2016 She is s/p L basilic VV cath transposition ;; cont management as per nephrology 7. Cardiorenal syndrome-management as above 8. Anemia-multifactorial, cont to monitor. 9. Chronic atrial fibrillation-cont Coreg and ASA for stroke prophy. DVT ppx: scds in setting of recent GIB FULL CODE-Family continuing conversations about changing code status with each other. Cont to help guide them. Appreciate Palliative care nurse's efforts here. DISPOSITION: cont monitor in tele, daily pt/ot for significant weakness, very poor prognosis at this point. Destiny Resendiz DO [facility] Hospitalist Continued [facility] stay due to: multiple IV medications needed, home environment unsafe for pt Discharge planning: uncertain Consultants: Palliative Care, GI Current Inpatient Medications: Current Inpatient Medications Medications (Trade) Dose Ordered Sig/Yvette Route Start Time Stop Time Status Last Admin Dose Admin Al Hydrox/Mg Hydrox/Simethicone (Maalox Max Susp) 15 ml Q4H PRN PO 06/10/16 16:00 07/10/16 15:59 Magnesium Hydroxide (Milk Of Magnesia Susp) 30 ml Q12H PRN PO 06/10/16 16:00 07/10/16 15:59 06/21/16 05:57 30 ML Ondansetron HCl (Zofran Inj) 4 mg Q6H PRN IV 06/10/16 16:00 07/10/16 15:59 06/15/16 08:37 4 MG Polyethylene (Miralax Powder Packet) 17 gm DAILY PRN PO 06/10/16 16:00 07/10/16 15:59 06/15/16 05:43 17 GM Aspirin (Ecotrin Tab) 81 mg QAM PO 06/11/16 09:00 07/11/16 08:59 Future hold 06/22/16 07:53 81 MG Carvedilol (Coreg Tab) 3.125 mg BIDM PO 06/10/16 18:00 07/10/16 17:59 Future Hold 06/17/16 08:19 3.125 MG Gabapentin (Neurontin Cap) 300 mg HS PO 06/10/16 21:00 07/10/16 20:59 06/21/16 20:06 300 MG Levothyroxine Sodium (Synthroid Tab) 25 mcg DAILYBB PO 06/11/16 06:00 07/11/16 05:59 06/22/16 05:40 25 MCG Nitroglycerin (Nitrostat Tab) 0.4 mg UD PRN UT 06/10/16 17:30 07/10/16 17:29 Senna (Senokot Tab) 8.6 mg DAILY PRN PO 06/10/16 17:30 07/10/16 17:29 06/21/16 20:06 8.6 MG Tramadol HCl (Ultram Tab) 50 mg Q6H PRN PO 06/10/16 17:30 07/10/16 17:29 06/19/16 10:45 50 MG Alprazolam (Xanax Tab) 0.5 mg HS PO 06/10/16 21:00 07/10/16 20:59 06/20/16 21:40 0.5 MG Acetaminophen/ Hydrocodone Bitart 1 tab 1 tab Q6H PRN PO 06/12/16 19:30 06/26/16 19:29 06/21/16 04:46 1 TAB Promethazine HCl/ Sodium Chloride (Phenergan Inj/ Nss 50ml) 50.5 ml @ 204 mls/hr Q6H PRN IV 06/15/16 09:45 07/15/16 09:44 Vitamin B Complex/ Vit C/Folic Acid (Nephrocaps) 1 cap QAM PO 06/17/16 09:00 07/17/16 08:59 06/22/16 07:53 1 CAP Enteral Nutritional Formula (Boost Glucose Control) 0.5 can TID PO 06/17/16 21:00 07/17/16 20:59 06/22/16 07:54 0.5 CAN Pantoprazole Sodium (Protonix Tab) 40 mg BID PO 06/19/16 09:00 07/19/16 08:59 06/22/16 07:53 40 MG
[2016-06-22] MEDS: ALPRAZOLAM 0.5 MG TAB PO SCH (21:00)
[2016-06-22] MEDS: SENNA 8.6 MG TAB PO PRN (21:39)
[2016-06-22] MEDS: GABAPENTIN 300 MG CAP PO SCH (21:39)
[2016-06-23] VITALS (7 sets, daily range): BP systolic 71–91; BP diastolic 39–55; PULSE 80–87; TEMP 36.4–36.7; O2SAT 94–99
[2016-06-23] MEDS: LEVOTHYROXINE 25 MCG TAB PO SCH (05:26)
[2016-06-23] MEDS: MAGNESIUM HYDROXIDE SUSP 30 ML UDC PO PRN (05:27)
--- NOTE | 2016-06-23 08:28 | DIAGNOSTIC IMAGING REPORT ---
SINGLE VIEW CHEST CLINICAL HISTORY: Follow-up CHF. FINDINGS: 2 AP, portable, upright chest radiographs are compared to study dated 06/19/2016. The examination is significantly degraded by portable technique, large body habitus, and patient rotation. A right-sided central venous catheter is unchanged in position. The heart is markedly enlarged and there is atherosclerotic calcification of the thoracic aorta. There is pulmonary vascular congestion and interstitial edema. This has improved from 06/19/2016. There are layering pleural effusions and bibasilar consolidation No pneumothorax is seen. The skeletal structures are osteopenic. The bony thorax is grossly intact. IMPRESSION: 1. Cardiomegaly with evidence of congestive failure and interstitial edema. This appears modestly improved from 06/19/2016. 2. Barium pleural effusions with bibasilar consolidation. This likely represents atelectasis. Clinical correlation will be required. Electronically signed by: Krishna Camp M.D. 06/23/2016 8:25 AM
[2016-06-23] MEDS: ASPIRIN 81 MG ECTAB PO SCH (08:45)
[2016-06-23] MEDS: BOOST GLUCOSE CONTROL PO SCH ×3 (08:45→20:52)
[2016-06-23] MEDS: PANTOprazole SOD 40 MG TAB PO SCH ×2 (08:45→20:52)
[2016-06-23] MEDS: NEPHROCAPS PO SCH (08:45)
--- NOTE | 2016-06-23 10:28 | Nephrology Progress Note ---
Nephrology Progress Note Date of Service Jun 23, 2016. Chief Complaint ESRD Subjective No acute events overnight. I met with the Ani and her son at separate times this morning. For Ani hemodialysis was very uncomfortable yesterday. She reports that the treatment takes a lot out of her and she does not think she could tolerate additional HD today. She is very tired today. She denies shortness of breath. She denies chest pain. She has not felt strong enough to tolerate BIPAP but thinks she might be able to tonight. She states that she would like to continue hemodialysis but would like to keep treatments less than 4 hours and would like to avoid daily treatments. Her son feels encouraged by her ability to eat this morning. He expressed gratitude for her medical care. Overall, he said that he thinks she is adjusting to hemodialysis and his primary goals remains to get her home and spend quality time with his mother. Review of Systems A complete review of systems was performed. Pertinent positives are noted above. All other systems are negative. Vital Signs Last 8 Hrs Date Time Temp Pulse Resp B/P Pulse Ox O2 Delivery O2 Flow Rate FiO2 06/23/16 08:08 36.5 85 26 91/53 94 Nasal Cannula 4.0 Humidified Oxygen 06/23/16 08:00 Nasal Cannula 4.0 06/23/16 04:16 36.4 87 16 76/47 96 Nasal Cannula 4.0 06/23/16 04:00 Nasal Cannula I & O 24-Hour Column 06/23/16 08:00 Output Total 952 ml Balance -952 ml Last Recorded Weight Weight (Kilograms): 95.300 Physical Exam General Appearance: + pertinent finding (Frail, elderly, lethargic but easily arousable, no acute distress) Head: normocephalic, atraumatic Eyes: normal inspection, sclerae normal ENT: normal ENT inspection, pharynx normal Neck: supple, + JVD, + pertinent finding (IJ TDC intact) Respiratory/Chest: lungs clear, + decreased breath sounds Cardiovascular: regular rate, rhythm, + systolic murmur Abdomen/GI: non tender, soft Extremities/Musculoskelatal: + pedal edema, + pertinent finding (RUE edema improving, LUE AVF with thrill and bruit) Neurologic/Psych: + pertinent finding (Lethargic, oriented) Family History Diabetes mellitus MOTHER BROTHER FH: heart disease FATHER Stroke BROTHER SISTER Social History Housing Status: lives with family (son) Occupation: retired Laboratory Results Past 24 Hours Test 06/22/16 16:08 06/22/16 20:10 06/23/16 06:35 Bedside Glucose 116 mg/dl (70-90) 153 mg/dl (70-90) 102 mg/dl (70-90) Allergies Coded Allergies: No Known Allergies (Verified , 06/10/16) Medications Current Inpatient Medications Medications (Trade) Dose Ordered Sig/Yvette Route Start Time Stop Time Status Last Admin Dose Admin Al Hydrox/Mg Hydrox/Simethicone (Maalox Max Susp) 15 ml Q4H PRN PO 06/10/16 16:00 07/10/16 15:59 Magnesium Hydroxide (Milk Of Magnesia Susp) 30 ml Q12H PRN PO 06/10/16 16:00 07/10/16 15:59 06/23/16 05:27 30 ML Ondansetron HCl (Zofran Inj) 4 mg Q6H PRN IV 06/10/16 16:00 07/10/16 15:59 06/15/16 08:37 4 MG Polyethylene (Miralax Powder Packet) 17 gm DAILY PRN PO 06/10/16 16:00 07/10/16 15:59 06/15/16 05:43 17 GM Aspirin (Ecotrin Tab) 81 mg QAM PO 06/11/16 09:00 07/11/16 08:59 Future hold 06/23/16 08:45 81 MG Carvedilol (Coreg Tab) 3.125 mg BIDM PO 06/10/16 18:00 07/10/16 17:59 Future Hold 06/17/16 08:19 3.125 MG Gabapentin (Neurontin Cap) 300 mg HS PO 06/10/16 21:00 07/10/16 20:59 06/22/16 21:39 300 MG Levothyroxine Sodium (Synthroid Tab) 25 mcg DAILYBB PO 06/11/16 06:00 07/11/16 05:59 06/23/16 05:26 25 MCG Nitroglycerin (Nitrostat Tab) 0.4 mg UD PRN UT 06/10/16 17:30 07/10/16 17:29 Senna (Senokot Tab) 8.6 mg DAILY PRN PO 06/10/16 17:30 1/18/17 17:29 06/22/16 21:39 8.6 MG Tramadol HCl (Ultram Tab) 50 mg Q6H PRN PO 06/10/16 17:30 07/10/16 17:29 06/19/16 10:45 50 MG Alprazolam (Xanax Tab) 0.5 mg HS PO 06/10/16 21:00 07/10/16 20:59 06/20/16 21:40 0.5 MG Acetaminophen/ Hydrocodone Bitart 1 tab 1 tab Q6H PRN PO 06/12/16 19:30 06/26/16 19:29 06/21/16 04:46 1 TAB Promethazine HCl/ Sodium Chloride (Phenergan Inj/ Nss 50ml) 50.5 ml @ 204 mls/hr Q6H PRN IV 06/15/16 09:45 07/15/16 09:44 Vitamin B Complex/ Vit C/Folic Acid (Nephrocaps) 1 cap QAM PO 06/17/16 09:00 07/17/16 08:59 06/23/16 08:45 1 CAP Enteral Nutritional Formula (Boost Glucose Control) 0.5 can TID PO 06/17/16 21:00 07/17/16 20:59 06/22/16 07:54 0.5 CAN Pantoprazole Sodium (Protonix Tab) 40 mg BID PO 06/19/16 09:00 07/19/16 08:59 06/23/16 08:45 40 MG Impression (1) Severe tricuspid regurgitation (2) Cardiorenal syndrome (3) Anemia (4) Bilateral pleural effusion Ani is an 81-year-old female with advanced CKD, severe pulmonary hypertension , tricuspid regurgitation, COPD and diuretic resistant volume overload admitted to the hospital with decompensated right heart failure and lethargy. She has been unable to manage volume status as an outpatient and this resulted in multiple hospitalizations. Hemodialysis was started to aid in fluid management. UF complicated by hypotension. She was started on dialysis via right IJ tunnel dialysis catheter on 2015. She is scheduled for outpatient dialysis at [place] dialysis unit on Friday, , Friday. TTE continues to document significant pulmonary HTN (PASP 65), severe TR with right sided heart failure/volume overload. Urine output remained oligo-oliguric with diuretics. She has left brachiocephalic AV fistula placed in April 2016 and transposition performed last week without complications. Based on Dr. Elizabeth's conversation with the patient's family yesterday and my conversation from today with the patient and her family, we will try a palliative hemodialysis treatment today as tolerated. Goal is to continue dialysis as tolerated while family is exploring hospice care. They would like to continue dialysis on hospice if symptomatic benefit is noted. Recommendations --No HD today. Continue daily evaluation for next HD treatment. --Continue palliative hemodialysis treatments as consistent with goals of care --Medications appropriately dosed for renal function
[2016-06-23] MEDS: GABAPENTIN 300 MG CAP PO SCH (20:52)
[2016-06-23] MEDS: BUMETANIDE IV 3 MG in SYRINGE 0 ML IV SCH (20:52)
[2016-06-23] MEDS: ALPRAZOLAM 0.5 MG TAB PO SCH (20:53)
[2016-06-23] MEDS: HYDROCODONE/ACETAMOPHEN 5/325MG TAB PO PRN (20:53)
--- NOTE | 2016-06-23 22:20 | Progress Note ---
Medicine Progress Note Date & Time of Visit: Jun 23, 2016 at 17:19. Subjective Doing well today BP same but patient is more perky and alert reports some pain in her right leg both in her knee and in her calf, especially when she is turned. Tolerating PO but not able to chew well with some missing teeth-changed diet to dental cut. Son and daughter in room and we discussed the dialysis plan that I reviewed with Dr. Siddiqui earlier-all questions were answered to their satisfaction Objective Last 8 Hrs Date Time Temp Pulse Resp B/P Pulse Ox O2 Delivery O2 Flow Rate FiO2 06/23/16 16:55 80 20 74/44 96 Nasal Cannula 2.0 06/23/16 16:00 Nasal Cannula 4.0 06/23/16 12:00 Nasal Cannula 4.0 06/23/16 12:00 36.4 84 18 91/55 97 Nasal Cannula 4.0 Physical Exam: GEN: Obese, deconditioned, in no acute distress, alert and appropriate, deconditioned and generally weak, easily falls asleep. Herrera in place. Cath site appears clean and dry. HEENT: NC/AT CARDIO: reg rate, S1/2 heard without m/g/r LUNGS: CTAB, no rales or wheezes, ecchymosis on lateral right back area s/p thoracentesis-improved ABD: soft, non-tender, non-distended, +BS present, significant edema in the dependent folds. BUTTOCK: small vertical ulceration-stage II covered with Optifoam. EXTREMITY: warm and well-perfused, chronic woody appearance to her legs, bilateral LE edema present N/M: no gross focal deficit, however, very limited exam 2/2 patient unable to lift her arms on her own-very weak. She can hardly hold her head up on her own. SKIN: warm and dry and as above. Laboratory Results: Last 24 Hours Test 06/22/16 20:10 06/23/16 06:35 06/23/16 11:30 06/23/16 16:35 Bedside Glucose 153 mg/dl 102 mg/dl 132 mg/dl 152 mg/dl Assessment & Plan 81 yoF with acute right heart failure exacerbation s/p diuresis and initiation of hemodialysis, currently HD 10. Repositioning of AVF on 06/18 with plan for optimization of fluid status and send to SNF. 1. Hypotension-continues, likely 2/2 poor heart function and renal disease not tolerating recent initiation of hemodialysis. Cont current therapies. Poor prognosis. Nephrology instituted palliative HD. Cont volume optimization strategy through HD efforts. 2. Acute on chronic Right Heart Failure in setting of severe TR, severe pulm HTN worsening edema in the LE and abdomen on admission Recently medications changed to , Bumex 3mg BID and metolazone 5mg was started on IV Bumex 3mg BID -->min response Nephrology started on Bumex drip and not much improvement so HD cath placed and dialysis initiated 06/14 volume management per dialysis as per nephrology Bumex changed to 2mg po BID-->stopped 06/16 Continues on dialysis CXR in am to monitor progress reviewed this morning. Bumex restarted after discussion with Nephro. Will attempt HD tomorrow (06/24) 3. Elisabet-Boyle tear (presumed after one isolated episode of bloody vomitus) 06/14/16 post dialysis had an episode of vomitus which contained some blood hb stable started on ppi drip-->GI c/s and changed to BID PPI--> poor candidate for endoscopy previous egd in october 2015 was complicated with hypotension and hypoxia H/H stable no further episodes stool for Hemoccult negative cont ASA for stroke prophy in afib 4. Severe COPD/ Chronic Respiratory Failure: stable on home O2-no wheezing on exam. 5. Bilateral transudative pleural effusions s/p bilateral thoracentesis on and , respectively. Oxygenating at baseline. Pulm following. 6. CKD stage IV- cont HD per Nephro; setup for outpatient HD at [place] once access issues are addressed. Current AVF not mature as just placed in Apr 2016 She is s/p L basilic VV cath transposition; cont management as per nephrology 7. Cardiorenal syndrome-management as above 8. Anemia-multifactorial, cont to monitor. 9. Chronic atrial fibrillation-cont Coreg and ASA for stroke prophy. DVT ppx: scds in setting of recent GIB FULL CODE-Cont as full code. Discussion had about palliative ultrafiltration ( not HD) to pull of volume in a palliative way if she were to go on Hospice care. Will cont with regular HD efforts for now unless patient declines. DISPOSITION: cont monitor in tele, daily pt/ot for significant weakness, very poor prognosis at this point. [facility] Continued [facility] stay due to: multiple IV medications needed, home environment unsafe for pt Discharge planning: uncertain Consultants: Palliative Care, GI Current Inpatient Medications: Current Inpatient Medications Medications (Trade) Dose Ordered Sig/Yvette Route Start Time Stop Time Status Last Admin Dose Admin Al Hydrox/Mg Hydrox/Simethicone (Maalox Max Susp) 15 ml Q4H PRN PO 06/10/16 16:00 07/10/16 15:59 Magnesium Hydroxide (Milk Of Magnesia Susp) 30 ml Q12H PRN PO 06/10/16 16:00 07/10/16 15:59 06/23/16 05:27 30 ML Ondansetron HCl (Zofran Inj) 4 mg Q6H PRN IV 06/10/16 16:00 07/10/16 15:59 06/15/16 08:37 4 MG Polyethylene (Miralax Powder Packet) 17 gm DAILY PRN PO 06/10/16 16:00 07/10/16 15:59 06/15/16 05:43 17 GM Aspirin (Ecotrin Tab) 81 mg QAM PO 06/11/16 09:00 07/11/16 08:59 Future hold 06/23/16 08:45 81 MG Carvedilol (Coreg Tab) 3.125 mg BIDM PO 06/10/16 18:00 07/10/16 17:59 Future Hold 06/17/16 08:19 3.125 MG Gabapentin (Neurontin Cap) 300 mg HS PO 06/10/16 21:00 07/10/16 20:59 06/22/16 21:39 300 MG Levothyroxine Sodium (Synthroid Tab) 25 mcg DAILYBB PO 06/11/16 06:00 07/11/16 05:59 06/23/16 05:26 25 MCG Nitroglycerin (Nitrostat Tab) 0.4 mg UD PRN UT 06/10/16 17:30 07/10/16 17:29 Senna (Senokot Tab) 8.6 mg DAILY PRN PO 06/10/16 17:30 07/10/16 17:29 06/22/16 21:39 8.6 MG Tramadol HCl (Ultram Tab) 50 mg Q6H PRN PO 06/10/16 17:30 07/10/16 17:29 06/19/16 10:45 50 MG Alprazolam (Xanax Tab) 0.5 mg HS PO 06/10/16 21:00 07/10/16 20:59 06/20/16 21:40 0.5 MG Acetaminophen/ Hydrocodone Bitart 1 tab 1 tab Q6H PRN PO 06/12/16 19:30 06/26/16 19:29 06/21/16 04:46 1 TAB Promethazine HCl/ Sodium Chloride (Phenergan Inj/ Nss 50ml) 50.5 ml @ 204 mls/hr Q6H PRN IV 06/15/16 09:45 07/15/16 09:44 Vitamin B Complex/ Vit C/Folic Acid (Nephrocaps) 1 cap QAM PO 06/17/16 09:00 07/17/16 08:59 06/23/16 08:45 1 CAP Enteral Nutritional Formula (Boost Glucose Control) 0.5 can TID PO 06/17/16 21:00 07/17/16 20:59 06/22/16 07:54 0.5 CAN Pantoprazole Sodium 40 mg 40 mg BID PO 06/19/16 09:00 07/19/16 08:59 06/23/16 08:45 40 MG Bumetanide/Syringe (Bumex IV/ Syringe) 12 ml @ 4 mls/min BID IV 06/23/16 21:00 07/23/16 20:59
--- NOTE | 2016-06-23 22:44 | DIAGNOSTIC IMAGING REPORT ---
ULTRASOUND BILATERAL LOWER EXTREMITY VENOUS CLINICAL HISTORY: Leg pain. Immobilized patient. COMPARISON STUDY: Right lower extremity venous ultrasound dated 03/24/2016. TECHNIQUE: Real-time, grayscale, and color Doppler sonography of the deep veins of the right and left lower extremity was performed from the inguinal crease to the calf. Compression and augmentation were utilized. FINDINGS: There is no sonographic evidence of deep venous thrombosis identified in the right or left lower extremity. The common femoral, superficial femoral, and popliteal veins are patent and normally compressible bilaterally. The left greater saphenous vein and both profunda femoris veins at the junction with the common femoral vein are clear. The right greater saphenous vein was not visualized. The visualized calf veins are patent bilaterally. IMPRESSION: There is no sonographic evidence of deep venous thrombosis identified in the right or left lower extremity. Electronically signed by: Krishna Camp M.D. 06/23/2016 10:42 PM
[2016-06-24] VITALS (10 sets, daily range): BP systolic 72–85; BP diastolic 40–90; PULSE 85–94; TEMP 36–36.6; O2SAT 91–99
[2016-06-24] MEDS: LEVOTHYROXINE 25 MCG TAB PO SCH (06:42)
[2016-06-24 07:05] LABS: HEMATOCRIT 40.9 % (37-47); MEAN CELL VOLUME 104.6 fL (80-100); MEAN CORPUSCULAR HGB CONC 31.5 g/dl (32-36); MEAN PLATELET VOLUME 10.3 fL (7.4-10.4); PLATELET COUNT 114 K/uL (130-400); RED BLOOD COUNT 3.91 M/uL (4.2-5.4); WHITE BLOOD COUNT 10.48 K/uL (4.8-10.8)
[2016-06-24 07:33] LABS: BUN/CREATININE RATIO 15.1 (10-20); CALCIUM 7.7 mg/dl (8.5-10.1); MAGNESIUM 3.3 mg/dl (1.8-2.4); PHOSPHORUS 4.8 mg/dl (2.5-4.9); POTASSIUM 4.8 mmol/L (3.5-5.1)
[2016-06-24] MEDS: BUMETANIDE IV 3 MG in SYRINGE 0 ML IV SCH ×2 (08:13→21:49)
[2016-06-24] MEDS: NEPHROCAPS PO SCH (08:17)
[2016-06-24] MEDS: PANTOprazole SOD 40 MG TAB PO SCH ×2 (08:17→21:48)
[2016-06-24] MEDS: BOOST GLUCOSE CONTROL PO SCH ×3 (08:17→21:47)
[2016-06-24] MEDS: ASPIRIN 81 MG ECTAB PO SCH (08:17)
--- NOTE | 2016-06-24 08:58 | Nephrology Progress Note ---
Nephrology Progress Note Date of Service Jun 24, 2016. Chief Complaint ESRD Subjective I met with Ani and her son this morning. Ani is feeling very tired. Her appetite is poor. She continues to experience pain in her left leg. She denies shortness of breath. She does not have fevers or chills. She voided this morning but urine output remains minimal. Review of Systems A complete review of systems was performed. Pertinent positives are noted above. All other systems are negative. Vital Signs Last 8 Hrs Date Time Temp Pulse Resp B/P Pulse Ox O2 Delivery O2 Flow Rate FiO2 06/24/16 08:07 36.0 91 18 73/43 98 Nasal Cannula 4.0 72/40 Humidified Oxygen 06/24/16 08:00 Nasal Cannula 4.0 06/24/16 04:10 97 Nasal Cannula 4.0 06/24/16 03:55 36.4 94 20 84/60 95 Nasal Cannula 4.0 I & O 24-Hour Column 06/24/16 08:00 Intake Total 1075 ml Output Total 60 ml Balance 1015 ml Last Recorded Weight Weight (Kilograms): 100.400 Physical Exam General Appearance: + pertinent finding (Frail, elderly, no acute distress) Head: normocephalic, atraumatic Eyes: normal inspection, sclerae normal ENT: normal ENT inspection, + pertinent finding (Oral mucosa slightly dry) Neck: supple, + JVD Respiratory/Chest: lungs clear, no respiratory distress, no accessory muscle use Cardiovascular: regular rate, rhythm Abdomen/GI: non tender, soft Extremities/Musculoskelatal: normal inspection, + pedal edema Neurologic/Psych: alert, + depressed affect Family History Diabetes mellitus MOTHER BROTHER FH: heart disease FATHER Stroke BROTHER SISTER Social History Housing Status: lives with family (son) Occupation: retired Laboratory Results Past 24 Hours 06/24/16 06:41 06/24/16 06:41 Test 06/23/16 11:30 06/23/16 16:35 06/23/16 20:43 06/24/16 06:41 Bedside Glucose 132 mg/dl (70-90) 152 mg/dl (70-90) 134 mg/dl (70-90) Red Blood Count 3.91 M/uL (4.2-5.4) Mean Corpuscular Volume 104.6 fL (80-100) Mean Corpuscular Hemoglobin 33.0 pg (25-34) Mean Corpuscular Hemoglobin Concent 31.5 g/dl (32-36) RDW Standard Deviation 63.0 fL (36.4-46.3) RDW Coefficient of Variation 17.1 % (11.5-14.5) Mean Platelet Volume 10.3 fL (7.4-10.4) Nucleated RBC Absolute Count (auto) 0.29 K/uL (0-0) Nucleated Red Blood Cells % 2.8 % Anion Gap 12.0 mmol/L (3-11) Est Creatinine Clear Calc Drug Dose 12.0 ml/min Estimated GFR () 11.4 Estimated GFR (Non- 9.8 BUN/Creatinine Ratio 15.1 (10-20) Calcium Level 7.7 mg/dl (8.5-10.1) Phosphorus Level 4.8 mg/dl (2.5-4.9) Magnesium Level 3.3 mg/dl (1.8-2.4) Albumin 2.6 gm/dl (3.4-5.0) Test 06/24/16 07:05 Bedside Glucose 107 mg/dl (70-90) Allergies Coded Allergies: No Known Allergies (Verified , 06/10/16) Medications Current Inpatient Medications Medications (Trade) Dose Ordered Sig/Yvette Route Start Time Stop Time Status Last Admin Dose Admin Al Hydrox/Mg Hydrox/Simethicone (Maalox Max Susp) 15 ml Q4H PRN PO 06/10/16 16:00 07/10/16 15:59 Magnesium Hydroxide (Milk Of Magnesia Susp) 30 ml Q12H PRN PO 06/10/16 16:00 07/10/16 15:59 06/23/16 05:27 30 ML Ondansetron HCl (Zofran Inj) 4 mg Q6H PRN IV 06/10/16 16:00 07/10/16 15:59 06/15/16 08:37 4 MG Polyethylene (Miralax Powder Packet) 17 gm DAILY PRN PO 06/10/16 16:00 07/10/16 15:59 06/15/16 05:43 17 GM Aspirin (Ecotrin Tab) 81 mg QAM PO 06/11/16 09:00 07/11/16 08:59 Future hold 06/24/16 08:17 81 MG Carvedilol (Coreg Tab) 3.125 mg BIDM PO 06/10/16 18:00 07/10/16 17:59 Future Hold 06/17/16 08:19 3.125 MG Gabapentin (Neurontin Cap) 300 mg HS PO 06/10/16 21:00 07/10/16 20:59 06/23/16 20:52 300 MG Levothyroxine Sodium (Synthroid Tab) 25 mcg DAILYBB PO 06/11/16 06:00 07/11/16 05:59 06/24/16 06:42 25 MCG Nitroglycerin (Nitrostat Tab) 0.4 mg UD PRN UT 06/10/16 17:30 07/10/16 17:29 Senna (Senokot Tab) 8.6 mg DAILY PRN PO 06/10/16 17:30 07/10/16 17:29 06/22/16 21:39 8.6 MG Tramadol HCl (Ultram Tab) 50 mg Q6H PRN PO 06/10/16 17:30 07/10/16 17:29 06/19/16 10:45 50 MG Alprazolam (Xanax Tab) 0.5 mg HS PO 06/10/16 21:00 07/10/16 20:59 06/23/16 20:53 0.5 MG Acetaminophen/ Hydrocodone Bitart 1 tab 1 tab Q6H PRN PO 06/12/16 19:30 06/26/16 19:29 06/23/16 20:53 1 TAB Promethazine HCl/ Sodium Chloride (Phenergan Inj/ Nss 50ml) 50.5 ml @ 204 mls/hr Q6H PRN IV 06/15/16 09:45 07/15/16 09:44 Vitamin B Complex/ Vit C/Folic Acid (Nephrocaps) 1 cap QAM PO 06/17/16 09:00 07/17/16 08:59 06/24/16 08:17 1 CAP Enteral Nutritional Formula (Boost Glucose Control) 0.5 can TID PO 06/17/16 21:00 07/17/16 20:59 06/23/16 20:52 0.5 CAN Pantoprazole Sodium 40 mg 40 mg BID PO 06/19/16 09:00 07/19/16 08:59 06/24/16 08:17 40 MG Bumetanide/Syringe (Bumex IV/ Syringe) 12 ml @ 4 mls/min BID IV 06/23/16 21:00 07/23/16 20:59 06/24/16 08:13 4 MLS/MIN Impression (1) Severe tricuspid regurgitation (2) Cardiorenal syndrome (3) Anemia (4) Bilateral pleural effusion Ani is an 81-year-old female with advanced CKD, severe pulmonary hypertension , tricuspid regurgitation, COPD and diuretic resistant volume overload admitted to the hospital with decompensated right heart failure and lethargy. She has been unable to manage volume status as an outpatient and this resulted in multiple hospitalizations. Hemodialysis was started to aid in fluid management. UF complicated by hypotension. She was started on dialysis via right IJ tunnel dialysis catheter on 2015. She is scheduled for outpatient dialysis at [place] dialysis unit on Friday, , Friday. TTE continues to document significant pulmonary HTN (PASP 65), severe TR with right sided heart failure/volume overload. Urine output remained oligo-oliguric with diuretics. She has left brachiocephalic AV fistula placed in April 2016 and transposition performed last week without complications. Based on Dr. Elizabeth's conversation with the patient's family and my continued conversations with the patient and her family, we will continue hemodialysis as a palliative procedure. Goal is to continue dialysis as tolerated while family is exploring hospice care. They would like to continue dialysis on hospice if symptomatic benefit is noted. Recommendations --No HD today. Patient and son advised that given current blood pressure hemodialysis would not be likely to provide any benefit. Continue daily evaluation for next HD treatment. --Continue hemodialysis per discussion with patient and son today. Wallace of therapy remains consistent with current goals of care. --Medications appropriately dosed for renal function
[2016-06-24] MEDS: HYDROCODONE/ACETAMOPHEN 5/325MG TAB PO PRN ×2 (11:18→21:49)
[2016-06-24] MEDS: TRAMADOL HCL 50 MG TAB PO PRN (15:23)
[2016-06-24] MEDS: GABAPENTIN 300 MG CAP PO SCH (21:47)
[2016-06-24] MEDS: ALPRAZOLAM 0.5 MG TAB PO SCH (21:49)
[2016-06-25] VITALS (23 sets, daily range): BP systolic 62–90; BP diastolic 39–61; PULSE 84–98; TEMP 35.6–36.9; O2SAT 92–100
--- NOTE | 2016-06-25 01:37 | Progress Note ---
Medicine Progress Note Date & Time of Visit: Jun 24, 2016 at 1000. Subjective -appears even more weak and tired today -hasn't waten much breakfast so far -reports persistent pain in her L knee when she is turned -us LE bilaterally last night were negative for DVT, this was discussed with the family. -BP too low for dialysis today. Objective Last 8 Hrs Date Time Temp Pulse Resp B/P Pulse Ox O2 Delivery O2 Flow Rate FiO2 06/24/16 23:08 85 16 85/52 91 BiPAP 06/24/16 19:55 36.6 92 15 72/90 99 Nasal Cannula 4.0 Humidified Oxygen 06/24/16 16:00 99 Nasal Cannula 4.0 06/24/16 16:00 36.2 91 14 72/40 98 Nasal Cannula 4.0 Humidified Oxygen Physical Exam: GEN: Obese, deconditioned, in no acute distress, alert and answers questions appropriately, deconditioned and generally weak, easily falls asleep. Herrera in place. Cath site appears clean and dry. HEENT: NC/AT CARDIO: reg rate, S1/2 heard without m/g/r LUNGS: CTAB, no rales or wheezes, ecchymosis on lateral right back area s/p thoracentesis-improved ABD: soft, non-tender, non-distended, +BS present, significant edema in the dependent folds. BUTTOCK: small vertical ulceration-stage II covered with Optifoam. EXTREMITY: warm and well-perfused, chronic woody appearance to her legs, bilateral LE edema present N/M: no gross focal deficit, however, very limited exam 2/2 patient unable to lift her arms on her own-very weak. She can hardly hold her head up on her own. SKIN: warm and dry and as above. Laboratory Results: Last 24 Hours Test 06/24/16 06:41 06/24/16 07:05 06/24/16 10:49 06/24/16 16:20 White Blood Count 10.48 K/uL Red Blood Count 3.91 M/uL Hemoglobin 12.9 g/dL Hematocrit 40.9 % Mean Corpuscular Volume 104.6 fL Mean Corpuscular Hemoglobin 33.0 pg Mean Corpuscular Hemoglobin Concent 31.5 g/dl RDW Standard Deviation 63.0 fL RDW Coefficient of Variation 17.1 % Platelet Count 114 K/uL Mean Platelet Volume 10.3 fL Nucleated RBC Absolute Count (auto) 0.29 K/uL Nucleated Red Blood Cells % 2.8 % Sodium Level 134 mmol/L Potassium Level 4.8 mmol/L Chloride Level 98 mmol/L Carbon Dioxide Level 24 mmol/L Anion Gap 12.0 mmol/L Blood Urea Nitrogen 60 mg/dl Creatinine 4.00 mg/dl Est Creatinine Clear Calc Drug Dose 12.0 ml/min Estimated GFR () 11.4 Estimated GFR (Non- 9.8 BUN/Creatinine Ratio 15.1 Random Glucose 111 mg/dl Calcium Level 7.7 mg/dl Phosphorus Level 4.8 mg/dl Magnesium Level 3.3 mg/dl Albumin 2.6 gm/dl Bedside Glucose 107 mg/dl 127 mg/dl 115 mg/dl Test 06/24/16 20:13 Bedside Glucose 110 mg/dl Assessment & Plan 81 yoF with acute right heart failure exacerbation s/p diuresis and initiation of hemodialysis, currently HD 10. Repositioning of AVF on 06/18 with plan for optimization of fluid status and send to SNF. 1. Hypotension-continues, likely 2/2 poor heart function and renal disease not tolerating recent initiation of hemodialysis. Cont current therapies. Poor prognosis. Nephrology can do palliative HD if patient becomes comfort care. Cont volume optimization strategy through HD efforts. Bumex started back recently. 2. Acute on chronic Right Heart Failure in setting of severe TR, severe pulm HTN worsening edema in the LE and abdomen on admission Recently medications changed to , Bumex 3mg BID and metolazone 5mg was started on IV Bumex 3mg BID -->min response Nephrology started on Bumex drip and not much improvement so HD cath placed and dialysis initiated 06/14 volume management per dialysis as per nephrology Bumex changed to 2mg po BID-->stopped 06/16 Continues on dialysis CXR in am to monitor progress reviewed this morning. Bumex restarted after discussion with Nephro. Will reassess for ability to tolerate HD 3. Stage II decub-patient is bedbound and morbidly obese with excessive folds of skin with dependent edema. Cont all efforts to turn q2hrs and elevated pressure points. 4. Elisabet-Boyle tear (presumed after one isolated episode of bloody vomitus) 06/14/16 post dialysis had an episode of vomitus which contained some blood hb stable started on ppi drip-->GI c/s and changed to BID PPI--> poor candidate for endoscopy previous egd in october 2015 was complicated with hypotension and hypoxia H/H stable no further episodes stool for Hemoccult negative cont ASA for stroke prophy in afib 5. Severe COPD/ Chronic Respiratory Failure: stable on home O2-no wheezing on exam. 6. Bilateral transudative pleural effusions s/p bilateral thoracentesis on and , respectively. Oxygenating at baseline. Pulm following. 7. CKD stage IV- cont HD per Nephro; setup for outpatient HD at [place] once access issues are addressed. Current AVF not mature as just placed in Apr 2016 She is s/p L basilic VV cath transposition; cont management as per nephrology 8. Cardiorenal syndrome-management as above 9. Anemia-multifactorial, cont to monitor. 10. Chronic atrial fibrillation-cont Coreg and ASA for stroke prophy. DVT ppx: scds in setting of recent GIB CODE STATUS CHANGE TODAY TO DO NOT RESUSCITATE: Many thanks to Krystyna Carliny for assisting the family with this decision-making process. DISPOSITION: cont monitor in tele, daily pt/ot for significant weakness, very poor prognosis at this point. Destiny Resendiz DO [facility] Hospitalist Continued [facility] stay due to: multiple IV medications needed, home environment unsafe for pt Discharge planning: uncertain Consultants: Palliative Care, GI Current Inpatient Medications: Current Inpatient Medications Medications (Trade) Dose Ordered Sig/Yvette Route Start Time Stop Time Status Last Admin Dose Admin Al Hydrox/Mg Hydrox/Simethicone (Maalox Max Susp) 15 ml Q4H PRN PO 06/10/16 16:00 07/10/16 15:59 Magnesium Hydroxide (Milk Of Magnesia Susp) 30 ml Q12H PRN PO 06/10/16 16:00 07/10/16 15:59 06/23/16 05:27 30 ML Ondansetron HCl (Zofran Inj) 4 mg Q6H PRN IV 06/10/16 16:00 07/10/16 15:59 06/15/16 08:37 4 MG Polyethylene (Miralax Powder Packet) 17 gm DAILY PRN PO 06/10/16 16:00 07/10/16 15:59 06/15/16 05:43 17 GM Aspirin (Ecotrin Tab) 81 mg QAM PO 06/11/16 09:00 07/11/16 08:59 Future hold 06/24/16 08:17 81 MG Carvedilol (Coreg Tab) 3.125 mg BIDM PO 06/10/16 18:00 07/10/16 17:59 Future Hold 06/17/16 08:19 3.125 MG Gabapentin (Neurontin Cap) 300 mg HS PO 06/10/16 21:00 07/10/16 20:59 06/24/16 21:47 300 MG Levothyroxine Sodium (Synthroid Tab) 25 mcg DAILYBB PO 06/11/16 06:00 07/11/16 05:59 06/24/16 06:42 25 MCG Nitroglycerin (Nitrostat Tab) 0.4 mg UD PRN UT 06/10/16 17:30 07/10/16 17:29 Senna (Senokot Tab) 8.6 mg DAILY PRN PO 06/10/16 17:30 07/10/16 17:29 06/22/16 21:39 8.6 MG Tramadol HCl (Ultram Tab) 50 mg Q6H PRN PO 06/10/16 17:30 07/10/16 17:29 06/24/16 15:23 50 MG Alprazolam (Xanax Tab) 0.5 mg HS PO 06/10/16 21:00 07/10/16 20:59 06/24/16 21:49 0.5 MG Acetaminophen/ Hydrocodone Bitart 1 tab 1 tab Q6H PRN PO 06/12/16 19:30 06/26/16 19:29 06/24/16 21:49 1 TAB Promethazine HCl/ Sodium Chloride (Phenergan Inj/ Nss 50ml) 50.5 ml @ 204 mls/hr Q6H PRN IV 06/15/16 09:45 07/15/16 09:44 Vitamin B Complex/ Vit C/Folic Acid (Nephrocaps) 1 cap QAM PO 06/17/16 09:00 07/17/16 08:59 06/24/16 08:17 1 CAP Enteral Nutritional Formula (Boost Glucose Control) 0.5 can TID PO 06/17/16 21:00 07/17/16 20:59 06/24/16 21:47 0.5 CAN Pantoprazole Sodium 40 mg 40 mg BID PO 06/19/16 09:00 07/19/16 08:59 06/24/16 21:48 40 MG Bumetanide/Syringe (Bumex IV/ Syringe) 12 ml @ 4 mls/min BID IV 06/23/16 21:00 07/23/16 20:59 06/24/16 21:49 4 MLS/MIN
[2016-06-25] MEDS: LEVOTHYROXINE 25 MCG TAB PO SCH (06:05)
[2016-06-25] MEDS: SENNA 8.6 MG TAB PO PRN (07:41)
[2016-06-25] MEDS: NEPHROCAPS PO SCH (07:41)
[2016-06-25] MEDS: ASPIRIN 81 MG ECTAB PO SCH (07:41)
[2016-06-25] MEDS: BUMETANIDE IV 3 MG in SYRINGE 0 ML IV SCH ×2 (07:41→21:35)
[2016-06-25] MEDS: PANTOprazole SOD 40 MG TAB PO SCH ×2 (07:41→21:35)
[2016-06-25] MEDS: BOOST GLUCOSE CONTROL PO SCH ×3 (07:42→21:41)
--- NOTE | 2016-06-25 08:55 | DIAGNOSTIC IMAGING REPORT ---
DATE OF PROCEDURE: 06/14/2016 PREOPERATIVE DIAGNOSIS: Acute renal failure. POSTOPERATIVE DIAGNOSIS: Same. PROCEDURE: Insertion of right internal jugular vein PermCath 19 cm length. Fluoroscopic imaging for positioning and ultrasound localization of the right internal jugular vein. SURGEON: Dr. Penny. ANESTHETIC: Local. PROCEDURE INDICATIONS: The patient is an 81-year-old female who has had decreasing renal function and now is in acute renal failure in need of dialysis. PermCath was recommended. She understood the risks, options and benefits and agreed to go ahead with this procedure. DESCRIPTION OF PROCEDURE: The patient was taken to the angiogram suite and placed in supine position. After right side of the neck was prepped and draped in a sterile manner, local anesthetic was administered. Ultrasound was used to locate the internal jugular vein, it was of good caliber, compressed easily and was patent. Ultrasound-guided puncture was then made of the right internal jugular vein. This was done under ultrasound guidance. Wire was then passed centrally under fluoroscopic imaging and passed into the inferior vena cava from above. A stab wound was then made in the anterior chest wall and 19 cm PermCath was inserted through the stab wound, tunneled out through the puncture site in the neck. The puncture site was dilated until the 14-Colombian sheath was inserted. The catheter was then inserted through the 14 [place]ian peelaway sheath and peelaway sheath was removed. Both ports aspirated and flushed easily. The catheter was sutured to the chest wall with nylon sutures. A 4-0 Vicryl was used to close the puncture site in the neck subcuticularly and Dermabond was used for dressing on this stab wound. The rest of the catheter was dressed in the usual fashion. The tip of the catheter was in the distal superior vena cava. Again, it aspirated and flushed easily and was instilled with heparin. The patient left the angio suite in good condition and tolerated the procedure well.
[2016-06-25] MEDS ORDERED: HEPARIN SOD (PORCINE) 1000 UNIT/ML 10 ML VIAL IV SCH ×2 (09:45)
--- NOTE | 2016-06-25 12:00 | Nephrology Progress Note ---
Nephrology Progress Note Date of Service Jun 25, 2016. Chief Complaint Follow up evaluation of this patient with ESRD on HD due to cardiorenal syndrome Subjective Ms. Stiles was seen & examined in the ICU this morning. She awakens to voice and follows simple one step commands but remains relatively lethargic. Her daughter Caren was present at bedside. The patient has not yet participated in PT or OT. The patient has cardiorenal syndrome. She has severe pHTN w/ mod-severe TR. Diuretic therapy was complicated by worsening kidney function. HD was started for regulation of volume status. Ms. Stiles complains of weakness but voices no other medical concerns this morning. Review of Systems Constitutional: No fever Cardiovascular: No chest pain Respiratory: No dyspnea at rest Abdomen: No pain Extremities: + leg edema A complete review of systems was performed. Pertinent positives are noted above. All other systems are negative. Vital Signs Last 8 Hrs Date Time Temp Pulse Resp B/P Pulse Ox O2 Delivery O2 Flow Rate FiO2 06/25/16 08:51 36.9 98 18 81/55 95 06/25/16 08:00 94 Nasal Cannula 4.0 06/25/16 04:10 94 BiPAP 4.0 I & O 24-Hour Column 06/25/16 08:00 Intake Total 490 ml Balance 490 ml Last Recorded Weight Weight (Kilograms): 98.900 Physical Exam General Appearance: + obese (frail, chronically ill appearing) Head: atraumatic (temporal muscle wasting) Eyes: PERRL, EOMI Neck: no adenopathy Respiratory/Chest: lungs clear (anteriorly. Patient could not sit forward for evaluation of the posterior lung rouse) Cardiovascular: regular rate, rhythm Abdomen/GI: non tender (1+ pitting edema of the anterior abdominal wall), soft Extremities/Musculoskelatal: + swelling (bilateral SCD's in place. Patient has 2+ pitting edema above the SCD's) Neurologic/Psych: + pertinent finding (lethargic) Family History Diabetes mellitus MOTHER BROTHER FH: heart disease FATHER Stroke BROTHER SISTER Social History Housing Status: lives with family (son) Occupation: retired Laboratory Results Past 24 Hours Test 06/24/16 16:20 06/24/16 20:13 Bedside Glucose 115 mg/dl (70-90) 110 mg/dl (70-90) Allergies Coded Allergies: No Known Allergies (Verified , 06/10/16) Medications Current Inpatient Medications Medications (Trade) Dose Ordered Sig/Yvette Route Start Time Stop Time Status Last Admin Dose Admin Al Hydrox/Mg Hydrox/Simethicone (Maalox Max Susp) 15 ml Q4H PRN PO 06/10/16 16:00 07/10/16 15:59 Magnesium Hydroxide (Milk Of Magnesia Susp) 30 ml Q12H PRN PO 06/10/16 16:00 07/10/16 15:59 06/23/16 05:27 30 ML Ondansetron HCl (Zofran Inj) 4 mg Q6H PRN IV 06/10/16 16:00 07/10/16 15:59 06/15/16 08:37 4 MG Polyethylene (Miralax Powder Packet) 17 gm DAILY PRN PO 06/10/16 16:00 07/10/16 15:59 06/15/16 05:43 17 GM Aspirin (Ecotrin Tab) 81 mg QAM PO 06/11/16 09:00 07/11/16 08:59 Future hold 06/25/16 07:41 81 MG Carvedilol (Coreg Tab) 3.125 mg BIDM PO 06/10/16 18:00 07/10/16 17:59 Future Hold 06/17/16 08:19 3.125 MG Gabapentin (Neurontin Cap) 300 mg HS PO 06/10/16 21:00 07/10/16 20:59 06/24/16 21:47 300 MG Levothyroxine Sodium (Synthroid Tab) 25 mcg DAILYBB PO 06/11/16 06:00 07/11/16 05:59 06/25/16 06:05 25 MCG Nitroglycerin (Nitrostat Tab) 0.4 mg UD PRN UT 06/10/16 17:30 07/10/16 17:29 Senna (Senokot Tab) 8.6 mg DAILY PRN PO 06/10/16 17:30 07/10/16 17:29 06/25/16 07:41 8.6 MG Tramadol HCl (Ultram Tab) 50 mg Q6H PRN PO 06/10/16 17:30 07/10/16 17:29 06/24/16 15:23 50 MG Alprazolam (Xanax Tab) 0.5 mg HS PO 06/10/16 21:00 07/10/16 20:59 06/24/16 21:49 0.5 MG Acetaminophen/ Hydrocodone Bitart 1 tab 1 tab Q6H PRN PO 06/12/16 19:30 06/26/16 19:29 06/24/16 21:49 1 TAB Promethazine HCl/ Sodium Chloride (Phenergan Inj/ Nss 50ml) 50.5 ml @ 204 mls/hr Q6H PRN IV 06/15/16 09:45 07/15/16 09:44 Vitamin B Complex/ Vit C/Folic Acid (Nephrocaps) 1 cap QAM PO 06/17/16 09:00 07/17/16 08:59 06/25/16 07:41 1 CAP Enteral Nutritional Formula (Boost Glucose Control) 0.5 can TID PO 06/17/16 21:00 07/17/16 20:59 06/24/16 21:47 0.5 CAN Pantoprazole Sodium 40 mg 40 mg BID PO 06/19/16 09:00 07/19/16 08:59 06/25/16 07:41 40 MG Bumetanide/Syringe (Bumex IV/ Syringe) 12 ml @ 4 mls/min BID IV 06/23/16 21:00 07/23/16 20:59 06/25/16 07:41 4 MLS/MIN Impression (1) Severe tricuspid regurgitation (2) Cardiorenal syndrome (3) Anemia (4) Bilateral pleural effusion Ani is an 81-year-old female with advanced CKD, severe pulmonary hypertension , tricuspid regurgitation, COPD and diuretic resistant volume overload admitted to the hospital with decompensated right heart failure and lethargy. She has been unable to manage volume status as an outpatient and this resulted in multiple hospitalizations. Hemodialysis was started to aid in fluid management. UF complicated by hypotension. She was started on dialysis via right IJ tunnel dialysis catheter on 2015. She is scheduled for outpatient dialysis at [place] dialysis unit on Friday, , Friday. TTE continues to document significant pulmonary HTN (PASP 65), severe TR with right sided heart failure/volume overload. Urine output remained oligo-oliguric with diuretics. She has left brachiocephalic AV fistula placed in April 2016 and transposition performed last week without complications. Based on Dr. Elizabeth's conversation with the patient's family and my continued conversations with the patient and her family, we will continue hemodialysis as a palliative procedure. Goal is to continue dialysis as tolerated while family is exploring hospice care. They would like to continue dialysis on hospice if symptomatic benefit is noted. Recommendations END STAGE RENAL DISEASE: -- Will provide HD today for urea clearance and attempt 2 L UF -- HD orders entered into the EMR and HD RN notified HYPOTENSION: -- SBP 90 mm Hg during my evaluation this am. -- Echocardiogram report from 06/20/16 reviewed today: LVEF 55 - 60%, PASP 65 mmHg, severe TR, moderately dilated RV. -- Relative hypotension is related to severe pHTN and cor pulmonale ANEMIA: -- Hgb remains acceptable. No acute indication for EDWARDO at this time OTHER: -- Discussed plan of care with the patient and her daughter Caren this am. They have agreed to a trial of dialysis to see if it will improve Ms. Stiles' s functional status. They understand that the patient will need to be able to assist with transfers in order to be safely discharged to an outpatient hemodialysis unit. The family is also considering hospice care. Will ask physical therapy to begin working with the patient and to provide strengthening exercises.
[2016-06-25] MEDS: HYDROCODONE/ACETAMOPHEN 5/325MG TAB PO PRN ×2 (15:50→21:41)
--- NOTE | 2016-06-25 18:49 | Progress Note ---
Internal Med Progress Note Date of Service: Jun 25, 2016. Provider Documentation: SUBJECTIVE: had full session of dialysis today weak son trying to feed the patient denies any chest pain or sob afebrile OBJECTIVE: Vital Signs-as noted below Exam: General-alert and awake . ENT-Normal hearing Neck-no neck masses Lungs-cta b/l no wheezing or crackles Heart-s1 and s2 heard regular rate and rhythm, no murmurs Abdomen-soft bowel sounds present non tender no distension Extremities-lower extremity edema present-improving Neuro-alert and awake moves extremities Lab data as noted below. ASSESSMENT & PLAN: This is an 81 year old female with PMH of severe COPD and chronic respiratory failure requiring O2 continuously, severe pulmonary HTN and resultant right heart failure, CKD stage IV-V, recent AV-fistula placement awaiting maturation, hx. of paroxysmal atrial fibrillation, not on anticoagulation secondary to GI bleed, anemia due to CKD presents with worsening lower extremity edema. Initially treated with iv Bumex then was placed on Bumex drip.HAd pleural effusion and s/p left thoracocentesis by pulmonary. Later perm Cath was placed and dialysis started.After first dialysis patient was nauseous and had an episode of bloody vomitus.Was started on PPOI drip and GI was consulted. But no more episode of bleeding and hb stable. Hemoccult negative.Has left brachiocephalic AV fistula placed in April 2016 and s/p. currently on iv bumex aalso. Plan for optimization of volume status and snf or rehab placement. Patient is DNR currently.Thanks for palliative care help. Severe Pulmonary HTN Right Heart Failure with acute systolic Right heart failure Patient presents with worsening edema in the LE and abdomen Recently medications changed to , Bumex 3mg BID and metolazone 5mg was started on IV Bumex 3mg BID cardiology and nephrology on board and appreciate inputs required dobutamine drip in the past not responding much to diuretics as patient on Bumex and metazolne at home Nephrology started on Bumex drip and if no improvement plan for dialysis seems to responding to Bumex drip but s/p perma cath and initiation of dialysis volume management per dialysis as per nephrology on iv bumex Gi Bleed 06/14/16 post dialysis had an episode of vomitus which contained some blood hb stable started on ppi drip notified GI and appreciate inputs f/u serial h and h serial h and h stable no mor episodes aspirin resumed Severe COPD Chronic Respiratory Failure stable will monitor Pleural effusion left side s/p thoracocentesis by pulmonary stable CKD stage IV nephrology on board vascular surgery consulted and appreciate inputs s/p av fistula but not mature yet and may take 2 more weeks to mature s/p Perma cath and initiation of dialysis 06/14/16 Av fistula s/p transposition management as per nephrology DVT ppx scds, monitor H/H FULL CODE DISPOSITION monitor in tele pt/ot social service for d/c planning Vital Signs: Date Time Temp Pulse Resp B/P Pulse Ox O2 Delivery O2 Flow Rate FiO2 06/25/16 16:00 100 Nasal Cannula 4.0 06/25/16 14:31 35.6 90 90/50 06/25/16 14:15 36.5 87 16 82/45 96 Nasal Cannula 4.0 06/25/16 13:30 90 79/47 06/25/16 13:15 92 74/48 06/25/16 13:00 86 80/45 06/25/16 12:45 84 71/39 06/25/16 12:30 88 71/45 06/25/16 12:15 95 66/44 06/25/16 12:00 92 72/45 06/25/16 12:00 96 Nasal Cannula 4.0 06/25/16 11:45 94 73/40 06/25/16 11:30 90 71/42 06/25/16 11:15 88 71/44 06/25/16 11:00 85 62/43 06/25/16 10:45 90 70/43 06/25/16 10:41 36.0 92 70/46 06/25/16 08:51 36.9 98 18 81/55 95 06/25/16 08:00 94 Nasal Cannula 4.0 06/25/16 04:10 94 BiPAP 4.0 06/25/16 02:27 36.3 87 18 90/61 94 BiPAP 4.0 06/25/16 00:10 92 BiPAP 4.0 06/24/16 23:08 36.4 85 16 85/52 91 BiPAP 06/24/16 20:30 98 Nasal Cannula 4.0 06/24/16 19:55 36.6 92 15 72/90 99 Nasal Cannula 4.0 Humidified Oxygen Lab Results: Results Past 24 Hours Test 06/24/16 20:13 Range/Units Bedside Glucose 110 70-90 mg/dl
[2016-06-25] MEDS: GABAPENTIN 300 MG CAP PO SCH (21:35)
[2016-06-25] MEDS: ALPRAZOLAM 0.5 MG TAB PO SCH (21:41)
[2016-06-26 04:05] VITALS: BP 79/48; PULSE 90; TEMP 36.3; O2SAT 98
[2016-06-26] MEDS: LEVOTHYROXINE 25 MCG TAB PO SCH (05:56)
[2016-06-26 07:51] LABS: BUN/CREATININE RATIO 13.3 (10-20); CALCIUM 8.1 mg/dl (8.5-10.1); CREATININE 4.1 mg/dl (0.60-1.20); POTASSIUM 5.5 mmol/L (3.5-5.1)
[2016-06-26 08:00] VITALS: BP 79/46; PULSE 89; TEMP 35.6; O2SAT 98
[2016-06-26 08:43] LABS: HEMATOCRIT 41.6 % (37-47); MEAN CORPUSCULAR HEMOGLOBIN 32.8 pg (25-34); MEAN CORPUSCULAR HGB CONC 32.2 g/dl (32-36); MEAN PLATELET VOLUME 10.6 fL (7.4-10.4); PLATELET COUNT 112 K/uL (130-400); RED BLOOD COUNT 4.08 M/uL (4.2-5.4); WHITE BLOOD COUNT 10.34 K/uL (4.8-10.8)
[2016-06-26] MEDS ORDERED: MIDODRINE 2.5 MG TAB PO STA (08:43)
[2016-06-26] MEDS: BOOST GLUCOSE CONTROL PO SCH ×3 (09:00→20:00)
[2016-06-26] MEDS: BUMETANIDE IV 3 MG in SYRINGE 0 ML IV SCH ×3 (09:00→20:00)
[2016-06-26] MEDS: NEPHROCAPS PO SCH (09:09)
[2016-06-26] MEDS: ASPIRIN 81 MG ECTAB PO SCH (09:09)
[2016-06-26] MEDS: PANTOprazole SOD 40 MG TAB PO SCH ×2 (09:10→20:00)
--- NOTE | 2016-06-26 10:49 | Nephrology Progress Note ---
Nephrology Progress Note Date of Service Jun 26, 2016. Chief Complaint Follow up evaluation of this patient with ESRD on HD due to cardiorenal syndrome Subjective Ms. Stiles was seen & examined in the ICU this morning. She remains lethargic. She was not able to participate in PT or OT yesterday. The patient has cardiorenal syndrome. She has severe pHTN w/ mod-severe TR. Diuretic therapy was complicated by worsening kidney function. HD was started for regulation of volume status. Ms. Stiles's condition was discussed with Dr. Mi and her daughter Caren this morning. Patient was dialyzed for 3 hours yesterday. UF was limited to 1 L due to hypotension. SBP has remained in the mid 70's overnight. Patient has become more lethargic and has required BiPAP therapy. staffing and scheduling coordinator notes that patient no longer has palpable pulses in her lower extremities. Caren and her family have met with palliative care. They understand Ms. Stiles's poor prognosis. They wish to transfer her to comfort measures at this time. Review of Systems Unable to obtain due to patient lethargy Vital Signs Last 8 Hrs Date Time Temp Pulse Resp B/P Pulse Ox O2 Delivery O2 Flow Rate FiO2 06/26/16 08:00 BiPAP 06/26/16 08:00 35.6 89 18 79/46 98 BiPAP 06/26/16 04:05 36.3 90 16 79/48 98 BiPAP 06/26/16 04:00 Nasal Cannula 4.0 I & O 24-Hour Column 06/26/16 08:00 Intake Total 500 ml Output Total 1000 ml Balance -500 ml Last Recorded Weight Weight (Kilograms): 100.800 Physical Exam General Appearance: + pertinent finding (chronically ill appearing. Lethargic) Head: atraumatic (temporal muscle wasting) Eyes: PERRL (+ corneal arcus) Respiratory/Chest: + crackles Cardiovascular: + tachycardia Abdomen/GI: soft, + distended Extremities/Musculoskelatal: + swelling (2+ pretibial pitting edema) Neurologic/Psych: + pertinent finding (lethargic) Family History Diabetes mellitus MOTHER BROTHER FH: heart disease FATHER Stroke BROTHER SISTER Social History Housing Status: lives with family (son) Occupation: retired Laboratory Results Past 24 Hours 06/26/16 07:45 06/26/16 06:55 Test 06/26/16 06:55 1/4/17 07:45 Anion Gap 12.0 mmol/L (3-11) Est Creatinine Clear Calc Drug Dose 11.8 ml/min Estimated GFR () 11.0 Estimated GFR (Non- 9.5 BUN/Creatinine Ratio 13.3 (10-20) Calcium Level 8.1 mg/dl (8.5-10.1) Red Blood Count 4.08 M/uL (4.2-5.4) Mean Corpuscular Volume 102.0 fL (80-100) Mean Corpuscular Hemoglobin 32.8 pg (25-34) Mean Corpuscular Hemoglobin Concent 32.2 g/dl (32-36) RDW Standard Deviation 62.2 fL (36.4-46.3) RDW Coefficient of Variation 17.1 % (11.5-14.5) Mean Platelet Volume 10.6 fL (7.4-10.4) Nucleated RBC Absolute Count (auto) 0.31 K/uL (0-0) Nucleated Red Blood Cells % 3.0 % Allergies Coded Allergies: No Known Allergies (Verified , 06/10/16) Medications Current Inpatient Medications Medications (Trade) Dose Ordered Sig/Yvette Route Start Time Stop Time Status Last Admin Dose Admin Al Hydrox/Mg Hydrox/Simethicone (Maalox Max Susp) 15 ml Q4H PRN PO 06/10/16 16:00 07/10/16 15:59 Magnesium Hydroxide (Milk Of Magnesia Susp) 30 ml Q12H PRN PO 06/10/16 16:00 07/10/16 15:59 06/23/16 05:27 30 ML Ondansetron HCl (Zofran Inj) 4 mg Q6H PRN IV 06/10/16 16:00 07/10/16 15:59 06/15/16 08:37 4 MG Polyethylene (Miralax Powder Packet) 17 gm DAILY PRN PO 06/10/16 16:00 07/10/16 15:59 06/15/16 05:43 17 GM Aspirin (Ecotrin Tab) 81 mg QAM PO 06/11/16 09:00 07/11/16 08:59 Future hold 06/26/16 09:09 81 MG Carvedilol (Coreg Tab) 3.125 mg BIDM PO 06/10/16 18:00 07/10/16 17:59 Future Hold 06/17/16 08:19 3.125 MG Gabapentin (Neurontin Cap) 300 mg HS PO 06/10/16 21:00 07/10/16 20:59 06/25/16 21:35 300 MG Levothyroxine Sodium (Synthroid Tab) 25 mcg DAILYBB PO 06/11/16 06:00 07/11/16 05:59 06/26/16 05:56 25 MCG Nitroglycerin (Nitrostat Tab) 0.4 mg UD PRN UT 06/10/16 17:30 07/10/16 17:29 Senna (Senokot Tab) 8.6 mg DAILY PRN PO 06/10/16 17:30 07/10/16 17:29 06/25/16 07:41 8.6 MG Tramadol HCl (Ultram Tab) 50 mg Q6H PRN PO 06/10/16 17:30 07/10/16 17:29 06/24/16 15:23 50 MG Alprazolam (Xanax Tab) 0.5 mg HS PO 06/10/16 21:00 07/10/16 20:59 06/25/16 21:41 0.5 MG Acetaminophen/ Hydrocodone Bitart 1 tab 1 tab Q6H PRN PO 06/12/16 19:30 06/26/16 19:29 06/25/16 21:41 1 TAB Promethazine HCl/ Sodium Chloride (Phenergan Inj/ Nss 50ml) 50.5 ml @ 204 mls/hr Q6H PRN IV 06/15/16 09:45 07/15/16 09:44 Vitamin B Complex/ Vit C/Folic Acid (Nephrocaps) 1 cap QAM PO 06/17/16 09:00 07/17/16 08:59 06/26/16 09:09 1 CAP Enteral Nutritional Formula (Boost Glucose Control) 0.5 can TID PO 06/17/16 21:00 07/17/16 20:59 06/25/16 21:41 0.5 CAN Pantoprazole Sodium 40 mg 40 mg BID PO 06/19/16 09:00 07/19/16 08:59 06/26/16 09:10 40 MG Bumetanide/Syringe (Bumex IV/ Syringe) 12 ml @ 4 mls/min BID IV 06/23/16 21:00 07/23/16 20:59 06/25/16 21:35 4 MLS/MIN Midodrine (Proamatine Tab) 5 mg TID@08,, PO 06/26/16 12:00 07/26/16 11:59 Impression (1) Severe tricuspid regurgitation (2) Cardiorenal syndrome (3) Anemia (4) Bilateral pleural effusion Ani is an 81-year-old female with advanced CKD, severe pulmonary hypertension , tricuspid regurgitation, COPD and diuretic resistant volume overload admitted to the hospital with decompensated right heart failure and lethargy. She has been unable to manage volume status as an outpatient and this resulted in multiple hospitalizations. Hemodialysis was started to aid in fluid management. UF complicated by hypotension. She was started on dialysis via right IJ tunnel dialysis catheter on 2015. She is scheduled for outpatient dialysis at [place] dialysis unit on Friday, , Friday. TTE continues to document significant pulmonary HTN (PASP 65), severe TR with right sided heart failure/volume overload. Urine output remained oligo-oliguric with diuretics. She has left brachiocephalic AV fistula placed in April 2016 and transposition performed last week without complications. Recommendations Discussed patient's clinical decline and plan of care with Dr. Mi and patient's family today (daughter Caren). Patient did not tolerate UF on HD yesterday due to hypotension. Her peripheral edema and ascites are worsening. She has remained hypotensive overnight and now is poorly responsive with increasing oxygen requirements and evidence of peripheral vasoconstriction. Patient's family understands her poor prognosis. They have met with palliative care. They wish to stop hemodialysis at this time and transition Ms. Stiles to comfort measures. I concur with their decision. Will sign off. Please call if further nephrology assistance is needed.
--- NOTE | 2016-06-26 11:06 | Palliative Care Progress Note ---
Palliative Care Progress Note Date of Service Jun 26, 2016. Subjective Pt evaluation today including: conversation w/ family, physical exam, chart review, conversation w/ fitness consultant Pain: said "no" to pain PO Intake: none Voiding: magaña catheter in place (oliguric) Patient was placed on bipap over night More lethargic No PO intake Opens eyes to verbal stimuli. Denies pain Dr. Limon spoke with family-- no more dialysis as patient is not tolerating well. SBP today 60-70s. No longer has pedal pulses, even by doppler Family has decided to make patient comfort measures only. Review of Systems unable to obtain Objective Vital Signs Date Time Temp Pulse Resp B/P Pulse Ox O2 Delivery O2 Flow Rate FiO2 06/26/16 08:00 BiPAP 06/26/16 08:00 35.6 89 18 79/46 98 BiPAP 06/26/16 04:05 36.3 90 16 79/48 98 BiPAP 06/26/16 04:00 Nasal Cannula 4.0 06/25/16 23:59 Nasal Cannula 4.0 06/25/16 23:14 36.3 95 16 85/50 100 Nasal Cannula 4.0 06/25/16 20:00 Nasal Cannula 4.0 06/25/16 19:15 36.8 91 18 81/40 97 06/25/16 16:00 100 Nasal Cannula 4.0 06/25/16 14:31 35.6 90 90/50 06/25/16 14:15 36.5 87 16 82/45 96 Nasal Cannula 4.0 06/25/16 13:30 90 79/47 06/25/16 13:15 92 74/48 06/25/16 13:00 86 80/45 06/25/16 12:45 84 71/39 06/25/16 12:30 88 71/45 06/25/16 12:15 95 66/44 06/25/16 12:00 92 72/45 06/25/16 12:00 96 Nasal Cannula 4.0 06/25/16 11:45 94 73/40 06/25/16 11:30 90 71/42 06/25/16 11:15 88 71/44 Physical Exam General Appearance: no apparent distress, + pertinent finding (very ill- appearing) Neck: no JVD Respiratory/Chest: no respiratory distress, no accessory muscle use, + decreased breath sounds, + pertinent finding (very shallow breathing) Cardiovascular: regular rate, rhythm, + pertinent finding (absent pedal pulses ; generalized edema) Abdomen: normal bowel sounds, soft Neurologic/Psychiatric: + pertinent finding (lethargic, not much verbal response) Skin: + pertinent finding (ashen color, lips cyanotic) Laboratory Results Last 24 Hours Test 06/26/16 06:55 06/26/16 07:45 Sodium Level 133 mmol/L Potassium Level 5.5 mmol/L Chloride Level 98 mmol/L Carbon Dioxide Level 23 mmol/L Anion Gap 12.0 mmol/L Blood Urea Nitrogen 55 mg/dl Creatinine 4.10 mg/dl Est Creatinine Clear Calc Drug Dose 11.8 ml/min Estimated GFR () 11.0 Estimated GFR (Non- 9.5 BUN/Creatinine Ratio 13.3 Random Glucose 92 mg/dl Calcium Level 8.1 mg/dl White Blood Count 10.34 K/uL Red Blood Count 4.08 M/uL Hemoglobin 13.4 g/dL Hematocrit 41.6 % Mean Corpuscular Volume 102.0 fL Mean Corpuscular Hemoglobin 32.8 pg Mean Corpuscular Hemoglobin Concent 32.2 g/dl RDW Standard Deviation 62.2 fL RDW Coefficient of Variation 17.1 % Platelet Count 112 K/uL Mean Platelet Volume 10.6 fL Nucleated RBC Absolute Count (auto) 0.31 K/uL Nucleated Red Blood Cells % 3.0 % Assessment and Plan Problem list: Acute on chronic Right Heart Failure in setting of severe TR, severe pulmonary HTN Elisabet-Boyle tear Severe COPD/ Chronic Respiratory Failure Bilateral transudative pleural effusions s/p bilateral thoracenteses CKD stage IV Cardiorenal syndrome-management as above Anemia-multifactorial, cont to monitor. Chronic atrial fibrillation Goals of care Palliative care plan: Patient's children Caren and Gurpreet have decided to pursue comfort measures only for their mother. Bipap is off. Okay with no blood draws, no blood pressures, no dialysis, no PO medications. The goal is strictly for comfort at this point, they are aware that there will be no more dialysis treatments. Family not comfortable with transferring out of unit yet, will readdress later. Dr. Mi updated. Would order 1mg morphine IV Q1H PRN pain or SOB Please contact me with any further palliative care needs. Palliative Performance Scale: 10 % Continued [facility] stay due to: multiple IV medications needed, home environment unsafe for pt
[2016-06-26] MEDS: MIDODRINE 2.5 MG TAB PO SCH ×2 (12:28→17:36)
[2016-06-26] MEDS ORDERED: LORAZEPAM 2 MG/ML 1 ML VIAL IV PRN (16:15)
[2016-06-26] MEDS: MoRPHine SULFATE 2 MG/ML CARP IV PRN ×2 (17:47→19:38)
[2016-06-26 18:10] VITALS: BP 97/62; PULSE 95; TEMP 36.5; O2SAT 90
--- NOTE | 2016-06-26 19:43 | Progress Note ---
Internal Med Progress Note Date of Service: Jun 26, 2016. Provider Documentation: SUBJECTIVE: patient weak and lethargic Blood pressure running low patient nods no for any complaints family decided for comfort care OBJECTIVE: Vital Signs-as noted below Exam: General-drowsy ENT-Normal hearing Neck-no neck masses Lungs-cta b/l no wheezing or crackles Heart-s1 and s2 heard regular rate and rhythm, no murmurs Abdomen-soft bowel sounds present non tender no distension Extremities-lower extremity edema present-improving Neuro-drowsy moves extremities Lab data as noted below. ASSESSMENT & PLAN: This is an 81 year old female with PMH of severe COPD and chronic respiratory failure requiring O2 continuously, severe pulmonary HTN and resultant right heart failure, CKD stage IV-V, recent AV-fistula placement awaiting maturation, hx. of paroxysmal atrial fibrillation, not on anticoagulation secondary to GI bleed, anemia due to CKD presents with worsening lower extremity edema. Initially treated with iv Bumex then was placed on Bumex drip.HAd pleural effusion and s/p left thoracocentesis by pulmonary. Later perm Cath was placed and dialysis started.After first dialysis patient was nauseous and had an episode of bloody vomitus.Was started on PPOI drip and GI was consulted. But no more episode of bleeding and hb stable. Hemoccult negative.Has left brachiocephalic AV fistula placed in April 2016 and s/p. currently on iv bumex aalso. Plan for optimization of volume status and snf or rehab placement. Patient is DNR currently.As patient continued to be weak and lethargic and hypotensive. Not palpable pulse in lower extremity family decided for comfort care. No plan for further dialysis Thanks for palliative care help. Hospital course so far: Severe Pulmonary HTN Right Heart Failure with acute systolic Right heart failure Patient presents with worsening edema in the LE and abdomen Recently medications changed to , Bumex 3mg BID and metolazone 5mg was started on IV Bumex 3mg BID cardiology and nephrology on board and appreciate inputs required dobutamine drip in the past not responding much to diuretics as patient on Bumex and metazolne at home Nephrology started on Bumex drip and if no improvement plan for dialysis seems to responding to Bumex drip but s/p perma cath and initiation of dialysis volume management per dialysis as per nephrology on iv bumex Gi Bleed 06/14/16 post dialysis had an episode of vomitus which contained some blood hb stable started on ppi drip notified GI and appreciate inputs f/u serial h and h serial h and h stable no mor episodes aspirin resumed Severe COPD Chronic Respiratory Failure stable will monitor Pleural effusion left side s/p thoracocentesis by pulmonary stable CKD stage IV nephrology on board vascular surgery consulted and appreciate inputs s/p av fistula but not mature yet and may take 2 more weeks to mature s/p Perma cath and initiation of dialysis 06/14/16 Av fistula s/p transposition management as per nephrology DVT ppx scds, monitor H/H FULL CODE DISPOSITION monitor in tele pt/ot social service for d/c planning Vital Signs: Date Time Temp Pulse Resp B/P Pulse Ox O2 Delivery O2 Flow Rate FiO2 06/26/16 18:10 36.5 95 14 97/62 90 Humidified Oxygen 3.0 06/26/16 16:00 BiPAP 06/26/16 12:00 BiPAP 06/26/16 08:00 BiPAP 06/26/16 08:00 35.6 89 18 79/46 98 BiPAP 06/26/16 04:05 36.3 90 16 79/48 98 BiPAP 06/26/16 04:00 Nasal Cannula 4.0 06/25/16 23:59 Nasal Cannula 4.0 06/25/16 23:14 36.3 95 16 85/50 100 Nasal Cannula 4.0 06/25/16 20:00 Nasal Cannula 4.0 Lab Results: Results Past 24 Hours Test 06/26/16 06:55 06/26/16 07:45 Range/Units Sodium Level 133 136-145 mmol/L Potassium Level 5.5 3.5-5.1 mmol/L Chloride Level 98 98-107 mmol/L Carbon Dioxide Level 23 21-32 mmol/L Anion Gap 12.0 3-11 mmol/L Blood Urea Nitrogen 55 7-18 mg/dl Creatinine 4.10 0.60-1.20 mg/dl Est Creatinine Clear Calc Drug Dose 11.8 ml/min Estimated GFR () 11.0 Estimated GFR (Non- 9.5 BUN/Creatinine Ratio 13.3 10-20 Random Glucose 92 70-99 mg/dl Calcium Level 8.1 8.5-10.1 mg/dl White Blood Count 10.34 4.8-10.8 K/uL Red Blood Count 4.08 4.2-5.4 M/uL Hemoglobin 13.4 12.0-16.0 g/dL Hematocrit 41.6 37-47 % Mean Corpuscular Volume 102.0 80-100 fL Mean Corpuscular Hemoglobin 32.8 25-34 pg Mean Corpuscular Hemoglobin Concent 32.2 32-36 g/dl RDW Standard Deviation 62.2 36.4-46.3 fL RDW Coefficient of Variation 17.1 11.5-14.5 % Platelet Count 112 130-400 K/uL Mean Platelet Volume 10.6 7.4-10.4 fL Nucleated RBC Absolute Count (auto) 0.31 0-0 K/uL Nucleated Red Blood Cells % 3.0 %
[2016-06-26] MEDS: GABAPENTIN 300 MG CAP PO SCH (20:21)
[2016-06-26] MEDS: ALPRAZOLAM 0.5 MG TAB PO SCH (20:21)
[2016-06-27] MEDS: MoRPHine SULFATE 2 MG/ML CARP IV PRN ×3 (04:49→11:41)
[2016-06-27] MEDS: LEVOTHYROXINE 25 MCG TAB PO SCH (06:30)
[2016-06-27] MEDS: BUMETANIDE IV 3 MG in SYRINGE 0 ML IV SCH (08:40)
[2016-06-27] MEDS: BOOST GLUCOSE CONTROL PO SCH ×2 (08:40→12:47)
[2016-06-27] MEDS: NEPHROCAPS PO SCH (08:41)
[2016-06-27] MEDS: ASPIRIN 81 MG ECTAB PO SCH (08:41)
[2016-06-27] MEDS: MIDODRINE 2.5 MG TAB PO SCH ×2 (08:41→11:04)
[2016-06-27] MEDS: PANTOprazole SOD 40 MG TAB PO SCH (08:41)
--- NOTE | 2016-06-27 19:39 | Progress Note ---
Internal Med Progress Note Date of Service: Jun 27, 2016. Provider Documentation: SUBJECTIVE: Was called as patient ceased to breathe OBJECTIVE: Vital Signs-as noted below Exam: General-unresponsive Neck-no carotid pulse Lungs-no spontaneous breathing. No breath sounds on auscultation Heart-no heart sounds on auscultation Lab data as noted below. ASSESSMENT & PLAN: This is an 81 year old female with PMH of severe COPD and chronic respiratory failure requiring O2 continuously, severe pulmonary HTN and resultant right heart failure, CKD stage IV-V, recent AV-fistula placement awaiting maturation, hx. of paroxysmal atrial fibrillation, not on anticoagulation secondary to GI bleed, anemia due to CKD presents with worsening lower extremity edema. Initially treated with iv Bumex then was placed on Bumex drip.HAd pleural effusion and s/p left thoracocentesis by pulmonary. Later perm Cath was placed and dialysis started.After first dialysis patient was nauseous and had an episode of bloody vomitus.Was started on PPOI drip and GI was consulted. But no more episode of bleeding and hb stable. Hemoccult negative.Has left brachiocephalic AV fistula placed in April 2016 and s/p. currently on iv bumex aalso. Plan for optimization of volume status and snf or rehab placement. Patient is DNR currently.As patient continued to be weak and lethargic and hypotensive. Not palpable pulse in lower extremity family decided for comfort care. No plan for further dialysis Thanks for palliative care help. Patient pronounced Jun 27 2016 at 1335 Hospital course so far: Severe Pulmonary HTN Right Heart Failure with acute systolic Right heart failure Patient presents with worsening edema in the LE and abdomen Recently medications changed to , Bumex 3mg BID and metolazone 5mg was started on IV Bumex 3mg BID cardiology and nephrology on board and appreciate inputs required dobutamine drip in the past not responding much to diuretics as patient on Bumex and metazolne at home Nephrology started on Bumex drip and if no improvement plan for dialysis seems to responding to Bumex drip but s/p perma cath and initiation of dialysis volume management per dialysis as per nephrology on iv bumex Gi Bleed 06/14/16 post dialysis had an episode of vomitus which contained some blood hb stable started on ppi drip notified GI and appreciate inputs f/u serial h and h serial h and h stable no mor episodes aspirin resumed Severe COPD Chronic Respiratory Failure stable will monitor Pleural effusion left side s/p thoracocentesis by pulmonary stable CKD stage IV nephrology on board vascular surgery consulted and appreciate inputs s/p av fistula but not mature yet and may take 2 more weeks to mature s/p Perma cath and initiation of dialysis 06/14/16 Av fistula s/p transposition management as per nephrology DVT ppx scds, monitor H/H FULL CODE DISPOSITION monitor in tele pt/ot social service for d/c planning Vital Signs: Date Time Temp Pulse Resp B/P Pulse Ox O2 Delivery O2 Flow Rate FiO2 06/27/16 09:30 Nasal Cannula 3.0 Humidified Oxygen 06/27/16 00:51 Humidified Oxygen 3.0
--- NOTE | 2016-06-27 19:50 | Discharge Summary ---
Discharge Summary Admission Date: Jun 10, 2016 at 16:40 Discharge Disposition: Home () Principal Diagnosis: ACUTE RIGHT SYSTOLIC HEART FAILURE ACUTE RENAL FAILURE ON CKD STAGE 4 ESRD SEVERE PULMONARY HTN Secondary Diagnoses/Problems: (1) Anemia Status: Chronic (2) Atrial fibrillation Status: Chronic (3) Breast cancer Status: Resolved (4) Chronic diastolic CHF (congestive heart failure) Status: Chronic (5) Chronic renal disease, stage IV Status: Chronic (6) COPD (chronic obstructive pulmonary disease) Permanent Comment: severe Status: Chronic (7) Cor pulmonale, chronic Status: Chronic (8) DM2 (diabetes mellitus, type 2) Permanent Comment: diet-controlled Status: Chronic (9) HTN (hypertension) Status: Chronic (10) Obesity Status: Chronic (11) Pulmonary hypertension Status: Chronic (12) Renal calculi Status: Resolved Procedures: LOWER EXTREMITY VENOUS DOPPLER CHEST US PELVIC US S/P TUNNEL CATHETER Consultations: Palliative Care, GI, NEPHROLOGY, VASCULAR SURGERY Admission Information HPI (per Admitting provider): This is an 81 year old female with PMH of severe COPD and chronic respiratory failure requiring O2 continuously, severe pulmonary HTN and resultant right heart failure, CKD stage IV-V, recent AV-fistula placement awaiting maturation, hx. of paroxysmal atrial fibrillation, not on anticoagulation, anemia due to CKD presents with worsening lower extremity edema. This has been a persistent issue due to right heart failure - spoke with nephrology, Dr. Elizabeth, who patient has been seeing recently. Recent adjustment of bumex and metolazone dose as an outpatient; patient and family still notice a 3kg increase in weight. +4 pitting edema persists in the lower extremities and abdomen. Patient states there is no shortness of breath, and her breathing status is at baseline. Family concerned because they thought she was also more lethargic than usual. She answered all questions appropriately for me. Physical Exam (per Admitting): General Appearance: no apparent distress Head: normocephalic, atraumatic Respiratory/Chest: no respiratory distress, no accessory muscle use, + decreased breath sounds Cardiovascular: regular rate, rhythm, no murmur Abdomen/GI: soft, + pertinent finding (swelling in the abdomen) Extremities/Musculoskelatal: + pedal edema, + swelling (+3-4 pitting edema b /l LE), + pertinent finding (non-tender, non-painful) Neurologic/Psych: semiconductor processor II-XII nml as tested, no motor/sensory deficits, alert , oriented x 3 Skin: normal color Lymphatic: no adenopathy Physical Exam (per Admitting): General Appearance: no apparent distress Head: normocephalic, atraumatic Respiratory/Chest: no respiratory distress, no accessory muscle use, + decreased breath sounds Cardiovascular: regular rate, rhythm, no murmur Abdomen/GI: soft, + pertinent finding (swelling in the abdomen) Extremities/Musculoskelatal: + pedal edema, + swelling (+3-4 pitting edema b/l LE), + pertinent finding (non-tender, non-painful) Neurologic/Psych: semiconductor processor II-XII nml as tested, no motor/sensory deficits, alert, oriented x 3 Skin: normal color Lymphatic: no adenopathy Hospital Course This is an 81 year old female with PMH of severe COPD and chronic respiratory failure requiring O2 continuously, severe pulmonary HTN and resultant right heart failure, CKD stage IV-V, recent AV-fistula placement awaiting maturation, hx. of paroxysmal atrial fibrillation, not on anticoagulation secondary to GI bleed, anemia due to CKD presents with worsening lower extremity edema. Initially treated with iv Bumex then was placed on Bumex drip.HAd pleural effusion and s/p left thoracocentesis by pulmonary. Later perm Cath was placed and dialysis started.After first dialysis patient was nauseous and had an episode of bloody vomitus.Was started on PPOI drip and GI was consulted. But no more episode of bleeding and hb stable. Hemoccult negative.Has left brachiocephalic AV fistula placed in April 2016 and s/p. currently on iv bumex aalso. Plan for optimization of volume status and snf or rehab placement. Patient is DNR currently.As patient continued to be weak and lethargic and hypotensive. Not palpable pulse in lower extremity family decided for comfort care. No plan for further dialysis Thanks for palliative care help. Patient pronounced Jun 27 2016 at 1335 Hospital course so far: Severe Pulmonary HTN Right Heart Failure with acute systolic Right heart failure Patient presents with worsening edema in the LE and abdomen Recently medications changed to , Bumex 3mg BID and metolazone 5mg was started on IV Bumex 3mg BID cardiology and nephrology on board and appreciate inputs required dobutamine drip in the past not responding much to diuretics as patient on Bumex and metazolne at home Nephrology started on Bumex drip and if no improvement plan for dialysis seems to responding to Bumex drip but s/p perma cath and initiation of dialysis volume management per dialysis as per nephrology on iv bumex Gi Bleed 06/14/16 post dialysis had an episode of vomitus which contained some blood hb stable started on ppi drip notified GI and appreciate inputs f/u serial h and h serial h and h stable no mor episodes aspirin resumed Severe COPD Chronic Respiratory Failure stable will monitor Pleural effusion left side s/p thoracocentesis by pulmonary stable CKD stage IV nephrology on board vascular surgery consulted and appreciate inputs s/p av fistula but not mature yet and may take 2 more weeks to mature s/p Perma cath and initiation of dialysis 06/14/16 Av fistula s/p transposition management as per nephrology DVT ppx scds, monitor H/H FULL CODE DISPOSITION monitor in tele pt/ot social service for d/c planning Total time spent on discharge = 30MINUTES This includes examination of the patient, discharge planning, medication reconciliation, and communication with other providers. Discharge Instructions NO D/C INSTRUCTIONS PATIENT
== END 2016-06-27 15:10 | disposition expired | DRG 252 ==
LOC: ENRESERVDT → ENRESERVTM → C.EDB 14:01 → C.2E 16:40 → C.4E 06-26 18:14
PROVIDERS: ADMIT Family Medicine; ATTEND Internal Medicine
PROC: 0W9B3ZZ Drainage of Left Pleural Cavity, Percutaneous Approach (ICD-10-PCS; principal; 2016-06-12)
PROC: 0W993ZZ Drainage of Right Pleural Cavity, Percutaneous Approach (ICD-10-PCS; 2016-06-13)
PROC: 02HV33Z Insertion of Infusion Device into Superior Vena Cava, Percutaneous Approach (ICD-10-PCS; 2016-06-14)
PROC: 0JH60XZ Insertion of Tunneled Vascular Access Device into Chest Subcutaneous Tissue and Fascia, Open Approach (ICD-10-PCS; 2016-06-14)
PROC: 05SC0ZZ Reposition Left Basilic Vein, Open Approach (ICD-10-PCS; 2016-06-18)
PROC: 5A09357 Assistance with Respiratory Ventilation, Less than 24 Consecutive Hours, Continuous Positive Airway Pressure (ICD-10-PCS; 2016-06-23)
DX: I50.43 Acute on chronic combined systolic (congestive) and diastolic (congestive) heart failure (principal); K22.6 Gastro-esophageal laceration-hemorrhage syndrome; N18.6 End stage renal disease; N17.9 Acute kidney failure, unspecified; Z68.41 Body mass index [BMI] 40.0-44.9, adult; I13.2 Hypertensive heart and chronic kidney disease with heart failure and with stage 5 chronic kidney disease, or end stage renal disease; J90 Pleural effusion, not elsewhere classified; K92.0 Hematemesis; E27.40 Unspecified adrenocortical insufficiency; J96.11 Chronic respiratory failure with hypoxia; I42.9 Cardiomyopathy, unspecified; E11.22 Type 2 diabetes mellitus with diabetic chronic kidney disease; Z99.2 Dependence on renal dialysis; Z99.81 Dependence on supplemental oxygen; I48.0 Paroxysmal atrial fibrillation; I27.2 Other secondary pulmonary hypertension; D63.1 Anemia in chronic kidney disease; Z85.3 Personal history of malignant neoplasm of breast; Z87.442 Personal history of urinary calculi; Z96.642 Presence of left artificial hip joint; Z90.79 Acquired absence of other genital organ(s); Z87.891 Personal history of nicotine dependence; Z83.3 Family history of diabetes mellitus; Z82.49 Family history of ischemic heart disease and other diseases of the circulatory system; Z82.3 Family history of stroke; Z79.82 Long term (current) use of aspirin; Z79.899 Other long term (current) drug therapy; E03.9 Hypothyroidism, unspecified; M19.90 Unspecified osteoarthritis, unspecified site; Z90.10 Acquired absence of unspecified breast and nipple; Z90.710 Acquired absence of both cervix and uterus; R04.0 Epistaxis; E86.1 Hypovolemia; E66.01 Morbid (severe) obesity due to excess calories; Z87.19 Personal history of other diseases of the digestive system; Z51.5 Encounter for palliative care; I95.89 Other hypotension; Z66 Do not resuscitate; J44.9 Chronic obstructive pulmonary disease, unspecified; I25.10 Atherosclerotic heart disease of native coronary artery without angina pectoris; I08.1 Rheumatic disorders of both mitral and tricuspid valves; E87.5 Hyperkalemia; M10.9 Gout, unspecified